=== PATIENT | male | born 1960 | race African-American/Black ===

== ENCOUNTER 2017-06-24 10:01 | Emergency (ER) | payer MEDICARE, OTHER ==
[~2017-06-24] VITALS: Ht 172.7 cm; Wt 75.0 kg
[2017-06-24 10:04] VITALS: BP 163/107; PULSE 76; RESP 15; TEMP 98.2; O2SAT 98
--- NOTE | 2017-06-24 11:07 | PD ---
HPI . nifidipine refill Chief Complaint: Medication Refill Request Time Seen by Provider: 11:06 Travel History International Travel<30 days: No Contact w/Intl Traveler<30days: No Traveled to known affect area: No History of Present Illness HPI 56-year-old male here with request for nifedipine refill. He has no specific complaints today. He just needs a refill. PFSH Past Medical History Medical History: Denies Significant Hx Hypertension: Yes Social History Tobacco Use: No Review of Systems General / Constitutional: No: Fever Eyes: No: Visual changes HENT: No: Headaches Cardiovascular: No: Chest Pain or Discomfort Respiratory: No: Shortness of Breath Gastrointestinal: No: Abdominal Pain Genitourinary: No: Dysuria Musculoskeletal: No: Pain Skin: No Rash Neurologic: No: Weakness Psychiatric: No: Depression Endocrine: No: Polydipsia Hematologic/Lymphatic: No: Easy Bruising Physical Exam Narrative GENERAL: AAO x 3, no acute distress, Well-nourished, well-developed patient. SKIN: Warm and dry. No visible rashes or bruising. HEAD: Normocephalic and atraumatic. EYES: No scleral icterus. No injection or drainage. ENT: No nasal drainage noted. Mucous membranes pink. Airway patent. NECK: Supple, trachea midline. No JVD. CARDIOVASCULAR: Regular rate and rhythm without murmurs, gallops, or rubs. RESPIRATORY: Breath sounds equal bilaterally. No accessory muscle use. No rhonchi or rales. GASTROINTESTINAL: Visual inspection normal EXTREMITIES: No cyanosis or edema. BACK: No obvious deformity. NEURO: CN II-12 intact, PSYCH: AAO x 3, normal affect. Data Data Last Documented VS Vital Signs Date Time Temp Pulse Resp B/P (MAP) Pulse Ox O2 Delivery O2 Flow Rate FiO2 06/24/17 10:04 98.2 76 15 163/107 (125) 98 MDM Medical Decision Making Medical Screen Exam Complete: Yes Emergency Medical Condition: Yes Medical Record Reviewed: Yes Differential Diagnosis Medication refill, hypertension Narrative Course 56-year-old male here for medication refill. I provided him with one month supply and told him that he needs to follow-up with his primary care provider. Patient verbalized understanding of instructions, questions were answered, and thanked me for their care. I advised them if their condition worsens, please return to the nearest emergency room for further care. Diagnosis Primary Impression: Medication refill Patient Instructions: General Instructions Additional Instructions: Follow-up with your primary care provider for further refills. Med/Other Pt SpecificInfo: Prescription(s) given Scripts Nifedipine ER 24 HR (Nifedipine ER 24 HR) 60 Mg Tab 60 MG PO DAILY, #30 TAB 0 Refills Prov: Rosalina Marques MD 06/24/17 Disposition: 01 DISCHARGE HOME Condition: Stable Mikki Jackson Jun 24, 2017 11:07
[2017-06-24] MEDS ORDERED: NIFE60TA58 PO (11:09)
== END 2017-06-24 11:44 | disposition home or self-care (01) ==
LOC: NEPK 10:01
DX: Z76.0 Encounter for issue of repeat prescription (principal); I10 Essential (primary) hypertension
CPT/HCPCS: 99281

== ENCOUNTER 2017-09-22 11:30 | Emergency (ER) | payer MEDICARE ==
[~2017-09-22] VITALS: Ht 172.7 cm; Wt 72.7 kg
[~2017-09-22 11:30] MED LIST: NIFE60TA58 PO
[2017-09-22 11:31] VITALS: BP 234/145; PULSE 99; RESP 20; TEMP 98.4; O2SAT 98
[2017-09-22] MEDS ORDERED: SODIUM CHLOR 0.9% 1000 ML INJ 1,000 ML IV SCH (11:46)
--- NOTE | 2017-09-22 11:47 | PD ---
HPI Chief Complaint: Complaint Time Seen by Provider: 11:38 Travel History International Travel<30 days: No Contact w/Intl Traveler<30days: No Traveled to known affect area: No History of Present Illness HPI 57-year-old male presents to emergency department complaining of right-sided back pain and dysuria 2 days. History of kidney stones. Denies hematuria. Denies fevers, abdominal pain. Reports vomiting one time yesterday. Denies penile discharge, pain. Denies testicular pain or swelling. Denies chest pain , shortness of breath, headache. Rates pain 8/10 and describes a stabbing. Worse with movement. No known relieving factors. Has tried taking Tylenol. History of hypertension and HIV. Has not taken his blood pressure medications this morning. No known allergies. HIV specialist and primary care provider are in [place]. Has no other medical complaints. No modifying factors or associated signs and symptoms. PFSH Past Medical History Hypertension: Yes Immune Disorder: Yes (HIV) Social History Alcohol Use: No Tobacco Use: Yes Substance Use: No Allergies-Medications (Allergen,Severity, Reaction): Coded Allergies: No Known Allergies (Unverified Adverse Reaction, Unknown, 09/22/17) Reported Meds & Prescriptions Reported Meds & Active Scripts Active Keflex (Cephalexin) 500 Mg Cap 500 Mg PO Q12H 7 Days Nifedipine ER 24 HR (Nifedipine) 60 Mg Tab 60 Mg PO DAILY Review of Systems Except as stated in HPI: all other systems reviewed are Neg Physical Exam Narrative GENERAL: Well-nourished, well-developed black male patient, in no acute distress SKIN: Warm and dry. No rash. HEAD: Atraumatic. Normocephalic. EYES: Pupils equal and round. No scleral icterus. No injection or drainage. ENT: Mucosa pink and moist. NECK: Trachea midline. CARDIOVASCULAR: Regular rate and rhythm. No murmur appreciated. RESPIRATORY: No accessory muscle use. Clear to auscultation. Breath sounds equal bilaterally. GASTROINTESTINAL: Abdomen soft, non-tender, nondistended. Hepatic and splenic margins not palpable. Bowel sounds are active 4 quadrants. Bladder nontender and nondistended. MUSCULOSKELETAL: No obvious deformities. No clubbing. No cyanosis. No edema. BACK: Right CVA tenderness NEUROLOGICAL: Awake and alert. Oriented 3. No obvious cranial nerve deficits. Motor grossly within normal limits. Normal speech. Moves all extremities. 5/5 strength to all extremities. PSYCHIATRIC: Appropriate mood and affect; insight and judgment normal. Data Data Last Documented VS Vital Signs Date Time Temp Pulse Resp B/P (MAP) Pulse Ox O2 Delivery O2 Flow Rate FiO2 09/22/17 14:07 81 19 160/113 (129) 99 09/22/17 12:00 Room Air 09/22/17 11:31 98.4 Orders Orders Complete Blood Count With Diff (09/22/17 11:46) Comprehensive Metabolic Panel (09/22/17 11:46) Lipase (09/22/17 11:46) Prothrombin Time / Inr (Pt) (09/22/17 11:46) Act Partial Throm Time (Ptt) (09/22/17 11:46) Urinalysis - C+S If Indicated (09/22/17 11:46) Iv Access Insert/Monitor (09/22/17 11:46) Ecg Monitoring (09/22/17 11:46) Oximetry (09/22/17 11:46) Sodium Chlor 0.9% 1000 Ml Inj (Ns 1000 M (09/22/17 11:46) Sodium Chloride 0.9% Flush (Ns Flush) (09/22/17 12:00) Ketorolac Inj (Toradol Inj) (09/22/17 12:00) Ct Abd/Pel W/O Iv Contrast (09/22/17 11:47) Nifedipine Sr (Procardia Xl) (09/22/17 12:45) Morphine Inj (Morphine Inj) (09/22/17 12:45) Potassium Chloride (Kcl) (09/22/17 13:15) Potassium Chlor 20 Meq Premix (Kcl 20 Me (09/22/17 13:15) Urine Culture (09/22/17 14:20) Cephalexin (Keflex) (09/22/17 15:15) Potassium Chloride (Kcl) (09/22/17 15:15) Labs Laboratory Tests Test 09/22/17 12:05 09/22/17 14:20 White Blood Count 12.1 TH/MM3 Red Blood Count 5.26 MIL/MM3 Hemoglobin 14.4 GM/DL Hematocrit 43.1 % Mean Corpuscular Volume 82.0 FL Mean Corpuscular Hemoglobin 27.4 PG Mean Corpuscular Hemoglobin Concent 33.4 % Red Cell Distribution Width 16.6 % Platelet Count 127 TH/MM3 Mean Platelet Volume 8.8 FL Neutrophils (%) (Auto) 70.5 % Lymphocytes (%) (Auto) 14.9 % Monocytes (%) (Auto) 13.8 % Eosinophils (%) (Auto) 0.3 % Basophils (%) (Auto) 0.5 % Neutrophils # (Auto) 8.5 TH/MM3 Lymphocytes # (Auto) 1.8 TH/MM3 Monocytes # (Auto) 1.7 TH/MM3 Eosinophils # (Auto) 0.0 TH/MM3 Basophils # (Auto) 0.1 TH/MM3 CBC Comment DIFF FINAL Differential Comment Prothrombin Time 12.1 SEC Prothromb Time International Ratio 1.1 RATIO Activated Partial Thromboplast Time 26.4 SEC Blood Urea Nitrogen 17 MG/DL Creatinine 2.08 MG/DL Random Glucose 105 MG/DL Total Protein 8.2 GM/DL Albumin 3.0 GM/DL Calcium Level 8.5 MG/DL Alkaline Phosphatase 93 U/L Aspartate Amino Transf (AST/SGOT) 42 U/L Alanine Aminotransferase (ALT/SGPT) 39 U/L Total Bilirubin 1.3 MG/DL Sodium Level 132 MEQ/L Potassium Level 2.6 MEQ/L Chloride Level 98 MEQ/L Carbon Dioxide Level 27.3 MEQ/L Anion Gap 7 MEQ/L Estimat Glomerular Filtration Rate 40 ML/MIN Lipase 335 U/L Urine Color YELLOW Urine Turbidity HAZY Urine pH 6.0 Urine Specific [place] 1.009 Urine Protein 100 mg/dL Urine Glucose (UA) NEG mg/dL Urine Ketones NEG mg/dL Urine Occult Blood LARGE Urine Nitrite NEG Urine Bilirubin NEG Urine Urobilinogen LESS THAN 2.0 MG/DL Urine Leukocyte Esterase LARGE Urine RBC 158 /hpf Urine WBC /hpf Urine Squamous Epithelial Cells <1 /hpf Urine Transitional Epithelial Cells 1 /hpf Urine Amorphous Sediment RARE Urine Bacteria RARE /hpf Urine Mucus FEW /lpf Microscopic Urinalysis Comment CULTURE INDICATED MDM Medical Decision Making Medical Screen Exam Complete: Yes Emergency Medical Condition: Yes Medical Record Reviewed: Yes Differential Diagnosis Cholelithiasis, pyelonephritis, UTI Narrative Course 57-year-old male with history of kidney stones with right-sided CVA tenderness on exam. Patient's blood pressure is elevated to 234/145 in the ER. He has not taken his blood pressure medications this morning. Will monitor blood pressure. IV site established. CBC, CMP, lipase, urinalysis, normal saline bolus, Toradol, CT abdomen/pelvis ordered. 1301: Potassium 2.6. KCL 30meq PO and 20meq ordered. 1354: CT abdomen/pelvis concludes: CT findings discussed with the patient. Abdomen/Pelvis CT 09/22/17 1147 Signed Impressions: Service Date/Time: Friday, September 22, 2017 13:00 - CONCLUSION: Question wall thickening in the left wall and anterior aspect of the bladder. No evidence of renal stone or obstruction. Calcified gallstones Alonzo Cabral MD 1511: Urinalysis with signs of infections. Reflexed to urine culture. First dose of Keflex administered in the ER. 1515: Patient refusing continued IV KCl secondary to burning. Dr. Lopez recommended another 30meq of oral potassium. Keflex prescribed for home. Instructed patient to follow up with primary care provider. Instructed patient to follow up with primary care provider. Patient verbalizes understanding and agreement with treatment plan. Patient is medically cleared and stable for discharge. Discussed reasons to return to the emergency department. Patient agrees with treatment plan. The patients vital signs are stable and the patient is stable for outpatient follow-up and treatment. Patient discharged home, stable and in no acute distress. Diagnosis Primary Impression: UTI (urinary tract infection) Qualified Codes: N39.0 - Urinary tract infection, site not specified; R31.9 - Hematuria, unspecified Additional Impression: Hypokalemia Referrals: Primary Care Physician Patient Instructions: General Instructions, Hypokalemia (ED), Urinary Tract Infection in Men (ED) Additional Instructions: Take antibiotics as prescribed and complete full course Ibuprofen or Tylenol as directed and as needed for pain Drink plenty of fluids Maintain good personal hygiene Follow-up with primary care provider in regards to low potassium level and potassium recheck Return to the emergency department immediately with worsening of symptoms Med/Other Pt SpecificInfo: Prescription(s) given Scripts Cephalexin (Keflex) 500 Mg Cap 500 MG PO Q12H for Infection for 7 Days, #14 CAP 0 Refills Prov: Stacie Keyes 09/22/17 Disposition: DISCHARGE HOME Condition: Stable Stacie Keyes Sep 22, 2017 11:47
[2017-09-22 12:00] VITALS: BP 200/138; PULSE 93; RESP 18; O2SAT 97
[2017-09-22] MEDS ORDERED: SODIUM CHLORIDE 0.9% FLUSH 10 ML FLUSH IV FLUSH PRN (12:00)
[2017-09-22] MEDS ORDERED: KETOROLAC TROMETHAMINE 30 MG/ML (IVP) VIAL IVP ONE (12:00)
[2017-09-22 12:23] LABS: AUTOMATED NEUTROPHIL # 8.5 TH/MM3 (1.8-7.7); BASOPHIL # 0.1 TH/MM3 (0-0.2); BASOPHIL % 0.5 % (0.0-2.0); EOSINOPHIL % 0.3 % (0.0-4.0); HEMATOCRIT 43.1 % (39.0-51.0); HEMO FLAGS DIFF FINAL; LYMPH % 14.9 % (9.0-44.0); LYMPHOCYTE # 1.8 TH/MM3 (1.0-4.8); MEAN CORPUSCULAR HEMOGLOBIN 27.4 PG (27.0-34.0); MEAN CORPUSCULAR HGB CONC 33.4 % (32.0-36.0); MONO % 13.8 % (0.0-8.0); NEUT % 70.5 % (16.0-70.0); PLATELET COUNT 127 TH/MM3 (150-450); RED BLOOD COUNT 5.26 MIL/MM3 (4.50-5.90); RED CELL DISTRIBUTION WIDTH 16.6 % (11.6-17.2); WHITE BLOOD COUNT 12.1 TH/MM3 (4.0-11.0)
[2017-09-22 12:31] LABS: APTT (PATIENT) 26.4 SEC (24.3-30.1); INTERNATIONAL NORMALIZED RATIO 1.1 RATIO; PROTHROMBIN TIME - PATIENT 12.1 SEC (9.8-11.6)
[2017-09-22] MEDS ORDERED: NIFEdipine 60 MG SUSTAINED RELEASE TAB PO ONE (12:45)
[2017-09-22] MEDS ORDERED: MORPHINE SULFATE 2 MG/ML INJ IV PUSH ONE (12:45)
[2017-09-22 12:53] LABS: ALKALINE PHOSPHATASE 93 U/L (45-117); ALT (GPT) 39 U/L (12-78); ANION GAP 7 MEQ/L (5-15); AST (GOT) 42 U/L (15-37); BICARBONATE 27.3 MEQ/L (21.0-32.0); BLOOD UREA NITROGEN 17 MG/DL (7-18); CHLORIDE 98 MEQ/L (98-107); GLOMERULAR FILTRATION RATE 40 ML/MIN (>89); SODIUM (NA) 132 MEQ/L (136-145); TOTAL BILIRUBIN ADULT 1.3 MG/DL (0.2-1.0)
[2017-09-22 12:56] LABS: POTASSIUM 2.6 MEQ/L (3.5-5.1)
[2017-09-22] MEDS ORDERED: POTASSIUM CHLOR 20 MEQ PREMIX 100 ML IV ONE (13:15)
[2017-09-22] MEDS ORDERED: POTASSIUM CHLORIDE 10 MEQ CONTROLLED RELEASE TAB PO ONE ×2 (13:15→15:15)
--- NOTE | 2017-09-22 13:43 | RADRPT ---
EXAM DATE/TIME: 09/22/2017 13:00 [facility] COMPARISON: No previous studies available for comparison. INDICATIONS : Right flank pain. ORAL CONTRAST: No oral contrast ingested. RADIATION DOSE: 13.42 CTDIvol (mGy) MEDICAL HISTORY : Renal calculi. HIV. Hypertension. SURGICAL HISTORY : None. ENCOUNTER: Initial ACUITY: 1 day PAIN SCALE: 7/10 LOCATION: Right flank TECHNIQUE: Volumetric scanning of the abdomen and pelvis was performed. Using automated exposure control and ad justment of the mA and/or kV according to patient size, radiation dose was kept as low as reasonably achievable to obtain optimal diagnostic quality images. DICOM format image data is available electro nically for review and comparison. FINDINGS: LOWER LUNGS: The visualized lower lungs are clear. LIVER: Homogeneous density without lesion. There is no dilation of the biliary tree. Numerous calcified ga llstones. SPLEEN: Normal size without lesion. PANCREAS: Within normal limits. KIDNEYS: Normal in size and shape. There is no mass, stone, or hydronephrosis. ADRENAL GLANDS: Within normal limits. VASCULAR: There is no aortic aneurysm. BOWEL/MESENTERY: The stomach, small bowel, and colon demonstrate no acute abnormality. There is no free intraperitone al air or fluid. ABDOMINAL WALL: Within normal limits. RETROPERITONEUM: There is no lymphadenopathy. BLADDER: Question wall thickening left side of the bladder. REPRODUCTIVE: Within normal limits. INGUINAL: There is no lymphadenopathy or hernia. MUSCULOSKELETAL: Within normal limits for patient age. CONCLUSION: Question wall thickening in the left wall and anterior aspect of the bladder. No evidence of renal st one or obstruction. Calcified gallstones Alonzo Cabral MD on September 22, 2017 at 13:39 Board Certified Radiologist. This report was verified electronically.
[2017-09-22 14:07] VITALS: BP 160/113; PULSE 81; RESP 19; O2SAT 99
[2017-09-22 14:44] LABS: BACTERIA, URINE RARE /hpf; BLOOD, URINE LARGE (NEG); COMMENT (UR) CULTURE INDICATED; CULTURE IF INDICATED CULTURE INDICATED; GLUCOSE,URINE NEG (NEG); KETONE, URINE NEG (NEG); MUCUS URINE FEW /lpf (OCC); NITRITE,URINE NEG (NEG); SQUAMOUS EPITHELIAL CELL URINE <1 /hpf (0-5); TRANSITIONAL EPI CELLS, URINE 1 /hpf; URINE COLOR YELLOW (YELLW/STRAW)
[2017-09-22] MEDS ORDERED: CEPH-460 PO (15:12)
[2017-09-22] MEDS ORDERED: CEPHALEXIN MONOHYDRATE 500 MG CAP PO ONE (15:15)
== END 2017-09-22 16:00 | disposition home or self-care (01) ==
LOC: NEPD 11:30
DX: N39.0 Urinary tract infection, site not specified (principal); B96.89 Other specified bacterial agents as the cause of diseases classified elsewhere; R31.9 Hematuria, unspecified; E87.6 Hypokalemia; I10 Essential (primary) hypertension; B20 Human immunodeficiency virus [HIV] disease; Z72.0 Tobacco use; Z87.442 Personal history of urinary calculi
CPT/HCPCS: 74176; 80053; 81001; 83690; 85025; 85610; 85730; 87086; 96361; 96374; 96375; 99285; J1885; J2270; J3480; J7030

== ENCOUNTER 2017-10-03 20:35 | Emergency (ER) | payer MEDICARE, OTHER ==
[~2017-10-03] VITALS: Ht 172.7 cm; Wt 75.0 kg
[~2017-10-03 20:35] MED LIST changes: +CEPH-460 PO
[2017-10-03 21:03] VITALS: BP 165/71; PULSE 86; RESP 14; TEMP 98.2; O2SAT 99
[2017-10-03] MEDS ORDERED: ORPHENADRINE INJ 60 MG/2 ML AMP IM ONE (21:15)
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
[2017-10-03 22:04] LABS: AUTOMATED NEUTROPHIL # 6.1 TH/MM3 (1.8-7.7); BASOPHIL # 0.1 TH/MM3 (0-0.2); BASOPHIL % 0.7 % (0.0-2.0); EOSINOPHIL # 0.2 TH/MM3 (0-0.4); EOSINOPHIL % 1.7 % (0.0-4.0); HEMATOCRIT 35.9 % (39.0-51.0); HEMO FLAGS DIFF FINAL; LYMPH % 21.1 % (9.0-44.0); MEAN CELL VOLUME 80.9 FL (80.0-100.0); MEAN CORPUSCULAR HEMOGLOBIN 27.6 PG (27.0-34.0); MEAN CORPUSCULAR HGB CONC 34.1 % (32.0-36.0); MONO % 11.7 % (0.0-8.0); NEUT % 64.8 % (16.0-70.0); PLATELET COUNT 245 TH/MM3 (150-450); RED BLOOD COUNT 4.44 MIL/MM3 (4.50-5.90); RED CELL DISTRIBUTION WIDTH 16.6 % (11.6-17.2); WHITE BLOOD COUNT 9.4 TH/MM3 (4.0-11.0)
[2017-10-03] MEDS ORDERED: ACETAMINOPHEN 1000 MG/100 ML 100 ML IV ONE (22:15)
[2017-10-03 22:26] LABS: POTASSIUM 2.6 MEQ/L (3.5-5.1)
[2017-10-03] MEDS ORDERED: POTASSIUM CHLOR 20 MEQ PREMIX 100 ML IV ONE (22:30)
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
[2017-10-03] MEDS ORDERED: POTA1TAB4 PO (22:58)
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
[2017-10-04] MEDS ORDERED: POTASSIUM CHLORIDE 25 MEQ EFFERVESCENT TAB PO ONE (00:45)
[2017-10-04 03:25] VITALS: BP 180/91
== END 2017-10-04 03:40 | disposition home or self-care (01) ==
LOC: NEPE 20:35
DX: S62.112A Displaced fracture of triquetrum [cuneiform] bone, left wrist, initial encounter for closed fracture (principal); M19.072 Primary osteoarthritis, left ankle and foot; K80.20 Calculus of gallbladder without cholecystitis without obstruction; K40.90 Unilateral inguinal hernia, without obstruction or gangrene, not specified as recurrent; M54.5 Low back pain; I10 Essential (primary) hypertension; V13.4XXA Pedal cycle driver injured in collision with car, pick-up truck or van in traffic accident, initial encounter; Z21 Asymptomatic human immunodeficiency virus [HIV] infection status; Z72.0 Tobacco use
CPT/HCPCS: 29125; 72100; 73100; 73610; 74176; 80048; 85025; 96365; 96366; 96375; 99285; J0131; J2360; J3480

== ENCOUNTER 2017-10-28 02:53 | Inpatient (IN) | payer MEDICARE, MEDICAID ==
[~2017-10-28] VITALS: Ht 175.3 cm; Wt 76.0 kg
[2017-10-28] VITALS (25 sets, daily range): BP systolic 145–203; BP diastolic 96–137; PULSE 83–101; RESP 18–30; TEMP 97.8–98.3; O2SAT 96–100
[~2017-10-28 02:53] MED LIST changes: -CEPH-460 PO; +POTA1TAB4 PO
[2017-10-28] MEDS ORDERED: AMLO5 PO (02:58)
[2017-10-28] MEDS ORDERED: SODIUM CHLORIDE 0.9% FLUSH 10 ML FLUSH IVF PRN (03:00)
[2017-10-28] MEDS ORDERED: NITROGLYCERIN 2% OINT 1 GM PACKET TOPICAL ONE (03:00)
[2017-10-28] MEDS ORDERED: NITROGLYCERIN 0.4 MG SL 25 TABS/BTL SL ONE (03:00)
[2017-10-28] MEDS ORDERED: FUROSEMIDE 40 MG/4 ML VIAL IVP ONE (03:00)
[2017-10-28 03:27] LABS: AUTOMATED NEUTROPHIL # 4.5 TH/MM3 (1.8-7.7); BASOPHIL # 0.1 TH/MM3 (0-0.2); EOSINOPHIL # 0.2 TH/MM3 (0-0.4); EOSINOPHIL % 2.4 % (0.0-4.0); HEMATOCRIT 37.7 % (39.0-51.0); HEMOGLOBIN 12.5 GM/DL (13.0-17.0); LYMPH % 35.4 % (9.0-44.0); LYMPHOCYTE # 3.1 TH/MM3 (1.0-4.8); MEAN CELL VOLUME 81.1 FL (80.0-100.0); MEAN CORPUSCULAR HEMOGLOBIN 26.9 PG (27.0-34.0); MEAN CORPUSCULAR HGB CONC 33.2 % (32.0-36.0); MEAN PLATELET VOLUME 8.8 FL (7.0-11.0); MONO % 9.7 % (0.0-8.0); MONOCYTE # 0.9 TH/MM3 (0-0.9); NEUT % 51.5 % (16.0-70.0); PLATELET COUNT 204 TH/MM3 (150-450); RED BLOOD COUNT 4.65 MIL/MM3 (4.50-5.90); RED CELL DISTRIBUTION WIDTH 17.5 % (11.6-17.2); WHITE BLOOD COUNT 8.7 TH/MM3 (4.0-11.0)
--- NOTE | 2017-10-28 03:29 | PD ---
HPI Chief Complaint: Respiratory Symptoms Time Seen by Provider: 02:57 Travel History International Travel<30 days: No Contact w/Intl Traveler<30days: No Traveled to known affect area: No History of Present Illness HPI 57-year-old man, only medical history is hypertension, presents with shortness of breath. States she's felt completely fine until this evening went to bed. He woke up in the middle the night with severe shortness of breath. He's not had similar symptoms in the past. He describes a little bit worsening exercise tolerance and slight dyspnea on exertion over the past week or 2, but no significant shortness of breath. No chest pain. No headaches. He otherwise had been feeling generally well and healthy. He has not been sick recently. Patient was brought in by EMS. He is given breathing treatments and steroids in route. History Past Medical History Narrative Medical Hypertension Tetanus Vaccination: Never Vaccinated Influenza Vaccination: No Social History Alcohol Use: No Tobacco Use: Yes Allergies-Medications (Allergen,Severity, Reaction): Coded Allergies: No Known Allergies (Verified Adverse Reaction, Unknown, 10/28/17) Reported Meds & Prescriptions Reported Meds & Active Scripts Active Reported Norvasc (Amlodipine Besylate) 5 Mg Tab 5 Mg PO DAILY Review of Systems Except as stated in HPI: all other systems reviewed are Neg Physical Exam Narrative GENERAL: 57 year-old man, moderate respiratory distress. SKIN: Focused skin assessment warm/dry. HEAD: Atraumatic. Normocephalic. EYES: Pupils equal and round. No scleral icterus. No injection or drainage. ENT: No nasal bleeding or discharge. Mucous membranes pink and moist. NECK: Trachea midline. No JVD. CARDIOVASCULAR: Regular rate and rhythm. No murmur appreciated. RESPIRATORY: Moderate respiratory distress. Speaking in short sentences. Coarse breath sounds, diminished on the right, Rales throughout the posterior lung lema. GASTROINTESTINAL: Abdomen soft, non-tender, nondistended. Hepatic and splenic margins not palpable. MUSCULOSKELETAL: No obvious deformities. No significant edema. NEUROLOGICAL: Awake and alert. No obvious cranial nerve deficits. Motor grossly within normal limits. Normal speech. PSYCHIATRIC: Appropriate mood and affect; insight and judgment normal. Data Data Last Documented VS Vital Signs Date Time Temp Pulse Resp B/P (MAP) Pulse Ox O2 Delivery O2 Flow Rate FiO2 10/28/17 03:57 87 185/122 10/28/17 03:18 24 98 Nasal Cannula 2.00 Orders Orders Complete Blood Count With Diff (10/28/17 02:57) Comprehensive Metabolic Panel (10/28/17 02:57) B-Type Natriuretic Peptide (10/28/17 02:57) Act Partial Throm Time (Ptt) (10/28/17 02:57) Prothrombin Time / Inr (Pt) (10/28/17 02:57) Magnesium (Mg) (10/28/17 02:57) Troponin I (10/28/17 02:57) Urinalysis - C+S If Indicated (10/28/17 02:57) Influenzae A/B Antigen (10/28/17 02:57) Iv Access Insert/Monitor (10/28/17 02:57) Electrocardiogram (10/28/17 02:57) Ecg Monitoring (10/28/17 02:57) Oximetry (10/28/17 02:57) Oxygen Administration (10/28/17 02:57) Chest, Single Ap (10/28/17 02:57) Sodium Chloride 0.9% Flush (Ns Flush) (10/28/17 03:00) Furosemide Inj (Lasix Inj) (10/28/17 03:00) Nitroglycerin 2% Oint (Nitroglycerin 2% (10/28/17 03:00) Nitroglycerin Sl (Nitrostat Sl) (10/28/17 03:00) Drug Screen, Random Urine (10/28/17 02:57) Nitroglycerin-D5w 50 Mg/250 Ml (Nitrogly (10/28/17 03:30) Potassium Chlor 20 Meq Premix (Kcl 20 Me (10/28/17 04:00) Labs Laboratory Tests Test 10/28/17 03:00 10/28/17 03:30 White Blood Count 8.7 TH/MM3 Red Blood Count 4.65 MIL/MM3 Hemoglobin 12.5 GM/DL Hematocrit 37.7 % Mean Corpuscular Volume 81.1 FL Mean Corpuscular Hemoglobin 26.9 PG Mean Corpuscular Hemoglobin Concent 33.2 % Red Cell Distribution Width 17.5 % Platelet Count 204 TH/MM3 Mean Platelet Volume 8.8 FL Neutrophils (%) (Auto) 51.5 % Lymphocytes (%) (Auto) 35.4 % Monocytes (%) (Auto) 9.7 % Eosinophils (%) (Auto) 2.4 % Basophils (%) (Auto) 1.0 % Neutrophils # (Auto) 4.5 TH/MM3 Lymphocytes # (Auto) 3.1 TH/MM3 Monocytes # (Auto) 0.9 TH/MM3 Eosinophils # (Auto) 0.2 TH/MM3 Basophils # (Auto) 0.1 TH/MM3 CBC Comment DIFF FINAL Differential Comment Prothrombin Time 11.4 SEC Prothromb Time International Ratio 1.1 RATIO Activated Partial Thromboplast Time 25.2 SEC Blood Urea Nitrogen 20 MG/DL Creatinine 1.95 MG/DL Random Glucose 116 MG/DL Total Protein 8.1 GM/DL Albumin 2.9 GM/DL Calcium Level 8.3 MG/DL Magnesium Level 2.3 MG/DL Alkaline Phosphatase 97 U/L Aspartate Amino Transf (AST/SGOT) 35 U/L Alanine Aminotransferase (ALT/SGPT) 29 U/L Total Bilirubin 0.5 MG/DL Sodium Level 141 MEQ/L Potassium Level 2.8 MEQ/L Chloride Level 104 MEQ/L Carbon Dioxide Level 31.0 MEQ/L Anion Gap 6 MEQ/L Estimat Glomerular Filtration Rate 43 ML/MIN Troponin I 0.11 NG/ML B-Type Natriuretic Peptide 267 PG/ML Urine Color LIGHT-YELLOW Urine Turbidity CLEAR Urine pH 7.0 Urine Specific Butner 1.006 Urine Protein 100 mg/dL Urine Glucose (UA) NEG mg/dL Urine Ketones NEG mg/dL Urine Occult Blood TRACE Urine Nitrite NEG Urine Bilirubin NEG Urine Urobilinogen LESS THAN 2.0 MG/DL Urine Leukocyte Esterase NEG Urine RBC 1 /hpf Urine WBC 5 /hpf Urine Mucus FEW /lpf Microscopic Urinalysis Comment CULT NOT INDICATED Urine Opiates Screen NEG Urine Barbiturates Screen NEG Urine Amphetamines Screen NEG Urine Benzodiazepines Screen NEG Urine Cocaine Screen NEG Urine Cannabinoids Screen NEG MDM Medical Decision Making Medical Screen Exam Complete: Yes Emergency Medical Condition: Yes Interpretation(s) My review of EKG: Sinus rhythm at a rate of 92, occasional PVCs, normal axis, borderline short PA interval probable LVH by voltage criteria. No definite evidence of acute ischemia. UA is remarkable for mild anemia. CMP remarkable for low potassium, mildly elevated BUN/creatinine Troponin 0.11 BNP 267 Coags unremarkable. UA is unremarkable My review of chest x-ray: Probable pulmonary edema. Differential Diagnosis Flash pulmonary edema, heart failure, pneumonia, pneumothorax, viral syndrome, adverse effect of illicit drugs, other Narrative Course Medical decision making INITIAL: 57-year-old man presents emergency department complaining of abrupt onset severe shortness of breath. All medical history is hypertension. No history of lung disease. Blood pressure is markedly elevated he has evidence of pulmonary edema on exam. Suspect diastolic heart failure/pulmonary edema, or possibly illicit drug use. Patient denies any illicit drug use. We'll check labs, x-ray, treated with nitrates, Lasix, reassess. Physician Communication Physician Communication Spoke with Dr. Mercado, will admit patient. Diagnosis Primary Impression: Acute pulmonary edema Admitting Information Admitting Physician Requests: Admit Alonzo Ha MD Oct 28, 2017 03:29
[2017-10-28 03:34] LABS: INTERNATIONAL NORMALIZED RATIO 1.1 RATIO; PROTHROMBIN TIME - PATIENT 11.4 SEC (9.8-11.6)
--- NOTE | 2017-10-28 03:38 | RADRPT ---
EXAM DATE/TIME: 10/28/2017 03:06 [facility] COMPARISON: No previous studies available for comparison. INDICATIONS : Short of breath. MEDICAL HISTORY : Hypertension. HIV. SURGICAL HISTORY : None. ENCOUNTER: Initial ACUITY: 2 days PAIN SCORE: 0/10 LOCATION: Bilateral chest FINDINGS: There is mild haziness to the vascular structures with focal parenchymal infiltrate right lung base m ay represent pulmonary edema versus pneumonia. Heart and mediastinum are unremarkable for technique. CONCLUSION: Parenchymal changes possibly edema versus pneumonia. Alexandria Colmenares MD on October 28, 2017 at 3:36 Board Certified Radiologist. This report was verified electronically.
[2017-10-28] MEDS: NITROGLYCERIN-D5W 50 MG/250 ML 250 ML IV PRN ×5 (03:39→20:19)
[2017-10-28 03:43] LABS: ALBUMIN 2.9 GM/DL (3.4-5.0); ALKALINE PHOSPHATASE 97 U/L (45-117); ALT (GPT) 29 U/L (12-78); AST (GOT) 35 U/L (15-37); BLOOD UREA NITROGEN 20 MG/DL (7-18); CALCIUM 8.3 MG/DL (8.5-10.1); CHLORIDE 104 MEQ/L (98-107); CREATININE 1.95 MG/DL (0.60-1.30); GLOMERULAR FILTRATION RATE 43 ML/MIN (>89); GLUCOSE,RANDOM 116 MG/DL (74-106); MAGNESIUM 2.3 MG/DL (1.5-2.5); SODIUM (NA) 141 MEQ/L (136-145); TOTAL BILIRUBIN ADULT 0.5 MG/DL (0.2-1.0); TOTAL PROTEIN 8.1 GM/DL (6.4-8.2); TROPONIN I 0.11 NG/ML (0.02-0.05)
[2017-10-28 03:48] LABS: BILIRUBIN, URINE NEG (NEG); BLOOD, URINE TRACE (NEG); GLUCOSE,URINE NEG (NEG); KETONE, URINE NEG (NEG); MUCUS URINE FEW /lpf (OCC); NITRITE,URINE NEG (NEG); URINE COLOR LIGHT-YELLOW (YELLW/STRAW); URINE LEUKOCYTE ESTERASE NEG (NEG)
[2017-10-28] MEDS ORDERED: POTASSIUM CHLORIDE 25 MEQ EFFERVESCENT TAB PO ONE (04:15)
[2017-10-28] MEDS ORDERED: SODIUM CHLORIDE 0.9% FLUSH 10 ML FLUSH IV FLUSH PRN (04:15)
[2017-10-28] MEDS ORDERED: POTASSIUM CHLOR 10 MEQ PREMIX 100 ML IV SCH (04:30)
[2017-10-28] MEDS: POTASSIUM CHLOR 20 MEQ PREMIX 100 ML IV SCH ×2 (04:32→06:00)
--- NOTE | 2017-10-28 04:50 | HHI.HP ---
[facility] Primary [facility] Physician No Primary Care Physician Admission Diagnosis acute pulmonary edema Diagnoses: Travel History International Travel<30 Days: No Contact w/Intl Traveler <30 Da: No Traveled to Known Affected Are: No History of Present Illness 57-year-old male with past medical history significant for hypertension since to the emergency department with a 2 day history of increasing shortness of breath. He states he woke up in the middle the night this evening with severe shortness of breath. He was tachycardic and tachypneic on arrival to the ED with a pulse of 101 and a respiratory rate of 30. Blood pressure 203/137. Satting 96% on 2 L nasal cannula. Chest x-ray significant for interstitial edema. Patient has no known history of COPD although he is a daily smoker. He denies any diagnosis of congestive heart failure however does not see a doctor. He obtains his antihypertensive medication from the emergency department although he cannot remember what it is. He denies fever/chills. Endorses a dry cough. Denies lower extremity edema. Laboratory values significant for hypokalemia, elevated troponin to 0.11, BNP of 267 and a creatinine of 1.95 which is baseline. Review of Systems Denies fever or chills Denies blurry vision, otorrhea, rhinorrhea Denies sore throat, positive dry cough No chest pain, palpitations, positive shortness of breath No abdominal pain Denies constipation/diarrhea/nausea/vomiting Denies muscle pain/weakness No rashes Past Family Social History Past Medical History Hypertension Past Surgical History Right arm surgery status post trauma Reported Medications Reported Meds & Active Scripts Active Reported Norvasc (Amlodipine Besylate) 5 Mg Tab 5 Mg PO DAILY Allergies: Coded Allergies: No Known Allergies (Verified Adverse Reaction, Unknown, 10/28/17) Family History Denies family history of CAD/DM Social History Smokes approximately one third pack of cigarettes daily. Denies alcohol, illicit drugs. Physical Exam Vital Signs Vital Signs Date Time Temp Pulse Resp B/P (MAP) Pulse Ox O2 Delivery O2 Flow Rate FiO2 10/28/17 04:35 88 18 163/114 (130) 96 Nasal Cannula 2.00 10/28/17 04:26 96 20 175/119 (137) 98 Nasal Cannula 2.00 10/28/17 03:57 87 185/122 10/28/17 03:49 86 178/113 10/28/17 03:39 89 189/118 10/28/17 03:18 90 24 189/121 (143) 98 Nasal Cannula 2.00 10/28/17 03:16 98 Nasal Cannula 2.00 10/28/17 03:16 98 Nasal Cannula 2.00 10/28/17 02:56 101 30 203/137 (159) 96 Nasal Cannula 2.00 Physical Exam GENERAL: Saniya male lying in bed SKIN: No rashes, ecchymoses or lesions. Cool and dry. HEAD: Atraumatic. Normocephalic. No temporal or scalp tenderness. EYES: Pupils equal round and reactive. Extraocular motions intact. No scleral icterus. No injection or drainage. ENT: Nose without bleeding, purulent drainage or septal hematoma. Throat without erythema, tonsillar hypertrophy or exudate. Uvula midline. Airway patent. NECK: Trachea midline. No JVD or lymphadenopathy. Supple, nontender, no meningeal signs. CARDIOVASCULAR: Regular rate and rhythm without murmurs, gallops, or rubs. RESPIRATORY: Bilateral crackles at the bases. No wheezes, rales, or rhonchi. GASTROINTESTINAL: Abdomen soft, non-tender, nondistended. No hepato-splenomegaly , or palpable masses. No guarding. MUSCULOSKELETAL: Extremities without clubbing, cyanosis, or edema. No joint tenderness, effusion, or edema noted. No calf tenderness. NEUROLOGICAL: Awake and alert. Cranial nerves II through XII intact. Motor and sensory grossly within normal limits. Normal speech. Laboratory Laboratory Tests Test 10/28/17 03:00 10/28/17 03:30 White Blood Count 8.7 Red Blood Count 4.65 Hemoglobin 12.5 Hematocrit 37.7 Mean Corpuscular Volume 81.1 Mean Corpuscular Hemoglobin 26.9 Mean Corpuscular Hemoglobin Concent 33.2 Red Cell Distribution Width 17.5 Platelet Count 204 Mean Platelet Volume 8.8 Neutrophils (%) (Auto) 51.5 Lymphocytes (%) (Auto) 35.4 Monocytes (%) (Auto) 9.7 Eosinophils (%) (Auto) 2.4 Basophils (%) (Auto) 1.0 Neutrophils # (Auto) 4.5 Lymphocytes # (Auto) 3.1 Monocytes # (Auto) 0.9 Eosinophils # (Auto) 0.2 Basophils # (Auto) 0.1 CBC Comment DIFF FINAL Differential Comment Prothrombin Time 11.4 Prothromb Time International Ratio 1.1 Activated Partial Thromboplast Time 25.2 Blood Urea Nitrogen 20 Creatinine 1.95 Random Glucose 116 Total Protein 8.1 Albumin 2.9 Calcium Level 8.3 Magnesium Level 2.3 Alkaline Phosphatase 97 Aspartate Amino Transf (AST/SGOT) 35 Alanine Aminotransferase (ALT/SGPT) 29 Total Bilirubin 0.5 Sodium Level 141 Potassium Level 2.8 Chloride Level 104 Carbon Dioxide Level 31.0 Anion Gap 6 Estimat Glomerular Filtration Rate 43 Troponin I 0.11 B-Type Natriuretic Peptide 267 Urine Color LIGHT-YELLOW Urine Turbidity CLEAR Urine pH 7.0 Urine Specific [place] 1.006 Urine Protein 100 Urine Glucose (UA) NEG Urine Ketones NEG Urine Occult Blood TRACE Urine Nitrite NEG Urine Bilirubin NEG Urine Urobilinogen LESS THAN 2.0 Urine Leukocyte Esterase NEG Urine RBC 1 Urine WBC 5 Urine Mucus FEW Microscopic Urinalysis Comment CULT NOT INDICATED Urine Opiates Screen NEG Urine Barbiturates Screen NEG Urine Amphetamines Screen NEG Urine Benzodiazepines Screen NEG Urine Cocaine Screen NEG Urine Cannabinoids Screen NEG Date/Time Source Procedure Growth Status 10/28/17 03:00 Nasal Washing Influenza Types A,B Antigen (DAISY) - Final NEGATIVE FOR FLU A AND B ANTIGEN.... Complete Result Diagram: 10/28/17 0300 10/28/17 0300 Caprini VTE Risk Assessment Caprini VTE Risk Assessment: No/Low Risk (score <= 1) Caprini Risk Assessment Model Point Value = 1 Point Value = 2 Point Value = 3 Point Value = 5 Age 41-60 Minor surgery BMI > 25 kg/m2 Swollen legs Varicose veins or History of unexplained or recurrent spontaneous Oral contraceptives or hormone replacement Sepsis (< 1 month) Serious lung disease, including pneumonia (< 1 month) Abnormal pulmonary function Acute myocardial infarction Congestive heart failure (< 1 month) History of inflammatory bowel disease Medical patient at bed rest Age 61-74 Arthroscopic surgery Major open surgery (> 45 min) Laparoscopic surgery (> 45 min) Malignancy Confined to bed (> 72 hours) Immobilizing plaster cast Central venous access Age >= 75 History of VTE Family history of VTE Factor V Leiden Prothrombin [id number] Lupus anticoagulant Anticardiolipin antibodies Elevated serum homocysteine Heparin-induced thrombocytopenia Other congenital or acquired thrombophilia Stroke (< 1 month) Elective arthroplasty Hip, pelvis, or leg fracture Acute spinal cord injury (< 1 month) Prophylaxis Regimen Total Risk Factor Score Risk Level Prophylaxis Regimen 0-1 Low Early ambulation 2 Moderate Order ONE of the following: *Sequential Compression Device (SCD) *Heparin 5000 units SQ BID 3-4 Higher Order ONE of the following medications: *Heparin 5000 units SQ TID *Enoxaparin/Lovenox 40 mg SQ daily (WT < 150 kg, CrCl > 30 mL/min) *Enoxaparin/Lovenox 30 mg SQ daily (WT < 150 kg, CrCl > 10-29 mL/min) *Enoxaparin/Lovenox 30 mg SQ BID (WT < 150 kg, CrCl > 30 mL/min) AND/OR *Sequential Compression Device (SCD) 5 or more Highest Order ONE of the following medications: *Heparin 5000 units SQ TID (Preferred with Epidurals) *Enoxaparin/Lovenox 40 mg SQ daily (WT < 150 kg, CrCl > 30 mL/min) *Enoxaparin/Lovenox 30 mg SQ daily (WT < 150 kg, CrCl > 10-29 mL/min) *Enoxaparin/Lovenox 30 mg SQ BID (WT < 150 kg, CrCl > 30 mL/min) AND *Sequential Compression Device (SCD) Assessment and Plan Assessment and Plan Assessment/plan: 1. Pulmonary edema Concern for CHF Echo pending BNP mildly elevated at 267 Chest x-ray with interstitial edema, images reviewed by me SUNDEEP Cornejo 2. Elevated troponin Likely secondary to renal insufficiency Denies chest pain ACS rule out pending; serial troponins/EKGs Aspirin EKG showed NSR without ST segment elevations or depressions, reviewed by me 3. CKD Creatinine 1.95, baseline Avoid nephrotoxic agents Monitor renal function 4. Hypertension Continue home amlodipine Clonidine when necessary 5. Hypokalemia IV and by mouth replacement pending Monitor BMP FEN Heart healthy diet Electrolytes: as above SCDs Case management consulted to assist in patient establishing primary care physician as he will need outpatient follow-up and currently only obtains his blood pressure medication from the ED Rand Mercado MD Oct 28, 2017 04:50
[2017-10-28] MEDS: cloNIDine HCL 0.1 MG TAB PO PRN ×3 (06:39→22:16)
[2017-10-28] MEDS: SODIUM CHLOR 0.9% 1000 ML INJ 1,000 ML IV SCH ×2 (06:45→21:36)
[2017-10-28] MEDS ORDERED: ACETAMINOPHEN 325 MG TAB PO ONE (06:45)
[2017-10-28] MEDS: POTASSIUM CHLORIDE 20 MEQ CONTROLLED RELEASE TAB PO SCH ×2 (09:06→20:18)
[2017-10-28] MEDS: ASPIRIN 81 MG CHEW TAB CHEW SCH (09:06)
[2017-10-28] MEDS: SODIUM CHLORIDE 0.9% FLUSH 10 ML FLUSH IV FLUSH SCH ×2 (09:06→20:18)
[2017-10-28] MEDS: FUROSEMIDE 40 MG/4 ML VIAL IVP SCH ×2 (09:06→19:04)
[2017-10-28] MEDS: ENOXAPARIN SODIUM 40 MG/0.4 ML SYRINGE SQ SCH (09:07)
[2017-10-28] MEDS: amLODIPine BESYLATE 5 MG TAB PO SCH (09:07)
[2017-10-28] MEDS ORDERED: ONDANSETRON HCL 4 MG/2 ML VIAL IV PUSH PRN (09:45)
[2017-10-28 10:16] LABS: TROPONIN I 0.07 NG/ML (0.02-0.05)
--- NOTE | 2017-10-28 10:50 | HHI.PR ---
Addendum to Inpatient Note Addendum Reason: Additional Documentation Additional Information Patient seen and examined Consult cardiology Caleb Frederick MD Oct 28, 2017 10:50
[2017-10-28] MEDS ORDERED: POTASSIUM CHLORIDE 10 MEQ CONTROLLED RELEASE TAB PO ONE ×2 (11:00→17:30)
--- NOTE | 2017-10-28 13:21 | MB ---
cc: SAÚL RUIZ DO DATE OF CONSULTATION October 28, 2017 REASON FOR CONSULTATION Acute decompensated heart failure. HISTORY OF PRESENT ILLNESS Mikel Cunningham is a pleasant 57-year-old male who presented to [facility] Emergency Room on October 28, 2017, due to shortness of breath. He states that over the past few days he has been waking up in the middle of the night with severe shortness of breath. He woke up last night severely short of breath and tachycardiac and so he decided he should come into the emergency room. On arrival he was found to have a heart rate of 100 and a respiratory rate of 30. At that time the blood pressure was 203/137. He states that he previously was told around five years ago that his heart was enlarged. Besides the echocardiogram, he said no other testing was done as far as he knew. He denies chest pain, lower extremity edema or palpitations. In seeing him he is currently without chest pain and mildly short of breath. PAST MEDICAL HISTORY 1. Hypertension. 2. Possible cardiomyopathy as the patient was told that he had an enlarged heart. PAST SURGICAL HISTORY Right arm surgery status post trauma. ALLERGIES No known drug allergies. MEDICATIONS Norvasc 5 mg daily. FAMILY HISTORY Denies premature coronary artery disease or sudden cardiac within the family. SOCIAL HISTORY The patient smokes 5-10 cigarettes a day. He denies alcohol or drug abuse. REVIEW OF SYSTEMS 14-systems were reviewed including osteopathic pertinent positives and negatives above, otherwise negative. PHYSICAL EXAMINATION VITAL SIGNS: Temperature 97.8, heart rate 94, blood pressure 158/96, respirations 18, pulse ox 98% on room air. GENERAL: The patient appears in no acute distress, alert, awake and oriented x3. HEENT: Extraocular muscles intact. Mucous membranes moist. NECK: Supple. Minimal JVD noted. Carotid upstroke is brisk in nature. HEART: Regular rate and rhythm. Positive first and second heart sounds with a 1/6 holosystolic murmur noted at the apex. LUNGS: Decreased breath sounds bilateral with minimal rales noted at the bases. ABDOMEN: Soft, nontender, nondistended. No organomegaly noted. EXTREMITIES: Show no clubbing, cyanosis or edema. Femoral and distal pulses intact bilaterally. NEUROLOGICALLY: No focal deficits. SKIN: Warm, dry and intact. OSTEOPATHICALLY: No kyphoscoliosis, lordosis or paraspinal tender points. LABORATORY WORK Hemoglobin 12.5, hematocrit 37.7, platelets 204. Potassium 2.8, BUN 20, creatinine 1.95. Troponin 0.11 decreasing to 0.07. BMP 267. ELECTROCARDIOGRAM (October 28, 2017, at 03:02) Sinus rhythm, rare PAC, left atrial enlargement, LVH with secondary ST-T wave changes. IMPRESSIONS 1. Acute decompensated congestive heart failure. 2. Pulmonary edema. 3. Mildly elevated troponin most likely type 2 in nature. 4. Chronic kidney disease Stage III verses acute kidney injury. 5. Hypertension 6. Questionable history of cardiomyopathy. 7. Tobacco abuse. RECOMMENDATIONS 1. Mr. Cunningham presented with was with what sounds like an decompensated heart failure. At this time we are unsure if this is diastolic in nature as he does have significant LVH on EKG or systolic in nature. 2. If systolic in nature, most likely due to prolonged hypertension or dilated cardiomyopathy. Once further stabilized and able to lay flat, consideration will be made for an ischemic workup, most likely with stress testing. 3. We will wait for his 2-D echo. 4. He has been given potassium. We will recheck later today. Most likely we will need to start him on a diuretic but would prefer to make sure that his potassium is more towards a normal range before starting. 5. If ejection fraction is low, most likely will need to stop his Norvasc and start him on further heart failure medications including LUI inhibitors, beta-blockers and possible potassium sparing diuretics. 6. Further recommendations based on the hospital course. 7. I spoke to him for greater than 3 minutes about tobacco cessation. Thank you for allowing me to see Mikel Cunningham. If there are any questions, please do not hesitate to call. Saúl Ruiz DO VGP/SSB /12:42 PM /12:54 PM
[2017-10-28 14:35] LABS: BICARBONATE 27.2 MEQ/L (21.0-32.0); CALCIUM 8.6 MG/DL (8.5-10.1); CREATININE 2.2 MG/DL (0.60-1.30)
[2017-10-28 14:39] LABS: TROPONIN I 0.06 NG/ML (0.02-0.05)
[2017-10-28] MEDS: ACETAMINOPHEN 325 MG TAB PO PRN ×2 (15:24→22:19)
[2017-10-28] MEDS ORDERED: FUROSEMIDE 40 MG/4 ML VIAL IV PUSH ONE (17:30)
[2017-10-28] MEDS: MAGNESIUM SULFATE 1 GM PREMIX 100 ML IV SCH ×2 (17:50→19:04)
--- NOTE | 2017-10-28 21:45 | EKG ---
Date Performed: 10/28/2017 Time Performed: 10:59:52 PTAGE: 57 years EKG: Sinus rhythm with PAC(s). Possible left atrial abnormality Extensive ST-T changes may be due to myocardial ischem ia Abnormal ECG PREVIOUS TRACING : 10/28/2017 03.02 Compared to prior tracing no significant change DOCTOR: Reynaldo Hernandez Interpretating Date/Time 10/28/2017 21:44:07
[2017-10-28] MEDS ORDERED: ZOLPIDEM TARTRATE 5 MG TAB PO ONE (22:00)
--- NOTE | 2017-10-28 22:32 | EKG ---
Date Performed: 10/28/2017 Time Performed: 03:02:33 PTAGE: 57 years EKG: Sinus rhythm WITH OCCASIONAL SUPRAVENTRICULAR PREMATURE COMPLEXES LEFT ATRIAL ENLARGEMENT LEFT VENTRICULAR HYPERT ROPHY AND ST-T CHANGE ABNORMAL ECG NO PREVIOUS TRACING DOCTOR: Reynaldo Hernandez Interpretating Date/Time 10/28/2017 22:31:35
[2017-10-29] VITALS (28 sets, daily range): BP systolic 124–153; BP diastolic 93–107; PULSE 75–89; RESP 16–20; TEMP 97.9–98.4; O2SAT 95–100
[2017-10-29] MEDS: NITROGLYCERIN-D5W 50 MG/250 ML 250 ML IV PRN (04:43)
[2017-10-29] MEDS: cloNIDine HCL 0.1 MG TAB PO PRN (05:28)
[2017-10-29] MEDS: ACETAMINOPHEN 325 MG TAB PO PRN ×4 (05:28→18:33)
[2017-10-29 06:37] LABS: AUTOMATED NEUTROPHIL # 8.1 TH/MM3 (1.8-7.7); BASOPHIL # 0.1 TH/MM3 (0-0.2); BASOPHIL % 0.6 % (0.0-2.0); EOSINOPHIL # 0.1 TH/MM3 (0-0.4); EOSINOPHIL % 0.5 % (0.0-4.0); HEMATOCRIT 33.6 % (39.0-51.0); HEMOGLOBIN 10.9 GM/DL (13.0-17.0); LYMPH % 14.1 % (9.0-44.0); LYMPHOCYTE # 1.6 TH/MM3 (1.0-4.8); MEAN CELL VOLUME 81.1 FL (80.0-100.0); MEAN CORPUSCULAR HEMOGLOBIN 26.3 PG (27.0-34.0); MEAN CORPUSCULAR HGB CONC 32.4 % (32.0-36.0); MEAN PLATELET VOLUME 9.6 FL (7.0-11.0); MONO % 14.1 % (0.0-8.0); MONOCYTE # 1.6 TH/MM3 (0-0.9); NEUT % 70.7 % (16.0-70.0); PLATELET COUNT 206 TH/MM3 (150-450); RED BLOOD COUNT 4.14 MIL/MM3 (4.50-5.90); RED CELL DISTRIBUTION WIDTH 17.9 % (11.6-17.2); WHITE BLOOD COUNT 11.4 TH/MM3 (4.0-11.0)
[2017-10-29 07:05] LABS: BICARBONATE 27.1 MEQ/L (21.0-32.0); CALCIUM 8.1 MG/DL (8.5-10.1)
[2017-10-29] MEDS ORDERED: POTASSIUM CHLORIDE 10 MEQ CONTROLLED RELEASE TAB PO ONE (08:00)
[2017-10-29] MEDS: amLODIPine BESYLATE 5 MG TAB PO SCH (08:16)
[2017-10-29] MEDS: POTASSIUM CHLORIDE 20 MEQ CONTROLLED RELEASE TAB PO SCH ×2 (08:16→22:10)
[2017-10-29] MEDS: ASPIRIN 81 MG CHEW TAB CHEW SCH (08:18)
[2017-10-29] MEDS: SODIUM CHLORIDE 0.9% FLUSH 10 ML FLUSH IV FLUSH SCH ×2 (08:19→22:10)
[2017-10-29] MEDS: ENOXAPARIN SODIUM 40 MG/0.4 ML SYRINGE SQ SCH (08:23)
[2017-10-29] MEDS: FUROSEMIDE 40 MG/4 ML VIAL IVP SCH ×2 (08:24→18:00)
[2017-10-29] MEDS ORDERED: FUROSEMIDE 40 MG/4 ML VIAL IV PUSH SCH (09:00)
[2017-10-29] MEDS ORDERED: INFLUENZA VIRUS VACCINE (QUADRIVALENT) 0.5 ML SYR IM ONE (09:00)
[2017-10-29] MEDS ORDERED: PNEUMOCOCCAL POLYVALENT INJ 25 MCG/0.5 ML SYR IM ONE (10:00)
--- NOTE | 2017-10-29 11:00 | HHI.PR ---
Subjective Remarks Follow-up acute decompensated heart failure of unknown type 10/29/17-patient seen and examined, complains of headaches. Although patient denies any chest pain during my exam, however reported chest pain to nurse Objective Vitals Vital Signs Date Time Temp Pulse Resp B/P (MAP) Pulse Ox O2 Delivery O2 Flow Rate FiO2 10/29/17 10:01 80 10/29/17 09:00 78 10/29/17 08:01 97.9 82 18 143/96 (112) 97 10/29/17 08:00 80 10/29/17 07:01 79 10/29/17 06:00 76 10/29/17 05:20 18 10/29/17 05:00 82 10/29/17 04:43 82 156/103 10/29/17 04:00 82 10/29/17 04:00 98.2 82 16 141/99 (113) 96 10/29/17 03:00 81 10/29/17 02:00 80 10/29/17 01:00 87 10/29/17 00:00 98.2 83 20 153/107 (122) 95 10/29/17 00:00 83 10/28/17 23:00 83 10/28/17 20:19 84 147/105 10/28/17 20:00 87 10/28/17 19:00 87 10/28/17 19:00 98.2 97 20 147/105 (119) 97 10/28/17 18:01 90 10/28/17 17:30 99 21 10/28/17 17:00 88 10/28/17 16:00 94 10/28/17 15:30 98.3 94 20 160/109 (126) 99 10/28/17 15:00 94 10/28/17 14:00 94 158/96 10/28/17 14:00 90 10/28/17 13:01 92 10/28/17 12:00 92 10/28/17 11:00 88 I/O 10/28/17 10/28/17 10/28/17 10/29/17 10/29/17 10/29/17 07:00 15:00 23:00 07:00 15:00 23:00 Intake Total 240 ml 250 ml 1062 ml 720 ml Output Total 750 ml 450 ml 1800 ml Balance -510 ml 250 ml 612 ml -1080 ml Intake Oral 240 ml 942 ml 720 ml IV Total 250 ml 120 ml Output Urine Total 750 ml 450 ml 1800 ml # Voids 2 # Bowel Movements 0 0 0 Result Diagram: 10/29/1725110/29/17 0524 Imaging Last Impressions Chest X-Ray 10/28/17256 Signed Impressions: Service Date/Time: October 03:06 - CONCLUSION: Parenchymal changes possibly edema versus pneumonia. Alexandria Colmenares MD Objective Remarks GENERAL: NAD SKIN: Warm and dry. HEAD: Normocephalic. EYES: No scleral icterus. No injection or drainage. NECK: Supple, trachea midline. No JVD or lymphadenopathy. CARDIOVASCULAR: Regular rate and rhythm without murmurs, gallops, or rubs. RESPIRATORY: Breath sounds equal bilaterally. No accessory muscle use. GASTROINTESTINAL: Abdomen soft, non-tender, nondistended. MUSCULOSKELETAL: No cyanosis, or edema. BACK: Nontender without obvious deformity. No CVA tenderness. A/P Problem List: (1) Elevated troponin I level ICD Code: R74.8 - Abnormal levels of other serum enzymes (2) Tobacco abuse ICD Code: Z72.0 - Tobacco use (3) Benign hypertension ICD Code: I10 - Essential (primary) hypertension (4) Acute kidney injury superimposed on chronic kidney disease ICD Code: N17.9 - Acute kidney failure, unspecified; N18.9 - Chronic kidney disease, unspecified (5) Acute exacerbation of CHF (congestive heart failure) ICD Code: I50.9 - Heart failure, unspecified (6) Acute pulmonary edema ICD Code: J81.0 - Acute pulmonary edema Status: Acute Assessment and Plan 57-year-old man with Acute decompensated CHF of unknown type Pulmonary edema Currently on IV Lasix pending 2-D echo Appreciate input from cardiology NSTEM? Currently on nitro drip pending 2-D echo Management per cardiology Benign labile hypertension Norvasc Hypokalemia Replace electrolyte and monitor Tobacco abuse Tobacco counseling cessation provided Acute on chronic kidney disease III Monitor BUN and creatinine Cautious with Lasix Caleb Frederick MD Oct 29, 2017 11:00
[2017-10-29] MEDS ORDERED: oxyCODONE/ACETAMINOPHEN 5 MG/325 MG TAB PO ONE (12:00)
--- NOTE | 2017-10-29 12:18 | PD.CARD.PN ---
Subjective Subjective Remarks Still does not feel well Headache secondary to nitro drip Has chest tightness with breathing Objective Medications Current Medications Medications (Trade) Dose Ordered Sig/Clif Route Start Time Stop Time Status Last Admin Nitroglycerin/ Dextrose 250 ml @ 1.5 mls/hr TITRATE PRN IV 10/28/17 03:30 10/29/17 04:43 (NS Flush) 2 ml BID IV FLUSH 10/28/17 09:00 10/29/17 08:19 (NS Flush) 2 ml UNSCH PRN IV FLUSH 10/28/17 04:15 (Lasix Inj) 40 mg BID@09,18 IVP 10/28/17 09:00 10/28/17 19:04 (KCl) 20 meq BID PO 10/28/17 09:00 10/29/17 08:16 (Norvasc) 5 mg DAILY PO 10/28/17 09:00 10/29/17 08:16 (Catapres) 0.1 mg Q6H PRN PO 10/28/17 04:30 10/29/17 05:28 (Aspirin Chew) 162 mg DAILY CHEW 10/28/17 09:00 10/29/17 08:18 Sodium Chloride 1,000 ml @ 30 mls/hr Q24H IV 10/28/17 06:45 10/28/17 06:45 (Tylenol) 650 mg Q4H PRN PO 10/28/17 09:45 10/29/17 10:34 (Zofran Inj) 4 mg Q6H PRN IV PUSH 10/28/17 09:45 (Lasix Inj) 40 mg DAILY IV PUSH 10/29/17 09:00 10/29/17 08:19 (Lovenox Inj) 30 mg Q24H SQ 10/30/17 09:00 UNV Vital Signs / I&O Vital Signs Date Time Temp Pulse Resp B/P (MAP) Pulse Ox O2 Delivery O2 Flow Rate FiO2 10/29/17 11:15 98.3 89 18 151/105 (120) 97 10/29/17 10:01 80 10/29/17 09:00 78 10/29/17 08:01 97.9 82 18 143/96 (112) 97 10/29/17 08:00 80 10/29/17 07:01 79 10/29/17 06:00 76 10/29/17 05:20 18 10/29/17 05:00 82 10/29/17 04:43 82 156/103 10/29/17 04:00 82 10/29/17 04:00 98.2 82 16 141/99 (113) 96 10/29/17 03:00 81 10/29/17 02:00 80 10/29/17 01:00 87 10/29/17 00:00 98.2 83 20 153/107 (122) 95 10/29/17 00:00 83 10/28/17 23:00 83 10/28/17 20:19 84 147/105 10/28/17 20:00 87 10/28/17 19:00 87 10/28/17 19:00 98.2 97 20 147/105 (119) 97 10/28/17 18:01 90 10/28/17 17:30 99 21 10/28/17 17:00 88 10/28/17 16:00 94 10/28/17 15:30 98.3 94 20 160/109 (126) 99 10/28/17 15:00 94 10/28/17 14:00 94 158/96 10/28/17 14:00 90 10/28/17 13:01 92 I/O 10/28/17 10/28/17 10/28/17 10/29/17 10/29/17 10/29/17 07:00 15:00 23:00 07:00 15:00 23:00 Intake Total 240 ml 250 ml 1062 ml 720 ml Output Total 750 ml 450 ml 1800 ml Balance -510 ml 250 ml 612 ml -1080 ml Intake Oral 240 ml 942 ml 720 ml IV Total 250 ml 120 ml Output Urine Total 750 ml 450 ml 1800 ml # Voids 2 # Bowel Movements 0 0 0 Physical Exam GENERAL: NAD, AAOx3 SKIN: Warm and dry. HEAD: Atraumatic. Normocephalic. EYES: Pupils equal and round. No scleral icterus. No injection or drainage. ENT: No nasal bleeding or discharge. Mucous membranes pink and moist. NECK: Trachea midline. No JVD. CARDIOVASCULAR: Regular rate and rhythm. RESPIRATORY: No accessory muscle use. Decreased breath sounds bilaterally GASTROINTESTINAL: Abdomen soft, non-tender, nondistended. Hepatic and splenic margins not palpable. MUSCULOSKELETAL: Extremities without clubbing, cyanosis, or edema. No obvious deformities. NEUROLOGICAL: Awake and alert. No obvious cranial nerve deficits. Motor grossly within normal limits. Five out of 5 muscle strength in the arms and legs. Normal speech. PSYCHIATRIC: Appropriate mood and affect; insight and judgment normal. Laboratory Laboratory Tests Test 10/28/17 13:58 10/29/17 02:52 10/29/17 05:24 Blood Urea Nitrogen 25 MG/DL 24 MG/DL Creatinine 2.20 MG/DL 2.00 MG/DL Random Glucose 139 MG/DL 105 MG/DL Calcium Level 8.6 MG/DL 8.1 MG/DL Sodium Level 139 MEQ/L 137 MEQ/L Potassium Level 3.3 MEQ/L 3.3 MEQ/L Chloride Level 102 MEQ/L 102 MEQ/L Carbon Dioxide Level 27.2 MEQ/L 27.1 MEQ/L Anion Gap 10 MEQ/L 8 MEQ/L Estimat Glomerular Filtration Rate 38 ML/MIN 42 ML/MIN Total Creatine Kinase 139 U/L Troponin I 0.06 NG/ML White Blood Count 11.4 TH/MM3 Red Blood Count 4.14 MIL/MM3 Hemoglobin 10.9 GM/DL Hematocrit 33.6 % Mean Corpuscular Volume 81.1 FL Mean Corpuscular Hemoglobin 26.3 PG Mean Corpuscular Hemoglobin Concent 32.4 % Red Cell Distribution Width 17.9 % Platelet Count 206 TH/MM3 Mean Platelet Volume 9.6 FL Neutrophils (%) (Auto) 70.7 % Lymphocytes (%) (Auto) 14.1 % Monocytes (%) (Auto) 14.1 % Eosinophils (%) (Auto) 0.5 % Basophils (%) (Auto) 0.6 % Neutrophils # (Auto) 8.1 TH/MM3 Lymphocytes # (Auto) 1.6 TH/MM3 Monocytes # (Auto) 1.6 TH/MM3 Eosinophils # (Auto) 0.1 TH/MM3 Basophils # (Auto) 0.1 TH/MM3 CBC Comment DIFF FINAL Differential Comment Assessment and Plan Problem List: (1) Acute exacerbation of CHF (congestive heart failure) ICD Codes: I50.9 - Heart failure, unspecified (2) Elevated troponin I level ICD Codes: R74.8 - Abnormal levels of other serum enzymes (3) Acute kidney injury superimposed on chronic kidney disease ICD Codes: N17.9 - Acute kidney failure, unspecified; N18.9 - Chronic kidney disease, unspecified (4) Tobacco abuse ICD Codes: Z72.0 - Tobacco use (5) Benign hypertension ICD Codes: I10 - Essential (primary) hypertension (6) Acute pulmonary edema ICD Codes: J81.0 - Acute pulmonary edema Status: Acute Assessment and Plan 1) Acute decompensated heart failure Preliminary echo showing LVH with decreased ejection fraction Most likely cardiomyopathy due to long standing hypertension Con't diuresis Chest pain appears to be due to HTN/fluid overload state, does not appear to be acute coronary syndrome 2) Accelerated hypertension Attempt to wean off nitro gtt (placed for HTN) Will had meds beneficial for heart failure 3) Eventual ischemic evaluation once better compensated Most likely stress testing 4) Will plan to see him on Wednesday, if concerns tomorrow please call covering physician Saúl Dawkins DO Oct 29, 2017 12:18
--- NOTE | 2017-10-29 12:19 | ECHRPT ---
Indication: heart failure CONCLUSIONS Normal left ventricular size. The left ventricular systolic function is mildly reduced with an estimated ejection fraction of 45%. The left atrial size is mildly enlarged. [id number] mitral valve regurgitation. Mild aortic valve regurgitation. There is mild tricuspid valve regurgitation. The estimated pulmonary arterial pressure is 58.2 mmHg. BP: / HR: Rhythm: MEASUREMENTS (Male / Female) Normal Values Technical Quality:Good 2D ECHO LV Diastolic Diameter PLAX 4.7 cm 4.2 - 5.9 / 3.9 - 5.3 cm LV Systolic Diameter PLAX 4.0 cm IVS Diastolic Thickness 1.5 cm 0.6 - 1.0 / 0.6 - 0.9 cm LVPW Diastolic Thickness 1.4 cm 0.6 - 1.0 / 0.6 - 0.9 cm LV Relative Wall Thickness 0.6 RV Internal Dim ED PLAX 2.3 cm M-MODE Aortic Root Diameter MM 3.0 cm LA Systolic Diameter MM 4.2 cm LA Ao Ratio MM 1.4 AV Cusp Separation MM 1.9 cm DOPPLER Mitral E Point Velocity 93.8 cm/s Mitral A Point Velocity 54.3 cm/s Mitral E to A Ratio 1.7 LV E' Lateral Velocity 10.9 cm/s Mitral E to LV E' Lateral Ratio 8.6 LV E' Septal Velocity 7.1 cm/s Mitral E to LV E' Septal Ratio 13.2 TR Peak Velocity 347.0 cm/s TR Peak Gradient 48.2 mmHg Right Atrial Pressure 10.0 mmHg Pulmonary Artery Systolic Pressu 58.2 mmHg Right Ventricular Systolic Press 58.2 mmHg FINDINGS LEFT VENTRICLE Normal left ventricular size. The left ventricular systolic function is mildly reduced with an estimated ejection fraction of 45%. RIGHT VENTRICLE Normal right ventricular size and systolic function. LEFT ATRIUM The left atrial size is mildly enlarged. RIGHT ATRIUM The right atrial size is normal. ATRIAL SEPTUM Normal atrial septal thickness without atrial level shunting by limited color doppler interrogation. AORTA The aortic root and proximal ascending aorta are normal in size on limited imaging. MITRAL VALVE Structurally normal mitral valve. [id number]-[id number] mitral valve regurgitation. AORTIC VALVE Trileaflet aortic valve. Mild aortic valve regurgitation. TRICUSPID VALVE Structurally normal tricuspid valve. There is mild tricuspid valve regurgitation. The estimated pulmonary arterial pressure is 58.2 mmHg. PULMONARY VALVE No pulmonary valve regurgitation or stenosis. VESSELS The inferior vena cava is normal in size. PERICARDIUM No pericardial effusion. Arnel Olson MD (Electronically Signed) Final Date:29 October 2017 12:19
[2017-10-29] MEDS: CARVEDILOL 6.25 MG TAB PO SCH ×2 (14:19→22:10)
[2017-10-29] MEDS: LISINOPRIL 5 MG TAB PO SCH (14:19)
[2017-10-29] MEDS: ENOXAPARIN SODIUM 30 MG/0.3 ML SYRINGE SQ SCH (14:20)
--- NOTE | 2017-10-29 14:57 | EKG ---
Date Performed: 10/28/2017 Time Performed: 15:43:24 PTAGE: 57 years EKG: Sinus rhythm Prolonged QT interval Possible left atrial abnormality Inferior/lateral ST-T changes may be due to m yocardial ischemia Since previous tracing, no significant change noted Abnormal ECG PREVIOUS TRACING : 10/28/2017 10.59 DOCTOR: Stevan Yancey Interpretating Date/Time 10/29/2017 14:56:19
[2017-10-29] MEDS: SODIUM CHLOR 0.9% 1000 ML INJ 1,000 ML IV SCH (22:32)
[2017-10-30] VITALS (27 sets, daily range): BP systolic 111–139; BP diastolic 74–101; PULSE 59–85; RESP 16–18; TEMP 98.1–99; O2SAT 97–98
[2017-10-30] MEDS: ACETAMINOPHEN 325 MG TAB PO PRN ×2 (03:50→21:05)
[2017-10-30 04:53] LABS: AUTOMATED NEUTROPHIL # 5.9 TH/MM3 (1.8-7.7); BASOPHIL # 0.1 TH/MM3 (0-0.2); BASOPHIL % 0.8 % (0.0-2.0); EOSINOPHIL # 0.1 TH/MM3 (0-0.4); EOSINOPHIL % 1.2 % (0.0-4.0); HEMATOCRIT 36.7 % (39.0-51.0); HEMOGLOBIN 12.4 GM/DL (13.0-17.0); LYMPH % 16.7 % (9.0-44.0); LYMPHOCYTE # 1.5 TH/MM3 (1.0-4.8); MEAN CELL VOLUME 81.2 FL (80.0-100.0); MEAN CORPUSCULAR HEMOGLOBIN 27.4 PG (27.0-34.0); MEAN CORPUSCULAR HGB CONC 33.7 % (32.0-36.0); MEAN PLATELET VOLUME 9.3 FL (7.0-11.0); MONO % 13.7 % (0.0-8.0); MONOCYTE # 1.2 TH/MM3 (0-0.9); NEUT % 67.6 % (16.0-70.0); PLATELET COUNT 216 TH/MM3 (150-450); RED BLOOD COUNT 4.52 MIL/MM3 (4.50-5.90); WHITE BLOOD COUNT 8.7 TH/MM3 (4.0-11.0)
[2017-10-30 05:16] LABS: BICARBONATE 29.8 MEQ/L (21.0-32.0); CALCIUM 8.3 MG/DL (8.5-10.1); CREATININE 1.97 MG/DL (0.60-1.30)
[2017-10-30] MEDS: ASPIRIN 81 MG CHEW TAB CHEW SCH (09:24)
[2017-10-30] MEDS: LISINOPRIL 5 MG TAB PO SCH (09:25)
[2017-10-30] MEDS: CARVEDILOL 6.25 MG TAB PO SCH ×2 (09:25→21:03)
[2017-10-30] MEDS: SODIUM CHLORIDE 0.9% FLUSH 10 ML FLUSH IV FLUSH SCH ×2 (09:25→21:03)
[2017-10-30] MEDS: amLODIPine BESYLATE 5 MG TAB PO SCH (09:25)
[2017-10-30] MEDS: FUROSEMIDE 40 MG/4 ML VIAL IVP SCH ×2 (09:25→17:57)
[2017-10-30] MEDS: POTASSIUM CHLORIDE 20 MEQ CONTROLLED RELEASE TAB PO SCH ×2 (09:26→21:03)
[2017-10-30] MEDS: ENOXAPARIN SODIUM 30 MG/0.3 ML SYRINGE SQ SCH (14:38)
[2017-10-30] MEDS: CEPHALEXIN MONOHYDRATE 500 MG CAP PO SCH ×2 (15:01→21:03)
--- NOTE | 2017-10-30 15:30 | PD.CARD.PN ---
Subjective Subjective Remarks c/o cough with difficulty bringing anything up. SOB better. No chest pain Objective Medications Current Medications Medications (Trade) Dose Ordered Sig/Clif Route Start Time Stop Time Status Last Admin (NS Flush) 2 ml BID IV FLUSH 10/28/17 09:00 10/30/17 09:25 (NS Flush) 2 ml UNSCH PRN IV FLUSH 10/28/17 04:15 (Lasix Inj) 40 mg BID@09,18 IVP 10/28/17 09:00 10/30/17 09:25 (KCl) 20 meq BID PO 10/28/17 09:00 10/30/17 09:26 (Norvasc) 5 mg DAILY PO 10/28/17 09:00 10/30/17 09:25 (Catapres) 0.1 mg Q6H PRN PO 10/28/17 04:30 10/29/17 05:28 (Aspirin Chew) 162 mg DAILY CHEW 10/28/17 09:00 10/30/17 09:24 Sodium Chloride 1,000 ml @ 30 mls/hr Q24H IV 10/28/17 06:45 10/28/17 06:45 (Tylenol) 650 mg Q4H PRN PO 10/28/17 09:45 10/30/17 03:50 (Zofran Inj) 4 mg Q6H PRN IV PUSH 10/28/17 09:45 (Lovenox Inj) 30 mg Q24H SQ 10/29/17 14:00 10/30/17 14:38 (Coreg) 6.25 mg Q12HR PO 10/29/17 13:15 10/30/17 09:25 (Prinivil) 5 mg DAILY PO 10/29/17 13:15 10/30/17 09:25 (Keflex) 500 mg BID PO 10/30/17 14:45 10/30/17 15:01 Vital Signs / I&O Vital Signs Date Time Temp Pulse Resp B/P (MAP) Pulse Ox O2 Delivery O2 Flow Rate FiO2 10/30/17 15:00 98.1 73 16 122/85 (97) 98 10/30/17 15:00 73 10/30/17 14:00 74 10/30/17 13:00 75 10/30/17 12:00 74 10/30/17 11:00 73 10/30/17 11:00 99.0 74 18 132/93 (106) 97 10/30/17 10:00 73 10/30/17 09:00 77 10/30/17 08:00 98.6 78 18 138/99 (112) 97 10/30/17 08:00 78 10/30/17 07:00 70 10/30/17 06:00 76 10/30/17 05:00 74 10/30/17 04:00 76 10/30/17 03:54 78 18 136/101 (113) 98 10/30/17 03:00 75 10/30/17 02:00 78 10/30/17 01:00 78 10/30/17 00:01 80 18 139/92 (108) 98 10/30/17 00:00 80 10/29/17 23:00 75 10/29/17 22:00 78 10/29/17 21:00 80 10/29/17 20:00 86 10/29/17 19:50 98.4 79 18 124/93 (103) 98 10/29/17 19:00 80 10/29/17 18:01 86 10/29/17 17:00 88 10/29/17 16:00 88 I/O 10/29/17 10/29/17 10/29/17 10/30/17 10/30/17 10/30/17 07:00 15:00 23:00 07:00 15:00 23:00 Intake Total 720 ml 960 ml 400 ml Output Total 1800 ml 1000 ml 1500 ml Balance -1080 ml -40 ml -1100 ml Intake Oral 720 ml 960 ml 400 ml Output Urine Total 1800 ml 1000 ml 1500 ml # Voids 4 # Bowel Movements 0 1 0 Physical Exam Alert Chest diminished at bases. CXR ordered for AM CV S1S2 RRR no edema Laboratory Laboratory Tests Test 10/30/17 04:25 White Blood Count 8.7 TH/MM3 Red Blood Count 4.52 MIL/MM3 Hemoglobin 12.4 GM/DL Hematocrit 36.7 % Mean Corpuscular Volume 81.2 FL Mean Corpuscular Hemoglobin 27.4 PG Mean Corpuscular Hemoglobin Concent 33.7 % Red Cell Distribution Width 18.0 % Platelet Count 216 TH/MM3 Mean Platelet Volume 9.3 FL Neutrophils (%) (Auto) 67.6 % Lymphocytes (%) (Auto) 16.7 % Monocytes (%) (Auto) 13.7 % Eosinophils (%) (Auto) 1.2 % Basophils (%) (Auto) 0.8 % Neutrophils # (Auto) 5.9 TH/MM3 Lymphocytes # (Auto) 1.5 TH/MM3 Monocytes # (Auto) 1.2 TH/MM3 Eosinophils # (Auto) 0.1 TH/MM3 Basophils # (Auto) 0.1 TH/MM3 CBC Comment DIFF FINAL Differential Comment Blood Urea Nitrogen 22 MG/DL Creatinine 1.97 MG/DL Random Glucose 94 MG/DL Calcium Level 8.3 MG/DL Sodium Level 137 MEQ/L Potassium Level 3.9 MEQ/L Chloride Level 101 MEQ/L Carbon Dioxide Level 29.8 MEQ/L Anion Gap 6 MEQ/L Estimat Glomerular Filtration Rate 43 ML/MIN Assessment and Plan Problem List: (1) Acute exacerbation of CHF (congestive heart failure) ICD Codes: I50.9 - Heart failure, unspecified (2) Elevated troponin I level ICD Codes: R74.8 - Abnormal levels of other serum enzymes (3) Acute kidney injury superimposed on chronic kidney disease ICD Codes: N17.9 - Acute kidney failure, unspecified; N18.9 - Chronic kidney disease, unspecified (4) Tobacco abuse ICD Codes: Z72.0 - Tobacco use (5) Benign hypertension ICD Codes: I10 - Essential (primary) hypertension (6) Acute pulmonary edema ICD Codes: J81.0 - Acute pulmonary edema Status: Acute Assessment and Plan Condition improving. Repeat CXR in AM. Might be able to go home tomorrow. Dr. Dawkins to F/U tomorrow. Arnel Olson MD Oct 30, 2017 15:30
--- NOTE | 2017-10-30 18:51 | HHI.PR ---
Subjective Remarks 57M admitted for pulmonary edema, CHF exacerbation possibly related to URI vs. PNA. Nurse spoke with his daughter today who revealed to us that he has a history of depression and schizophrenia but has not been on medications for 4 months. Daughter is concerned that his psychatric state could become an issue for her at home. Objective Vitals Vital Signs Date Time Temp Pulse Resp B/P (MAP) Pulse Ox O2 Delivery O2 Flow Rate FiO2 10/30/17 18:00 79 10/30/17 17:00 77 10/30/17 16:00 79 10/30/17 15:00 98.1 73 16 122/85 (97) 98 10/30/17 15:00 73 10/30/17 14:00 74 10/30/17 13:00 75 10/30/17 12:00 74 10/30/17 11:00 73 10/30/17 11:00 99.0 74 18 132/93 (106) 97 10/30/17 10:00 73 10/30/17 09:00 77 10/30/17 08:00 98.6 78 18 138/99 (112) 97 10/30/17 08:00 78 10/30/17 07:00 70 10/30/17 06:00 76 10/30/17 05:00 74 10/30/17 04:00 76 10/30/17 03:54 78 18 136/101 (113) 98 10/30/17 03:00 75 10/30/17 02:00 78 10/30/17 01:00 78 10/30/17 00:01 80 18 139/92 (108) 98 10/30/17 00:00 80 10/29/17 23:00 75 10/29/17 22:00 78 10/29/17 21:00 80 10/29/17 20:00 86 10/29/17 19:50 98.4 79 18 124/93 (103) 98 10/29/17 19:00 80 I/O 10/29/17 10/29/17 10/29/17 10/30/17 10/30/17 10/30/17 07:00 15:00 23:00 07:00 15:00 23:00 Intake Total 720 ml 960 ml 400 ml 720 ml Output Total 1800 ml 1000 ml 1500 ml 1050 ml Balance -1080 ml -40 ml -1100 ml -330 ml Intake Oral 720 ml 960 ml 400 ml 720 ml Output Urine Total 1800 ml 1000 ml 1500 ml 1050 ml # Voids 4 # Bowel Movements 0 1 0 Result Diagram: 10/30/1742410/30/17424 Imaging Last Impressions Chest X-Ray 10/28/17256 Signed Impressions: Service Date/Time: October 03:06 - CONCLUSION: Parenchymal changes possibly edema versus pneumonia. Alexandria Colmenares MD Objective Remarks GENERAL: Well-nourished, well-developed patient. SKIN: Warm and dry. HEAD: Normocephalic. EYES: No scleral icterus. No injection or drainage. NECK: Supple, trachea midline. No JVD or lymphadenopathy. CARDIOVASCULAR: Regular rate and rhythm without murmurs, gallops, or rubs. RESPIRATORY: Breath sounds equal bilaterally. Mild wheezing, no crackles in bases. No accessory muscle use. GASTROINTESTINAL: Abdomen soft, non-tender, nondistended. MUSCULOSKELETAL: No cyanosis, or edema. BACK: Nontender without obvious deformity. No CVA tenderness. EXTREMITIES: no edema A/P Problem List: (1) Elevated troponin I level ICD Code: R74.8 - Abnormal levels of other serum enzymes (2) Tobacco abuse ICD Code: Z72.0 - Tobacco use (3) Benign hypertension ICD Code: I10 - Essential (primary) hypertension (4) Acute kidney injury superimposed on chronic kidney disease ICD Code: N17.9 - Acute kidney failure, unspecified; N18.9 - Chronic kidney disease, unspecified (5) Acute exacerbation of CHF (congestive heart failure) ICD Code: I50.9 - Heart failure, unspecified (6) Acute pulmonary edema ICD Code: J81.0 - Acute pulmonary edema Status: Acute Assessment and Plan CHF Exacerbation with Pulmonary Edema Responded well to IV lasix Elevation of Troponins Stress test pending Dr. Dawkins requested revisit tomorrow h/o Schizophrenia and Depression Psychiatry consulted for medication recommendations and possible follow up outpatient Hypertension Norvas h/o Chronic Renal Insufficiency Cautious use of Lasix and follow Cr level DVT Prophylaxis Jimmy Maher MD Oct 30, 2017 18:51
[2017-10-30] MEDS: SODIUM CHLOR 0.9% 1000 ML INJ 1,000 ML IV SCH (21:08)
[2017-10-31] VITALS (26 sets, daily range): BP systolic 111–145; BP diastolic 78–104; PULSE 71–85; RESP 14–18; TEMP 97.6–98.7; O2SAT 93–100
--- NOTE | 2017-10-31 04:08 | RADRPT ---
EXAM DATE/TIME: 10/31/2017 03:33 [facility] COMPARISON: CHEST SINGLE AP, October 28, 2017, 3:06. INDICATIONS : Shortness of breath, possible pulmonary disease. MEDICAL HISTORY : Hypertension. HIV. SURGICAL HISTORY : None. ENCOUNTER: Subsequent ACUITY: 4 - 6 days PAIN SCORE: 0/10 LOCATION: Bilateral chest FINDINGS: Previously seen bibasilar consolidation has almost completely resolved. There is some patchy heteroge neous attenuation laterally in the right mid lung which could be some cavitary change of the lung oswaldo rios hypertrophic changes and partial fusion between multiple ribs. I don't have any more remote prior s. Heart size within normal limits. CONCLUSION: 1. Bibasilar infiltrates have essentially completely resolved in the interim. 2. Cavitary lung changes versus partial fusion of multiple ribs seen laterally of the right mid thora x and a noncontrast chest CT is suggested. Shahram Victoria MD on October 31, 2017 at 4:02 Board Certified Radiologist. This report was verified electronically.
[2017-10-31 07:05] LABS: BICARBONATE 30.2 MEQ/L (21.0-32.0); CALCIUM 8.2 MG/DL (8.5-10.1); CREATININE 2.07 MG/DL (0.60-1.30)
--- NOTE | 2017-10-31 09:51 | PD.CARD.PN ---
Subjective Subjective Remarks Feeling better Breathing better No chest pain Objective Medications Current Medications Medications (Trade) Dose Ordered Sig/Clif Route Start Time Stop Time Status Last Admin (NS Flush) 2 ml BID IV FLUSH 10/28/17 09:00 10/30/17 21:03 (NS Flush) 2 ml UNSCH PRN IV FLUSH 10/28/17 04:15 (Lasix Inj) 40 mg BID@09,18 IVP 10/28/17 09:00 10/30/17 17:57 (KCl) 20 meq BID PO 10/28/17 09:00 10/30/17 21:03 (Norvasc) 5 mg DAILY PO 10/28/17 09:00 10/30/17 09:25 (Catapres) 0.1 mg Q6H PRN PO 10/28/17 04:30 10/29/17 05:28 (Aspirin Chew) 162 mg DAILY CHEW 10/28/17 09:00 10/30/17 09:24 Sodium Chloride 1,000 ml @ 30 mls/hr Q24H IV 10/28/17 06:45 10/28/17 06:45 (Tylenol) 650 mg Q4H PRN PO 10/28/17 09:45 10/30/17 21:05 (Zofran Inj) 4 mg Q6H PRN IV PUSH 10/28/17 09:45 (Lovenox Inj) 30 mg Q24H SQ 10/29/17 14:00 10/30/17 14:38 (Coreg) 6.25 mg Q12HR PO 10/29/17 13:15 10/30/17 21:03 (Prinivil) 5 mg DAILY PO 10/29/17 13:15 10/30/17 09:25 (Keflex) 500 mg BID PO 10/30/17 14:45 10/30/17 21:03 Vital Signs / I&O Vital Signs Date Time Temp Pulse Resp B/P (MAP) Pulse Ox O2 Delivery O2 Flow Rate FiO2 10/31/17 09:05 93 21 10/31/17 06:00 72 10/31/17 05:00 72 10/31/17 04:00 74 10/31/17 03:45 72 18 133/96 (108) 98 10/31/17 03:00 71 10/31/17 02:00 78 10/31/17 01:00 72 10/31/17 00:00 72 10/30/17 23:50 70 16 125/97 (106) 97 10/30/17 23:00 59 10/30/17 22:00 74 10/30/17 21:00 99.0 68 16 111/74 (86) 98 10/30/17 21:00 68 10/30/17 20:30 21 10/30/17 20:00 82 10/30/17 19:00 85 10/30/17 18:00 79 10/30/17 17:00 77 10/30/17 16:00 79 10/30/17 15:00 98.1 73 16 122/85 (97) 98 10/30/17 15:00 73 10/30/17 14:00 74 10/30/17 13:00 75 10/30/17 12:00 74 10/30/17 11:00 73 10/30/17 11:00 99.0 74 18 132/93 (106) 97 10/30/17 10:00 73 I/O 10/30/17 10/30/17 10/30/17 10/31/17 10/31/17 10/31/17 07:00 15:00 23:00 07:00 15:00 23:00 Intake Total 400 ml 720 ml 400 ml Output Total 1500 ml 1050 ml 925 ml Balance -1100 ml -330 ml -525 ml Intake Oral 400 ml 720 ml 400 ml Output Urine Total 1500 ml 1050 ml 925 ml # Bowel Movements 0 0 Physical Exam GENERAL: NAD, AAOx3 SKIN: Warm and dry. HEAD: Atraumatic. Normocephalic. EYES: Pupils equal and round. No scleral icterus. No injection or drainage. ENT: No nasal bleeding or discharge. Mucous membranes pink and moist. NECK: Trachea midline. No JVD. CARDIOVASCULAR: Regular rate and rhythm. RESPIRATORY: No accessory muscle use. Clear to auscultation bilaterally GASTROINTESTINAL: Abdomen soft, non-tender, nondistended. Hepatic and splenic margins not palpable. MUSCULOSKELETAL: Extremities without clubbing, cyanosis, or edema. No obvious deformities. NEUROLOGICAL: Awake and alert. No obvious cranial nerve deficits. Motor grossly within normal limits. Five out of 5 muscle strength in the arms and legs. Normal speech. PSYCHIATRIC: Appropriate mood and affect; insight and judgment normal. Laboratory Laboratory Tests Test 10/31/17 05:45 Blood Urea Nitrogen 27 MG/DL Creatinine 2.07 MG/DL Random Glucose 88 MG/DL Calcium Level 8.2 MG/DL Sodium Level 136 MEQ/L Potassium Level 3.4 MEQ/L Chloride Level 100 MEQ/L Carbon Dioxide Level 30.2 MEQ/L Anion Gap 6 MEQ/L Estimat Glomerular Filtration Rate 40 ML/MIN Imaging Last 24 hours Impressions Chest X-Ray 10/31/17 0600 Signed Impressions: Service Date/Time: Tuesday, October 31, 2017 03:33 - CONCLUSION: 1. Bibasilar infiltrates have essentially completely resolved in the interim. 2. Cavitary lung changes versus partial fusion of multiple ribs seen laterally of the right mid thorax and a noncontrast chest CT is suggested. Shahram Victoria MD Assessment and Plan Problem List: (1) Acute exacerbation of CHF (congestive heart failure) ICD Codes: I50.9 - Heart failure, unspecified (2) Elevated troponin I level ICD Codes: R74.8 - Abnormal levels of other serum enzymes (3) Acute kidney injury superimposed on chronic kidney disease ICD Codes: N17.9 - Acute kidney failure, unspecified; N18.9 - Chronic kidney disease, unspecified (4) Tobacco abuse ICD Codes: Z72.0 - Tobacco use (5) Benign hypertension ICD Codes: I10 - Essential (primary) hypertension (6) Acute pulmonary edema ICD Codes: J81.0 - Acute pulmonary edema Status: Acute Assessment and Plan 1) Acute decompensated heart failure Preliminary echo showing LVH with decreased ejection fraction Most likely cardiomyopathy due to long standing hypertension Con't diuresis Plan for Lexiscan stress test today due to cardiomyopathy with no ischemic work up before 2) Accelerated hypertension Meds beneficial for heart failure added 3) Lexiscan stress test today Saúl Dawkins DO Oct 31, 2017 09:51
[2017-10-31] MEDS: FUROSEMIDE 40 MG/4 ML VIAL IVP SCH ×2 (10:38→18:00)
[2017-10-31] MEDS: POTASSIUM CHLORIDE 20 MEQ CONTROLLED RELEASE TAB PO SCH ×2 (10:38→22:03)
[2017-10-31] MEDS: ASPIRIN 81 MG CHEW TAB CHEW SCH (10:39)
[2017-10-31] MEDS: CEPHALEXIN MONOHYDRATE 500 MG CAP PO SCH ×2 (10:39→22:02)
[2017-10-31] MEDS: SODIUM CHLORIDE 0.9% FLUSH 10 ML FLUSH IV FLUSH SCH ×2 (10:39→22:03)
[2017-10-31] MEDS: LISINOPRIL 5 MG TAB PO SCH (10:39)
[2017-10-31] MEDS: CARVEDILOL 6.25 MG TAB PO SCH ×2 (10:39→22:02)
[2017-10-31] MEDS: amLODIPine BESYLATE 5 MG TAB PO SCH (10:39)
[2017-10-31] MEDS ORDERED: REGADENOSON INJ 0.4 MG/5 ML SYR ONE (12:41)
[2017-10-31] MEDS: ENOXAPARIN SODIUM 30 MG/0.3 ML SYRINGE SQ SCH (13:43)
--- NOTE | 2017-10-31 13:55 | RADRPT ---
EXAM DATE/TIME: 10/31/2017 12:21 [facility] COMPARISON: No previous studies available for comparison. INDICATIONS : Cardiomyopthay. DOSE: 25.9 mCi Tc99m Myoview at stress. 8.2 mCi Tc99m Myoview at rest. 0.4 mg Lexiscan STRESS SYMPTOMS: Short of breath. EJECTION FRACTION: 36% MEDICAL HISTORY : Hypertension. SURGICAL HISTORY : Left arm surgery. ENCOUNTER: Initial ACUITY: 1 day PAIN SCALE: 4/10 LOCATION: Bilateral chest TECHNIQUE: The patient underwent pharmacologic stress with infusion of prescribed dose. Continuous ECG tracing was monitored during stress. Gated SPECT imaging was performed after stress and conventional SPECT i maging was performed at rest. The examination was performed on a SPECT/CT scanner, both attenuation and non-corrected datasets were reviewed. FINDINGS: DISTRIBUTION: The maximum perfused segment at stress is in the septal wall. PERFUSION STUDY: There is decreased activity on the stress images at the apical inferior wall in the order of 10-20%. GATED STUDY: There is global hypokinesis with a reduced ejection fraction at 36%. CONCLUSION: Borderline mild ischemia at the apical portion of the inferior wall. There is global hypokinesis with a reduced ejection fraction of 36%. RISK CATEGORY: Low (<1% Annual Mortality Rate) Shahram Parker MD on October 31, 2017 at 13:46 Board Certified Radiologist. This report was verified electronically.
--- NOTE | 2017-10-31 14:26 | PD.PSY.CON ---
Provisional Diagnosis Admission Date Oct 28, 2017 at 04:05 [place] I. 1. Schizophrenia, paranoid type, in acute exacerbation [place] II. 1. Antisocial personality traits History of Present Illness Service Psychiatry Consult Requested By Dr. Soriano Reason for Consult History of depression and schizophrenia off medication since July Primary Care Physician No Primary Care Physician HPI Mr. Cunningham is a 57-year-old male with a history of schizophrenia who presented initially on 10/28 with shortness of breath, found to have pulmonary edema and CHF in exacerbation. He has been admitted to the medical floor for further management. Patient's daughter has apparently alerted the primary team that the patient has a significant psychiatric history and expressed concerns for patient's current mental state. Reviewing the electronic medical record, I see no previous psychiatric contact within our system. Patient seen and examined. Chart reviewed. Case discussed with nurse who has spoken with the patient's daughter. Nurse relates that the patient has a history of schizophrenia, depression and "multiple personalities" and [facility] June of this year with a two-week supply of medications but has since been nonadherent with medications. Nurse notes that the patient has been no behavioral problem on the floor although he has been making odd comments at times. On my examination today, the patient has a friend , Handy, visiting with him, and the patient is agreeable to having him remain for the interview. Patient presents as extremely paranoid and admits to subjective paranoia. He feels like the medical team and nursing staff are manipulating him, and he issues threats against one physician who visited with him yesterday evening. He likewise expresses marked displeasure for a physician who saw him earlier this morning. Finally, he issues threats against this physician if I were to retain him inpatient (i.e. by Rodriguez Acting him). The patient admits to violent thoughts more generally. I suspect that some of this may have to do with an underlying antisocial personality style as he has some antisocial personality traits, and I have asked him to consider his statements in light of the fact that he is speaking with a psychiatrist, but he does not then modulate or alter his report of symptoms in any way. Affect is dysphoric, irritable and anxious. He denies SI. Denies ideas of reference or thought insertion/withdrawal. He denies audiovisual hallucinations but appears internally preoccupied. The remainder of psychiatric ROS is negative. The patient verbalizes no physical complaints at this time. Past psychiatric history: The patient reports a history of schizophrenia. He is not currently under the care of a psychiatrist. He reports that he has been off of psychotropic medications for 2 years. He says that he has done the best in the past with Risperdal 4 mg at bedtime and Cogentin 2 mg at bedtime. He says his most recent psychiatric admission was over 10 years ago. He denies a history of suicide attempts. When I ask about a history of violence, the patient says ominously "I don't remember." Family history: The patient denies any family history of serious mental illness or suicide. Chemical dependency history: The patient denies any abuse of drugs or alcohol. Social history: The patient reports that he lives with friend Handy. He is . He has a daughter. He has other children but has limited contact with them. He did not graduate high school. He collects SSI. He denies any history. He denies any legal history and in particular denies spending any time in [facility] but see above. He denies any access to guns or firearms. He is a [employer]. Review of Systems ROS Limitations: Psychotic Except as stated in HPI: all other systems reviewed are Neg Past Family Social History Coded Allergies: No Known Allergies (Verified Adverse Reaction, Unknown, 10/28/17) Past Medical History See EMR Reported Medications Amlodipine (Norvasc) 5 Mg Tab, 5 MG PO DAILY for Blood Pressure Management, #30 TAB 0 Refills 10/28/17 Discontinued Scripts Potassium Chloride ER (K-Tab) 20 Meq Tab, 20 MEQ PO BID for Electrolyte Replacement, #14 TAB 0 Refills Prov:Radha Olson MD 10/03/17 Nifedipine ER 24 HR (Nifedipine ER 24 HR) 60 Mg Tab, 60 MG PO DAILY, #30 TAB 0 Refills Prov:Rosalina Marques MD 06/24/17 Current Medications Medications (Trade) Dose Ordered Sig/Clif Route Start Time Stop Time Status Last Admin (NS Flush) 2 ml BID IV FLUSH 10/28/17 09:00 10/31/17 10:39 (NS Flush) 2 ml UNSCH PRN IV FLUSH 10/28/17 04:15 (Lasix Inj) 40 mg BID@,18 IVP 10/28/17 09:00 10/31/17 10:38 (KCl) 20 meq BID PO 10/28/17 09:00 10/31/17 10:38 (Norvasc) 5 mg DAILY PO 10/28/17 09:00 10/31/17 10:39 (Catapres) 0.1 mg Q6H PRN PO 10/28/17 04:30 10/29/17 05:28 (Aspirin Chew) 162 mg DAILY CHEW 10/28/17 09:00 10/31/17 10:39 Sodium Chloride 1,000 ml @ 30 mls/hr Q24H IV 10/28/17 06:45 10/28/17 06:45 (Tylenol) 650 mg Q4H PRN PO 10/28/17 09:45 10/30/17 21:05 (Zofran Inj) 4 mg Q6H PRN IV PUSH 10/28/17 09:45 (Lovenox Inj) 30 mg Q24H SQ 10/29/17 14:00 10/31/17 13:43 (Coreg) 6.25 mg Q12HR PO 10/29/17 13:15 10/31/17 10:39 (Prinivil) 5 mg DAILY PO 10/29/17 13:15 10/31/17 10:39 (Keflex) 500 mg BID PO 10/30/17 14:45 10/31/17 10:39 Family Psych History See above Social History See above Patient's Strengths (min. 2) In a monitored setting. Verbally fluent. Physical Exam Physical exam completed by primary team. On my examination today, the patient appears to be in no acute physical distress. No motor abnormalities noted, although the patient is somewhat psychomotor agitated, fidgeting with his cell phone and becoming quite tremulous I suspect with anxiety when he contemplates remaining in the hospital. Labs and vitals reviewed: Vital Signs Vital Signs Date Time Temp Pulse Resp B/P (MAP) Pulse Ox O2 Delivery O2 Flow Rate FiO2 10/31/17 11:00 76 10/31/17 11:00 14 128/95 (106) 96 10/31/17 09:05 21 10/31/17 08:00 98.7 10/28/17 04:42 Nasal Cannula 2.00 I/O 10/31/17 10/31/17 11/01/17 08:00 16:00 00:00 Intake Total 400 ml Output Total 925 ml Balance -525 ml Lab Results Item Value Date Time White Blood Count 8.7 TH/MM3 10/30/17424 Hemoglobin 12.4 GM/DL L 10/30/17424 Platelet Count 216 TH/MM3 10/30/17 042 Sodium Level 136 MEQ/L 10/31/17 0545 Potassium Level 3.4 MEQ/L L 10/31/17 0545 Chloride Level 100 MEQ/L 10/31/17 0545 Carbon Dioxide Level 30.2 MEQ/L 10/31/17 0545 Blood Urea Nitrogen 27 MG/DL H 10/31/17 0545 Creatinine 2.07 MG/DL H 10/31/17 0545 Estimat Glomerular Filtration Rate 40 ML/MIN L 10/31/17 0545 Total Creatine Kinase 139 U/L 10/28/17 1358 Aspartate Amino Transf (AST/SGOT) 35 U/L 10/28/17 0300 Alanine Aminotransferase (ALT/SGPT) 29 U/L 10/28/17 0300 Alkaline Phosphatase 97 U/L 10/28/17 0300 Urine Opiates Screen NEG 10/28/17 0330 Urine Barbiturates Screen NEG 10/28/17 0330 Urine Amphetamines Screen NEG 10/28/17 0330 Urine Benzodiazepines Screen NEG 10/28/17 0330 Urine Cocaine Screen NEG 10/28/17 0330 Urine Cannabinoids Screen NEG 10/28/17 0330 EKG from 10/28 read as sinus rhythm with prolonged QTcH at 460 ms. Mental Status Examination Appearance: Other (in hospital attire. Fair grooming.) Consciousness: Alert, Vigilant Orientation: x4 Motor Activity: Other (somewhat psychomotor agitated) Speech: Unremarkable Language: Adequate Fund of Knowledge: Adequate Attention and Concentration: Adequate Memory: Unremarkable Mood: Other (dysphoric) Affect: Irritable, Anxious, Other (dysphoric) Thought Process & Associations: Linear Thought Content: Delusional Hallucination Type: None (denies AVH but appears somewhat internally preoccupied) Delusion Type: Paranoid Suicidal Ideation: No Suicidal Plan: No Suicidal Intention: No Homicidal Ideation: Yes (issues threats against staff) Homicidal Plan: No Homicidal Intention: No Insight: Poor Judgment: Poor Assessment & Plan Problem List: (1) Schizophrenia, paranoid, chronic with acute exacerbation ICD Codes: F20.0 - Paranoid schizophrenia Assessment & Plan 57-year-old male with psychiatric history as detailed above who is presently voluntarily admitted to the medical floor for management of CHF exacerbation. Psychiatry is consulted out of concern for history of schizophrenia off of medications. On my examination today, the patient is extremely paranoid and believes that the staff of the hospital and in particular the doctors are manipulating him. He issues threats against physicians, including this physician should I try to retain him under a psychiatric hold. I have offered him medication management of his psychosis in the hospital, but he has refused this. I am gravely concerned that he is at elevated risk of harm to others in his psychotic state, and he requires inpatient psychiatric hospitalization for safety, observation and stabilization. --I have initiated a Rodriguez Act and placed this on the paper chart. --Discussed need for transfer to inpatient psychiatric unit with primary team and case preparer and liner. Our high acuity inpatient unit is presently full, and so I recommend referring him for inpatient psychiatric services elsewhere in [place] until a bed becomes available on our inpatient psychiatric unit. --Apprised RN and Dr. Soriano of patient's threats to staff. --Ordered Ativan 2mg PO/IM/IV q6h Anxiety. Patient would also may require an antipsychotic p.r.n. severe agitation. However, his prolonged QTc makes utilization of antipsychotic medication difficult. Abilify has minimal association with torsade de pointes but is not presently available in parenteral formulation as would be needed in this circumstance. In extremis, could consider using Zyprexa 10mg IM, up to 3 doses in 24 hours, but it is critical to avoid coadministration with benzodiazepines like Ativan as there is risk of excessive sedation and cardiorespiratory depression. --I will apprise Dr. Wilburn of the case when he returns to see consults tomorrow. Case d/w Dr. Soriano, RN, CM. Thank you very much for this consultation. Discharge Planning BA initiated. To inpatient psych. Jack Norris MD Oct 31, 2017 14:26
[2017-10-31] MEDS ORDERED: LORazepam 2 MG TAB PO PRN (14:30)
[2017-10-31] MEDS ORDERED: LORazepam 2 MG/ML VIAL OTHER PRN (14:30)
[2017-10-31] MEDS ORDERED: AMLO5 PO (16:29)
[2017-10-31] MEDS ORDERED: LORA-475 PO (16:29)
[2017-10-31] MEDS ORDERED: CEPH500C PO (16:29)
--- NOTE | 2017-10-31 16:36 | HHI.DS ---
Discharge Summary Admission Date Oct 28, 2017 at 04:05 Discharge Date: Oct 31, 2017 Admitting Diagnosis acute pulmonary edema (1) Elevated troponin I level ICD Code: R74.8 - Abnormal levels of other serum enzymes (2) Tobacco abuse ICD Code: Z72.0 - Tobacco use (3) Benign hypertension ICD Code: I10 - Essential (primary) hypertension (4) Acute kidney injury superimposed on chronic kidney disease ICD Code: N17.9 - Acute kidney failure, unspecified; N18.9 - Chronic kidney disease, unspecified (5) Acute exacerbation of CHF (congestive heart failure) ICD Code: I50.9 - Heart failure, unspecified (6) Acute pulmonary edema ICD Code: J81.0 - Acute pulmonary edema Status: Acute Procedures stress test (negative) Brief History - From Admission 57-year-old male with past medical history significant for hypertension since to the emergency department with a 2 day history of increasing shortness of breath. He states he woke up in the middle the night this evening with severe shortness of breath. He was tachycardic and tachypneic on arrival to the ED with a pulse of 101 and a respiratory rate of 30. Blood pressure 203/137. Satting 96% on 2 L nasal cannula. Chest x-ray significant for interstitial edema. Patient has no known history of COPD although he is a daily smoker. He denies any diagnosis of congestive heart failure however does not see a doctor. He obtains his antihypertensive medication from the emergency department although he cannot remember what it is. He denies fever/chills. Endorses a dry cough. Denies lower extremity edema. Laboratory values significant for hypokalemia, elevated troponin to 0.11, BNP of 267 and a creatinine of 1.95 which is baseline. CBC/BMP: 10/30/17 0425 10/31/17 0545 Significant Findings Laboratory Tests Test 10/29/17 02:52 10/29/17 05:24 10/30/17 04:25 10/31/17 05:45 White Blood Count 11.4 TH/MM3 (4.0-11.0) Red Blood Count 4.14 MIL/MM3 (4.50-5.90) Hemoglobin 10.9 GM/DL (13.0-17.0) 12.4 GM/DL (13.0-17.0) Hematocrit 33.6 % (39.0-51.0) 36.7 % (39.0-51.0) Mean Corpuscular Hemoglobin 26.3 PG (27.0-34.0) Red Cell Distribution Width 17.9 % (11.6-17.2) 18.0 % (11.6-17.2) Neutrophils (%) (Auto) 70.7 % (16.0-70.0) Monocytes (%) (Auto) 14.1 % (0.0-8.0) 13.7 % (0.0-8.0) Neutrophils # (Auto) 8.1 TH/MM3 (1.8-7.7) Monocytes # (Auto) 1.6 TH/MM3 (0-0.9) 1.2 TH/MM3 (0-0.9) Blood Urea Nitrogen 24 MG/DL (7-18) 22 MG/DL (7-18) 27 MG/DL (7-18) Creatinine 2.00 MG/DL (0.60-1.30) 1.97 MG/DL (0.60-1.30) 2.07 MG/DL (0.60-1.30) Calcium Level 8.1 MG/DL (8.5-10.1) 8.3 MG/DL (8.5-10.1) 8.2 MG/DL (8.5-10.1) Potassium Level 3.3 MEQ/L (3.5-5.1) 3.4 MEQ/L (3.5-5.1) Estimat Glomerular Filtration Rate 42 ML/MIN (>89) 43 ML/MIN (>89) 40 ML/MIN (>89) PE at Discharge GENERAL: Well-nourished, well-developed patient. SKIN: Warm and dry. HEAD: Normocephalic. EYES: No scleral icterus. No injection or drainage. NECK: Supple, trachea midline. No JVD or lymphadenopathy. CARDIOVASCULAR: Regular rate and rhythm without murmurs, gallops, or rubs. RESPIRATORY: Breath sounds equal bilaterally. Mild wheezing, no crackles in bases. No accessory muscle use. GASTROINTESTINAL: Abdomen soft, non-tender, nondistended. MUSCULOSKELETAL: No cyanosis, or edema. BACK: Nontender without obvious deformity. No CVA tenderness. EXTREMITIES: no edema Hospital Course 57M who presented with pulmonary edema (CHF) that resolved quickly with diuretics. He has a cough but evidence for PNA is questionable, since he is afebrile, not coughing, no longer SOB and normal WBC count. His daughter revealed to us yesterday that she was concerned about his well being (and hers) because he has been off of his medications for schizophrenia and depression for 4 months and has been acting in an unstable manner at home. Earlier today he made physical threats about a physician who saw him this morning, though he did not say a name. He was evaluated by psychiatry who deemed him psychotic, paranoid and unstable. They Rodriguez Acted him and recommend transfer to psychiatric facility when medically cleared. He is medically cleared by cardiology, breathing well on room air and appropriate for a discharge to a psychiatric facility. Pt Condition on Discharge: Fair Discharge Disposition: Disc to Psych Care Fac Discharge Time: <= 30 minutes Discharge Instructions DIET: Follow Instructions for: As Tolerated, No Restrictions, Heart Healthy Diet Activities you can perform: Regular-No Restrictions Jimmy Soriano MD Oct 31, 2017 16:36
[2017-10-31] MEDS: SODIUM CHLOR 0.9% 1000 ML INJ 1,000 ML IV SCH (21:59)
[2017-11-01] VITALS (13 sets, daily range): BP systolic 118–125; BP diastolic 86–87; PULSE 62–80; RESP 16; O2SAT 97–98
[2017-11-01] MEDS: CARVEDILOL 6.25 MG TAB PO SCH (09:00)
[2017-11-01] MEDS: SODIUM CHLORIDE 0.9% FLUSH 10 ML FLUSH IV FLUSH SCH (09:00)
[2017-11-01] MEDS: FUROSEMIDE 40 MG/4 ML VIAL IVP SCH (09:00)
[2017-11-01] MEDS: LISINOPRIL 5 MG TAB PO SCH (09:00)
[2017-11-01] MEDS: CEPHALEXIN MONOHYDRATE 500 MG CAP PO SCH (09:00)
[2017-11-01] MEDS: amLODIPine BESYLATE 5 MG TAB PO SCH (09:00)
[2017-11-01] MEDS: POTASSIUM CHLORIDE 20 MEQ CONTROLLED RELEASE TAB PO SCH (09:00)
[2017-11-01] MEDS: ASPIRIN 81 MG CHEW TAB CHEW SCH (09:00)
--- NOTE | 2017-11-01 15:13 | HHI.PR ---
Subjective Remarks Pt is upset this morning, stating that I lied to him about going home yesterday. As it turns out, he was appropriate for discharge and was medically discharged yesterday after clearance from cardiology, but during psych evaluation that afternoon, he mentioned phrases that caused him to be diagnosed with psychosis, which resulted in a Rodriguez Act. He was restrained for part of the night, then agreed to cooperate and was unrestrained. This morning he was demanding to leave the floor, security did not want to become involved again, and during my discussion with staff I advised them to not confront him if he chooses to leave. A couple hours later he was unable to be found on the floor. Objective Vitals Vital Signs Date Time Temp Pulse Resp B/P (MAP) Pulse Ox O2 Delivery O2 Flow Rate FiO2 11/01/17 10:00 67 11/01/17 09:00 80 11/01/17 08:00 76 11/01/17 07:00 76 11/01/17 06:00 76 11/01/17 05:00 72 11/01/17 04:28 64 16 118/86 (97) 97 11/01/17 04:00 66 11/01/17 03:00 68 11/01/17 02:00 64 11/01/17 01:00 62 11/01/17 00:40 63 16 125/87 (100) 98 11/01/17 00:00 64 10/31/17 23:00 71 10/31/17 22:00 84 10/31/17 21:00 78 10/31/17 20:10 97.6 79 18 111/78 (89) 100 10/31/17 20:00 78 10/31/17 19:00 78 10/31/17 18:00 84 10/31/17 17:00 75 10/31/17 16:00 74 10/31/17 15:00 78 10/31/17 15:00 81 16 145/104 (118) 98 I/O 10/31/17 10/31/17 10/31/17 11/01/17 11/01/17 11/01/17 07:00 15:00 23:00 07:00 15:00 23:00 Intake Total 400 ml 600 ml 350 ml Output Total 925 ml 1400 ml 800 ml Balance -525 ml -800 ml -450 ml Intake Oral 400 ml 600 ml 350 ml Output Urine Total 925 ml 1400 ml 800 ml # Bowel Movements 0 0 Result Diagram: 10/30/17 0425 10/31/17 0545 Objective Remarks GENERAL: Well-nourished, well-developed patient. SKIN: Warm and dry. HEAD: Normocephalic. EYES: No scleral icterus. No injection or drainage. NECK: Supple, trachea midline. No JVD or lymphadenopathy. CARDIOVASCULAR: Regular rate and rhythm without murmurs, gallops, or rubs. RESPIRATORY: Breath sounds equal bilaterally. Mild wheezing, no crackles in bases. No accessory muscle use. GASTROINTESTINAL: Abdomen soft, non-tender, nondistended. MUSCULOSKELETAL: No cyanosis, or edema. BACK: Nontender without obvious deformity. No CVA tenderness. EXTREMITIES: no edema Procedures stress test (negative) A/P Problem List: (1) Elevated troponin I level ICD Code: R74.8 - Abnormal levels of other serum enzymes (2) Tobacco abuse ICD Code: Z72.0 - Tobacco use (3) Benign hypertension ICD Code: I10 - Essential (primary) hypertension (4) Acute kidney injury superimposed on chronic kidney disease ICD Code: N17.9 - Acute kidney failure, unspecified; N18.9 - Chronic kidney disease, unspecified (5) Acute exacerbation of CHF (congestive heart failure) ICD Code: I50.9 - Heart failure, unspecified (6) Acute pulmonary edema ICD Code: J81.0 - Acute pulmonary edema Status: Acute Assessment and Plan 57M who was cleared by cardiology following negative stress test yesterday and medically discharged from my standpoint yesterday. He remained on the floor overnight due to a Rodriguez Act placed during a psychiatric evaluation. I spoke with his (living in [place]) this morning who explained to me that he has had a history of drug abuse in the past, and is living at a longterm house for rehab and periodic drug testing. She denies that he has ever had any episodes of violence, though she does admit that he has a way of over stating his thoughts in words which can come across as threatening to some people. He has had episodes of disorganized thinking over the years, but that mostly has to do with his history of drug abuse. 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 His [facility] terms have all been for drug related charges (using and selling) according to his . It is unclear whether or not he was diagnosed with schizophrenia while he was under the influence of drugs or withdrawing from them. In the past he has improved, according to her, when placed on Risperidal and Cogentin, but after being discharged from the facilities he has a pattern of stopping the medication. CHF Exacerbation with Pulmonary Edema Responded well to IV lasix, passed his stress test yesterday Elevation of Troponins Cleared for discharge by cardiology Medically discharged yesterday. h/o Schizophrenia and Depression Rodriguez Acted by psych yesterday, but no facility was available to receive him He left the hospital AMA this morning. It seems he deserves a clean slate psychiatric evaluation given his schizophrenia label may have been placed during times of drug abuse. Cough Upper respiratory infection Keflex Hypertension Norvasc h/o Chronic Renal Insufficiency Cautious use of Lasix and follow Cr level DVT Prophylaxis Jimmy Maher MD Nov 01, 2017 3:13 pm
[2017-11-01] MEDS ORDERED: RISP4TAB41 PO (17:57)
[2017-11-01] MEDS ORDERED: BENZ0.5T PO (17:57)
[2017-11-01] MEDS ORDERED: AMLO5 PO (17:59)
[2017-11-01] MEDS ORDERED: CEPH500C PO (17:59)
[2017-11-01] MEDS ORDERED: LORA-475 PO (17:59)
== END 2017-11-01 11:00 | disposition left against medical advice (07) | DRG 292 ==
LOC: NEPC 02:53 → NEDA 04:05 → HCIS 05:04
PROVIDERS: ADMIT Family Medicine; ATTEND Family Medicine
DX: I13.0 Hypertensive heart and chronic kidney disease with heart failure and stage 1 through stage 4 chronic kidney disease, or unspecified chronic kidney disease (principal); N17.9 Acute kidney failure, unspecified; N18.3 Chronic kidney disease, stage 3 (moderate); I42.9 Cardiomyopathy, unspecified; I50.9 Heart failure, unspecified; F17.210 Nicotine dependence, cigarettes, uncomplicated; F32.9 Major depressive disorder, single episode, unspecified; F20.9 Schizophrenia, unspecified; Z91.14 Patient's other noncompliance with medication regimen; E87.6 Hypokalemia; J06.9 Acute upper respiratory infection, unspecified; Z23 Encounter for immunization
CPT/HCPCS: 71010; 78452; 80048; 80053; 80307; 81001; 82550; 83735; 83880; 84484; 85025; 85610; 85730; 87804; 90686; 90732; 93005; 93017; 93306; 96365; 96375; A9502; J1650; J1940; J2060; J2785; J3475; J3480; J7030; Q2038

== ENCOUNTER 2017-11-01 14:51 | Inpatient (IN) | payer MEDICARE, MEDICAID, OTHER ==
[~2017-11-01] VITALS: Ht 172.7 cm; Wt 77.9 kg
[~2017-11-01 14:51] MED LIST changes: +AMLO5 PO; +CEPH500C PO; +LORA-475 PO; -NIFE60TA58 PO; -POTA1TAB4 PO
[2017-11-01 16:06] VITALS: BP 144/90; PULSE 81; RESP 18; TEMP 98.6; O2SAT 100
[2017-11-01] MEDS ORDERED: ACETAMINOPHEN 325 MG TAB PO PRN (16:45)
[2017-11-01] MEDS ORDERED: LORazepam 2 MG/ML VIAL IM PRN ×2 (16:45)
[2017-11-01] MEDS ORDERED: LORazepam 0.5 MG TAB PO PRN (16:45)
[2017-11-01] MEDS ORDERED: LORazepam 1 MG TAB PO PRN (16:45)
[2017-11-01] MEDS ORDERED: ALUMINUM/MAGNESIUM/SIMETH 30 ML CUP PO PRN (16:45)
[2017-11-01] MEDS ORDERED: MAGNESIUM HYDROXIDE SUSP 30 ML CUP PO PRN (16:45)
[2017-11-01] MEDS: NICOTINE 21 MG/24 HR PATCH T-DERMAL SCH (17:00)
--- NOTE | 2017-11-01 17:09 | PD ---
HPI Chief Complaint: Psychiatric Symptoms Time Seen by Provider: 16:09 Travel History International Travel<30 days: No Contact w/Intl Traveler<30days: No Traveled to known affect area: No History of Present Illness HPI 57 yo M arrives after he was discharged prior to release of Rodriguez Act. Pt denies HI/SI at the bedside. He has no medical complaint at the bedside. He had been admitted for elevated troponin and renal failure. I was called to medically clear the patient for readmission. PFSH Past Medical History Cardiovascular Problems: Yes (HTN) Hypertension: Yes Immune Disorder: Yes (HIV) Musculoskeletal: No Neurologic: No Psychiatric: Yes (schizophrenia) Respiratory: Yes ?: Not Past Surgical History Eye Surgery: Yes (trauma surgery R eye) Social History Alcohol Use: No Tobacco Use: Yes Substance Use: No Allergies-Medications (Allergen,Severity, Reaction): Coded Allergies: No Known Allergies (Verified Adverse Reaction, Unknown, 10/28/17) Reported Meds & Prescriptions Reported Meds & Active Scripts Active Ativan (Lorazepam) 2 Mg Tab 2 Mg PO Q6H PRN 7 Days Cephalexin 500 Mg Cap 500 Mg PO BID 5 Days Norvasc (Amlodipine Besylate) 5 Mg Tab 5 Mg PO DAILY 30 Days Review of Systems General / Constitutional: No: Fever Cardiovascular: No: Chest Pain or Discomfort, Palpitations Physical Exam Narrative GENERAL: 57 yo M, WNWD, NAD SKIN: Warm and dry. HEAD: Normocephalic. EYES: No scleral icterus. No injection or drainage. NECK: Supple, trachea midline. No JVD or lymphadenopathy. CARDIOVASCULAR: Regular rate and rhythm without murmurs, gallops, or rubs. RESPIRATORY: Breath sounds equal bilaterally. No accessory muscle use. GASTROINTESTINAL: Abdomen soft, non-tender, nondistended. MUSCULOSKELETAL: No cyanosis, or edema. Splint LUE. BACK: Nontender without obvious deformity. No CVA tenderness. Data Data Last Documented VS Vital Signs Date Time Temp Pulse Resp B/P (MAP) Pulse Ox O2 Delivery O2 Flow Rate FiO2 11/01/17 16:06 98.6 81 18 144/90 (108) 100 VS reviewed Orders Orders Amlodipine (Norvasc) (11/01/17 16:45) Admit To Inpatient Psych (11/01/17 ) Vital Signs (Adult) CHAVO.Q12H.E (11/01/17 16:39) Activity Oob Ad Whitney (11/01/17 16:39) Lorazepam (Ativan) (11/01/17 16:45) Lorazepam Inj (Ativan Inj) (11/01/17 16:45) Acetaminophen (Tylenol) (11/01/17 16:45) Magnesium Hydroxide Liq (Milk Of Magnesi (11/01/17 16:45) Al-Mag Hy-Si 40-40-4 Mg/Ml Liq (Mag-Al P (11/01/17 16:45) Nicotine 21 Mg Patch.24 Hr (Habitrol 21 (11/01/17 17:00) Basic Metabolic Panel (Bmp) (11/02/17 06:00) Lipid Profile (11/02/17 06:00) Hemoglobin (Hgb) A1c (11/02/17 06:00) MDM Medical Decision Making Medical Screen Exam Complete: Yes Emergency Medical Condition: Yes Medical Record Reviewed: Yes Differential Diagnosis SI, HI, schizophrenia Narrative Course Pt medically stable for psych admission to [address] [place] [address] Diagnosis Primary Impression: Psychiatric diagnosis Admitting Information Admitting Physician Requests: Observation Vincent Dawkins MD Nov 01, 2017 17:09
[2017-11-01 17:30] VITALS: BP 178/102; PULSE 98; RESP 18; TEMP 97.9; O2SAT 98
[2017-11-01] MEDS ORDERED: BENZ0.5T PO (17:57)
[2017-11-01] MEDS ORDERED: RISP4TAB41 PO (17:57)
[2017-11-01] MEDS ORDERED: CEPH500C PO (17:59)
[2017-11-01] MEDS ORDERED: LORA-475 PO (17:59)
[2017-11-01] MEDS ORDERED: AMLO5 PO (17:59)
[2017-11-01] MEDS: REMOVE OLD NICODERM (NICOTINE) PATCH T-DERMAL SCH (18:12)
[2017-11-01] MEDS: amLODIPine BESYLATE 5 MG TAB PO SCH (18:13)
[2017-11-02 05:52] VITALS: BP 156/107; PULSE 75; RESP 18; TEMP 97.5; O2SAT 98
[2017-11-02] MEDS: NICOTINE 21 MG/24 HR PATCH T-DERMAL SCH (09:00)
[2017-11-02] MEDS: amLODIPine BESYLATE 5 MG TAB PO SCH (09:11)
[2017-11-02] MEDS ORDERED: amLODIPine BESYLATE 5 MG TAB PO SCH (11:30)
[2017-11-02] MEDS ORDERED: hydrOXYzine HCL 50 MG TAB PO PRN (11:30)
--- NOTE | 2017-11-02 11:48 | HHI.HP ---
Provisional Diagnosis Admission Date Nov 01, 2017 at 16:43 [place]. Schizophrenia chronic paranoid type f 20.0 Certification of Person's Competence To Provide Express and Informed Consent I have personally examined Mikel Cunningham , a person being served at [facility] on, Nov 02, 2017 11:29. Express and informed consent means consent voluntarily given in writing, by a competent person, after sufficient explanation and disclosure of the subject matter involved to enable the person to make a knowing and willful decision without any element of force, fraud, deceit, duress, or other form of constraint or coercion. This person is 18 years of age or older, is not now known to be incompetent to consent to treatment with a guardian advocate, and does not have a health care surrogate or proxy currently making medical treatment decisions. I have found this person to be one of the following: [] Competent to provide express and informed consent, as defined above, for voluntary admission to this facility and is competent to provide express and informed consent for treatment. He/she has the consistent capacity to make well reasoned, willful, and knowing decisions concerning his or her medical or mental health treatment. The person fully and consistently understands the purpose of the admission for examination/placement and is fully capable of personally exercising all rights assured [place] [] Incompetent to provide express and informed consent to voluntary admission, and this is incompetent to provide express and informed consent to treatment. The person must be transferred to involuntary status and a petition for a guardian advocate filed with the Circuit Court. []xxx Refusing to provide express and informed consent to voluntary admission but is competent to provide express and informed consent for treatment. The person must be discharged or transferred to involuntary status. Form shall be completed within 24 hours of a person's arrival at the receiving facility and filed in the clinical record of each person: 1. Admitted on a voluntary basis 2. Permitted to provide express and informed consent to his/her own treatment 3. Allowed to transfer from involuntary to voluntary status 4. Prior to permitting a person to consent to his or her own treatment after having been previously found incompetent to consent to treatment. History of Present Illness Capacity: Lacks Capacity (patient less capacity sign for her hospitalization, patient has capacity to sign for medication) Psych Chief Complaint: patient paranoid making threats towards affairs medical staff HPI Patient is a 57-year-old Afro[place]Citizen [place] male initially hospitalized [facility] on 10/28/17 under visit [id number] with congestive heart failure versus cardiac issues. During that stay patient's family members shared with the staff that the patient has a history of schizophrenia noncompliance medication adverse legal issues that he was somewhat recently just released from nursing home. He should seen in consultation by Dr. Jack Norris on 10/31/17. At that time patient made threats to harm various physicians staff members including Dr. Norris. He showed marked paranoia irritability at that time along with refusing to take medication. He reluctantly acknowledged patient schizophrenia that he has done well in the past on Respinol 4 mg at bedtime and Cogentin 2 mg at bedtime though he refused to take it when suggested by Dr. Norris. Jasvir Norris initiated a Rodriguez act. It appears patient was later medically cleared in the evening of the the next morning he walked out of the hospital. It appears authorities may have been notified the found the patient in the community and return here under the Rodriguez act. Dr. Norris psychiatric consultation reviewed and agreed with. Patient seen by me on unit 2700 with nurse Yumi present throughout session. He is alert oriented calm but vigilant mildly irritable. He did state that some of the staff irritated him on the medical service. When this was addressed by Dr. Norris patient made statements that would imply if he wanted to he could harm these people. He also made threats to harm by the medical staff and also harm Dr. Norris. This led Dr. Norris to initiating the Rodriguez act. Today patient denies any homicidal thoughts or assaultive thoughts. He also denies suicidality. He also denies voices or visions. He does readily acknowledge being diagnosed schizophrenic but states his only hospitalization was in 1994 when he was diagnosed. He has been seeing a psychiatrist in the [place] area restates his present and daughter live. He states his been compliant with his medications though he has been living up here for 4 months. He states he travels to [place] for his appointments. He states his less incarceration is a number of years ago but his for drug-related charges and he has had multiple incarcerations. Though he denies alcohol or drug use. He states he is living with friends locally and lives in stable location. Patient denies any physical or sexual abuse as a child. We did discuss medications patient appears willing to take his medications though he does state he has been compliant throughout we will start him on Respinol 4 mg at bedtime along with Cogentin 2 mg at bedtime. Tolerates them well overnight and is been no behavior problem consider discharge tomorrow. Review of Systems Constitutional: DENIES: Diaphoretic episodes, Fatigue, Fever, Weight gain, Weight loss, Chills, Dizziness, Change in appetite, Night Sweats Endocrine: DENIES: Heat/cold intolerance, Polydipsia, Polyuria, Polyphagia Eyes: DENIES: Blurred vision, Diplopia, Eye inflammation, Eye pain, Vision loss , Photosensitivity, Double Vision Ears, nose, mouth, throat: DENIES: Tinnitus, Hearing loss, Vertigo, Nasal discharge, Oral lesions, Throat pain, Hoarseness, Ear Pain, Running Nose, Epistaxis, Sinus Pain, Toothache, Odynophagia Respiratory: DENIES: Apneas, Cough, Snoring, Wheezing, Hemoptysis, Sputum production, Shortness of breath Cardiovascular: DENIES: Chest pain, Palpitations, Syncope, Dyspnea on Exertion , PND, Lower Extremity Edema, Orthopnea, Claudication Gastrointestinal: DENIES: Abdominal pain, Black stools, Bloody stools, Constipation, Diarrhea, Nausea, Vomiting, Difficulty Swallowing, Anorexia Genitourinary: DENIES: Sexual dysfunction, Urinary frequency, Urinary incontinence, Urgency, Hematuria, Dysuria, Nocturia, Penile Discharge, Testicular Pain, Testicular Swelling Musculoskeletal: DENIES: Joint pain, Muscle aches, Stiffness, Joint Swelling, Back pain, Neck pain Integumentary: DENIES: Abnormal pigmentation, Nail changes, Pruritus, Rash Hematologic/lymphatic: DENIES: Bruising, Lymphadenopathy Immunologic/allergic: DENIES: Eczema, Urticaria Neurologic: DENIES: Abnormal gait, Headache, Localized weakness, Paresthesias, Seizures, Speech Problems, Tremor, Poor Balance Psychiatric: COMPLAINS OF: Agitation, Homicidal Ideation (a vague statements during prior hospitalization visit [id number]) Past Psych History Psychological trauma history Denies Violence risk - others (6 mos) Patient making homicidal threats to's staff and physicians with prior hospitalization Violence risk - self (6 mos) Denies Substance Abuse History Drugs/Alcohol past 12 months Denies Past Family Social History Coded Allergies: No Known Allergies (Verified Adverse Reaction, Unknown, 11/01/17) Reported Medications Lorazepam (Ativan) 2 Mg Tab, 2 MG PO Q6H, TAB 0 Refills 11/01/17 Cephalexin (Cephalexin) 500 Mg Cap, 500 MG PO Q12H for Infection, CAP 0 Refills 11/01/17 Amlodipine (Norvasc) 5 Mg Tab, 5 MG PO DAILY for Blood Pressure Management, #30 TAB 0 Refills 11/01/17 Benztropine (Benztropine) 0.5 Mg Tab, 2 MG PO DAILY, #60 TAB 0 Refills 11/01/17 Risperidone (Risperdal) 4 Mg Tab, 4 MG PO DAILY, #30 TAB 0 Refills 11/01/17 Discontinued Scripts Lorazepam (Ativan) 2 Mg Tab, 2 MG PO Q6H Y for ANXIETY for 7 Days, #28 TAB Prov:Jimmy Soriano MD 10/31/17 Cephalexin (Cephalexin) 500 Mg Cap, 500 MG PO BID for Cough for 5 Days, #10 CAP Prov:Jimmy Soriano MD 10/31/17 Amlodipine (Norvasc) 5 Mg Tab, 5 MG PO DAILY for Blood Pressure Management for 30 Days, #30 TAB 0 Refills Prov:Jimmy Soriano MD 10/31/17 Potassium Chloride ER (K-Tab) 20 Meq Tab, 20 MEQ PO BID for Electrolyte Replacement, #14 TAB 0 Refills Prov:Radha Olson MD 10/03/17 Nifedipine ER 24 HR (Nifedipine ER 24 HR) 60 Mg Tab, 60 MG PO DAILY, #30 TAB 0 Refills Prov:Rosalina Marques MD 06/24/17 Current Medications Medications (Trade) Dose Ordered Sig/Clif Route Start Time Stop Time Status Last Admin (Norvasc) 5 mg DAILY PO 11/01/17 16:45 11/02/17 09:11 (Tylenol) 650 mg Q4H PRN PO 11/01/17 16:45 11/01/17 20:21 (Milk Of Magnesia Liq) 30 ml DAILY PRN PO 11/01/17 16:45 (Mag-Al Plus Susp Liq) 30 ml Q6H PRN PO 11/01/17 16:45 (Habitrol 21 Mg Patch.24 Hr) 1 patch DAILY T-DERMAL 11/01/17 17:00 Miscellaneous Information 1 HS T-DERMAL 11/01/17 21:00 (risperDAL) 4 mg HS PO 11/02/17 21:00 UNV (Cogentin) 2 mg HS PO 11/02/17 21:00 UNV (Norvasc) 5 mg DAILY PO 11/02/17 11:30 UNV (Keflex) 500 mg Q12H PO 11/02/17 11:30 UNV Family Psych History Denies Social History Patient states is and has a and adult daughter living in [place] however he has lived up here for the past 4 months "taking care of things Patient's Strengths (min. 2) Patient verbal label access healthcare Physical Exam Patient medically cleared visit [id number], patient sitting quietly in his room is in no acute distress, no respiratory distress, no complaints abdominal pain. Patient with low 4 extremities without difficulty no abnormal motor movements noted Vital Signs Vital Signs Date Time Temp Pulse Resp B/P (MAP) Pulse Ox O2 Delivery O2 Flow Rate FiO2 11/02/17 05:52 97.5 75 18 156/107 (123) 98 Mental Status Examination Appearance: Appropriate, Disheveled (mildly) Consciousness: Alert Orientation: Person, Place, Date/Time, Situation Motor Activity: Normal gait Speech: Unremarkable Language: Adequate Fund of Knowledge: Adequate Attention and Concentration: Adequate Memory: Unremarkable Mood: Angry, Irritable Affect: Other (slight increase range and intensity) Thought Process & Associations: Intact Thought Content: Bizarre thinking Hallucination Type: None (at times appears to be responding to internal stimuli ) Suicidal Ideation: No (denies) Suicidal Plan: No Suicidal Intention: No Homicidal Ideation: No (now denies violent thoughts toward staff or physicians) Homicidal Plan: No Homicidal Intention: No Insight: Poor Judgment: Poor Assessment & Plan Problem List: (1) Schizophrenia, paranoid, chronic with acute exacerbation ICD Codes: F20.0 - Paranoid schizophrenia Assessment & Plan Estimated LOS: 1-2 days at this time patient meets criteria for further psychiatric hospitalization observation and medication treatment. The patient' s compliant medication does well overnight consider discharge tomorrow the states she has a psychiatrist in the [place] area that he follows up with. Discharge Planning Return to community who is living with roommates, mental health follow-up in [place] Request HC Surrog/Guard Advoc?: No Shahram Rivera MD Nov 02, 2017 11:48
[2017-11-02] MEDS: CEPHALEXIN MONOHYDRATE 500 MG CAP PO SCH ×2 (12:00→21:42)
[2017-11-02] MEDS ORDERED: cloNIDine HCL 0.1 MG TAB PO PRN (12:45)
[2017-11-02] MEDS ORDERED: ALBUTEROL SULFATE 90 MCG/ACT HFA 8 GM INHALER INH PRN (13:30)
--- NOTE | 2017-11-02 13:34 | PD.CONS ---
[facility] Consult Requested By Primary Care Physician No Primary Care Physician Diagnoses: History of Present Illness Mr. Cunningham is a 57 -year-old male. He was admitted recently to a medical facility secondary to pulmonary edema. He had been treated there. His schizophrenia baseline and this was exacerbated. Patient has been medically discharge but a [place] act was placed shortly after medical discharge was placed. He was recommended to stay but he left AMA. Please saucers picked him up at his home and brought him into the psychiatric facility here. Consult has been placed for medical management. At discharge she was prescribed Keflex as an antibiotic for questionable pneumonia. He is continuing on this. He has hypertension and HIV at baseline. He also has a left arm that he broke approximately 1 month ago and this is presently in a splint. No other complaints. Review of Systems Constitutional: DENIES: Fever, Change in appetite, Night Sweats Endocrine: DENIES: Heat/cold intolerance, Polydipsia, Polyuria Eyes: DENIES: Blurred vision, Diplopia, Eye inflammation Respiratory: COMPLAINS OF: Cough, Shortness of breath, DENIES: Apneas, Wheezing Cardiovascular: DENIES: Chest pain, Palpitations, Syncope Gastrointestinal: DENIES: Abdominal pain, Black stools, Bloody stools, Constipation, Diarrhea, Nausea Musculoskeletal: COMPLAINS OF: Joint pain, DENIES: Muscle aches, Stiffness, Joint Swelling Integumentary: DENIES: Abnormal pigmentation, Nail changes, Pruritus, Rash Immunologic/allergic: DENIES: Eczema, Urticaria Neurologic: DENIES: Abnormal gait, Headache, Paresthesias Psychiatric: DENIES: Anxiety, Confusion, Hallucinations Past Family Social History Allergies: Coded Allergies: No Known Allergies (Verified Adverse Reaction, Unknown, 11/01/17) Past Medical History Hypertension HIV (by history) Past Surgical History Right arm surgery status post trauma/fracture Reported Medications Reported Meds & Active Scripts Active Reported Ativan (Lorazepam) 2 Mg Tab 2 Mg PO Q6H Cephalexin 500 Mg Cap 500 Mg PO Q12H Norvasc (Amlodipine Besylate) 5 Mg Tab 5 Mg PO DAILY Benztropine (Benztropine Mesylate) 0.5 Mg Tab 2 Mg PO DAILY Risperdal (Risperidone) 4 Mg Tab 4 Mg PO DAILY Active Ordered Medications Administered Medications Medications (Trade) Dose Ordered Sig/Clif Route PRN Reason Start Time Stop Time Status Last Admin Dose Admin Acetaminophen (Tylenol) 650 mg Q4H PRN PO Pain 1-5 or Temp >101F 11/01/17 16:45 11/01/17 20:21 Family History Coronary artery disease and diabetes mellitus runs in his family Social History Smokes approximately one third pack of cigarettes daily. Denies alcohol, illicit drugs. Physical Exam Vital Signs Vital Signs Date Time Temp Pulse Resp B/P (MAP) Pulse Ox O2 Delivery O2 Flow Rate FiO2 11/02/17 05:52 97.5 75 18 156/107 (123) 98 11/01/17 17:32 11/01/17 17:30 97.9 98 18 178/102 (127) 98 11/01/17 16:06 98.6 81 18 144/90 (108) 100 Physical Exam GENERAL: NAD, A&Ox2 HEAD: Normocephalic. NECK: Supple, trachea midline. No lymphadenopathy. EYES: No scleral icterus. No injection or drainage. CARDIOVASCULAR: Regular rate and rhythm without murmurs, gallops, or rubs. RESPIRATORY: Breath sounds equal bilaterally. No accessory muscle use. GASTROINTESTINAL: Abdomen soft, non-tender, nondistended. MUSCULOSKELETAL: No cyanosis, or edema. Left arm is bandaged and splinted SKIN: Warm and dry. NEURO: No focal neurological deficitis. Assessment and Plan Problem List: (1) Schizophrenia, paranoid, chronic with acute exacerbation ICD Code: F20.0 - Paranoid schizophrenia (2) Psychiatric diagnosis ICD Code: F99 - Mental disorder, not otherwise specified Status: Acute Assessment and Plan 67-year-old male admitted secondary to schizophrenia exacerbation Schizophrenia Management per psychiatry Hypertension Uncontrolled Increase amlodipine Begin an as needed clonidine Possible HIV HIV screen Leukocyte profile including CD4 evaluation Outpatient ID will be recommended if patient is positive Subacute left arm fracture Continue splint for 8 more weeks DVT prophylaxis Patient is ambulatory Vincent Soriano MD Nov 02, 2017 13:34
[2017-11-02 15:31] LABS: BICARBONATE 26.2 MEQ/L (21.0-32.0); BLOOD UREA NITROGEN 32 MG/DL (7-18); CALCIUM 8.3 MG/DL (8.5-10.1); CHLORIDE 102 MEQ/L (98-107); CHOLESTEROL 182 MG/DL (120-200); CREATININE 1.87 MG/DL (0.60-1.30); GLOMERULAR FILTRATION RATE 45 ML/MIN (>89); GLUCOSE,RANDOM 98 MG/DL (74-106); SODIUM (NA) 136 MEQ/L (136-145)
[2017-11-02 15:36] LABS: CHOLESTEROL/ HDL RATIO 5.26 RATIO; HDL CHOLESTEROL 34.6 MG/DL (40.0-60.0); LDL CHOLESTEROL 128 MG/DL (0-99); TRIGLYCERIDES 97 MG/DL (42-150)
[2017-11-02] MEDS ORDERED: BENZTROPINE MESYLATE 2 MG TAB PO SCH (21:00)
[2017-11-02] MEDS: REMOVE OLD NICODERM (NICOTINE) PATCH T-DERMAL SCH (21:00)
[2017-11-02] MEDS ORDERED: risperiDONE 1 MG TAB PO SCH (21:00)
[2017-11-03 05:48] VITALS: BP 156/90; PULSE 77; RESP 20; TEMP 98.6; O2SAT 96
[2017-11-03] MEDS: NICOTINE 21 MG/24 HR PATCH T-DERMAL SCH (09:00)
[2017-11-03] MEDS ORDERED: ASPIRIN 81 MG CHEW TAB PO SCH (09:00)
--- NOTE | 2017-11-03 12:05 | PD.PSY.CON ---
Provisional Diagnosis Admission Date Nov 01, 2017 at 16:43 [place] I. Schizophrenia chronic paranoid type f 20.0 History of Present Illness Service Psychiatry Consult Requested By Dr. Rivera Reason for Consult Second opinion Primary Care Physician No Primary Care Physician HPI Patient is a 57-year-old Afro-[place] male initially hospitalized [facility] on 10/28/17 under visit [id number] with congestive heart failure versus cardiac issues. During that stay patient's family members shared with the staff that the patient has a history of schizophrenia noncompliance medication adverse legal issues that he was somewhat [facility] He should seen in consultation by Dr. Jack Norris on 10/31/17. At that time patient made threats to harm various physicians staff members including Dr. Norris. He showed marked paranoia irritability at that time along with refusing to take medication. He reluctantly acknowledged patient schizophrenia that he has done well in the past on Respinol 4 mg at bedtime and Cogentin 2 mg at bedtime though he refused to take it when suggested by Dr. Norris. Jasvir Norris initiated a Rodriguez act. It appears patient was later medically cleared in the evening of the the next morning he walked out of the hospital. It appears authorities may have been notified the found the patient in the community and return here under the Rodriguez act. Dr. Norris psychiatric consultation reviewed and agreed with. Patient seen by me on unit 2700 with nurse Yumi present throughout session. He is alert oriented calm but vigilant mildly irritable. He did state that some of the staff irritated him on the medical service. When this was addressed by Dr. Norris patient made statements that would imply if he wanted to he could harm these people. He also made threats to harm by the medical staff and also harm Dr. Norris. This led Dr. Norris to initiating the Rodriguez act. Today patient denies any homicidal thoughts or assaultive thoughts. He also denies suicidality. He also denies voices or visions. He does readily acknowledge being diagnosed schizophrenic but states his only hospitalization was in 1994 when he was diagnosed. He has been seeing a psychiatrist in the [place] area restates his present and daughter live. He states his been compliant with his medications though he has been living up here for 4 months. He states he travels to [place] for his appointments. He states his less incarceration is a number of years ago but his for drug-related charges and he has had multiple incarcerations. Though he denies alcohol or drug use. He states he is living with friends locally and lives in stable location. Patient denies any physical or sexual abuse as a child. We did discuss medications patient appears willing to take his medications though he does state he has been compliant throughout we will start him on Respinol 4 mg at bedtime along with Cogentin 2 mg at bedtime. Tolerates them well overnight and is been no behavior problem consider discharge tomorrow. The patient is a 57 year old man, domicile in a half house, but , supported by [facility], with psychiatric history of paranoid schizophrenia, 1 previous psychiatric hospitalizations, no previous suicidal attempts, medical history of COPD, CHF, HTN, who was hospitalized due to paranoia and irritability and noncompliance with psychotropics. On psychiatric evaluation today for a second opinion, the patient is calm, cooperative, he reports that he feels much better today. He is willing to take medications, and get better and participate in the discharge plan. He reports that at times he feels paranoid about people around him, but at this moment he feels controlled. He denies suicidal and homicidal ideation, he denies visual and auditory hallucinations. Review of Systems Except as stated in HPI: all other systems reviewed are Neg Past Family Social History Coded Allergies: No Known Allergies (Verified Adverse Reaction, Unknown, 11/01/17) Reported Medications Lorazepam (Ativan) 2 Mg Tab, 2 MG PO Q6H, TAB 0 Refills 11/01/17 Cephalexin (Cephalexin) 500 Mg Cap, 500 MG PO Q12H for Infection, CAP 0 Refills 11/01/17 Amlodipine (Norvasc) 5 Mg Tab, 5 MG PO DAILY for Blood Pressure Management, #30 TAB 0 Refills 11/01/17 Benztropine (Benztropine) 0.5 Mg Tab, 2 MG PO DAILY, #60 TAB 0 Refills 11/01/17 Risperidone (Risperdal) 4 Mg Tab, 4 MG PO DAILY, #30 TAB 0 Refills 11/01/17 Discontinued Scripts Lorazepam (Ativan) 2 Mg Tab, 2 MG PO Q6H Y for ANXIETY for 7 Days, #28 TAB Prov:Jimmy Soriano MD 10/31/17 Cephalexin (Cephalexin) 500 Mg Cap, 500 MG PO BID for Cough for 5 Days, #10 CAP Prov:Jimmy Soriano MD 10/31/17 Amlodipine (Norvasc) 5 Mg Tab, 5 MG PO DAILY for Blood Pressure Management for 30 Days, #30 TAB 0 Refills Prov:Jimmy Soriano MD 10/31/17 Potassium Chloride ER (K-Tab) 20 Meq Tab, 20 MEQ PO BID for Electrolyte Replacement, #14 TAB 0 Refills Prov:Radha Olson MD 10/03/17 Nifedipine ER 24 HR (Nifedipine ER 24 HR) 60 Mg Tab, 60 MG PO DAILY, #30 TAB 0 Refills Prov:Rosalina Marques MD 06/24/17 Current Medications Medications (Trade) Dose Ordered Sig/Clif Route Start Time Stop Time Status Last Admin (Tylenol) 650 mg Q4H PRN PO 11/01/17 16:45 11/01/17 20:21 (Milk Of Magnesia Liq) 30 ml DAILY PRN PO 11/01/17 16:45 (Mag-Al Plus Susp Liq) 30 ml Q6H PRN PO 11/01/17 16:45 (Habitrol 21 Mg Patch.24 Hr) 1 patch DAILY T-DERMAL 11/01/17 17:00 Miscellaneous Information 1 HS T-DERMAL 11/01/17 21:00 (risperDAL) 4 mg HS PO 11/02/17 21:00 11/02/17 21:41 (Cogentin) 2 mg HS PO 11/02/17 21:00 11/02/17 21:41 (Keflex) 500 mg Q12H PO 11/02/17 12:00 11/07/17 23:00 11/02/17 21:42 (Atarax) 50 mg Q6H PRN PO 11/02/17 11:30 (Aspirin Chew) 81 mg DAILY PO 11/03/17 09:00 11/03/17 09:04 (Norvasc) 10 mg DAILY PO 11/03/17 09:00 11/03/17 09:04 (Catapres) 0.1 mg Q6H PRN PO 11/02/17 12:45 (Proair Hfa Inh) 2 puff Q6H PRN INH 11/02/17 13:30 Family Psych History No family psychiatric history Social History Patient was born and raised in [place], he lives in [facility], he is but , his highest level of education is eighth grade, supported by [facility] Patient's Strengths (min. 2) Patient verbal label access healthcare Physical Exam Vital Signs Vital Signs Date Time Temp Pulse Resp B/P (MAP) Pulse Ox O2 Delivery O2 Flow Rate FiO2 11/03/17 05:48 98.6 77 20 156/90 (112) 96 Lab Results Test 11/02/17 14:50 Blood Urea Nitrogen 32 MG/DL Creatinine 1.87 MG/DL Random Glucose 98 MG/DL Calcium Level 8.3 MG/DL Sodium Level 136 MEQ/L Potassium Level 4.0 MEQ/L Chloride Level 102 MEQ/L Carbon Dioxide Level 26.2 MEQ/L Anion Gap 8 MEQ/L Estimat Glomerular Filtration Rate 45 ML/MIN Triglycerides Level 97 MG/DL Cholesterol Level 182 MG/DL LDL Cholesterol 128 MG/DL HDL Cholesterol 34.6 MG/DL Cholesterol/HDL Ratio 5.26 RATIO Mental Status Examination Appearance: Appropriate, Disheveled (mildly) Consciousness: Alert Orientation: Person, Place, Date/Time, Situation Motor Activity: Normal gait Speech: Unremarkable Language: Adequate Fund of Knowledge: Adequate Attention and Concentration: Adequate Memory: Unremarkable Mood: Appropriate, Irritable Affect: Irritable, Other (slight increase range and intensity) Thought Process & Associations: Intact Thought Content: Bizarre thinking Hallucination Type: None (at times appears to be responding to internal stimuli ) Suicidal Ideation: No (denies) Suicidal Plan: No Suicidal Intention: No Homicidal Ideation: No (now denies violent thoughts toward staff or physicians) Homicidal Plan: No Homicidal Intention: No Insight: Poor Judgment: Poor Assessment & Plan Problem List: (1) Schizophrenia, paranoid, chronic with acute exacerbation ICD Codes: F20.0 - Paranoid schizophrenia Assessment & Plan: I have seen and examined this patient, reviewed the documentation, I completely agree and concur with Dr. Rivera's assessment and plan. Assessment & Plan Estimated LOS: days Request HC Surrog/Guard Advoc?: No Tom Wilburn MD Nov 03, 2017 12:05
[2017-11-03] MEDS: CEPHALEXIN MONOHYDRATE 500 MG CAP PO SCH (12:33)
--- NOTE | 2017-11-03 14:21 | HHI.PR ---
Subjective Remarks in no acute distress. has mild pain to the left arm. otherwise wants to go home today. Objective Vitals Vital Signs Date Time Temp Pulse Resp B/P (MAP) Pulse Ox O2 Delivery O2 Flow Rate FiO2 11/03/17 05:48 98.6 77 20 156/90 (112) 96 Result Diagram: 11/02/17 9550 Objective Remarks GENERAL: This is a well-nourished, well-developed patient, in no apparent distress. CARDIOVASCULAR: Regular rate and regular rhythm without murmurs, gallops, or rubs. RESPIRATORY: Clear to auscultation. Breath sounds equal bilaterally. No wheezes , rales, or rhonchi. GASTROINTESTINAL: Abdomen soft, non-tender, nondistended. Normal, active bowel sounds MUSCULOSKELETAL: Extremities without clubbing, cyanosis, or edema. NEURO: Alert & Oriented x4 to person, place, time, situation. Moves all ext x4 Medications and IVs Inpatient Medications Acetaminophen (Tylenol) 650 mg Q4H PRN PO Pain 1-5 or Temp >101F Last administered on 11/01/17at 20:21; Start 11/01/17 at 16:45 Al Hydrox/Mg Hydrox/Simethicone (Mag-Al Plus Susp Liq) 30 ml Q6H PRN PO DYSPEPSIA; Start 11/01/17 at 16:45 Albuterol Sulfate (Proair Hfa Inh) 2 puff Q6H PRN INH Shortness of Breath; Start 11/02/17 at 13:30 Amlodipine Besylate (Norvasc) 10 mg DAILY PO Last administered on 11/03/17at 09: 04; Start 11/03/17 at 09:00 Aspirin (Aspirin Chew) 81 mg DAILY PO Last administered on 11/03/17at 09:04; Start 11/03/17 at 09:00 Benztropine Mesylate (Cogentin) 2 mg HS PO Last administered on 11/02/17at 21:41 ; Start 11/02/17 at 21:00 Cephalexin Monohydrate (Keflex) 500 mg Q12H PO Last administered on 11/03/17at 12 :33; Start 11/02/17 at 12:00; Stop 11/07/17 at 23:00 Clonidine (Catapres) 0.1 mg Q6H PRN PO SBP>160, DBP>90; Start 11/02/17 at 12:45 Hydroxyzine HCl (Atarax) 50 mg Q6H PRN PO ANXIETY; Start 11/02/17 at 11:30 Lorazepam (Ativan Inj) 1 mg Q6H PRN IM MODERATE TO SEVERE ANXIETY; Start at 16:45; Stop 11/02/17 at 11:24; Status DC Lorazepam (Ativan) 1 mg Q6H PRN PO MODERATE TO SEVERE ANXIETY Last administered on 11/02/17at 03:04; Start 11/01/17 at 16:45; Stop 11/02/17 at 11:24; Status DC Magnesium Hydroxide (Milk Of Magnesia Liq) 30 ml DAILY PRN PO CONSTIPATION; Start 11/01/17 at 16:45 Miscellaneous Information 1 HS T-DERMAL ; Start 11/01/17 at 21:00 Nicotine (Habitrol 21 Mg Patch.24 Hr) 1 patch DAILY T-DERMAL ; Start 11/01/17 at 17:00 Risperidone (risperDAL) 4 mg HS PO Last administered on 11/02/17at 21:41; Start 11/02/17 at 21:00 A/P Problem List: (1) Schizophrenia, paranoid, chronic with acute exacerbation ICD Code: F20.0 - Paranoid schizophrenia (2) Psychiatric diagnosis ICD Code: F99 - Mental disorder, not otherwise specified Status: Acute Assessment and Plan Schizophrenia Management per psychiatry Hypertension continue amlodipine follow-up as outpatient. Possible HIV HIV screen Leukocyte profile including CD4 evaluation Outpatient ID will be recommended if patient is positive Subacute left arm fracture Continue splint for 8 more weeks CKD- stable DVT prophylaxis Patient is ambulatory [facility] will sign off and see him as needed. Shamika Valladares MD Nov 03, 2017 14:21
[2017-11-03] MEDS ORDERED: CEPH500C PO (14:34)
[2017-11-03] MEDS ORDERED: AMLO10 PO (14:34)
[2017-11-03] MEDS ORDERED: RISP4TAB41 PO (14:34)
[2017-11-03] MEDS ORDERED: ASPI81 PO (14:34)
[2017-11-03] MEDS ORDERED: Benztropine PO (14:34)
--- NOTE | 2017-11-03 14:40 | HHI.DS ---
Psychiatry Discharge Summary Inpatient Psychiatric care?: Yes Advance Directive: No Reason Not Provided: PT NOT INTERESTED AT THIS TIME Mental Health AdvanceDirective: No Health Care Proxy: No Admission Admission Date Nov 01, 2017 at 16:43 Admission Diagnosis: (1) Schizophrenia, paranoid, chronic with acute exacerbation ICD Code: F20.0 - Paranoid schizophrenia Brief History Patient is a 57-year-old Afro-Polish male initially hospitalized [facility] on 10/28/17 under visit [phone] with congestive heart failure versus cardiac issues. During that stay patient's family members shared with the staff that the patient has a history of schizophrenia noncompliance medication adverse legal issues that he was somewhat recently just released from skilled nursing. He should seen in consultation by Dr. Jack Norris on 10/31/17. At that time patient made threats to harm various physicians staff members including Dr. Norris. He showed marked paranoia irritability at that time along with refusing to take medication. He reluctantly acknowledged patient schizophrenia that he has done well in the past on Respinol 4 mg at bedtime and Cogentin 2 mg at bedtime though he refused to take it when suggested by Dr. Norris. Jasvir Norris initiated a Rodriguez act. It appears patient was later medically cleared in the evening of the the next morning he walked out of the hospital. It appears authorities may have been notified the found the patient in the community and return here under the Rodriguez act. Dr. Norris psychiatric consultation reviewed and agreed with. Patient seen by me on unit 2700 with nurse Yumi present throughout session. He is alert oriented calm but vigilant mildly irritable. He did state that some of the staff irritated him on the medical service. When this was addressed by Dr. Norris patient made statements that would imply if he wanted to he could harm these people. He also made threats to harm by the medical staff and also harm Dr. Norris. This led Dr. Norris to initiating the Rodriguez act. Today patient denies any homicidal thoughts or assaultive thoughts. He also denies suicidality. He also denies voices or visions. He does readily acknowledge being diagnosed schizophrenic but states his only hospitalization was in 1994 when he was diagnosed. He has been seeing a psychiatrist in the [place] area restates his present and daughter live. He states his been compliant with his medications though he has been living up here for 4 months. He states he travels to [place] for his appointments. He states his less incarceration is a number of years ago but his for drug-related charges and he has had multiple incarcerations. Though he denies alcohol or drug use. He states he is living with friends locally and lives in stable location. Patient denies any physical or sexual abuse as a child. We did discuss medications patient appears willing to take his medications though he does state he has been compliant throughout we will start him on Respinol 4 mg at bedtime along with Cogentin 2 mg at bedtime. Tolerates them well overnight and is been no behavior problem consider discharge tomorrow. The patient is a 57 year old man, domicile in a half house, but , supported by [facility], with psychiatric history of paranoid schizophrenia, 1 previous psychiatric hospitalizations, no previous suicidal attempts, medical history of COPD, CHF, HTN, who was hospitalized due to paranoia and irritability and noncompliance with psychotropics. On psychiatric evaluation today for a second opinion, the patient is calm, cooperative, he reports that he feels much better today. He is willing to take medications, and get better and participate in the discharge plan. He reports that at times he feels paranoid about people around him, but at this moment he feels controlled. He denies suicidal and homicidal ideation, he denies visual and auditory hallucinations. Tobacco Use In Past 30 Days: No Tobacco Past 30 Days Alcohol Use: Never Hospital Course Patient seen today with nurse Radha, patient compliant medications. He continues to denies suicidality homicidality voices or visions. We did discuss discharge plans. Patient states he does have a residents to go to. He does wish discharge today. I made him aware of the fact that there is still some medication management going on with the hospitalist related to hypertension. No other medical issues. Patient states he has medication at home, he does have a doctor that he does see for this and he still wishes to be discharged. I informed him of the risk involved with this. He still wishes to be discharged. At this time patient a longer meets criteria under the Rodriguez act for involuntary psychiatric hospitalization. He'll be allowed to be discharged today to himself with Rx 1 month. Patient wishes follow-up locally with his mental health issues really firm through Endy [facility] act. And follow-up primary care physician locally for his significant medical problems Results Blood Pressure 156 / 90 Vital Signs Date Time Temp Pulse Resp B/P (MAP) Pulse Ox O2 Delivery O2 Flow Rate FiO2 11/03/17 05:48 98.6 77 20 156/90 (112) 96 Laboratory Tests Test 11/02/17 14:50 Blood Urea Nitrogen 32 MG/DL (7-18) Creatinine 1.87 MG/DL (0.60-1.30) Calcium Level 8.3 MG/DL (8.5-10.1) Estimat Glomerular Filtration Rate 45 ML/MIN (>89) LDL Cholesterol 128 MG/DL (0-99) HDL Cholesterol 34.6 MG/DL (40.0-60.0) HIV (1&2) Antibody REFLEX (NEGATIVE) Laboratory Results Test 11/02/17 14:50 Cholesterol Level 182 MG/DL (120-200) HDL Cholesterol 34.6 MG/DL (40.0-60.0) LDL Cholesterol 128 MG/DL (0-99) Triglycerides Level 97 MG/DL (42-150) Summary of Procedures None done Pending results at discharge: No Medications # of Antipsychotic meds at D/C: 1 Approp Antipsych med options 1 - Minimum of three failed multiple trials of monotherapy. 2 - Documented plan to taper to monotherapy due to previous use of multiple meds OR cross-taper in progress at D/C. 3 - Documentation of augmentation of Clozapine. 4 - Justification other than those listed in allowable values 1-3, document here : Discharge Discharge Date: Nov 03, 2017 Discharge Diagnosis: (1) Schizophrenia, paranoid, chronic with acute exacerbation Diagnosis: Principal ICD Code: F20.0 - Paranoid schizophrenia Pt Condition on Discharge: Stable Discharge Disposition: Discharge Home Discharge Instructions Diet Instructions: As Tolerated, No Restrictions Activities you can perform: Regular-No Restrictions Scheduled Appointment: Endy K[facility] Act Discharge Time > 30 minutes Mental Status Examination Appearance: Appropriate, Disheveled (mildly) Consciousness: Alert Orientation: Person, Place, Date/Time, Situation Motor Activity: Normal gait Speech: Unremarkable Language: Adequate Fund of Knowledge: Adequate Attention and Concentration: Adequate Memory: Unremarkable Mood: Appropriate, Irritable Affect: Irritable, Other (slight increase range and intensity) Thought Process & Associations: Intact Thought Content: Bizarre thinking Hallucination Type: None (at times appears to be responding to internal stimuli ) Suicidal Ideation: No (denies) Suicidal Plan: No Suicidal Intention: No Homicidal Ideation: No (now denies violent thoughts toward staff or physicians) Homicidal Plan: No Homicidal Intention: No Insight: Poor Judgment: Poor Discharge/Advance Care Plan Health Problems: (1) Schizophrenia, paranoid, chronic with acute exacerbation Goals to promote your health * To prevent worsening of your condition and complications * To maintain your health at the optimal level Directions to meet your goals Take your medications as prescribed Follow your dietary instruction Follow activity as directed Keep your appointments as scheduled Take your immunizations and boosters as scheduled If your symptoms worsen call your PCP, if no PCP go to Urgent Care Center or Emergency Room For 24/05 questions related to your inpatient stay or results of tests pending at discharge, please contact Dr. Shahram Rivera at Smoking is Dangerous to Your Health. Avoid second hand smoking Shahram Rivera MD Nov 03, 2017 14:40
--- NOTE | 2017-11-03 15:11 | PD.TTN ---
Patient Problems 1. Discharge planning 2. Medication compliance 3. Knowledge deficit 4. Lack of coping skills Progress Toward Goals Provider Present: Dr. Joann Rivera Provider Input: Pt will potentially be discharged today. Medication regiment has been adjusted to include Risperdal and Cogentin. Psychiatric Counselors Present: DANILO John Psych Therapist Input: Pt appears calm, cooperative, appropriate, organized and oriented. It is likely that he is minimizing some symptoms but does not present with any overt issues at this time. He is compliant with medication regiment. He appears to be utilizing some level of coping and emotional regulation skills. Group Spec/RT/OT/MEDINA Present: ADAM Chin Group Spec/RT/OT/MEDINA Input: Pt did not attend groups yesterday. Pt is withdrawn and guarded. Discharge Plan SMA Pt will return home after discharge and is going to be set up with outpatient follow up services after discharge. Documentation Scribe: DANILO John Jonathan LMHC Nov 03, 2017 15:11
[2017-11-03 15:39] LABS: HEMOGLOBIN A1C 5.8 % (4.3-6.0)
== END 2017-11-03 15:00 | disposition home or self-care (01) | DRG 885 ==
LOC: NEPJ 14:51 → NEDA 16:43 → H270 17:23
PROVIDERS: ADMIT Psychiatry & Neurology Psychiatry; ATTEND Psychiatry & Neurology Psychiatry
DX: F20.0 Paranoid schizophrenia (principal); J18.9 Pneumonia, unspecified organism; Z21 Asymptomatic human immunodeficiency virus [HIV] infection status; I12.9 Hypertensive chronic kidney disease with stage 1 through stage 4 chronic kidney disease, or unspecified chronic kidney disease; N18.9 Chronic kidney disease, unspecified; F17.210 Nicotine dependence, cigarettes, uncomplicated; S42.302D Unspecified fracture of shaft of humerus, left arm, subsequent encounter for fracture with routine healing; Z91.14 Patient's other noncompliance with medication regimen
CPT/HCPCS: 80048; 80061; 83036; 86355; 86357; 86359; 86360; 86701; 86702; 86703; 99285

== ENCOUNTER 2018-02-13 16:30 | Observation (INO) | payer MEDICAID, MEDICARE, OTHER ==
[~2018-02-13] VITALS: Ht 175.3 cm; Wt 72.0 kg
[2018-02-13] VITALS (9 sets, daily range): BP systolic 141–203; BP diastolic 98–143; PULSE 71–98; RESP 17–24; TEMP 97.6; O2SAT 89–98
[~2018-02-13 16:30] MED LIST changes: +AMLO10 PO; -AMLO5 PO; +ASPI81 PO; +Benztropine PO; -LORA-475 PO; +RISP4TAB41 PO
--- NOTE | 2018-02-13 16:59 | PD ---
HPI Chief Complaint: Respiratory Symptoms Time Seen by Provider: 16:44 Travel History International Travel<30 days: No Contact w/Intl Traveler<30days: No Traveled to known affect area: No History of Present Illness HPI The patient is a 57-year-old -Swazi male who presents to the emergency department for shortness of breath. The patient states he was awakened at 6 AM for shortness of breath. The shortness of breath is worse with lying supine as well as exertional activity. He does have minimal relief at rest. He also complains of anterior chest tightness associated with the shortness of breath. The patient states he has a history of shortness of breath , but is unsure if he has any history of COPD or CHF. He denies any previous coronary artery disease or previous [place]. The patient states he is from [place], [place], and only in the local area until his car can get fixed. He has been living in [place], [place], for the past 6 months. He does note a history of hypertension, but is currently not compliant with his medications. He denies any illicit drug use or alcohol use. The chest pain is moderate, pressure related, nonradiating, associated with shortness of breath. He denies any nausea, vomiting, diaphoresis, or lower extremity edema. He denies any history of pulmonary embolism or DVT. PFSH Past Medical History Arthritis: No Asthma: No Anxiety: Yes Depression: Yes Heart Rhythm Problems: No Cancer: No Cardiovascular Problems: Yes (Reports High Blood pressure and heart issues prior to this admission) High Cholesterol: No Chemotherapy: No Chest Pain: No Congestive Heart Failure: No COPD: No Cerebrovascular Accident: No Diabetes: No Endocrine: No GERD: No Genitourinary: No Headaches: No Hiatal Hernia: No Hypertension: Yes Kidney Stones: No Musculoskeletal: No Neurologic: No Psychiatric: Yes (Hx of treatment for Schizophrenia, depression) Reproductive: No Respiratory: No Migraines: No Radiation Therapy: No Renal Failure: No Seizures: No Sickle Cell Disease: No Sleep Apnea: No Thyroid Disease: No Ulcer: No ?: Not Past Surgical History Narrative Surgical Eye surgery Abdominal Surgery: No AICD: No Arteriovenous Shunt: No Cardiac Surgery: No Ear Surgery: No Endocrine Surgery: No Eye Surgery: No Genitourinary Surgery: No Gynecologic Surgery: No Insulin Pump: No Joint Replacement: No Oral Surgery: No Pacemaker: No Thoracic Surgery: No Social History Alcohol Use: No Tobacco Use: Yes Substance Use: No Allergies-Medications (Allergen,Severity, Reaction): Coded Allergies: No Known Allergies (Verified Adverse Reaction, Unknown, 11/01/17) Reported Meds & Prescriptions Reported Meds & Active Scripts Active Tgt Aspirin (Aspirin) 81 Mg Chw 81 Mg PO DAILY [Benztropine] 2 MG Tab 2 Mg PO HS Norvasc (Amlodipine Besylate) 10 Mg Tab 10 Mg PO DAILY Cephalexin 500 Mg Cap 500 Mg PO Q12H Risperdal (Risperidone) 4 Mg Tab 4 Mg PO HS Review of Systems Except as stated in HPI: all other systems reviewed are Neg General / Constitutional: No: Fever HENT: No: Lightheadedness Cardiovascular: Positive: Chest Pain or Discomfort, Dyspnea on exertion, No: Tachycardia, Diaphoresis Respiratory: Positive: Shortness of Breath, No: Cough, Wheezing Gastrointestinal: No: Nausea, Vomiting, Abdominal Pain Musculoskeletal: No: Weakness Neurologic: No: Dizziness Physical Exam Narrative GENERAL: Awake, alert, nontoxic-appearing 57-year-old male who appears his stated age and is in no acute respiratory distress. SKIN: Focused skin assessment warm/dry. HEAD: Atraumatic. Normocephalic. EYES: No injection or drainage. ENT: No nasal bleeding or discharge. Mucous membranes pink and moist. NECK: Trachea midline. No JVD. CARDIOVASCULAR: Regular, tachycardic with a heart rate of 100. RESPIRATORY: Mild tachypnea with a respiratory rate of 24. Few scattered rhonchi in the bases bilaterally. GASTROINTESTINAL: Abdomen soft, non-tender, nondistended. No rebound tenderness. MUSCULOSKELETAL: No obvious deformities. No clubbing. No cyanosis. No edema. NEUROLOGICAL: Awake and alert. No obvious cranial nerve deficits. Motor grossly within normal limits. Normal speech. PSYCHIATRIC: Appropriate mood and affect; insight and judgment normal. Data Data Last Documented VS Vital Signs Date Time Temp Pulse Resp B/P (MAP) Pulse Ox O2 Delivery O2 Flow Rate FiO2 02/13/18 20:43 168/118 (135) Nasal Cannula 02/13/18 19:46 71 17 96 2.00 02/13/18 16:44 97.6 Orders Orders Complete Blood Count With Diff (02/13/18 16:52) Comprehensive Metabolic Panel (02/13/18 16:52) B-Type Natriuretic Peptide (02/13/18 16:52) Act Partial Throm Time (Ptt) (02/13/18 16:52) Prothrombin Time / Inr (Pt) (02/13/18 16:52) Magnesium (Mg) (02/13/18 16:52) Ckmb (Isoenzyme) Profile (02/13/18 16:52) Troponin I (02/13/18 16:52) Iv Access Insert/Monitor (02/13/18 16:52) Electrocardiogram (02/13/18 16:52) Ecg Monitoring (02/13/18 16:52) Oximetry (02/13/18 16:52) Oxygen Administration (02/13/18 16:52) Chest, Single Ap (02/13/18 16:52) Sodium Chloride 0.9% Flush (Ns Flush) (02/13/18 17:00) Methylprednisolone So Succ Inj (Solumedr (02/13/18 17:00) Albuterol-Ipratropium Neb (Duoneb Neb) (02/13/18 17:00) CKMB (02/13/18 16:45) CKMB% (02/13/18 16:45) Labetalol Inj (Trandate Inj) (02/13/18 17:45) Ventilation & Perfusion Scan (02/13/18 ) Labetalol Inj (Trandate Inj) (02/13/18 18:15) Blood Culture (02/13/18 19:14) Ceftriaxone Inj (Rocephin Inj) (02/13/18 19:15) Azithromycin Inj (Zithromax Inj) (02/13/18 19:15) Aspirin Chew (Aspirin Chew) (02/13/18 19:15) Nitroglycerin 2% Oint (Nitroglycerin 2% (02/13/18 19:15) Metoprolol Tartrate (Lopressor) (02/14/18 09:00) Dext 5%-Nacl 0.9% 500 Ml Inj (D5w-Ns 500 (02/13/18 22:15) Albuterol-Ipratropium Neb (Duoneb Neb) (02/13/18 22:15) Budeson-Formot 160-4.5 Mcg Inh (Symbicor (02/14/18 09:00) Methylprednisolone So Succ Inj (Solumedr (02/14/18 00:00) Place In Observation (02/13/18 ) Vital Signs (Adult) Q4H (02/13/18 22:13) Activity Oob Ad Whitney (02/13/18 22:13) Backup Sawyer / Telemetry .CONTINUOUS (02/13/18 22:13) Intake + Output CHAVO.QSHIFT (02/13/18 22:13) Diet Heart Healthy (02/14/18 Breakfast) Sodium Chloride 0.9% Flush (Ns Flush) (02/13/18 22:15) Sodium Chloride 0.9% Flush (Ns Flush) (02/14/18 09:00) Ondansetron Inj (Zofran Inj) (02/13/18 22:15) Comprehensive Metabolic Panel (02/14/18 06:00) Complete Blood Count With Diff (02/14/18 06:00) Troponin I (02/14/18 00:00) Troponin I (02/14/18 06:00) Case Management Consult (02/13/18 22:13) Scd Bilateral/Knee High CHAVO.BID (02/13/18 22:13) Tristian Bilateral/Knee High CHAVO.QSHIFT (02/13/18 22:16) Acetaminophen (Tylenol) (02/13/18 22:15) Acetamin-Hydrocod 325-5 Mg (Cotton 5-325 (02/13/18 22:15) Morphine Inj (Morphine Inj) (02/13/18 22:15) Docusate Sodium-Senna (Mouna-Colace) (02/14/18 09:00) Magnesium Hydroxide Liq (Milk Of Magnesi (02/13/18 22:15) Sennosides (Senokot) (02/13/18 22:15) Bisacodyl Supp (Dulcolax Supp) (02/13/18 22:15) Lactulose Liq (Lactulose Liq) (02/13/18 22:15) Aspirin Chew (Aspirin Chew) (02/14/18 09:00) Risperidone (Risperdal) (02/14/18 21:00) Benztropine (Cogentin) (02/14/18 21:00) Levofloxacin 750 Mg Premix Inj (Levaquin (02/15/18 21:00) Admit Order (Ed Use Only) (02/13/18 22:22) Labs Laboratory Tests Test 02/13/18 16:45 White Blood Count 7.8 TH/MM3 Red Blood Count 4.79 MIL/MM3 Hemoglobin 14.0 GM/DL Hematocrit 40.6 % Mean Corpuscular Volume 84.9 FL Mean Corpuscular Hemoglobin 29.3 PG Mean Corpuscular Hemoglobin Concent 34.5 % Red Cell Distribution Width 15.8 % Platelet Count 158 TH/MM3 Mean Platelet Volume 9.4 FL Neutrophils (%) (Auto) 70.3 % Lymphocytes (%) (Auto) 16.1 % Monocytes (%) (Auto) 11.0 % Eosinophils (%) (Auto) 1.6 % Basophils (%) (Auto) 1.0 % Neutrophils # (Auto) 5.5 TH/MM3 Lymphocytes # (Auto) 1.2 TH/MM3 Monocytes # (Auto) 0.8 TH/MM3 Eosinophils # (Auto) 0.1 TH/MM3 Basophils # (Auto) 0.1 TH/MM3 CBC Comment DIFF FINAL Differential Comment Prothrombin Time 11.4 SEC Prothromb Time International Ratio 1.1 RATIO Activated Partial Thromboplast Time 25.0 SEC Blood Urea Nitrogen 25 MG/DL Creatinine 3.29 MG/DL Random Glucose 120 MG/DL Total Protein 8.7 GM/DL Albumin 2.9 GM/DL Calcium Level 8.4 MG/DL Magnesium Level 2.4 MG/DL Alkaline Phosphatase 90 U/L Aspartate Amino Transf (AST/SGOT) 41 U/L Alanine Aminotransferase (ALT/SGPT) 36 U/L Total Bilirubin 0.8 MG/DL Sodium Level 136 MEQ/L Potassium Level 3.0 MEQ/L Chloride Level 99 MEQ/L Carbon Dioxide Level 29.9 MEQ/L Anion Gap 7 MEQ/L Estimat Glomerular Filtration Rate 24 ML/MIN Total Creatine Kinase 413 U/L Creatine Kinase MB 2.1 NG/ML Creatine Kinase MB % 0.5 % Troponin I 0.09 NG/ML B-Type Natriuretic Peptide 667 PG/ML [facility] Medical Decision Making Medical Screen Exam Complete: Yes Emergency Medical Condition: Yes Medical Record Reviewed: Yes Interpretation(s) EKG reveals normal sinus rhythm with a rate of 99. Occasional v premature supraventricular complex. Nonspecific T-wave changes. Left ventricular hypertrophy. Differential Diagnosis Differential diagnosis includes acute coronary syndrome, pulmonary embolism, congestive heart failure, pulmonary edema, pleural effusion, hypertensive urgency, hypertensive emergency, COPD. Narrative Course IV was established, labs are drawn and sent, and the patient was placed on cardiac telemetry monitoring and continuous pulse oximetry monitoring. The patient was administered Solu-Medrol and 1 DuoNeb. Chest x-ray was obtained. BNP, troponin, CPK were sent to lab. CT pulmonary angiogram was ordered to rule out pulmonary embolism. However, the patient's creatinine level was elevated, therefore, CT was canceled and VQ scan was ordered. Patient's troponin was elevated, however, this may be secondary to hypertensive urgency/ emergency versus elevated creatinine level. The patient was signed out to the oncoming physician VQ scan and subsequent admission pending. Diagnosis Primary Impression: HTN (hypertension) Qualified Codes: I10 - Essential (primary) hypertension Additional Impression: Elevated troponin Condition: Stable Rasta Olivia MD Feb 13, 2018 16:59
[2018-02-13] MEDS ORDERED: methylPREDNISolone SOD SUCC 125 MG/2 ML VIAL IV PUSH ONE (17:00)
[2018-02-13] MEDS ORDERED: SODIUM CHLORIDE 0.9% FLUSH 10 ML FLUSH IVF PRN (17:00)
[2018-02-13] MEDS ORDERED: RESP: ALBUTEROL 2.5 MG/IPRATROPIUM 0.5 MG NEB (SCH) INH ONE (17:00)
[2018-02-13 17:12] LABS: AUTOMATED NEUTROPHIL # 5.5 TH/MM3 (1.8-7.7); BASOPHIL # 0.1 TH/MM3 (0-0.2); EOSINOPHIL # 0.1 TH/MM3 (0-0.4); EOSINOPHIL % 1.6 % (0.0-4.0); HEMATOCRIT 40.6 % (39.0-51.0); LYMPH % 16.1 % (9.0-44.0); LYMPHOCYTE # 1.2 TH/MM3 (1.0-4.8); MEAN CELL VOLUME 84.9 FL (80.0-100.0); MEAN CORPUSCULAR HEMOGLOBIN 29.3 PG (27.0-34.0); MEAN CORPUSCULAR HGB CONC 34.5 % (32.0-36.0); MEAN PLATELET VOLUME 9.4 FL (7.0-11.0); MONOCYTE # 0.8 TH/MM3 (0-0.9); NEUT % 70.3 % (16.0-70.0); PLATELET COUNT 158 TH/MM3 (150-450); RED BLOOD COUNT 4.79 MIL/MM3 (4.50-5.90); RED CELL DISTRIBUTION WIDTH 15.8 % (11.6-17.2); WHITE BLOOD COUNT 7.8 TH/MM3 (4.0-11.0)
--- NOTE | 2018-02-13 17:15 | RADRPT ---
EXAM DATE/TIME: 02/13/2018 17:03 [place] COMPARISON: CHEST SINGLE AP, October 31, 2017, 3:33. INDICATIONS : Shortness of breath. MEDICAL HISTORY : Hypertension. HIV. SURGICAL HISTORY : None. ENCOUNTER: Initial ACUITY: 1 day PAIN SCORE: 0/10 LOCATION: Bilateral chest FINDINGS: There is hazy bilateral perihilar and basilar parenchymal opacity which may be developing edema. Card iac contours are grossly stable. No significant effusion. CONCLUSION: Developing central and basilar parenchymal opacities Shahram Burgos MD on February 13, 2018 at 17:13 Board Certified Radiologist. This report was verified electronically.
[2018-02-13 17:20] LABS: INTERNATIONAL NORMALIZED RATIO 1.1 RATIO; PROTHROMBIN TIME - PATIENT 11.4 SEC (9.8-11.6)
[2018-02-13 17:27] LABS: ALBUMIN 2.9 GM/DL (3.4-5.0); ALT (GPT) 36 U/L (12-78); AST (GOT) 41 U/L (15-37); BICARBONATE 29.9 MEQ/L (21.0-32.0); BLOOD UREA NITROGEN 25 MG/DL (7-18); CALCIUM 8.4 MG/DL (8.5-10.1); CHLORIDE 99 MEQ/L (98-107); CREATININE 3.29 MG/DL (0.60-1.30); GLOMERULAR FILTRATION RATE 24 ML/MIN (>89); GLUCOSE,RANDOM 120 MG/DL (74-106); MAGNESIUM 2.4 MG/DL (1.5-2.5); SODIUM (NA) 136 MEQ/L (136-145)
[2018-02-13 17:31] LABS: ALKALINE PHOSPHATASE 90 U/L (45-117); TOTAL BILIRUBIN ADULT 0.8 MG/DL (0.2-1.0); TOTAL PROTEIN 8.7 GM/DL (6.4-8.2); TROPONIN I 0.09 NG/ML (0.02-0.05)
[2018-02-13] MEDS ORDERED: LABETALOL HCL 100 MG/20 ML VIAL IV PUSH ONE ×2 (17:45→18:15)
--- NOTE | 2018-02-13 19:07 | PD ---
Data Data Last Documented VS Vital Signs Date Time Temp Pulse Resp B/P (MAP) Pulse Ox O2 Delivery O2 Flow Rate FiO2 02/13/18 20:43 168/118 (135) Nasal Cannula 02/13/18 19:46 71 17 96 2.00 02/13/18 16:44 97.6 Orders Orders Complete Blood Count With Diff (02/13/18 16:52) Comprehensive Metabolic Panel (02/13/18 16:52) B-Type Natriuretic Peptide (02/13/18 16:52) Act Partial Throm Time (Ptt) (02/13/18 16:52) Prothrombin Time / Inr (Pt) (02/13/18 16:52) Magnesium (Mg) (02/13/18 16:52) Ckmb (Isoenzyme) Profile (02/13/18 16:52) Troponin I (02/13/18 16:52) Iv Access Insert/Monitor (02/13/18 16:52) Electrocardiogram (02/13/18 16:52) Ecg Monitoring (02/13/18 16:52) Oximetry (02/13/18 16:52) Oxygen Administration (02/13/18 16:52) Chest, Single Ap (02/13/18 16:52) Sodium Chloride 0.9% Flush (Ns Flush) (02/13/18 17:00) Methylprednisolone So Succ Inj (Solumedr (02/13/18 17:00) Albuterol-Ipratropium Neb (Duoneb Neb) (02/13/18 17:00) CKMB (02/13/18 16:45) CKMB% (02/13/18 16:45) Labetalol Inj (Trandate Inj) (02/13/18 17:45) Ventilation & Perfusion Scan (02/13/18 ) Labetalol Inj (Trandate Inj) (02/13/18 18:15) Blood Culture (02/13/18 19:14) Ceftriaxone Inj (Rocephin Inj) (02/13/18 19:15) Azithromycin Inj (Zithromax Inj) (02/13/18 19:15) Aspirin Chew (Aspirin Chew) (02/13/18 19:15) Nitroglycerin 2% Oint (Nitroglycerin 2% (02/13/18 19:15) Metoprolol Tartrate (Lopressor) (02/14/18 09:00) Dext 5%-Nacl 0.9% 500 Ml Inj (D5w-Ns 500 (02/13/18 22:15) Albuterol-Ipratropium Neb (Duoneb Neb) (02/13/18 22:15) Budeson-Formot 160-4.5 Mcg Inh (Symbicor (02/14/18 09:00) Methylprednisolone So Succ Inj (Solumedr (02/14/18 00:00) Place In Observation (02/13/18 ) Vital Signs (Adult) Q4H (02/13/18 22:13) Activity Oob Ad Whitney (02/13/18 22:13) Sports Medicine Specialist / Telemetry .CONTINUOUS (02/13/18:13) Intake + Output CHAVO.QSHIFT (02/13/18 22:13) Diet Heart Healthy (02/14/18 Breakfast) Sodium Chloride 0.9% Flush (Ns Flush) (02/13/18 22:15) Sodium Chloride 0.9% Flush (Ns Flush) (02/14/18 09:00) Ondansetron Inj (Zofran Inj) (02/13/18 22:15) Comprehensive Metabolic Panel (02/14/18 06:00) Complete Blood Count With Diff (02/14/18 06:00) Troponin I (02/14/18 00:00) Troponin I (02/14/18 06:00) Case Management Consult (02/13/18 22:13) Scd Bilateral/Knee High CHAVO.BID (02/13/18 22:13) Tristian Bilateral/Knee High CHAVO.QSHIFT (02/13/18 22:16) Acetaminophen (Tylenol) (02/13/18 22:15) Acetamin-Hydrocod 325-5 Mg ([place] 5-325 (02/13/18 22:15) Morphine Inj (Morphine Inj) (02/13/18 22:15) Docusate Sodium-Senna (Mouna-Colace) (02/14/18 09:00) Magnesium Hydroxide Liq (Milk Of Magnesi (02/13/18 22:15) Sennosides (Senokot) (02/13/18 22:15) Bisacodyl Supp (Dulcolax Supp) (02/13/18 22:15) Lactulose Liq (Lactulose Liq) (02/13/18 22:15) Aspirin Chew (Aspirin Chew) (02/14/18 09:00) Risperidone (Risperdal) (02/14/18 21:00) Benztropine (Cogentin) (02/14/18 21:00) Levofloxacin 750 Mg Premix Inj (Levaquin (02/15/18 21:00) Admit Order (Ed Use Only) (02/13/18 22:22) Labs Laboratory Tests Test 02/13/18 16:45 White Blood Count 7.8 TH/MM3 Red Blood Count 4.79 MIL/MM3 Hemoglobin 14.0 GM/DL Hematocrit 40.6 % Mean Corpuscular Volume 84.9 FL Mean Corpuscular Hemoglobin 29.3 PG Mean Corpuscular Hemoglobin Concent 34.5 % Red Cell Distribution Width 15.8 % Platelet Count 158 TH/MM3 Mean Platelet Volume 9.4 FL Neutrophils (%) (Auto) 70.3 % Lymphocytes (%) (Auto) 16.1 % Monocytes (%) (Auto) 11.0 % Eosinophils (%) (Auto) 1.6 % Basophils (%) (Auto) 1.0 % Neutrophils # (Auto) 5.5 TH/MM3 Lymphocytes # (Auto) 1.2 TH/MM3 Monocytes # (Auto) 0.8 TH/MM3 Eosinophils # (Auto) 0.1 TH/MM3 Basophils # (Auto) 0.1 TH/MM3 CBC Comment DIFF FINAL Differential Comment Prothrombin Time 11.4 SEC Prothromb Time International Ratio 1.1 RATIO Activated Partial Thromboplast Time 25.0 SEC Blood Urea Nitrogen 25 MG/DL Creatinine 3.29 MG/DL Random Glucose 120 MG/DL Total Protein 8.7 GM/DL Albumin 2.9 GM/DL Calcium Level 8.4 MG/DL Magnesium Level 2.4 MG/DL Alkaline Phosphatase 90 U/L Aspartate Amino Transf (AST/SGOT) 41 U/L Alanine Aminotransferase (ALT/SGPT) 36 U/L Total Bilirubin 0.8 MG/DL Sodium Level 136 MEQ/L Potassium Level 3.0 MEQ/L Chloride Level 99 MEQ/L Carbon Dioxide Level 29.9 MEQ/L Anion Gap 7 MEQ/L Estimat Glomerular Filtration Rate 24 ML/MIN Total Creatine Kinase 413 U/L Creatine Kinase MB 2.1 NG/ML Creatine Kinase MB % 0.5 % Troponin I 0.09 NG/ML B-Type Natriuretic Peptide 667 PG/ML [facility] Medical Record Reviewed: Yes Supervised Visit with BENY: No Interpretation(s) Last Impressions Chest X-Ray 02/13/18 1652 Signed Impressions: Service Date/Time: Tuesday, February 13, 2018 17:03 - CONCLUSION: Developing central and basilar parenchymal opacities Shahram Burgos MD Lung Scan-VQ Nuclear Medicine 02/13/18 0000 Signed Impressions: Service Date/Time: Tuesday, February 13, 2018 20:26 - CONCLUSION: 1. Low probability for pulmonary embolus. 2. Inhomogeneity to the uptake in the ventilation portion of study are typically seen with parenchymal disease. Shahram Parker MD Narrative Course During the course of the patient's emergency department visit, the patient's history, examination, and differential diagnosis were reviewed with the patient. The patient was placed on a millroom supervisor with oximetry and frequent blood pressure monitoring. The patient had IV access obtained and blood work sent for analysis. The patient's case was checked out to me by Dr. Olivia. Please see his initial history and physical, laboratory studies, and initial examination. The patient's case was checked out to me at the conclusion of his shift. The patient presented with tachycardia, shortness of breath, elevated troponin and creatinine increased from 2-3.4. The patient is pending VQ scan. The patient will be admitted to the hospital for continued evaluation and treatment. The patient was initially provided a DuoNeb 1, Solu-Medrol 125 mg IV, labetalol for hypertension. The patient's laboratory studies were reviewed and remarkable for a white count of 7.8, hemoglobin 14, platelets 158 with 70.3 neutrophils, monocytes 11, CMP is remarkable for potassium 3.0 which will be supplemented orally, glucose 120, BUN 25, creatinine 3.29, AST 41, CPK 413 with an MB percent of 0.5, troponin I is 0.09, albumin 2.9. PT PTT of murmur Radiology studies were reviewed and remarkable for a chest x-ray that shows developing central and basilar parenchymal opacities. Given the patient's elevated troponin, the patient was given aspirin 324 mg p.o. 1, nitroglycerin 1 inch the chest wall. Given the patient's parenchymal opacities and history of HIV, pneumonia would also be in the differential, therefore blood cultures 2 were added to the patient's workup and Rocephin 1 g IV, Zithromax 500 IV was administered. The patient's results were discussed with the patient, including the plan of care. I explained that further testing and/ or monitoring is indicated based on the patient's history, examination, and/ or laboratory findings. Therefore, I recommended admission for additional evaluation. The patient expressed understanding and was agreeable with this plan. The patient was admitted to the hospital in stable condition and sent to a bed under the care of the [facility]. Physician Communication Physician Communication The patient's case including history, pertinent physical examination findings, and laboratory studies were discussed with Dr. Healy. It was [facility] Diagnosis Primary Impression: Pneumonia Qualified Codes: J18.9 - Pneumonia, unspecified organism Additional Impression: Shortness of breath Admitting Information Admitting Physician Requests: Admit Condition: Stable Radha Olson MD Feb 13, 2018 19:07
[2018-02-13] MEDS ORDERED: AZITHROMYCIN INJ 500 MG in SODIUM CHLOR 0.9% 250 ML INJ 250 ML IV ONE (19:15)
[2018-02-13] MEDS ORDERED: NITROGLYCERIN 2% OINT 1 GM PACKET TOPICAL ONE (19:15)
[2018-02-13] MEDS ORDERED: ASPIRIN 81 MG CHEW TAB CHEW ONE (19:15)
[2018-02-13] MEDS ORDERED: cefTRIAXone INJ 1,000 MG in SODIUM CHLORIDE 0.9% INJ 100 ML IV ONE (19:15)
--- NOTE | 2018-02-13 21:40 | RADRPT ---
EXAM DATE/TIME: 02/13/2018 20:26 [place] COMPARISON: CHEST SINGLE AP, February 13, 2018, 17:03. INDICATIONS : Dyspnea. DOSE: 8.5 mCi Tc99m MAA IV 0.61 mCi Tc99m DTPA aerosol MEDICAL HISTORY : Hypertension. Schizophrenia. SURGICAL HISTORY : Eye surgery. ENCOUNTER: Initial ACUITY: 1 day PAIN SCALE: 0/10 LOCATION: chest TECHNIQUE: Following five minutes of tidal breathing of DTPA aerosol, planar images of the lungs were performed in eight projections. The patient was then injected with MAA, and eight-view perfusion scan was perf ormed. FINDINGS: There is a matched defect seen at the anterior inferior left lung. No other perfusion defects are see n. There appears to be more inhomogeneous activity seen on the ventilation portion of study compared to the perfusion portion typically seen with parenchymal disease. CONCLUSION: 1. Low probability for pulmonary embolus. 2. Inhomogeneity to the uptake in the ventilation portion of study are typically seen with parenchyma l disease. Shahram Parker MD on February 13, 2018 at 21:36 Board Certified Radiologist. This report was verified electronically.
[2018-02-13] MEDS ORDERED: ACETAMINOPHEN 325 MG TAB PO PRN (22:15)
[2018-02-13] MEDS ORDERED: DEXT 5%-NACL 0.9% 500 ML INJ 500 ML IV ONE (22:15)
[2018-02-13] MEDS ORDERED: SODIUM CHLORIDE 0.9% FLUSH 10 ML FLUSH IV FLUSH PRN (22:15)
[2018-02-13] MEDS ORDERED: MAGNESIUM HYDROXIDE SUSP 30 ML CUP PO PRN (22:15)
[2018-02-13] MEDS ORDERED: LACTULOSE SYRUP 20 GM/30 ML CUP PO PRN (22:15)
[2018-02-13] MEDS ORDERED: BISACODYL 10 MG SUPP RECTAL PRN (22:15)
[2018-02-13] MEDS ORDERED: SENNOSIDES 8.6 MG TAB PO PRN (22:15)
[2018-02-13] MEDS ORDERED: ONDANSETRON HCL 4 MG/2 ML VIAL IVP PRN (22:15)
[2018-02-13] MEDS ORDERED: ACETAMINOPHEN/HYDROcodone 325 MG/5 MG TAB PO PRN (22:15)
--- NOTE | 2018-02-13 22:17 | HHI.HP ---
[facility] No Primary Care Physician Admission Diagnosis Diagnoses: (1) COPD (chronic obstructive pulmonary disease) Diagnosis: Principal (2) HTN (hypertension) Diagnosis: Principal (3) CHF (congestive heart failure) Diagnosis: Principal (4) Elevated troponin Diagnosis: Principal (5) HIV (human immunodeficiency virus infection) Diagnosis: Principal (6) ELIJAH (acute kidney injury) Diagnosis: Principal (7) Tobacco abuse Diagnosis: Principal Travel History International Travel<30 Days: No Contact w/Intl Traveler <30 Da: No Traveled to Known Affected Are: No History of Present Illness This is a 57-year-old male with a PMH of Anxiety, Depression, Schizophrenia, HTN , COPD, CHF (Echo 10/29/2017 w/ EF 45%) and HIV (CD4 305 on 11/02/17) who presented to the ER w/ complaints of chest pain and SOB starting this morning. States pain is intermittent, severe, 9/10, associated w/ cough/SOB. Denies fever or chills. On arrival, BP 203/143, HR 90, O2 sat 96% on 2L NC, Afebrile. On Norvasc at home, reports intermittent compliance w/ medications. CBC unremarkable. Creatinine 3.29, previously 1.87 on 11/02/17. Troponin 0.09. BNP 667. K+ 3.0. INR 1.1. CXR with developing central and basilar parenchymal opacities. V/Q Scan with low probability for PE. S/p ASA, DuoNeb, Labetalol and Solu-Medrol in ER w/ improvement. Review of Systems Except as stated in HPI: all other systems reviewed are Neg ROS: 14 point review of systems otherwise negative. Past Family Social History Past Medical History PMH: Anxiety, Depression, Schizophrenia, HTN, COPD, CHF (Echo 10/29/2017 w/ EF 45%) and HIV (CD4 305 on 11/02/17) Past Surgical History PAST SURGICAL HISTORY: Eye Surgery Allergies: Coded Allergies: No Known Allergies (Verified Adverse Reaction, Unknown, 11/01/17) Family History PAST FAMILY HISTORY: Reviewed. No h/o DM or CAD Social History PAST SOCIAL HISTORY: Negative for alcohol or drugs. Positive for tobacco. Physical Exam Vital Signs Vital Signs Date Time Temp Pulse Resp B/P (MAP) Pulse Ox O2 Delivery O2 Flow Rate FiO2 02/13/18 20:43 168/118 (135) Nasal Cannula 02/13/18 19:46 71 17 174/125 (141) 96 Nasal Cannula 2.00 02/13/18 19:22 79 17 193/138 (156) 98 Nasal Cannula 2.00 02/13/18 18:23 78 20 178/128 (145) 98 Nasal Cannula 2.00 02/13/18 17:30 90 20 203/143 (163) 96 Nasal Cannula 02/13/18 16:56 97 Nasal Cannula 2.00 02/13/18 16:56 89 Room Air 02/13/18 16:51 96 18 97 Nasal Cannula 02/13/18 16:51 96 22 97 Nasal Cannula 2.00 02/13/18 16:44 97.6 98 24 141/104 (116) 94 Physical Exam PE: GENERAL: Middle-aged black male in no acute distress, appears older than stated age. HEENT: PERRLA, EOMI. No scleral icterus or conjunctival pallor. No lid lag or facial droop. CARDIOVASCULAR: Regular rate and rhythm. No obvious murmurs to auscultation. No chest tenderness to palpation. RESPIRATORY: No obvious rhonchi or wheezing. Clear to auscultation. Breath sounds equal bilaterally. GASTROINTESTINAL: Abdomen soft, non-tender, nondistended. BS normal. MUSCULOSKELETAL: Extremities without clubbing, cyanosis, or edema. No obvious deformities. NEUROLOGICAL: Awake, alert and oriented x4. No focal neurologic deficits. Moving both upper and lower extremities spontaneously. Laboratory Laboratory Tests Test 02/13/18 16:45 White Blood Count 7.8 Red Blood Count 4.79 Hemoglobin 14.0 Hematocrit 40.6 Mean Corpuscular Volume 84.9 Mean Corpuscular Hemoglobin 29.3 Mean Corpuscular Hemoglobin Concent 34.5 Red Cell Distribution Width 15.8 Platelet Count 158 Mean Platelet Volume 9.4 Neutrophils (%) (Auto) 70.3 Lymphocytes (%) (Auto) 16.1 Monocytes (%) (Auto) 11.0 Eosinophils (%) (Auto) 1.6 Basophils (%) (Auto) 1.0 Neutrophils # (Auto) 5.5 Lymphocytes # (Auto) 1.2 Monocytes # (Auto) 0.8 Eosinophils # (Auto) 0.1 Basophils # (Auto) 0.1 CBC Comment DIFF FINAL Differential Comment Prothrombin Time 11.4 Prothromb Time International Ratio 1.1 Activated Partial Thromboplast Time 25.0 Blood Urea Nitrogen 25 Creatinine 3.29 Random Glucose 120 Total Protein 8.7 Albumin 2.9 Calcium Level 8.4 Magnesium Level 2.4 Alkaline Phosphatase 90 Aspartate Amino Transf (AST/SGOT) 41 Alanine Aminotransferase (ALT/SGPT) 36 Total Bilirubin 0.8 Sodium Level 136 Potassium Level 3.0 Chloride Level 99 Carbon Dioxide Level 29.9 Anion Gap 7 Estimat Glomerular Filtration Rate 24 Total Creatine Kinase 413 Creatine Kinase MB 2.1 Creatine Kinase MB % 0.5 Troponin I 0.09 B-Type Natriuretic Peptide 667 Date/Time Source Procedure Growth Status 02/13/18 19:44 Blood Peripheral Aerobic Blood Culture Pending Received 02/13/18 19:44 Blood Peripheral Anaerobic Blood Culture Pending Received Result Diagram: 02/13/18 1645 02/13/18 1645 Caprini VTE Risk Assessment Caprini VTE Risk Assessment: No/Low Risk (score <= 1) Caprini Risk Assessment Model Point Value = 1 Point Value = 2 Point Value = 3 Point Value = 5 Age 41-60 Minor surgery BMI > 25 kg/m2 Swollen legs Varicose veins or History of unexplained or recurrent spontaneous Oral contraceptives or hormone replacement Sepsis (< 1 month) Serious lung disease, including pneumonia (< 1 month) Abnormal pulmonary function Acute myocardial infarction Congestive heart failure (< 1 month) History of inflammatory bowel disease Medical patient at bed rest Age 61-74 Arthroscopic surgery Major open surgery (> 45 min) Laparoscopic surgery (> 45 min) Malignancy Confined to bed (> 72 hours) Immobilizing plaster cast Central venous access Age >= 75 History of VTE Family history of VTE Factor V Leiden Prothrombin [id number] Lupus anticoagulant Anticardiolipin antibodies Elevated serum homocysteine Heparin-induced thrombocytopenia Other congenital or acquired thrombophilia Stroke (< 1 month) Elective arthroplasty Hip, pelvis, or leg fracture Acute spinal cord injury (< 1 month) Prophylaxis Regimen Total Risk Factor Score Risk Level Prophylaxis Regimen 0-1 Low Early ambulation 2 Moderate Order ONE of the following: *Sequential Compression Device (SCD) *Heparin 5000 units SQ BID 3-4 Higher Order ONE of the following medications: *Heparin 5000 units SQ TID *Enoxaparin/Lovenox 40 mg SQ daily (WT < 150 kg, CrCl > 30 mL/min) *Enoxaparin/Lovenox 30 mg SQ daily (WT < 150 kg, CrCl > 10-29 mL/min) *Enoxaparin/Lovenox 30 mg SQ BID (WT < 150 kg, CrCl > 30 mL/min) AND/OR *Sequential Compression Device (SCD) 5 or more Highest Order ONE of the following medications: *Heparin 5000 units SQ TID (Preferred with Epidurals) *Enoxaparin/Lovenox 40 mg SQ daily (WT < 150 kg, CrCl > 30 mL/min) *Enoxaparin/Lovenox 30 mg SQ daily (WT < 150 kg, CrCl > 10-29 mL/min) *Enoxaparin/Lovenox 30 mg SQ BID (WT < 150 kg, CrCl > 30 mL/min) AND *Sequential Compression Device (SCD) Assessment and Plan Problem List: (1) CHF (congestive heart failure) ICD Code: I50.9 - Heart failure, unspecified (2) COPD (chronic obstructive pulmonary disease) ICD Code: J44.9 - Chronic obstructive pulmonary disease, unspecified (3) Elevated troponin ICD Code: R74.8 - Abnormal levels of other serum enzymes (4) HTN (hypertension) ICD Code: I10 - Essential (primary) hypertension (5) HIV (human immunodeficiency virus infection) ICD Code: B20 - Human immunodeficiency virus [HIV] disease (6) Tobacco abuse ICD Code: Z72.0 - Tobacco use (7) ELIJAH (acute kidney injury) ICD Code: N17.9 - Acute kidney failure, unspecified Assessment and Plan A/P: 1. COPD: Chronic Respiratory Failure w/ Acute Exacerbation, Moderate. S/p Solu-Medrol/DuoNeb w/ improvement. Continue Solu-Medrol, DuoNeb, Symbicort. Monitor O2. 2. CHF: Acute on Chronic. Systolic. Echo 10/29/17 w/ EF 45%, BNP 667, CXR w / no significant effusion, images reviewed by me. Monitor I/O, caution w/ diuresis in light of renal insufficiency. 3. HTN: Uncontrolled, non-compliant w/ medications. S/p Labetalol in ER, will monitor BP, resume home medications, antihypertensives as needed. 4. Elevated Trop: Trop 0.09, chronically elevated in comparison to previous labs, likely due to renal disease, chest pain free at this time, check serial enzymes, ASA, Statin, Metoprolol. Consult Cardiology for further evaluation. 5. HIV: CD4 305 on 11/02/17, not on treatment. CXR w/ parenchymal opacities, will continue w/ empiric tx for PNA in light of immunocompromised state. 6. Tobacco Abuse: Pt counselled. Ativan prn. No NicoDerm to avoid vasoconstriction. 7. ELIJAH: Acute on Chronic. Creatinine 3.29, previously 1.87 on 11/02/17, U/a negative, check UDS, caution w/ diuresis, repeat labs in am. 8. DVT Prophylaxis: SCDs/teds. 9. Social work for DC planning as needed. 10. Case discussed at length with the ER physician, lab/record/imaging reviewed by me. Barb Healy MD Feb 13, 2018 22:17
[2018-02-14] MEDS: methylPREDNISolone SOD SUCC 40 MG/1 ML VIAL IV PUSH SCH ×5 (00:20→22:48)
[2018-02-14] MEDS ORDERED: DEXT 5%-NACL 0.9% 1000 ML INJ 500 ML IV ONE (00:30)
[2018-02-14] MEDS ORDERED: DEXT 5%-NACL 0.9% 500 ML INJ 500 ML IV ONE (00:30)
[2018-02-14 02:24] LABS: AUTOMATED NEUTROPHIL # 3.6 TH/MM3 (1.8-7.7); BASOPHIL % 0.3 % (0.0-2.0); HEMATOCRIT 34.4 % (39.0-51.0); HEMOGLOBIN 11.6 GM/DL (13.0-17.0); LYMPH % 12.3 % (9.0-44.0); LYMPHOCYTE # 0.5 TH/MM3 (1.0-4.8); MEAN CELL VOLUME 85.5 FL (80.0-100.0); MEAN CORPUSCULAR HGB CONC 33.9 % (32.0-36.0); MEAN PLATELET VOLUME 9.4 FL (7.0-11.0); MONO % 2.4 % (0.0-8.0); MONOCYTE # 0.1 TH/MM3 (0-0.9); PLATELET COUNT 141 TH/MM3 (150-450); RED BLOOD COUNT 4.02 MIL/MM3 (4.50-5.90); RED CELL DISTRIBUTION WIDTH 15.9 % (11.6-17.2); WHITE BLOOD COUNT 4.2 TH/MM3 (4.0-11.0)
[2018-02-14 02:36] LABS: ALBUMIN 2.4 GM/DL (3.4-5.0); ALT (GPT) 29 U/L (12-78); AST (GOT) 30 U/L (15-37); BICARBONATE 27.7 MEQ/L (21.0-32.0); BLOOD UREA NITROGEN 34 MG/DL (7-18); CALCIUM 7.7 MG/DL (8.5-10.1); CHLORIDE 101 MEQ/L (98-107); GLOMERULAR FILTRATION RATE 25 ML/MIN (>89); GLUCOSE,RANDOM 202 MG/DL (74-106); SODIUM (NA) 137 MEQ/L (136-145)
[2018-02-14 02:40] LABS: ALKALINE PHOSPHATASE 69 U/L (45-117); TOTAL BILIRUBIN ADULT 0.4 MG/DL (0.2-1.0); TOTAL PROTEIN 7.1 GM/DL (6.4-8.2); TROPONIN I 0.05 NG/ML (0.02-0.05)
[2018-02-14 04:01] VITALS: BP 163/114; PULSE 74; RESP 18; TEMP 98.5; O2SAT 98
[2018-02-14] MEDS: RESP: ALBUTEROL 2.5 MG/IPRATROPIUM 0.5 MG NEB (PRN) NEB (04:02)
[2018-02-14] MEDS: MORPHINE SULFATE 2 MG/ML SYRINGE IV PUSH PRN ×3 (04:35→22:49)
[2018-02-14 07:15] VITALS: PULSE 67
[2018-02-14 07:38] VITALS: BP 164/107; PULSE 68; RESP 20; TEMP 97.4; O2SAT 99
[2018-02-14] MEDS: DOCUSATE SODIUM 50 MG/SENNA 8.6 MG TAB PO SCH ×2 (08:22→20:43)
[2018-02-14] MEDS: ASPIRIN 81 MG CHEW TAB PO SCH (08:22)
[2018-02-14] MEDS: METOPROLOL TARTRATE 25 MG TAB PO SCH ×2 (08:22→20:43)
[2018-02-14] MEDS: SODIUM CHLORIDE 0.9% FLUSH 10 ML FLUSH IV FLUSH SCH ×2 (08:25→20:43)
[2018-02-14] MEDS ORDERED: PNEUMOCOCCAL POLYVALENT INJ 25 MCG/0.5 ML SYR IM ONE (09:00)
[2018-02-14] MEDS ORDERED: INFLUENZA VIRUS VACCINE (QUADRIVALENT) 0.5 ML SYR IM ONE (09:00)
--- NOTE | 2018-02-14 09:47 | EKG ---
Date Performed: 02/13/2018 Time Performed: 16:44:32 PTAGE: 57 years EKG: Sinus rhythm WITH OCCASIONAL VENTRICULAR PREMATURE COMPLEXES WITH OCCASIONAL SUPRAVENTRICULAR PREMATURE COMPLEXES LEFT ATRIAL ENLARGEMENT POSSIBLE LEFT VENTRICULAR HYPERTROPHY NONSPECIFIC T-WAVE ABNORMALITY ABNORMA L ECG PREVIOUS TRACING : 10/28/2017 15.43 Comapred to prior tracing, T-wave inversions in the anterol ateral leads have resolved. DOCTOR: Jack Quijano Interpretating Date/Time 02/14/2018 09:46:56
[2018-02-14] MEDS: BUDESONIDE-FORMOTEROL 160/4.5 MCG INHALER INH SCH ×2 (09:58→20:42)
--- NOTE | 2018-02-14 10:14 | HHI.PR ---
Subjective Remarks in no acute distress. sob has improved. no fever. Objective Vitals Vital Signs Date Time Temp Pulse Resp B/P (MAP) Pulse Ox O2 Delivery O2 Flow Rate FiO2 02/14/18 07:38 97.4 68 20 164/107 (126) 99 02/14/18 07:15 67 02/14/18 04:01 98.5 74 18 163/114 (130) 98 02/14/18 01:20 02/13/18 23:59 72 19 159/98 (118) 97 Nasal Cannula 2.00 02/13/18 20:43 168/118 (135) Nasal Cannula 02/13/18 19:46 71 17 174/125 (141) 96 Nasal Cannula 2.00 02/13/18 19:22 79 17 193/138 (156) 98 Nasal Cannula 2.00 02/13/18 18:23 78 20 178/128 (145) 98 Nasal Cannula 2.00 02/13/18 17:30 90 20 203/143 (163) 96 Nasal Cannula 02/13/18 16:56 97 Nasal Cannula 2.00 02/13/18 16:56 89 Room Air 02/13/18 16:51 96 18 97 Nasal Cannula 02/13/18 16:51 96 22 97 Nasal Cannula 2.00 02/13/18 16:44 97.6 98 24 141/104 (116) 94 I/O 02/13/18 02/13/18 02/13/18 02/14/18 02/14/18 02/14/18 07:00 15:00 23:00 07:00 15:00 23:00 Output Total 300 ml Balance -300 ml Output Urine Total 300 ml Result Diagram: 02/14/18 0211 02/14/18 0211 Imaging Last Impressions Chest X-Ray 02/13/18 1652 Signed Impressions: Service Date/Time: Tuesday, February 13, 2018 17:03 - CONCLUSION: Developing central and basilar parenchymal opacities Shahram Burgos MD Lung Scan-V Nuclear Medicine 02/13/18 0000 Signed Impressions: Service Date/Time: Tuesday, February 13, 2018 20:26 - CONCLUSION: 1. Low probability for pulmonary embolus. 2. Inhomogeneity to the uptake in the ventilation portion of study are typically seen with parenchymal disease. Shahram Parker MD Objective Remarks GENERAL: This is a well-nourished, well-developed patient, in no apparent distress. CARDIOVASCULAR: Regular rate and regular rhythm without murmurs, gallops, or rubs. RESPIRATORY: Clear to auscultation. Breath sounds equal bilaterally. No wheezes , rales, or rhonchi. GASTROINTESTINAL: Abdomen soft, non-tender, nondistended. Normal, active bowel sounds MUSCULOSKELETAL: Extremities without clubbing, cyanosis, or edema. NEURO: Alert & Oriented x4 to person, place, time, situation. Moves all ext x4 Medications and IVs Inpatient Medications Acetaminophen (Tylenol) 650 mg Q6H PRN PO FEVER/PAIN SCALE 1 TO 2; Start at 22:15 Acetaminophen/ Hydrocodone Bitart ([place] 5-325 Mg) 1 tab Q4H PRN PO PAIN SCALE 3 TO 5; Start 02/13/18 at 22:15 Albuterol/ Ipratropium (Duoneb Neb) 1 ampule Q4HR NEB PRN NEB SOB/WHEEZING Last administered on 02/14/18at 04:02; Start 02/13/18 at 22:15 Aspirin (Aspirin Chew) 81 mg DAILY PO Last administered on 02/14/18at 08:22; Start 02/14/18 at 09:00 Azithromycin 500 mg/Sodium Chloride 250 ml @ 250 mls/hr ONCE ONCE IV Last administered on 02/13/18at 20:00; Start 02/13/18 at 19:15; Stop 02/13/18 at 20:14 ; Status DC Benztropine Mesylate (Cogentin) 2 mg HS PO ; Start 02/14/18 at 21:00 Bisacodyl (Dulcolax Supp) 10 mg DAILY PRN RECTAL SEVERE CONSITIPATION; Start at 22:15 Budesonide/ Formoterol Fumarate (Symbicort 160-4.5 Mcg Inh) 2 puff Q12HR INH Last administered on 02/14/18at 09:58; Start 02/14/18 at 09:00 Ceftriaxone Sodium 1000 mg/ Sodium Chloride 100 ml @ 200 mls/hr ONCE ONCE IV Last administered on 02/13/18at 19:32; Start 02/13/18 at 19:15; Stop 02/13/18 at 19:44; Status DC Dextrose/Sodium Chloride 500 ml @ 500 mls/hr BOLUS ONCE IV Last administered on 02/14/18at 00:30; Start 02/14/18 at 00:30; Stop 02/14/18 at 01:29; Status DC Influenza Virus Vaccine (Flu (Quadrivalent) Vaccine Inj) 0.5 ml ONCE ONCE IM ; Start 02/14/18 at 09:00; Stop 02/14/18 at 09:01; Status DC Labetalol HCl (Trandate Inj) 20 mg ONCE ONCE IV PUSH Last administered on 02/13at 19:28; Start 02/13/18 at 18:15; Stop 02/13/18 at 18:16; Status DC Lactulose (Lactulose Liq) 30 ml DAILY PRN PO SEVERE CONSITIPATION; Start at 22:15 Levofloxacin/ Dextrose 150 ml @ 100 mls/hr Q48H IV ; Start 02/15/18 at 21:00 Magnesium Hydroxide (Milk Of Magnesia Liq) 30 ml Q12H PRN PO Mild constipation ; Start 02/13/18 at 22:15 Methylprednisolone Sodium Succinate (SoluMEDROL INJ) 40 mg Q6HR IV PUSH Last administered on 02/14/18at 06:17; Start 02/14/18 at 00:00 Metoprolol Tartrate (Lopressor) 25 mg Q12HR PO Last administered on 02/14/18at 08:22; Start 02/14/18 at 09:00 Morphine Sulfate (Morphine Inj) 2 mg Q3H PRN IV PUSH Pain 6-10 Last administered on 02/14/18at 08:25; Start 02/13/18 at 22:15 Nitroglycerin (Nitroglycerin 2% Oint) 1 inch ONCE ONCE TOPICAL Last administered on 02/13/18at 19:30; Start 02/13/18 at 19:15; Stop 02/13/18 at 19:16 ; Status DC Ondansetron HCl (Zofran Inj) 4 mg Q6H PRN IVP NAUSEA OR VOMITING; Start at 22:15 Pneumococcal Polyvalent Vaccine (Pneumovax-23 Inj) 25 mcg ONCE ONCE IM ; Start 02/14/18 at 09:00; Stop 02/14/18 at 09:01; Status DC Risperidone (risperDAL) 4 mg HS PO ; Start 02/14/18 at 21:00 Senna/Docusate Sodium (Mouna-Colace) 1 tab BID PO Last administered on at 08:22; Start 02/14/18 at 09:00 Sennosides (Senokot) 17.2 mg Q12H PRN PO Moderate constipation; Start 02/13/18 at 22:15 Sodium Chloride (NS Flush) 2 ml BID IV FLUSH Last administered on 02/14/18at 08: 25; Start 02/14/18 at 09:00 A/P Problem List: (1) CHF (congestive heart failure) ICD Code: I50.9 - Heart failure, unspecified (2) COPD (chronic obstructive pulmonary disease) ICD Code: J44.9 - Chronic obstructive pulmonary disease, unspecified (3) Elevated troponin ICD Code: R74.8 - Abnormal levels of other serum enzymes (4) HTN (hypertension) ICD Code: I10 - Essential (primary) hypertension (5) HIV (human immunodeficiency virus infection) ICD Code: B20 - Human immunodeficiency virus [HIV] disease (6) Tobacco abuse ICD Code: Z72.0 - Tobacco use (7) ELIJAH (acute kidney injury) ICD Code: N17.9 - Acute kidney failure, unspecified Assessment and Plan A/P 1. COPD: Chronic Respiratory Failure w/ Acute Exacerbation, Moderate. S/p Solu-Medrol/DuoNeb w/ improvement. Continue Solu-Medrol, DuoNeb, Symbicort. Monitor O2. 2. CHF: Acute on Chronic. Systolic. Echo 10/29/17 w/ EF 45%, BNP 667, CXR w / no significant effusion. Monitor I/O, caution w/ diuresis in light of renal insufficiency. 3. HTN: Uncontrolled, non-compliant w/ medications. resumed home medications , antihypertensives as needed. 4. Elevated Trop: Trop 0.09, chronically elevated in comparison to previous labs, likely due to renal disease. 5. HIV: CD4 305 on 11/02/17, not on treatment. CXR w/ parenchymal opacities, will continue w/ empiric tx for PNA in light of immunocompromised state. 6. Tobacco Abuse: Pt counselled. Ativan prn. No NicoDerm to avoid vasoconstriction. 7. ELIJAH: Acute on Chronic. Creatinine 3.29, previously 1.87 on 11/02/17, U/a negative, check renal US and consult nephrology. 8. DVT Prophylaxis: SCDs/teds. Shamika Valladares MD Feb 14, 2018 10:14
[2018-02-14 11:15] VITALS: BP 132/87; PULSE 69; RESP 16; TEMP 97.6; O2SAT 96
--- NOTE | 2018-02-14 11:21 | RADRPT ---
EXAM DATE/TIME: 02/14/2018 10:36 [facility] COMPARISON: No previous studies available for comparison. INDICATIONS : Increased BUN/Creatinine. MEDICAL HISTORY : Hypertension. Chronic obstructive pulmonary disease. Renal insufficiency, chronic. Congestive heart f ailure. Schizophrenia. Depression. Anxiety. HIV. SURGICAL HISTORY : Left forearm surgery. ENCOUNTER: Initial ACUITY: 1 day PAIN SCORE: 0/10 LOCATION: Bilateral flank MEASUREMENTS: RIGHT KIDNEY: 9.1 x 7.1 x 4.2 cm LEFT KIDNEY: 9.2 x 6.6 x 4.6 cm FINDINGS: RIGHT KIDNEY: Kidney is small without hydronephrosis. Mild cortical echogenicity. LEFT KIDNEY: Small kidney without hydronephrosis mild echogenicity. BLADDER: Within normal limits given the degree of distension. CONCLUSION: Small some echogenic kidneys without hydronephrosis suggesting chronic renal disease. Samm Matamoros MD FACR on February 14, 2018 at 11:17 Board Certified Radiologist. This report was verified electronically.
[2018-02-14] MEDS ORDERED: POTASSIUM CHLORIDE 20 MEQ CONTROLLED RELEASE TAB PO ONE (12:00)
--- NOTE | 2018-02-14 12:24 | PD.CONS ---
HPI Consult Requested By Reason for Consult Acute on chronic renal insufficiency. Primary Care Physician No Primary Care Physician History of Present Illness This patient is a 57-year-old male with a history of hypertension, HIV infection , COPD, CHF with ejection fraction said to be 36% by myocardial Nuclear scan October 31, 2017.Patient also has a history of schizophrenia and noncompliance with medical care. Also evidence of chronic kidney disease with a creatinine level of 1.87 November 02, 2017. Patient presented on this occasion with complaints of shortness . Uncertain as to what medications the patient may have been taking as an outpatient as he is a very poor historian.. Review of Systems ROS Limitations: Clinical Condition, Uncooperative Past Family Social History Allergies: Coded Allergies: No Known Allergies (Verified Adverse Reaction, Unknown, 11/01/17) Past Medical History Chronic kidney disease stage III HIV infection Congestive heart failure with ejection fraction said to be 36% by nuclear study October 31, 2017. Hypertension. Noncompliance with medical care. Schizophrenia. Past Surgical History Uncertain. Reported Medications Reported Meds & Active Scripts Active Tgt Aspirin (Aspirin) 81 Mg Chw 81 Mg PO DAILY [Benztropine] 2 MG Tab 2 Mg PO HS Norvasc (Amlodipine Besylate) 10 Mg Tab 10 Mg PO DAILY Cephalexin 500 Mg Cap 500 Mg PO Q12H Risperdal (Risperidone) 4 Mg Tab 4 Mg PO HS Active Ordered Medications Current Medications Sodium Chloride (NS Flush) 2 ml UNSCH PRN IVF FLUSH AFTER USING IV ACCESS; Start 02/13/18 at 17:00; Stop 02/14/18 at 11:00; Status DC Methylprednisolone Sodium Succinate (SoluMEDROL INJ) 125 mg ONCE ONCE IV PUSH Last administered on 02/13/18at 17:23; Start 02/13/18 at 17:00; Stop 02/13/18 at 17:01; Status DC Albuterol/ Ipratropium (Duoneb Neb) 1 ampule ONCE ONCE INH Last administered on 02/13/18at 17:08; Start 02/13/18 at 17:00; Stop 02/13/18 at 17:01; Status DC Labetalol HCl (Trandate Inj) 20 mg ONCE ONCE IV PUSH Last administered on 02/13at 17:46; Start 02/13/18 at 17:45; Stop 02/13/18 at 17:46; Status DC Labetalol HCl (Trandate Inj) 20 mg ONCE ONCE IV PUSH Last administered on 02/13at 19:28; Start 02/13/18 at 18:15; Stop 02/13/18 at 18:16; Status DC Ceftriaxone Sodium 1000 mg/ Sodium Chloride 100 ml @ 200 mls/hr ONCE ONCE IV Last administered on 02/13/18at 19:32; Start 02/13/18 at 19:15; Stop 02/13/18 at 19:44; Status DC Azithromycin 500 mg/Sodium Chloride 250 ml @ 250 mls/hr ONCE ONCE IV Last administered on 02/13/18at 20:00; Start 02/13/18 at 19:15; Stop 02/13/18 at 20:14 ; Status DC Aspirin (Aspirin Chew) 324 mg ONCE ONCE CHEW Last administered on 02/13/18at 19 :35; Start 02/13/18 at 19:15; Stop 02/13/18 at 19:16; Status DC Nitroglycerin (Nitroglycerin 2% Oint) 1 inch ONCE ONCE TOPICAL Last administered on 02/13/18at 19:30; Start 02/13/18 at 19:15; Stop 02/13/18 at 19:16 ; Status DC Metoprolol Tartrate (Lopressor) 25 mg Q12HR PO Last administered on 02/14/18at 08:22; Start 02/14/18 at 09:00 Dextrose/Sodium Chloride 500 ml @ 500 mls/hr BOLUS ONCE IV ; Start 02/13/18 at 22:15; Stop 02/13/18 at 23:14; Status DC Albuterol/ Ipratropium (Duoneb Neb) 1 ampule Q4HR NEB PRN NEB SOB/WHEEZING Last administered on 02/14/18at 04:02; Start 02/13/18 at 22:15 Budesonide/ Formoterol Fumarate (Symbicort 160-4.5 Mcg Inh) 2 puff Q12HR INH Last administered on 02/14/18at 09:58; Start 02/14/18 at 09:00 Methylprednisolone Sodium Succinate (SoluMEDROL INJ) 40 mg Q6HR IV PUSH Last administered on 02/14/18at 18:40; Start 02/14/18 at 00:00 Sodium Chloride (NS Flush) 2 ml UNSCH PRN IV FLUSH FLUSH AFTER USING IV ACCESS ; Start 02/13/18 at 22:15 Sodium Chloride (NS Flush) 2 ml BID IV FLUSH Last administered on 02/14/18at 08: 25; Start 02/14/18 at 09:00 Ondansetron HCl (Zofran Inj) 4 mg Q6H PRN IVP NAUSEA OR VOMITING; Start at 22:15 Acetaminophen (Tylenol) 650 mg Q6H PRN PO FEVER/PAIN SCALE 1 TO 2; Start at 22:15 Acetaminophen/ Hydrocodone Bitart ([place] 5-325 Mg) 1 tab Q4H PRN PO PAIN SCALE 3 TO 5; Start 02/13/18 at 22:15 Morphine Sulfate (Morphine Inj) 2 mg Q3H PRN IV PUSH Pain 6-10 Last administered on 02/14/18at 08:25; Start 02/13/18 at 22:15 Senna/Docusate Sodium (Mouna-Colace) 1 tab BID PO Last administered on at 08:22; Start 02/14/18 at 09:00 Magnesium Hydroxide (Milk Of Magnesia Liq) 30 ml Q12H PRN PO Mild constipation ; Start 02/13/18 at 22:15 Sennosides (Senokot) 17.2 mg Q12H PRN PO Moderate constipation; Start 02/13/18 at 22:15 Bisacodyl (Dulcolax Supp) 10 mg DAILY PRN RECTAL SEVERE CONSITIPATION; Start at 22:15 Lactulose (Lactulose Liq) 30 ml DAILY PRN PO SEVERE CONSITIPATION; Start at 22:15 Aspirin (Aspirin Chew) 81 mg DAILY PO Last administered on 02/14/18at 08:22; Start 02/14/18 at 09:00 Risperidone (risperDAL) 4 mg HS PO ; Start 02/14/18 at 21:00 Benztropine Mesylate (Cogentin) 2 mg HS PO ; Start 02/14/18 at 21:00 Levofloxacin/ Dextrose 150 ml @ 100 mls/hr Q48H IV ; Start 02/15/18 at 21:00 Dextrose/Sodium Chloride 500 ml @ 500 mls/hr BOLUS ONCE IV ; Start 02/14/18 at 00:30; Stop 4/16/18 at 01:29; Status Cancel Dextrose/Sodium Chloride 500 ml @ 500 mls/hr BOLUS ONCE IV Last administered on 02/14/18at 00:30; Start 02/14/18 at 00:30; Stop 02/14/18 at 01:29; Status DC Pneumococcal Polyvalent Vaccine (Pneumovax-23 Inj) 25 mcg ONCE ONCE IM ; Start 02/14/18 at 09:00; Stop 02/14/18 at 09:01; Status DC Influenza Virus Vaccine (Flu (Quadrivalent) Vaccine Inj) 0.5 ml ONCE ONCE IM ; Start 02/14/18 at 09:00; Stop 02/14/18 at 09:01; Status DC Potassium Chloride (KCl) 20 meq ONCE ONCE PO Last administered on 02/14/18at 11 :12; Start 02/14/18 at 12:00; Stop 02/14/18 at 12:01; Status DC Heparin Sodium (Porcine) (Heparin Inj) 5,000 units Q12HR SQ ; Start 02/14/18 at 21:00 Family History Unobtainable. Social History Not reliably obtainable. Physical Exam Vital Signs Vital Signs Date Time Temp Pulse Resp B/P (MAP) Pulse Ox O2 Delivery O2 Flow Rate FiO2 02/14/18 11:15 97.6 69 16 132/87 (102) 96 02/14/18 07:38 97.4 68 20 164/107 (126) 99 02/14/18 07:15 67 02/14/18 04:01 98.5 74 18 163/114 (130) 98 02/14/18 01:20 02/13/18 23:59 72 19 159/98 (118) 97 Nasal Cannula 2.00 02/13/18 20:43 168/118 (135) Nasal Cannula 02/13/18 19:46 71 17 174/125 (141) 96 Nasal Cannula 2.00 02/13/18 19:22 79 17 193/138 (156) 98 Nasal Cannula 2.00 02/13/18 18:23 78 20 178/128 (145) 98 Nasal Cannula 2.00 02/13/18 17:30 90 20 203/143 (163) 96 Nasal Cannula 02/13/18 16:56 97 Nasal Cannula 2.00 02/13/18 16:56 89 Room Air 02/13/18 16:51 96 18 97 Nasal Cannula 02/13/18 16:51 96 22 97 Nasal Cannula 2.00 02/13/18 16:44 97.6 98 24 141/104 (116) 94 Physical Exam GENERAL: Patient appears somewhat malnourished and older than stated age. SKIN: Warm and dry. HEAD: Normocephalic. EYES: No scleral icterus. No injection or drainage. NECK: Supple, trachea midline. No JVD CARDIOVASCULAR: Regular rate and rhythm without murmurs, gallops, or rubs. RESPIRATORY: Breath sounds equal bilaterally. No accessory muscle use. GASTROINTESTINAL: Abdomen soft, non-tender, nondistended. MUSCULOSKELETAL: No cyanosis, or edema. Laboratory Laboratory Tests Test 02/13/18 16:45 02/14/18 02:11 02/14/18 09:45 White Blood Count 7.8 4.2 Red Blood Count 4.79 4.02 Hemoglobin 14.0 11.6 Hematocrit 40.6 34.4 Mean Corpuscular Volume 84.9 85.5 Mean Corpuscular Hemoglobin 29.3 29.0 Mean Corpuscular Hemoglobin Concent 34.5 33.9 Red Cell Distribution Width 15.8 15.9 Platelet Count 158 141 Mean Platelet Volume 9.4 9.4 Neutrophils (%) (Auto) 70.3 85.0 Lymphocytes (%) (Auto) 16.1 12.3 Monocytes (%) (Auto) 11.0 2.4 Eosinophils (%) (Auto) 1.6 0.0 Basophils (%) (Auto) 1.0 0.3 Neutrophils # (Auto) 5.5 3.6 Lymphocytes # (Auto) 1.2 0.5 Monocytes # (Auto) 0.8 0.1 Eosinophils # (Auto) 0.1 0.0 Basophils # (Auto) 0.1 0.0 CBC Comment DIFF FINAL DIFF FINAL Differential Comment Prothrombin Time 11.4 Prothromb Time International Ratio 1.1 Activated Partial Thromboplast Time 25.0 Blood Urea Nitrogen 25 34 Creatinine 3.29 3.10 Random Glucose 120 202 Total Protein 8.7 7.1 Albumin 2.9 2.4 Calcium Level 8.4 7.7 Magnesium Level 2.4 Alkaline Phosphatase 90 69 Aspartate Amino Transf (AST/SGOT) 41 30 Alanine Aminotransferase (ALT/SGPT) 36 29 Total Bilirubin 0.8 0.4 Sodium Level 136 137 Potassium Level 3.0 3.0 Chloride Level 99 101 Carbon Dioxide Level 29.9 27.7 Anion Gap 7 8 Estimat Glomerular Filtration Rate 24 25 Total Creatine Kinase 413 Creatine Kinase MB 2.1 Creatine Kinase MB % 0.5 Troponin I 0.09 0.05 0.04 B-Type Natriuretic Peptide 667 Date/Time Source Procedure Growth Status 02/13/18 19:44 Blood Peripheral Aerobic Blood Culture - Preliminary NO GROWTH IN 1 DAY Resulted 02/13/18 19:44 Blood Peripheral Anaerobic Blood Culture - Preliminary NO GROWTH IN 1 DAY Resulted Result Diagram: 02/14/18 0211 02/14/18 0211 Imaging Last 48 hours Impressions Renal Ultrasound 02/14/18 0000 Signed Impressions: Service Date/Time: Wednesday, February 14, 2018 10:36 - CONCLUSION: Small some echogenic kidneys without hydronephrosis suggesting chronic renal disease. Samm Matamoros MD FACR Chest X-Ray 02/13/18 1652 Signed Impressions: Service Date/Time: Tuesday, February 13, 2018 17:03 - CONCLUSION: Developing central and basilar parenchymal opacities Shahram Burgos MD Lung Scan-V Nuclear Medicine 02/13/18 0000 Signed Impressions: Service Date/Time: Tuesday, February 13, 2018 20:26 - CONCLUSION: 1. Low probability for pulmonary embolus. 2. Inhomogeneity to the uptake in the ventilation portion of study are typically seen with parenchymal disease. Shahram Parker MD Assessment and Plan Problem List: (1) Acute kidney injury superimposed on chronic kidney disease ICD Codes: N17.9 - Acute kidney failure, unspecified; N18.9 - Chronic kidney disease, unspecified Plan: Uncertain as to the etiology of the acute component. Clinically the patient does not appear to be frankly fluid overloaded. Deterioration in renal indices may be related to hemodynamic factors or possibly progression of intrinsic renal disease also. 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 Laboratory studies as ordered. Medication should be adjusted for the patient's estimated GFR when indicated. Avoid agents with significant potential for nephrotoxicity if possible including iodine contrast agents and NSAIDs for analgesia. Gadolinium contraindicated if estimated GFR falls below 30. (2) CHF (congestive heart failure) ICD Codes: I50.9 - Heart failure, unspecified Plan: Presently patient does not appear to be frankly fluid overloaded. Will defer additional diuresis at this time but followup of volume status and renal indices tomorrow. (3) COPD (chronic obstructive pulmonary disease) ICD Codes: J44.9 - Chronic obstructive pulmonary disease, unspecified (4) HTN (hypertension) ICD Codes: I10 - Essential (primary) hypertension (5) HIV (human immunodeficiency virus infection) ICD Codes: B20 - Human immunodeficiency virus [HIV] disease Plan: Management per primary care physician. (6) Schizophrenia ICD Codes: F20.9 - Schizophrenia, unspecified Plan: Defer management to primary care physician. Joann Pearson MD Feb 14, 2018 12:24
[2018-02-14 14:27] LABS: CREATININE, RANDOM URINE 199.7 MG/DL
[2018-02-14 15:26] VITALS: BP 120/86; PULSE 73; RESP 16; TEMP 98.5; O2SAT 96
[2018-02-14] MEDS: BENZTROPINE MESYLATE 2 MG TAB PO SCH (20:43)
[2018-02-14] MEDS: HEPARIN SODIUM - SQ 10,000 UNITS/ML VIAL SQ SCH (20:43)
[2018-02-14] MEDS: risperiDONE 1 MG TAB PO SCH (20:43)
[2018-02-14 23:49] VITALS: BP 150/99; PULSE 71; RESP 16; TEMP 98.5; O2SAT 97
[2018-02-15] VITALS (7 sets, daily range): BP systolic 139–169; BP diastolic 97–101; PULSE 63–79; RESP 16–18; TEMP 97.3–98.6; O2SAT 95–100
[2018-02-15] MEDS: methylPREDNISolone SOD SUCC 40 MG/1 ML VIAL IV PUSH SCH ×3 (04:47→20:04)
[2018-02-15] MEDS: MORPHINE SULFATE 2 MG/ML SYRINGE IV PUSH PRN (04:49)
[2018-02-15 07:26] LABS: ALBUMIN 2.6 GM/DL (3.4-5.0); BICARBONATE 24.9 MEQ/L (21.0-32.0); CALCIUM 8.5 MG/DL (8.5-10.1); CREATININE 3.13 MG/DL (0.60-1.30)
[2018-02-15 07:27] LABS: BICARBONATE 24.5 MEQ/L (21.0-32.0); CALCIUM 8.6 MG/DL (8.5-10.1); COMPLEMENT C4 21 MG/DL (10-40); CREATININE 3.15 MG/DL (0.60-1.30)
[2018-02-15 07:28] LABS: PHOSPHORUS 4.8 MG/DL (2.5-4.9)
[2018-02-15] MEDS: SODIUM CHLORIDE 0.9% FLUSH 10 ML FLUSH IV FLUSH SCH ×2 (09:31→20:02)
[2018-02-15] MEDS: BUDESONIDE-FORMOTEROL 160/4.5 MCG INHALER INH SCH ×2 (09:31→20:19)
[2018-02-15] MEDS: METOPROLOL TARTRATE 25 MG TAB PO SCH ×2 (09:31→20:02)
[2018-02-15] MEDS: ASPIRIN 81 MG CHEW TAB PO SCH (09:31)
[2018-02-15] MEDS: HEPARIN SODIUM - SQ 10,000 UNITS/ML VIAL SQ SCH ×2 (09:33→20:02)
[2018-02-15] MEDS: DOCUSATE SODIUM 50 MG/SENNA 8.6 MG TAB PO SCH ×2 (09:36→20:19)
--- NOTE | 2018-02-15 10:22 | HHI.PR ---
Subjective Remarks in no acute distress. resting comfortably. no fever. Objective Vitals Vital Signs Date Time Temp Pulse Resp B/P (MAP) Pulse Ox O2 Delivery O2 Flow Rate FiO2 02/15/18 07:55 98.0 64 18 155/99 (117) 100 02/15/18 07:24 68 02/15/18 04:54 20 02/15/18 04:22 98.6 73 16 139/98 (112) 100 02/14/18 23:49 98.5 71 16 150/99 (116) 97 02/14/18 15:26 98.5 73 16 120/86 (97) 96 02/14/18 11:15 97.6 69 16 132/87 (102) 96 I/O 02/14/18 02/14/18 02/14/18 02/15/18 02/15/18 02/15/18 07:00 15:00 23:00 07:00 15:00 23:00 Intake Total 240 ml 330 ml Output Total 300 ml Balance -300 ml 240 ml 330 ml Intake Oral 240 ml 330 ml Output Urine Total 300 ml Result Diagram: 02/14/18 0211 02/15/18 0550 Imaging Last Impressions Renal Ultrasound 02/14/18 0000 Signed Impressions: Service Date/Time: Wednesday, February 14, 2018 10:36 - CONCLUSION: Small some echogenic kidneys without hydronephrosis suggesting chronic renal disease. Samm Matamoros MD FACR Chest X-Ray 02/13/18 1652 Signed Impressions: Service Date/Time: Tuesday, February 13, 2018 17:03 - CONCLUSION: Developing central and basilar parenchymal opacities Shahram Burgos MD Lung Scan- Nuclear Medicine 02/13/18 0000 Signed Impressions: Service Date/Time: Tuesday, February 13, 2018 20:26 - CONCLUSION: 1. Low probability for pulmonary embolus. 2. Inhomogeneity to the uptake in the ventilation portion of study are typically seen with parenchymal disease. Shahram Parker MD Objective Remarks GENERAL: This is a well-nourished, well-developed patient, in no apparent distress. CARDIOVASCULAR: Regular rate and regular rhythm without murmurs, gallops, or rubs. RESPIRATORY: Clear to auscultation. Breath sounds equal bilaterally. No wheezes , rales, or rhonchi. GASTROINTESTINAL: Abdomen soft, non-tender, nondistended. Normal, active bowel sounds MUSCULOSKELETAL: Extremities without clubbing, cyanosis, or edema. NEURO: Alert & Oriented x4 to person, place, time, situation. Moves all ext x4 Procedures none Medications and IVs Inpatient Medications Acetaminophen (Tylenol) 650 mg Q6H PRN PO FEVER/PAIN SCALE 1 TO 2; Start at 22:15 Acetaminophen/ Hydrocodone Bitart ([place] 5-325 Mg) 1 tab Q4H PRN PO PAIN SCALE 3 TO 5; Start 02/13/18 at 22:15 Albuterol/ Ipratropium (Duoneb Neb) 1 ampule Q4HR NEB PRN NEB SOB/WHEEZING Last administered on 02/14/18at 04:02; Start 02/13/18 at 22:15 Aspirin (Aspirin Chew) 81 mg DAILY PO Last administered on 02/15/18at 09:31; Start 02/14/18 at 09:00 Azithromycin 500 mg/Sodium Chloride 250 ml @ 250 mls/hr ONCE ONCE IV Last administered on 02/13/18at 20:00; Start 02/13/18 at 19:15; Stop 02/13/18 at 20:14 ; Status DC Benztropine Mesylate (Cogentin) 2 mg HS PO Last administered on 02/14/18at 20:43 ; Start 02/14/18 at 21:00 Bisacodyl (Dulcolax Supp) 10 mg DAILY PRN RECTAL SEVERE CONSITIPATION; Start at 22:15 Budesonide/ Formoterol Fumarate (Symbicort 160-4.5 Mcg Inh) 2 puff Q12HR INH Last administered on 02/15/18at 09:31; Start 02/14/18 at 09:00 Ceftriaxone Sodium 1000 mg/ Sodium Chloride 100 ml @ 200 mls/hr ONCE ONCE IV Last administered on 02/13/18at 19:32; Start 02/13/18 at 19:15; Stop 02/13/18 at 19:44; Status DC Dextrose/Sodium Chloride 500 ml @ 500 mls/hr BOLUS ONCE IV Last administered on 02/14/18at 00:30; Start 02/14/18 at 00:30; Stop 02/14/18 at 01:29; Status DC Heparin Sodium (Porcine) (Heparin Inj) 5,000 units Q12HR SQ Last administered on 02/15/18at 09:33; Start 02/14/18 at 21:00 Influenza Virus Vaccine (Flu (Quadrivalent) Vaccine Inj) 0.5 ml ONCE ONCE IM ; Start 02/14/18 at 09:00; Stop 02/14/18 at 09:01; Status DC Labetalol HCl (Trandate Inj) 20 mg ONCE ONCE IV PUSH Last administered on 02/13at 19:28; Start 02/13/18 at 18:15; Stop 02/13/18 at 18:16; Status DC Lactulose (Lactulose Liq) 30 ml DAILY PRN PO SEVERE CONSITIPATION; Start at 22:15 Levofloxacin/ Dextrose 150 ml @ 100 mls/hr Q48H IV ; Start 02/15/18 at 21:00 Magnesium Hydroxide (Milk Of Magnesia Liq) 30 ml Q12H PRN PO Mild constipation ; Start 02/13/18 at 22:15 Methylprednisolone Sodium Succinate (SoluMEDROL INJ) 40 mg Q6HR IV PUSH Last administered on 02/15/18at 04:47; Start 02/14/18 at 00:00 Metoprolol Tartrate (Lopressor) 25 mg Q12HR PO Last administered on 02/15/18at 09:31; Start 02/14/18 at 09:00 Morphine Sulfate (Morphine Inj) 2 mg Q3H PRN IV PUSH Pain 6-10 Last administered on 02/15/18at 04:49; Start 02/13/18 at 22:15 Nitroglycerin (Nitroglycerin 2% Oint) 1 inch ONCE ONCE TOPICAL Last administered on 02/13/18at 19:30; Start 02/13/18 at 19:15; Stop 02/13/18 at 19:16 ; Status DC Ondansetron HCl (Zofran Inj) 4 mg Q6H PRN IVP NAUSEA OR VOMITING; Start at 22:15 Pneumococcal Polyvalent Vaccine (Pneumovax-23 Inj) 25 mcg ONCE ONCE IM ; Start 02/14/18 at 09:00; Stop 02/14/18 at 09:01; Status DC Potassium Chloride (KCl) 20 meq ONCE ONCE PO Last administered on 02/14/18at 11 :12; Start 02/14/18 at 12:00; Stop 02/14/18 at 12:01; Status DC Risperidone (risperDAL) 4 mg HS PO Last administered on 02/14/18at 20:43; Start 02/14/18 at 21:00 Senna/Docusate Sodium (Mouna-Colace) 1 tab BID PO Last administered on at 09:36; Start 02/14/18 at 09:00 Sennosides (Senokot) 17.2 mg Q12H PRN PO Moderate constipation; Start 02/13/18 at 22:15 Sodium Chloride (NS Flush) 2 ml BID IV FLUSH Last administered on 02/15/18at 09: 31; Start 02/14/18 at 09:00 A/P Problem List: (1) CHF (congestive heart failure) ICD Code: I50.9 - Heart failure, unspecified (2) COPD (chronic obstructive pulmonary disease) ICD Code: J44.9 - Chronic obstructive pulmonary disease, unspecified (3) Elevated troponin ICD Code: R74.8 - Abnormal levels of other serum enzymes (4) HTN (hypertension) ICD Code: I10 - Essential (primary) hypertension (5) HIV (human immunodeficiency virus infection) ICD Code: B20 - Human immunodeficiency virus [HIV] disease (6) Tobacco abuse ICD Code: Z72.0 - Tobacco use (7) ELIJAH (acute kidney injury) ICD Code: N17.9 - Acute kidney failure, unspecified Assessment and Plan A/P 1. COPD: Chronic Respiratory Failure w/ Acute Exacerbation, Moderate. S/p Solu-Medrol/DuoNeb w/ improvement. Continue Solu-Medrol, DuoNeb, Symbicort. Monitor O2. will switch to prednisone upon discharge. 2. CHF: Acute on Chronic. Systolic. Echo 10/29/17 w/ EF 45%, BNP 667, CXR w / no significant effusion. Monitor I/O, caution w/ diuresis in light of renal insufficiency. 3. HTN: Uncontrolled, non-compliant w/ medications. resumed home medications , antihypertensives as needed. 4. Elevated Trop: Trop 0.09, chronically elevated in comparison to previous labs, likely due to renal disease. 5. HIV: CD4 305 on 11/02/17, not on treatment. CXR w/ parenchymal opacities, will continue w/ empiric tx for PNA in light of immunocompromised state; this will be switched to po upon discharge. 6. Tobacco Abuse: Pt counselled. Ativan prn. No NicoDerm to avoid vasoconstriction. 7. ELIJAH: Acute on Chronic. renal US with no hydronephrosis- nephrology consult appreciated. 8. DVT Prophylaxis: SCDs/teds. Discharge Planning dc home when cleared by nephrology- pending walk test. see med list. f/u; pcp and nephrology. d/w the patient. Shamika Valladares MD Feb 15, 2018 10:22
[2018-02-15] MEDS ORDERED: PRED20 PO (10:25)
[2018-02-15] MEDS ORDERED: Budeson-Formot 160-4.5 Mcg Inh INH (10:25)
[2018-02-15] MEDS ORDERED: VENTAER INH (10:25)
[2018-02-15] MEDS ORDERED: LEVA250T14 PO (10:25)
--- NOTE | 2018-02-15 12:49 | HHI.NPPN ---
Subjective History of Present Illness This patient is a 57-year-old male with a history of hypertension, HIV infection , COPD, CHF with ejection fraction said to be 36% by myocardial Nuclear scan October 31, 2017.Patient also has a history of schizophrenia and noncompliance with medical care. Also evidence of chronic kidney disease with a creatinine level of 1.87 November 02, 2017. Patient presented on this occasion with complaints of shortness of breath Uncertain as to what medications the patient may have been taking as an outpatient as he is a very poor historian.. Interval History Overall says he is feeling OK today Breathing improved (Kassidy Clemons) Review of Systems General Constitutional: Fatigue (Kassidy Clemons) Objective Data Data Vital Signs Date Time Temp Pulse Resp B/P (MAP) Pulse Ox O2 Delivery O2 Flow Rate FiO2 02/15/18 12:08 97.6 63 18 152/97 (115) 98 02/15/18 07:55 98.0 64 18 155/99 (117) 100 02/15/18 07:24 68 02/15/18 04:54 20 02/15/18 04:22 98.6 73 16 139/98 (112) 100 02/14/18 23:49 98.5 71 16 150/99 (116) 97 02/14/18 15:26 98.5 73 16 120/86 (97) 96 (Kassidy Clemons) -: 02/14/18 0211 02/15/18 0550 Imaging Last Impressions Renal Ultrasound 02/14/18 0000 Signed Impressions: Service Date/Time: Wednesday, February 14, 2018 10:36 - CONCLUSION: Small some echogenic kidneys without hydronephrosis suggesting chronic renal disease. Samm Matamoros MD FACR Chest X-Ray 02/13/18 1652 Signed Impressions: Service Date/Time: Tuesday, February 13, 2018 17:03 - CONCLUSION: Developing central and basilar parenchymal opacities Shahram Burgos MD Lung Scan-V Nuclear Medicine 02/13/18 0000 Signed Impressions: Service Date/Time: Tuesday, February 13, 2018 20:26 - CONCLUSION: 1. Low probability for pulmonary embolus. 2. Inhomogeneity to the uptake in the ventilation portion of study are typically seen with parenchymal disease. Shahram Parker MD Medication Review Current Medications Medications (Trade) Dose Ordered Sig/Clif Route Start Time Stop Time Status Last Admin (Lopressor) 25 mg Q12HR PO 02/14/18 09:00 02/15/18 09:31 (Duoneb Neb) 1 ampule Q4HR NEB PRN NEB 02/13/18 22:15 02/14/18 04:02 (Symbicort 160-4.5 Mcg Inh) 2 puff Q12HR INH 02/14/18 09:00 02/15/18 09:31 (NS Flush) 2 ml UNSCH PRN IV FLUSH 02/13/18 22:15 (NS Flush) 2 ml BID IV FLUSH 02/14/18 09:00 02/15/18 09:31 (Zofran Inj) 4 mg Q6H PRN IVP 02/13/18 22:15 (Tylenol) 650 mg Q6H PRN PO 02/13/18 22:15 ([place] 5-325 Mg) 1 tab Q4H PRN PO 02/13/18 22:15 (Morphine Inj) 2 mg Q3H PRN IV PUSH 02/13/18 22:15 02/15/18 04:49 (Mouna-Colace) 1 tab BID PO 02/14/18 09:00 02/15/18 09:36 (Milk Of Magnesia Liq) 30 ml Q12H PRN PO 02/13/18 22:15 (Senokot) 17.2 mg Q12H PRN PO 02/13/18 22:15 (Dulcolax Supp) 10 mg DAILY PRN RECTAL 02/13/18 22:15 (Lactulose Liq) 30 ml DAILY PRN PO 02/13/18 22:15 (Aspirin Chew) 81 mg DAILY PO 02/14/18 09:00 02/15/18 09:31 (risperDAL) 4 mg HS PO 02/14/18 21:00 02/14/18 20:43 (Cogentin) 2 mg HS PO 02/14/18 21:00 02/14/18 20:43 Levofloxacin/ Dextrose 150 ml @ 100 mls/hr Q48H IV 02/15/18 21:00 (Heparin Inj) 5,000 units Q12HR SQ 02/14/18 21:00 02/15/18 09:33 (SoluMEDROL INJ) 40 mg Q8HR IV PUSH 02/15/18 14:00 (Kassidy Clemons) Physical Exam General Appearance: No Acute Distress, Comfortable (Kassidy Clemons) Neck Neck Exam: Neck Supple, Trachea Midline (Kassidy Clemons) Pulmonary Resp Exam: Clear Bilaterally, Breath Sounds Equal (Kassidy Clemons) Cardiology CV Exam: Regular, Normal Sinus Rhythm (Kassidy Clemons) Gastrointestinal/Abdomen GI Exam: Soft, Non-Tender (Kassidy Clemons) Integumentary Skin Exam: Clear, Warm (Kassidy Clemons) Extremeties Extremities Exam: No Edema (Kassidy Clemons) Neurologic Neuro Exam: Alert, Awake (Kassidy Clemons) Psychiatric Psych Exam: Appropriate Responses (Kassidy Clemons) Assessment/Plan Problem List: (1) Acute kidney injury superimposed on chronic kidney disease ICD Codes: N17.9 - Acute kidney failure, unspecified; N18.9 - Chronic kidney disease, unspecified Plan: Renal deterioration in renal indices may be related to hemodynamic factors or possibly progression of intrinsic renal disease, Stable at the present possibly representing his new baseline. 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 Laboratory studies as ordered and pending. Medication should be adjusted for the patient's estimated GFR when indicated. Avoid agents with significant potential for nephrotoxicity if possible including iodine contrast agents and NSAIDs for analgesia. Gadolinium contraindicated if estimated GFR falls below 30. (2) CHF (congestive heart failure) ICD Codes: I50.9 - Heart failure, unspecified Plan: Volume status acceptable. (3) COPD (chronic obstructive pulmonary disease) ICD Codes: J44.9 - Chronic obstructive pulmonary disease, unspecified (4) HTN (hypertension) ICD Codes: I10 - Essential (primary) hypertension (5) HIV (human immunodeficiency virus infection) ICD Codes: B20 - Human immunodeficiency virus [HIV] disease Plan: Management per primary care physician. (6) Schizophrenia ICD Codes: F20.9 - Schizophrenia, unspecified Plan: Defer management to primary care physician. (7) Secondary hyperparathyroidism ICD Codes: N25.81 - Secondary hyperparathyroidism of renal origin Plan: Likely related to both renal disease as well as Vitamin D deficiency. Start Cholecalciferol U daily (Kassidy Clemons) Plan The exam, history, and the medical decision-making described in the above note were completed with the assistance of the PA-C. I reviewed and agree with the findings presented. (Joann Pearson MD) Kassidy Clemons Feb 15, 2018 12:49 Joann Pearson MD Feb 15, 2018 15:25
[2018-02-15] MEDS: CHOLECALCIFEROL (VIT D3) 1000 UNIT TAB PO SCH (15:09)
[2018-02-15] MEDS: RESP: ALBUTEROL 2.5 MG/IPRATROPIUM 0.5 MG NEB (PRN) NEB (18:15)
[2018-02-15] MEDS: BENZTROPINE MESYLATE 2 MG TAB PO SCH (20:02)
[2018-02-15] MEDS: risperiDONE 1 MG TAB PO SCH (20:15)
[2018-02-15] MEDS ORDERED: LEVOFLOXACIN 750 MG PREMIX INJ 150 ML IV SCH (21:00)
[2018-02-16] VITALS (8 sets, daily range): BP systolic 141–152; BP diastolic 91–110; PULSE 66–83; RESP 16–20; TEMP 97.1–98.7; O2SAT 96–99
[2018-02-16] MEDS: methylPREDNISolone SOD SUCC 40 MG/1 ML VIAL IV PUSH SCH (05:29)
[2018-02-16 07:31] LABS: HEMATOCRIT 33.1 % (39.0-51.0); HEMOGLOBIN 11.2 GM/DL (13.0-17.0); MEAN CELL VOLUME 85.3 FL (80.0-100.0); MEAN CORPUSCULAR HEMOGLOBIN 28.7 PG (27.0-34.0); MEAN CORPUSCULAR HGB CONC 33.7 % (32.0-36.0); MEAN PLATELET VOLUME 10.2 FL (7.0-11.0); PLATELET COUNT 212 TH/MM3 (150-450); RED BLOOD COUNT 3.88 MIL/MM3 (4.50-5.90); RED CELL DISTRIBUTION WIDTH 16.3 % (11.6-17.2); WHITE BLOOD COUNT 7.1 TH/MM3 (4.0-11.0)
[2018-02-16 07:54] LABS: ALBUMIN 2.5 GM/DL (3.4-5.0); BICARBONATE 27.1 MEQ/L (21.0-32.0); CALCIUM 8.4 MG/DL (8.5-10.1); CREATININE 2.9 MG/DL (0.60-1.30)
[2018-02-16] MEDS: BUDESONIDE-FORMOTEROL 160/4.5 MCG INHALER INH SCH (09:13)
[2018-02-16] MEDS: CHOLECALCIFEROL (VIT D3) 1000 UNIT TAB PO SCH (09:13)
[2018-02-16] MEDS: DOCUSATE SODIUM 50 MG/SENNA 8.6 MG TAB PO SCH (09:13)
[2018-02-16] MEDS: ASPIRIN 81 MG CHEW TAB PO SCH (09:14)
[2018-02-16] MEDS: METOPROLOL TARTRATE 25 MG TAB PO SCH (09:14)
[2018-02-16] MEDS: HEPARIN SODIUM - SQ 10,000 UNITS/ML VIAL SQ SCH (09:15)
[2018-02-16] MEDS: SODIUM CHLORIDE 0.9% FLUSH 10 ML FLUSH IV FLUSH SCH (09:15)
--- NOTE | 2018-02-16 12:16 | HHI.DCPOC ---
Discharge Care Plan Diagnosis: (1) Acute kidney injury superimposed on chronic kidney disease (2) COPD (chronic obstructive pulmonary disease) (3) CHF (congestive heart failure) (4) HTN (hypertension) Goals to Promote Your Health * To prevent worsening of your condition and complications * To maintain your health at the optimal level Directions to Meet Your Goals Take your medications as prescribed Follow your dietary instruction Follow activity as directed Keep your appointments as scheduled Take your immunizations and boosters as scheduled If your symptoms worsen call your PCP, if no PCP go to Urgent Care Center or Emergency Room Smoking is Dangerous to Your Health. Avoid second hand smoke Call the 24-hour hour crisis hotline for domestic abuse at Ximena Calhoun PA-C Feb 16, 2018 12:16
--- NOTE | 2018-02-16 12:18 | HHI.PR ---
Subjective Remarks in no acute distress. resting comfortably. no sob or pain. no fever. no new complaints. Objective Vitals Vital Signs Date Time Temp Pulse Resp B/P (MAP) Pulse Ox O2 Delivery O2 Flow Rate FiO2 02/16/18 11:34 98.7 74 16 148/91 (110) 98 02/16/18 09:20 2.00 02/16/18 07:57 97.9 70 20 145/100 (115) 96 02/16/18 07:16 70 02/16/18 07:01 66 02/16/18 04:06 72 02/16/18 03:47 98.3 71 16 152/110 (124) 97 02/16/18 00:05 97.1 73 18 141/97 (112) 99 02/16/18 00:00 83 02/15/18 20:00 75 02/15/18 19:54 97.3 79 16 169/100 (123) 02/15/18 15:37 98.2 78 18 149/101 (117) 95 I/O 02/15/18 02/15/18 02/15/18 02/16/18 02/16/18 02/16/18 07:00 15:00 23:00 07:00 15:00 23:00 # Voids 4 Result Diagram: 02/16/18 0635 02/16/18 0635 Imaging Last Impressions Renal Ultrasound 02/14/18 0000 Signed Impressions: Service Date/Time: Wednesday, February 14, 2018 10:36 - CONCLUSION: Small some echogenic kidneys without hydronephrosis suggesting chronic renal disease. Samm Matamoros MD FACR Chest X-Ray 02/13/18 1652 Signed Impressions: Service Date/Time: Tuesday, February 13, 2018 17:03 - CONCLUSION: Developing central and basilar parenchymal opacities Shahram Burgos MD Lung Scan-VQ Nuclear Medicine 02/13/18 0000 Signed Impressions: Service Date/Time: Tuesday, February 13, 2018 20:26 - CONCLUSION: 1. Low probability for pulmonary embolus. 2. Inhomogeneity to the uptake in the ventilation portion of study are typically seen with parenchymal disease. Shahram Parker MD Objective Remarks GENERAL: This is a well-nourished, well-developed patient, in no apparent distress. CARDIOVASCULAR: Regular rate and regular rhythm without murmurs, gallops, or rubs. RESPIRATORY: Clear to auscultation. Breath sounds equal bilaterally. No wheezes , rales, or rhonchi. GASTROINTESTINAL: Abdomen soft, non-tender, nondistended. Normal, active bowel sounds MUSCULOSKELETAL: Extremities without clubbing, cyanosis, or edema. NEURO: Alert & Oriented x4 to person, place, time, situation. Moves all ext x4 Procedures none Medications and IVs Inpatient Medications Acetaminophen (Tylenol) 650 mg Q6H PRN PO FEVER/PAIN SCALE 1 TO 2; Start at 22:15 Acetaminophen/ Hydrocodone Bitart ([place] 5-325 Mg) 1 tab Q4H PRN PO PAIN SCALE 3 TO 5; Start 02/13/18 at 22:15 Albuterol/ Ipratropium (Duoneb Neb) 1 ampule Q4HR NEB PRN NEB SOB/WHEEZING Last administered on 02/15/18at 18:15; Start 02/13/18 at 22:15 Aspirin (Aspirin Chew) 81 mg DAILY PO Last administered on 02/16/18at 09:14; Start 02/14/18 at 09:00 Azithromycin 500 mg/Sodium Chloride 250 ml @ 250 mls/hr ONCE ONCE IV Last administered on 02/13/18at 20:00; Start 02/13/18 at 19:15; Stop 02/13/18 at 20:14 ; Status DC Benztropine Mesylate (Cogentin) 2 mg HS PO Last administered on 02/15/18at 20:02 ; Start 02/14/18 at 21:00 Bisacodyl (Dulcolax Supp) 10 mg DAILY PRN RECTAL SEVERE CONSITIPATION; Start at 22:15 Budesonide/ Formoterol Fumarate (Symbicort 160-4.5 Mcg Inh) 2 puff Q12HR INH Last administered on 02/16/18 09:13; Start 02/14/18 at 09:00 Ceftriaxone Sodium 1000 mg/ Sodium Chloride 100 ml @ 200 mls/hr ONCE ONCE IV Last administered on 02/13/18at 19:32; Start 02/13/18 at 19:15; Stop 02/13/18 at 19:44; Status DC Cholecalciferol (Vitamin D3) 2,000 units DAILY PO Last administered on at 09:13; Start 02/15/18 at 14:00 Dextrose/Sodium Chloride 500 ml @ 500 mls/hr BOLUS ONCE IV Last administered on 02/14/18at 00:30; Start 02/14/18 at 00:30; Stop 02/14/18 at 01:29; Status DC Heparin Sodium (Porcine) (Heparin Inj) 5,000 units Q12HR SQ Last administered on 02/16/18 09:15; Start 02/14/18 at 21:00 Influenza Virus Vaccine (Flu (Quadrivalent) Vaccine Inj) 0.5 ml ONCE ONCE IM ; Start 02/14/18 at 09:00; Stop 02/14/18 at 09:01; Status DC Labetalol HCl (Trandate Inj) 20 mg ONCE ONCE IV PUSH Last administered on 02/13 19:28; Start 02/13/18 at 18:15; Stop 02/13/18 at 18:16; Status DC Lactulose (Lactulose Liq) 30 ml DAILY PRN PO SEVERE CONSITIPATION; Start at 22:15 Levofloxacin/ Dextrose 150 ml @ 100 mls/hr Q48H IV Last administered on at 21:41; Start 02/15/18 at 21:00 Magnesium Hydroxide (Milk Of Magnesia Liq) 30 ml Q12H PRN PO Mild constipation ; Start 02/13/18 at 22:15 Methylprednisolone Sodium Succinate (SoluMEDROL INJ) 40 mg Q8HR IV PUSH Last administered on 02/16/18at 05:29; Start 02/15/18 at 14:00 Metoprolol Tartrate (Lopressor) 25 mg Q12HR PO Last administered on 02/16/18at 09:14; Start 02/14/18 at 09:00 Morphine Sulfate (Morphine Inj) 2 mg Q3H PRN IV PUSH Pain 6-10 Last administered on 02/15/18at 04:49; Start 02/13/18 at 22:15 Nitroglycerin (Nitroglycerin 2% Oint) 1 inch ONCE ONCE TOPICAL Last administered on 02/13/18 19:30; Start 02/13/18 at 19:15; Stop 02/13/18 at 19:16 ; Status DC Ondansetron HCl (Zofran Inj) 4 mg Q6H PRN IVP NAUSEA OR VOMITING; Start at 22:15 Pneumococcal Polyvalent Vaccine (Pneumovax-23 Inj) 25 mcg ONCE ONCE IM ; Start 02/14/18 at 09:00; Stop 02/14/18 at 09:01; Status DC Potassium Chloride (KCl) 20 meq ONCE ONCE PO Last administered on 02/14/18at 11 :12; Start 02/14/18 at 12:00; Stop 02/14/18 at 12:01; Status DC Risperidone (risperDAL) 4 mg HS PO Last administered on 02/15/18at 20:15; Start 02/14/18 at 21:00 Senna/Docusate Sodium (Mouna-Colace) 1 tab BID PO Last administered on at 09:13; Start 02/14/18 at 09:00 Sennosides (Senokot) 17.2 mg Q12H PRN PO Moderate constipation; Start 02/13/18 at 22:15 Sodium Chloride (NS Flush) 2 ml BID IV FLUSH Last administered on 02/16/18at 09: 15; Start 02/14/18 at 09:00 A/P Problem List: (1) CHF (congestive heart failure) ICD Code: I50.9 - Heart failure, unspecified (2) COPD (chronic obstructive pulmonary disease) ICD Code: J44.9 - Chronic obstructive pulmonary disease, unspecified (3) Elevated troponin ICD Code: R74.8 - Abnormal levels of other serum enzymes (4) HTN (hypertension) ICD Code: I10 - Essential (primary) hypertension (5) HIV (human immunodeficiency virus infection) ICD Code: B20 - Human immunodeficiency virus [HIV] disease (6) Tobacco abuse ICD Code: Z72.0 - Tobacco use (7) ELIJAH (acute kidney injury) ICD Code: N17.9 - Acute kidney failure, unspecified Assessment and Plan A/P 1. COPD: Chronic Respiratory Failure w/ Acute Exacerbation, Moderate. S/p Solu-Medrol/DuoNeb w/ improvement. Continue Solu-Medrol, DuoNeb, Symbicort. Monitor O2. will switch to prednisone upon discharge. 2. CHF: Acute on Chronic. Systolic. Echo 10/29/17 w/ EF 45%, BNP 667, CXR w / no significant effusion. Monitor I/O, caution w/ diuresis in light of renal insufficiency. 3. HTN: Uncontrolled, non-compliant w/ medications. resumed home medications , antihypertensives as needed. 4. Elevated Trop: Trop 0.09, chronically elevated in comparison to previous labs, likely due to renal disease. 5. HIV: CD4 305 on 11/02/17, not on treatment. CXR w/ parenchymal opacities, will continue w/ empiric tx for PNA in light of immunocompromised state; this will be switched to po upon discharge. 6. Tobacco Abuse: Pt counselled. Ativan prn. No NicoDerm to avoid vasoconstriction. 7. ELIJAH: Acute on Chronic. renal US with no hydronephrosis- renal function stable- nephrology consult appreciated. f/u as outpatient. 8. DVT Prophylaxis: SCDs/teds. Discharge Planning dc home today. passed walk test. see med list. f/u; pcp and nephrology. d/w the patient. Shamika Valladares MD Feb 16, 2018 12:18
--- NOTE | 2018-02-16 12:19 | HHI.DS ---
Discharge Summary Admission Date Feb 13, 2018 at 22:25 Discharge Date: Feb 16, 2018 Admitting Diagnosis (1) CHF (congestive heart failure) ICD Code: I50.9 - Heart failure, unspecified Diagnosis: Principal (2) COPD (chronic obstructive pulmonary disease) ICD Code: J44.9 - Chronic obstructive pulmonary disease, unspecified Diagnosis: Principal (3) Elevated troponin ICD Code: R74.8 - Abnormal levels of other serum enzymes Diagnosis: Secondary (4) HTN (hypertension) ICD Code: I10 - Essential (primary) hypertension Diagnosis: Secondary (5) HIV (human immunodeficiency virus infection) ICD Code: B20 - Human immunodeficiency virus [HIV] disease Diagnosis: Secondary (6) Tobacco abuse ICD Code: Z72.0 - Tobacco use Diagnosis: Secondary (7) ELIJAH (acute kidney injury) ICD Code: N17.9 - Acute kidney failure, unspecified Diagnosis: Secondary Procedures none Brief History - From Admission This is a 57-year-old male with a PMH of Anxiety, Depression, Schizophrenia, HTN , COPD, CHF (Echo 10/29/2017 w/ EF 45%) and HIV (CD4 305 on 11/02/17) who presented to the ER w/ complaints of chest pain and SOB starting this morning. States pain is intermittent, severe, 9/10, associated w/ cough/SOB. Denies fever or chills. On arrival, BP 203/143, HR 90, O2 sat 96% on 2L NC, Afebrile. On Norvasc at home, reports intermittent compliance w/ medications. CBC unremarkable. Creatinine 3.29, previously 1.87 on 11/02/17. Troponin 0.09. BNP 667. K+ 3.0. INR 1.1. CXR with developing central and basilar parenchymal opacities. V/Q Scan with low probability for PE. S/p ASA, DuoNeb, Labetalol and Solu-Medrol in ER w/ improvement. CBC/BMP: 02/16/18 0635 02/16/18 0635 Significant Findings Laboratory Tests Test 02/13/18 16:45 02/14/18 02:11 02/14/18 09:45 02/14/18 14:02 Neutrophils (%) (Auto) 70.3 % (16.0-70.0) 85.0 % (16.0-70.0) Monocytes (%) (Auto) 11.0 % (0.0-8.0) Blood Urea Nitrogen 25 MG/DL (7-18) 34 MG/DL (7-18) Creatinine 3.29 MG/DL (0.60-1.30) 3.10 MG/DL (0.60-1.30) Random Glucose 120 MG/DL (74-106) 202 MG/DL (74-106) Total Protein 8.7 GM/DL (6.4-8.2) Albumin 2.9 GM/DL (3.4-5.0) 2.4 GM/DL (3.4-5.0) Calcium Level 8.4 MG/DL (8.5-10.1) 7.7 MG/DL (8.5-10.1) Aspartate Amino Transf (AST/SGOT) 41 U/L (15-37) Potassium Level 3.0 MEQ/L (3.5-5.1) 3.0 MEQ/L (3.5-5.1) Estimat Glomerular Filtration Rate 24 ML/MIN (>89) 25 ML/MIN (>89) Total Creatine Kinase 413 U/L (39-308) Troponin I 0.09 NG/ML (0.02-0.05) B-Type Natriuretic Peptide 667 PG/ML (0-100) Red Blood Count 4.02 MIL/MM3 (4.50-5.90) Hemoglobin 11.6 GM/DL (13.0-17.0) Hematocrit 34.4 % (39.0-51.0) Platelet Count 141 TH/MM3 (150-450) Lymphocytes # (Auto) 0.5 TH/MM3 (1.0-4.8) Urine Random Total Protein 145 MG/DL (0-11.8) Urine Protein/Creatinine Ratio 0.73 (0.00-0.14) Test 02/14/18 14:15 02/15/18 05:50 02/16/18 06:35 Blood Urea Nitrogen 41 MG/DL (7-18) 46 MG/DL (7-18) Creatinine 3.13 MG/DL (0.60-1.30) 2.90 MG/DL (0.60-1.30) Random Glucose 135 MG/DL (74-106) Albumin 2.6 GM/DL (3.4-5.0) 2.5 GM/DL (3.4-5.0) Sodium Level 135 MEQ/L (136-145) Estimat Glomerular Filtration Rate 25 ML/MIN (>89) 27 ML/MIN (>89) 25-Hydroxy Vitamin D Total 10.2 ng/ML (30-100) Parathyroid Hormone (Intact) 215.8 PG/ML (12.4-76.8) Red Blood Count 3.88 MIL/MM3 (4.50-5.90) Hemoglobin 11.2 GM/DL (13.0-17.0) Hematocrit 33.1 % (39.0-51.0) Calcium Level 8.4 MG/DL (8.5-10.1) Potassium Level 3.4 MEQ/L (3.5-5.1) Imaging Last Impressions Renal Ultrasound 02/14/18 0000 Signed Impressions: Service Date/Time: Wednesday, February 14, 2018 10:36 - CONCLUSION: Small some echogenic kidneys without hydronephrosis suggesting chronic renal disease. Samm Matamoros MD FACR Chest X-Ray 02/13/18 1652 Signed Impressions: Service Date/Time: Tuesday, February 13, 2018 17:03 - CONCLUSION: Developing central and basilar parenchymal opacities Shahram Burgos MD Lung Scan-V Nuclear Medicine 02/13/18 0000 Signed Impressions: Service Date/Time: Tuesday, February 13, 2018 20:26 - CONCLUSION: 1. Low probability for pulmonary embolus. 2. Inhomogeneity to the uptake in the ventilation portion of study are typically seen with parenchymal disease. Shahram Parker MD PE at Discharge GENERAL: This is a well-nourished, well-developed patient, in no apparent distress. CARDIOVASCULAR: Regular rate and regular rhythm without murmurs, gallops, or rubs. RESPIRATORY: Clear to auscultation. Breath sounds equal bilaterally. No wheezes , rales, or rhonchi. GASTROINTESTINAL: Abdomen soft, non-tender, nondistended. Normal, active bowel sounds MUSCULOSKELETAL: Extremities without clubbing, cyanosis, or edema. NEURO: Alert & Oriented x4 to person, place, time, situation. Moves all ext x4 Hospital Course 1. COPD: Chronic Respiratory Failure w/ Acute Exacerbation, Moderate. S/p Solu-Medrol/DuoNeb w/ improvement. Continue Solu-Medrol, DuoNeb, Symbicort. Monitor O2. will switch to prednisone upon discharge. 2. CHF: Acute on Chronic. Systolic. Echo 10/29/17 w/ EF 45%, BNP 667, CXR w / no significant effusion. Monitor I/O, caution w/ diuresis in light of renal insufficiency. 3. HTN: Uncontrolled, non-compliant w/ medications. resumed home medications , antihypertensives as needed. 4. Elevated Trop: Trop 0.09, chronically elevated in comparison to previous labs, likely due to renal disease. 5. HIV: CD4 305 on 11/02/17, not on treatment. CXR w/ parenchymal opacities, will continue w/ empiric tx for PNA in light of immunocompromised state; this will be switched to po upon discharge. 6. Tobacco Abuse: Pt counselled. Ativan prn. No NicoDerm to avoid vasoconstriction. 7. ELIJAH: Acute on Chronic. renal US with no hydronephrosis- renal function stable- nephrology consult appreciated. f/u as outpatient. 8. DVT Prophylaxis: SCDs/teds Pt Condition on Discharge: Stable Discharge Disposition: Discharge Home Discharge Time: <= 30 minutes Discharge Instructions DIET: Follow Instructions for: Heart Healthy Diet Activities you can perform: Regular-No Restrictions Shamika Valladares MD Feb 16, 2018 12:19
[2018-02-16] MEDS ORDERED: CHOL1000 PO (12:21)
[2018-02-17 19:52] LABS: KAPPA/LAMBDA FREE 3.01 (0.26-1.65)
[2018-02-17 22:24] LABS: ALB/GLOB RATIO (SPE) 0.82 (1.39-2.23)
== END 2018-02-16 15:12 | disposition home or self-care (01) ==
LOC: NEPC 16:30 → NEDA 22:25 → NEPHCDU 02-14 00:48
PROVIDERS: ADMIT Internal Medicine; ATTEND Internal Medicine
DX: I13.0 Hypertensive heart and chronic kidney disease with heart failure and stage 1 through stage 4 chronic kidney disease, or unspecified chronic kidney disease (principal); I50.9 Heart failure, unspecified; N18.3 Chronic kidney disease, stage 3 (moderate); N17.9 Acute kidney failure, unspecified; J44.0 Chronic obstructive pulmonary disease with (acute) lower respiratory infection; J96.20 Acute and chronic respiratory failure, unspecified whether with hypoxia or hypercapnia; R74.8 Abnormal levels of other serum enzymes; B20 Human immunodeficiency virus [HIV] disease; F41.9 Anxiety disorder, unspecified; F32.9 Major depressive disorder, single episode, unspecified; F20.9 Schizophrenia, unspecified; R00.0 Tachycardia, unspecified; I49.3 Ventricular premature depolarization; R94.31 Abnormal electrocardiogram [ECG] [EKG]; N25.81 Secondary hyperparathyroidism of renal origin; F17.200 Nicotine dependence, unspecified, uncomplicated; Z91.14 Patient's other noncompliance with medication regimen; Z79.899 Other long term (current) drug therapy; Z79.82 Long term (current) use of aspirin
CPT/HCPCS: 71045; 76775; 78582; 80053; 80069; 82306; 82550; 82552; 82570; 83735; 83880; 83883; 83970; 84156; 84165; 84300; 84484; 85025; 85027; 85610; 85730; 86038; 86160; 86803; 87040; 87340; 93005; 94618; 94640; 94664; 96361; 96365; 96366; 96368; 96372; 96375; 96376; 99285; A9540; A9567; G0378; J0456; J0696; J1644; J1956; J2270; J2920; J2930; J7042; J7050; 80048

== ENCOUNTER 2018-03-21 10:20 | Emergency (ER) | payer MEDICAID ==
[~2018-03-21 10:20] MED LIST changes: +Budeson-Formot 160-4.5 Mcg Inh INH; -CEPH500C PO; +CHOL1000 PO; +LEVA250T14 PO; +PRED20 PO; +VENTAER INH
[2018-03-21 10:32] VITALS: BP 213/139; PULSE 101; RESP 20; TEMP 97.6; O2SAT 98
[2018-03-21 10:46] VITALS: BP 140/102; PULSE 90; RESP 18; O2SAT 100
--- NOTE | 2018-03-21 10:59 | PD ---
HPI Chief Complaint: Respiratory Distress Time Seen by Provider: 10:41 Travel History International Travel<30 days: No Contact w/Intl Traveler<30days: No Traveled to known affect area: No History of Present Illness HPI This patient complains of shortness of breath. Duration 2 days. Severity is moderate. He has hacking cough. He denies fever or chest pain. History of COPD and CHF and HIV untreated. He continues to smoke. No alleviating factors. Symptoms exacerbated by continued smoking PFSH Past Medical History Arthritis: No Asthma: No Anxiety: Yes Depression: Yes Heart Rhythm Problems: No Cancer: No Cardiovascular Problems: Yes (Reports High Blood pressure and heart issues prior to this admission) High Cholesterol: No Chemotherapy: No Chest Pain: No Congestive Heart Failure: Yes COPD: Yes Cerebrovascular Accident: No Diabetes: No Endocrine: No Gastrointestinal Disorders: No GERD: No Genitourinary: No Headaches: No Hiatal Hernia: No Heparin Induced Thrombocytopen: No Hypertension: Yes Immune Disorder: Yes (PATIENT IS HIV POSITIVE) Implanted Vascular Access Dvce: No Kidney Stones: No Musculoskeletal: No Neurologic: No Psychiatric: Yes (Hx of treatment for Schizophrenia, depression) Reproductive: No Respiratory: No Migraines: No Radiation Therapy: No Renal Failure: Yes Seizures: No Sickle Cell Disease: No Sleep Apnea: No Thyroid Disease: No Ulcer: No Past Surgical History Abdominal Surgery: No AICD: No Arteriovenous Shunt: No Cardiac Surgery: No Ear Surgery: No Endocrine Surgery: No Eye Surgery: No Genitourinary Surgery: No Gynecologic Surgery: No Insulin Pump: No Joint Replacement: No Neurologic Surgery: No Oral Surgery: No Pacemaker: No Thoracic Surgery: No Other Surgery: Yes (LEFT FOREARM) Social History Alcohol Use: No Tobacco Use: Yes Substance Use: No Allergies-Medications (Allergen,Severity, Reaction): Coded Allergies: No Known Allergies (Verified Adverse Reaction, Unknown, 11/01/17) Reported Meds & Prescriptions Reported Meds & Active Scripts Active Ventolin Hfa 18 GM Inh (Albuterol Sulfate) 90 Mcg/Act Aer 2 Puff INH Q4H PRN Zithromax Z-Pedrito (Azithromycin) 250 Mg Dspk 250 Mg PO DIRECTED 500 MG (2 tabs) day 1, then 1 tab days 2-5. Norvasc (Amlodipine Besylate) 10 Mg Tab 10 Mg PO DAILY Review of Systems General / Constitutional: No: Fever Eyes: No: Visual changes HENT: No: Headaches Cardiovascular: No: Chest Pain or Discomfort Respiratory: Positive: Cough, Shortness of Breath Gastrointestinal: No: Abdominal Pain Genitourinary: No: Dysuria Musculoskeletal: No: Pain Skin: No Rash Neurologic: No: Weakness Psychiatric: No: Depression Endocrine: No: Polydipsia Hematologic/Lymphatic: No: Easy Bruising Physical Exam Narrative GENERAL: Thin well-developed patient in no apparent distress with prominent cough. SKIN: Focused skin assessment reveals no rash and nodules. Skin is Warm and dry. HEAD: Atraumatic. Normocephalic. EYES: Pupils equal and round. No scleral icterus. No injection or drainage. ENT: No nasal bleeding or discharge. Mucous membranes pink and moist. NECK: Trachea midline. No JVD. CARDIOVASCULAR: Regular rate and rhythm. No murmur appreciated. RESPIRATORY: No accessory muscle use. Clear to auscultation. Breath sounds equal bilaterally. GASTROINTESTINAL: Abdomen soft, non-tender, nondistended. Hepatic and splenic margins not palpable. MUSCULOSKELETAL: No obvious deformities. No clubbing. No cyanosis. No edema. NEUROLOGICAL: Awake and alert. No obvious cranial nerve deficits. Motor grossly within normal limits. Normal speech. PSYCHIATRIC: Appropriate mood and affect; insight and judgment seems weak . Data Data Last Documented VS Vital Signs Date Time Temp Pulse Resp B/P (MAP) Pulse Ox O2 Delivery O2 Flow Rate FiO2 03/21/18 10:47 90 18 99 Room Air 03/21/18 10:46 140/102 (115) 1.00 03/21/18 10:32 97.6 Orders Orders Complete Blood Count With Diff (03/21/18 10:55) Basic Metabolic Panel (Bmp) (03/21/18 10:55) Chest, Single Ap (03/21/18 ) Albuterol-Ipratropium Neb (Duoneb Neb) (03/21/18 11:00) Electrocardiogram (03/21/18 10:41) Potassium Bicarb Eff (Effer-K Eff) (03/21/18 11:45) Labs Laboratory Tests Test 03/21/18 10:59 White Blood Count 8.2 TH/MM3 Red Blood Count 4.24 MIL/MM3 Hemoglobin 12.1 GM/DL Hematocrit 36.2 % Mean Corpuscular Volume 85.4 FL Mean Corpuscular Hemoglobin 28.5 PG Mean Corpuscular Hemoglobin Concent 33.4 % Red Cell Distribution Width 16.1 % Platelet Count 165 TH/MM3 Mean Platelet Volume 9.6 FL Neutrophils (%) (Auto) 69.9 % Lymphocytes (%) (Auto) 16.0 % Monocytes (%) (Auto) 12.3 % Eosinophils (%) (Auto) 0.5 % Basophils (%) (Auto) 1.3 % Neutrophils # (Auto) 5.7 TH/MM3 Lymphocytes # (Auto) 1.3 TH/MM3 Monocytes # (Auto) 1.0 TH/MM3 Eosinophils # (Auto) 0.0 TH/MM3 Basophils # (Auto) 0.1 TH/MM3 CBC Comment DIFF FINAL Differential Comment Blood Urea Nitrogen 37 MG/DL Creatinine 3.30 MG/DL Random Glucose 105 MG/DL Calcium Level 8.5 MG/DL Sodium Level 139 MEQ/L Potassium Level 2.9 MEQ/L Chloride Level 102 MEQ/L Carbon Dioxide Level 25.7 MEQ/L Anion Gap 11 MEQ/L Estimat Glomerular Filtration Rate 24 ML/MIN MDM Medical Decision Making Medical Screen Exam Complete: Yes Emergency Medical Condition: Yes Medical Record Reviewed: Yes Differential Diagnosis COPD exacerbation, bronchitis, pneumonia Narrative Course I have reviewed the patient's electronic medical record. Patient was hospitalized here last month and I reviewed that information IV placed and labs sent I reviewed his portable chest x-ray which looks improved from prior but still has residual right base infiltrate I reviewed his EKG which shows sinus rhythm with occasional PVC, no ST elevation Extended cardiac monitoring reveals sinus rhythm without ectopy I gave him a nebulizer treatment Saturations on room air are 100 Metabolic profile reveals potassium is 2.9 and his creatinine is elevated but that is not new CBC is normal I have given him 50 mEq of one-time replacement Given the elevated creatinine will not continue replacement beyond that Treating him cautiously with Z-Pedrito given his HIV status although he does not look septic nor toxic He needs to quit smoking but he says he will not do that I prescribed him an albuterol inhaler as well Diagnosis Primary Impression: Shortness of breath Additional Impressions: Acute bronchitis Qualified Codes: J20.9 - Acute bronchitis, unspecified HIV (human immunodeficiency virus infection) Hypokalemia Additional Instructions: The patient was advised to follow up with their physician and return if they worsen. Med/Other Pt SpecificInfo: Prescription(s) given Scripts Albuterol 18 GM Inh (Ventolin Hfa 18 GM Inh) 90 Mcg/Act Aer 2 PUFF INH Q4H Y for SHORTNESS OF BREATH, #1 INHALER 0 Refills Prov: Rolly Pathak MD 03/21/18 Azithromycin (Zithromax Z-Pedrito) 250 Mg Dspk 250 MG PO DIRECTED for Infection, #1 DSPK 0 Refills 500 MG (2 tabs) day 1, then 1 tab days 2-5. Prov: Rolly Pathak MD 03/21/18 Disposition: 01 DISCHARGE HOME Condition: Stable Rolly Pathak MD March 21, 2018 10:59
[2018-03-21] MEDS ORDERED: RESP: ALBUTEROL 2.5 MG/IPRATROPIUM 0.5 MG NEB (SCH) NEB ONE (11:00)
[2018-03-21 11:13] LABS: AUTOMATED NEUTROPHIL # 5.7 TH/MM3 (1.8-7.7); BASOPHIL # 0.1 TH/MM3 (0-0.2); BASOPHIL % 1.3 % (0.0-2.0); EOSINOPHIL % 0.5 % (0.0-4.0); HEMATOCRIT 36.2 % (39.0-51.0); HEMOGLOBIN 12.1 GM/DL (13.0-17.0); LYMPHOCYTE # 1.3 TH/MM3 (1.0-4.8); MEAN CELL VOLUME 85.4 FL (80.0-100.0); MEAN CORPUSCULAR HEMOGLOBIN 28.5 PG (27.0-34.0); MEAN CORPUSCULAR HGB CONC 33.4 % (32.0-36.0); MEAN PLATELET VOLUME 9.6 FL (7.0-11.0); MONO % 12.3 % (0.0-8.0); NEUT % 69.9 % (16.0-70.0); PLATELET COUNT 165 TH/MM3 (150-450); RED BLOOD COUNT 4.24 MIL/MM3 (4.50-5.90); RED CELL DISTRIBUTION WIDTH 16.1 % (11.6-17.2); WHITE BLOOD COUNT 8.2 TH/MM3 (4.0-11.0)
--- NOTE | 2018-03-21 11:13 | RADRPT ---
EXAM DATE/TIME: 03/21/2018 10:56 [facility] COMPARISON: CHEST SINGLE AP, February 13, 2018, 17:03. INDICATIONS : Shortness of breath. MEDICAL HISTORY : Hypertension. HIV. SURGICAL HISTORY : None. ENCOUNTER: Initial ACUITY: 2 days PAIN SCORE: 0/10 LOCATION: Bilateral chest FINDINGS: Persistent infiltrate is identified in the right lung base. Left lung remains clear. Heart is moderat pankaj enlarged. Osseous structures are intact. CONCLUSION: 1. Improved but persistent right basilar infiltrate 2. Cardiomegaly 3. Otherwise stable chest Danial Mack MD on March 21, 2018 at 11:10 Board Certified Radiologist. This report was verified electronically.
[2018-03-21 11:30] LABS: BICARBONATE 25.7 MEQ/L (21.0-32.0); CALCIUM 8.5 MG/DL (8.5-10.1); CREATININE 3.3 MG/DL (0.60-1.30)
[2018-03-21] MEDS ORDERED: ZITHTAB PO (11:37)
[2018-03-21] MEDS ORDERED: VENTAER INH (11:37)
[2018-03-21] MEDS ORDERED: POTASSIUM BICARBONATE 25 MEQ EFFERVESCENT TAB PO ONE (11:45)
--- NOTE | 2018-03-21 11:51 | EKG ---
Date Performed: 03/21/2018 Time Performed: 10:41:18 PTAGE: 57 years EKG: Sinus rhythm WITH OCCASIONAL VENTRICULAR PREMATURE COMPLEXES LEFT ATRIAL ENLARGEMENT POSSIBLE LEFT VENTRICULAR HY PERTROPHY PROLONGED QT INTERVAL ABNORMAL ECG PREVIOUS TRACING : 02/13/2018 16.44 No significant change from previous tracing noted. DOCTOR: Alvin Jauregui Interpretating Date/Time 03/21/2018 11:50:27
== END 2018-03-21 13:06 | disposition home or self-care (01) ==
LOC: NEPC 10:20
DX: B20 Human immunodeficiency virus [HIV] disease (principal); J20.9 Acute bronchitis, unspecified; E87.6 Hypokalemia; I11.0 Hypertensive heart disease with heart failure; I50.9 Heart failure, unspecified; Z72.0 Tobacco use
CPT/HCPCS: 71045; 80048; 85025; 93005; 94664; 99285

== ENCOUNTER 2018-03-25 18:47 | Observation (INO) | payer MEDICARE, OTHER ==
[~2018-03-25 18:47] MED LIST changes: -ASPI81 PO; -Benztropine PO; -Budeson-Formot 160-4.5 Mcg Inh INH; -CHOL1000 PO; -LEVA250T14 PO; -PRED20 PO; -RISP4TAB41 PO; +ZITHTAB PO
[2018-03-25 20:00] VITALS: BP 149/90; PULSE 84; RESP 18; TEMP 98.2; O2SAT 98
[2018-03-25] MEDS ORDERED: ASPI81CH6 CHEW (20:11)
--- NOTE | 2018-03-25 20:36 | PD ---
HPI Chief Complaint: Respiratory Symptoms Time Seen by Provider: 20:10 Travel History International Travel<30 days: No Contact w/Intl Traveler<30days: No Traveled to known affect area: No History of Present Illness HPI Patient is a 57-year-old male he is an electric wheelchair dependent with leg wasting , he comes to [facility] and said he was recently here with a PNA , Now he is having difficulty breathing coughing and SOB his blood pressure medications also has run out and he has taken BP meds todayy, his HTN is very elevated ....he is coming to get refills but says we do not have listed the meds that he normally takes.. His blood pressure is 196/130 at this time . He has shortness of breath cough and feels he may have a recuurence of is recent PNA , He is unclear and doesn't remembrer which side PNA was on. He has increase RR and wheeze in LEft lung lema and decreased BS in right lung lema . He has not seen another MD for this repeat occurrence of SOB PFSH Past Medical History Arthritis: No Asthma: No Anxiety: Yes Depression: Yes Heart Rhythm Problems: No Cancer: No Cardiovascular Problems: Yes (Reports High Blood pressure and heart issues prior to this admission) High Cholesterol: No Chemotherapy: No Chest Pain: No Congestive Heart Failure: Yes COPD: Yes Cerebrovascular Accident: No Diabetes: No Endocrine: No Gastrointestinal Disorders: No GERD: No Genitourinary: No Headaches: No Hiatal Hernia: No Heparin Induced Thrombocytopen: No Hypertension: Yes Immune Disorder: Yes (PATIENT IS HIV POSITIVE) Implanted Vascular Access Dvce: No Kidney Stones: No Musculoskeletal: No Neurologic: No Psychiatric: Yes (Hx of treatment for Schizophrenia, depression) Reproductive: No Respiratory: No Migraines: No Radiation Therapy: No Renal Failure: Yes Seizures: No Sickle Cell Disease: No Sleep Apnea: No Thyroid Disease: No Ulcer: No Tetanus Vaccination: Unknown Influenza Vaccination: No Past Surgical History Abdominal Surgery: No AICD: No Arteriovenous Shunt: No Cardiac Surgery: No Ear Surgery: No Endocrine Surgery: No Eye Surgery: No Genitourinary Surgery: No Gynecologic Surgery: No Insulin Pump: No Joint Replacement: No Neurologic Surgery: No Oral Surgery: No Pacemaker: No Thoracic Surgery: No Other Surgery: Yes (LEFT FOREARM) Social History Alcohol Use: No Tobacco Use: Yes Substance Use: No Allergies-Medications (Allergen,Severity, Reaction): Coded Allergies: No Known Allergies (Verified Adverse Reaction, Unknown, 03/25/18) Reported Meds & Prescriptions Reported Meds & Active Scripts Active Review of Systems Except as stated in HPI: all other systems reviewed are Neg Physical Exam Narrative GENERAL: sitting in his electric wheel chair , smal body habitus SKIN: Warm and dry. HEAD: Atraumatic. Normocephalic. EYES: Pupils equal and round. No scleral icterus. No injection or drainage. ENT: No nasal bleeding or discharge. Mucous membranes pink and moist. NECK: Trachea midline. No JVD. CARDIOVASCULAR: Regular rate and rhythm. RESPIRATORY: LEFT lung has diffuse wheeze Right lung decreased Breath sounds to auscultation. GASTROINTESTINAL: Abdomen soft, non-tender, nondistended. Hepatic and splenic margins not palpable. MUSCULOSKELETAL: Extremities without clubbing, cyanosis, or edema. No obvious deformities. NEUROLOGICAL: Awake and alert. No obvious cranial nerve deficits. Motor grossly within normal limits. Five out of 5 muscle strength in the arms and legs. Normal speech. PSYCHIATRIC: Appropriate mood and affect; insight and judgment normal. Data Data Last Documented VS Orders Orders Complete Blood Count With Diff (03/25/18 20:42) Comprehensive Metabolic Panel (03/25/18 20:42) Ckmb (Isoenzyme) Profile (03/25/18 20:42) Troponin I (03/25/18 20:42) Lipase (03/25/18 20:42) Chest, Single Ap (03/25/18 ) Clonidine (Catapres) (03/25/18 21:15) Amlodipine (Norvasc) (03/25/18 21:30) Albuterol-Ipratropium Neb (Duoneb Neb) (03/25/18 21:30) CKMB (03/25/18 20:55) CKMB% (03/25/18 20:55) Levofloxacin 750 Mg Premix Inj (Levaquin (03/25/18 22:45) Aspirin Chew (Aspirin Chew) (03/25/18 23:00) Labetalol Inj (Trandate Inj) (03/25/18 23:00) Albuterol-Ipratropium Neb (Duoneb Neb) (03/25/18 23:30) Labetalol (Trandate) (03/26/18 01:00) Diazepam (Valium) (03/26/18 01:00) Place In Observation (03/26/18 ) Vital Signs (Adult) Q4H (03/26/18 01:03) Activity Oob With Assistance (03/26/18 01:03) Heavy Equipment Technician / Telemetry .CONTINUOUS (03/26/18 01:03) Sodium Chloride 0.9% Flush (Ns Flush) (03/26/18 01:15) Sodium Chloride 0.9% Flush (Ns Flush) (03/26/18 09:00) Metoclopramide Inj (Reglan Inj) (03/26/18 01:15) Comprehensive Metabolic Panel (03/27/18 06:00) Complete Blood Count With Diff (03/27/18 06:00) Troponin I (03/26/18 06:00) Troponin I (03/26/18 12:00) Case Management Consult (03/26/18 01:03) Heparin Inj (Heparin Inj) (03/26/18 09:00) Acetaminophen (Tylenol) (03/26/18 01:15) Acetamin-Hydrocod 325-5 Mg ([place] 5-325 (03/26/18 01:15) Docusate Sodium-Senna (Mouna-Colace) (03/26/18 09:00) Magnesium Hydroxide Liq (Milk Of Magnesi (03/26/18 01:15) Sennosides (Senokot) (03/26/18 01:15) Bisacodyl Supp (Dulcolax Supp) (03/26/18 01:15) Lactulose Liq (Lactulose Liq) (03/26/18 01:15) Aspirin Chew (Aspirin Chew) (03/26/18 09:00) Morphine Inj (Morphine Inj) (03/26/18 01:15) Admit Order (Ed Use Only) (03/26/18 01:51) Labs Laboratory Tests Test 03/25/18 20:55 White Blood Count 10.9 TH/MM3 Red Blood Count 4.19 MIL/MM3 Hemoglobin 12.2 GM/DL Hematocrit 35.5 % Mean Corpuscular Volume 84.7 FL Mean Corpuscular Hemoglobin 29.0 PG Mean Corpuscular Hemoglobin Concent 34.3 % Red Cell Distribution Width 16.4 % Platelet Count 214 TH/MM3 Mean Platelet Volume 9.3 FL Neutrophils (%) (Auto) 74.0 % Lymphocytes (%) (Auto) 13.0 % Monocytes (%) (Auto) 12.7 % Eosinophils (%) (Auto) 0.0 % Basophils (%) (Auto) 0.3 % Neutrophils # (Auto) 8.0 TH/MM3 Lymphocytes # (Auto) 1.4 TH/MM3 Monocytes # (Auto) 1.4 TH/MM3 Eosinophils # (Auto) 0.0 TH/MM3 Basophils # (Auto) 0.0 TH/MM3 CBC Comment DIFF FINAL Differential Comment Blood Urea Nitrogen 58 MG/DL Creatinine 3.93 MG/DL Random Glucose 106 MG/DL Total Protein 7.9 GM/DL Albumin 2.9 GM/DL Calcium Level 8.5 MG/DL Alkaline Phosphatase 79 U/L Aspartate Amino Transf (AST/SGOT) 89 U/L Alanine Aminotransferase (ALT/SGPT) 164 U/L Total Bilirubin 0.7 MG/DL Sodium Level 139 MEQ/L Potassium Level 3.4 MEQ/L Chloride Level 104 MEQ/L Carbon Dioxide Level 22.2 MEQ/L Anion Gap 13 MEQ/L Estimat Glomerular Filtration Rate 19 ML/MIN Total Creatine Kinase 283 U/L Creatine Kinase MB 3.0 NG/ML Troponin I 0.07 NG/ML Lipase 334 U/L MDM Medical Decision Making Medical Screen Exam Complete: Yes Emergency Medical Condition: Yes Medical Record Reviewed: Yes Differential Diagnosis pt has recent PNA and pt is potentially immune compromised HIV + . Pt has Hx of COPD CHF and HTN , tonight possible PNA re- occurrence vs PCP PNA vs strep pharyngitis other Narrative Course Pt has reccurence of PNA failing out pt therapy pt needs admissin and IV Antibiotics Scripts Hydralazine HCl (Hydralazine HCl) 50 Mg Tablet 25 MG PO Q8HR for Blood Pressure Management, #90 TAB Prov: Liseth Ramos 03/27/18 Carvedilol (Coreg) 6.25 Mg Tab 6.25 MG PO Q12HR for Blood Pressure Management, #60 TAB 0 Refills Prov: Liseth Ramos 03/27/18 [guaiFENesin ER] 600 MG TABCR No Conflict Check 600 MG PO BID for CONGESTION, #14 TAB Prov: Liseth Ramos 03/27/18 [Budeson-Formot 160-4.5 Mcg Inh] 60 PUFF AERO No Conflict Check 2 PUFF INH Q12HR for COPD, #1 INH 1 Refill Prov: Liseth Ramos 03/27/18 Nifedipine ER 24 HR (Nifedipine ER 24 HR) 30 Mg Tab 60 MG PO DAILY for Blood Pressure Management, #30 TAB Prov: Liseth Ramos 03/27/18 Levofloxacin (Levaquin) 750 Mg Tablet 750 MG PO Q48H for Infection, #3 TAB Prov: Liseth Ramos 03/27/18 Aspirin (Aspirin Low Dose) 81 Mg Chew 81 MG CHEW DAILY for Blood Clot Prevention, #30 TAB 0 Refills Prov: Liseth Ramos 03/27/18 Albuterol 18 GM Inh (Ventolin Hfa 18 GM Inh) 90 Mcg/Act Aer 2 PUFF INH Q4H Y for SHORTNESS OF BREATH, #1 INHALER 1 Refill Prov: Liseth Ramos 03/27/18 Barak Avalos MD March 25, 2018 20:36
[2018-03-25] MEDS ORDERED: cloNIDine HCL 0.2 MG TAB PO ONE (21:15)
[2018-03-25 21:16] LABS: BASOPHIL % 0.3 % (0.0-2.0); HEMATOCRIT 35.5 % (39.0-51.0); HEMOGLOBIN 12.2 GM/DL (13.0-17.0); LYMPHOCYTE # 1.4 TH/MM3 (1.0-4.8); MEAN CELL VOLUME 84.7 FL (80.0-100.0); MEAN CORPUSCULAR HGB CONC 34.3 % (32.0-36.0); MEAN PLATELET VOLUME 9.3 FL (7.0-11.0); MONO % 12.7 % (0.0-8.0); MONOCYTE # 1.4 TH/MM3 (0-0.9); PLATELET COUNT 214 TH/MM3 (150-450); RED BLOOD COUNT 4.19 MIL/MM3 (4.50-5.90); RED CELL DISTRIBUTION WIDTH 16.4 % (11.6-17.2); WHITE BLOOD COUNT 10.9 TH/MM3 (4.0-11.0)
[2018-03-25] MEDS ORDERED: RESP: ALBUTEROL 2.5 MG/IPRATROPIUM 0.5 MG NEB (SCH) NEB ONE ×2 (21:30→23:30)
[2018-03-25 21:38] LABS: ALBUMIN 2.9 GM/DL (3.4-5.0); AST (GOT) 89 U/L (15-37); BICARBONATE 22.2 MEQ/L (21.0-32.0); BLOOD UREA NITROGEN 58 MG/DL (7-18); CALCIUM 8.5 MG/DL (8.5-10.1); CHLORIDE 104 MEQ/L (98-107); CREATININE 3.93 MG/DL (0.60-1.30); GLOMERULAR FILTRATION RATE 19 ML/MIN (>89); GLUCOSE,RANDOM 106 MG/DL (74-106); SODIUM (NA) 139 MEQ/L (136-145)
[2018-03-25 21:39] LABS: ALT (GPT) 164 U/L (12-78)
[2018-03-25 21:43] LABS: ALKALINE PHOSPHATASE 79 U/L (45-117); TOTAL BILIRUBIN ADULT 0.7 MG/DL (0.2-1.0); TOTAL PROTEIN 7.9 GM/DL (6.4-8.2); TROPONIN I 0.07 NG/ML (0.02-0.05)
--- NOTE | 2018-03-25 22:38 | RADRPT ---
EXAM DATE: 03/25/2018 10:26 PM EDT AGE/SEX: 57 years / Male INDICATIONS: SOB CLINICAL DATA: This is the patient's initial encounter. Patient reports that signs and symptoms have been present for 1 day and indicates a pain score of 0/10. MEDICAL/SURGICAL HISTORY: HIV. Hypertension. None. COMPARISON: [facility] [place], CHEST SINGLE AP, 03/21/2018. . FINDINGS: Cardiomegaly is present. Mild pulmonary edema pattern. Focal right basilar consolidation. Trace pleur al effusions. No pneumothorax. CONCLUSION: Mild congestive heart failure. Focal consolidation right lung base could represent a superimposed pne umonia. Electronically signed by: Emil Kumar MD 03/25/2018 10:37 PM EDT
[2018-03-25 22:43] VITALS: BP 189/128; PULSE 79; RESP 16; O2SAT 98
[2018-03-25] MEDS ORDERED: LEVOFLOXACIN 750 MG PREMIX INJ 150 ML IV ONE (22:45)
[2018-03-25] MEDS ORDERED: ASPIRIN 81 MG CHEW TAB CHEW ONE (23:00)
[2018-03-25] MEDS ORDERED: LABETALOL HCL 100 MG/20 ML VIAL IV PUSH ONE (23:00)
[2018-03-25 23:54] VITALS: BP 176/126; PULSE 69; RESP 18; O2SAT 98
[2018-03-26] VITALS (7 sets, daily range): BP systolic 129–166; BP diastolic 93–116; PULSE 64–80; RESP 16–18; TEMP 97.8–98.3; O2SAT 97–100
[2018-03-26] MEDS ORDERED: DIAZEPAM 5 MG TAB PO ONE (01:00)
[2018-03-26] MEDS ORDERED: LABETALOL HCL 100 MG TAB PO ONE (01:00)
[2018-03-26] MEDS ORDERED: BISACODYL 10 MG SUPP RECTAL PRN (01:15)
[2018-03-26] MEDS ORDERED: MORPHINE SULFATE 4 MG/ML INJ IV PUSH PRN (01:15)
[2018-03-26] MEDS ORDERED: METOCLOPRAMIDE HCL 10 MG/2 ML VIAL IV PUSH PRN (01:15)
[2018-03-26] MEDS ORDERED: LACTULOSE SYRUP 20 GM/30 ML CUP PO PRN (01:15)
[2018-03-26] MEDS ORDERED: SODIUM CHLORIDE 0.9% FLUSH 10 ML FLUSH IV FLUSH PRN (01:15)
[2018-03-26] MEDS ORDERED: ACETAMINOPHEN 325 MG TAB PO PRN (01:15)
[2018-03-26] MEDS ORDERED: ACETAMINOPHEN/HYDROcodone 325 MG/5 MG TAB PO PRN (01:15)
[2018-03-26] MEDS ORDERED: SENNOSIDES 8.6 MG TAB PO PRN (01:15)
[2018-03-26] MEDS ORDERED: MAGNESIUM HYDROXIDE SUSP 30 ML CUP PO PRN (01:15)
--- NOTE | 2018-03-26 03:22 | HHI.HP ---
HPI Service [facility] Primary Care Physician No Primary Care Physician Admission Diagnosis PNA and COPD Diagnoses: (1) PNA (pneumonia) Diagnosis: Principal (2) CHF (congestive heart failure) Diagnosis: Principal (3) Elevated troponin Diagnosis: Principal (4) COPD (chronic obstructive pulmonary disease) Diagnosis: Principal (5) HTN (hypertension) Diagnosis: Principal (6) HIV (human immunodeficiency virus infection) Diagnosis: Principal Travel History International Travel<30 Days: No Contact w/Intl Traveler <30 Da: No Traveled to Known Affected Are: No History of Present Illness This is a 57-year-old male with a PMH of Anxiety, Depression, HTN, COPD, CHF ( Echo 10/29/2017 w/ EF 45%), HIV (CD4 305 on 11/02/2017), Non-Compliance and Schizophrenia who presented to ER with complaints of SOB and elevated BP after running out of his medications, and came to ER to get refills. Also notes chest pain w/ episodes of SOB, substernal, non-radiating, moderate, 6/10. Denies fever or chills. On arrival, BP 189/128, HR 79, O2 sat 98% on RA, Afebrile. CBC unremarkable except for mildly elevated neutrophil count. Creatinine 3.93, previously 3.30 on 03/21/2018. Troponin 0.07. CXR with mild congestive heart failure, focal consolidation right lung base likely pneumonia. S/p Levaquin, Labetalol and DuoNeb in ER w/ some improvement. Review of Systems Except as stated in HPI: all other systems reviewed are Neg ROS: 14 point review of systems otherwise negative. Past Family Social History Past Medical History PMH: Anxiety, Depression, HTN, COPD, CHF (Echo 10/29/2017 w/ EF 45%), HIV (CD4 305 on 11/02/2017), Non-Compliance and Schizophrenia Past Surgical History PAST SURGICAL HISTORY: Left Arm Surgery Allergies: Coded Allergies: No Known Allergies (Verified Adverse Reaction, Unknown, 03/25/18) Family History PAST FAMILY HISTORY: Reviewed. No h/o DM or CAD Social History PAST SOCIAL HISTORY: Negative for alcohol or drugs. Positive for tobacco. Physical Exam Vital Signs Vital Signs Date Time Temp Pulse Resp B/P (MAP) Pulse Ox O2 Delivery O2 Flow Rate FiO2 03/26/18 03:03 64 16 141/103 (116) 98 Room Air 03/26/18 00:53 68 16 163/101 (121) 97 Room Air 03/25/18 23:54 69 18 176/126 (143) 98 Room Air 03/25/18 22:43 79 16 189/128 (148) 98 Room Air 03/25/18 20:00 98.2 84 18 149/90 (109) 98 Physical Exam PE: GENERAL: Middle-aged black male in no acute distress, sitting in his motorized wheelchair. HEENT: PERRLA, EOMI. No scleral icterus or conjunctival pallor. No lid lag or facial droop. CARDIOVASCULAR: Regular rate and rhythm. No obvious murmurs to auscultation. No chest tenderness to palpation. RESPIRATORY: No obvious rhonchi or wheezing. Clear to auscultation. Breath sounds equal bilaterally. GASTROINTESTINAL: Abdomen soft, non-tender, nondistended. BS normal. MUSCULOSKELETAL: Extremities without clubbing, cyanosis, or edema. No obvious deformities. NEUROLOGICAL: Awake, alert and oriented x4. No focal neurologic deficits. Moving both upper and lower extremities spontaneously. Laboratory Laboratory Tests Test 03/25/18 20:55 White Blood Count 10.9 Red Blood Count 4.19 Hemoglobin 12.2 Hematocrit 35.5 Mean Corpuscular Volume 84.7 Mean Corpuscular Hemoglobin 29.0 Mean Corpuscular Hemoglobin Concent 34.3 Red Cell Distribution Width 16.4 Platelet Count 214 Mean Platelet Volume 9.3 Neutrophils (%) (Auto) 74.0 Lymphocytes (%) (Auto) 13.0 Monocytes (%) (Auto) 12.7 Eosinophils (%) (Auto) 0.0 Basophils (%) (Auto) 0.3 Neutrophils # (Auto) 8.0 Lymphocytes # (Auto) 1.4 Monocytes # (Auto) 1.4 Eosinophils # (Auto) 0.0 Basophils # (Auto) 0.0 CBC Comment DIFF FINAL Differential Comment Blood Urea Nitrogen 58 Creatinine 3.93 Random Glucose 106 Total Protein 7.9 Albumin 2.9 Calcium Level 8.5 Alkaline Phosphatase 79 Aspartate Amino Transf (AST/SGOT) 89 Alanine Aminotransferase (ALT/SGPT) 164 Total Bilirubin 0.7 Sodium Level 139 Potassium Level 3.4 Chloride Level 104 Carbon Dioxide Level 22.2 Anion Gap 13 Estimat Glomerular Filtration Rate 19 Total Creatine Kinase 283 Creatine Kinase MB 3.0 Troponin I 0.07 Lipase 334 Result Diagram: 03/25/18205403/25/182054 Caprin VTE Risk Assessment Caprin VTE Risk Assessment: No/Low Risk (score <= 1) Caprini Risk Assessment Model Point Value = 1 Point Value = 2 Point Value = 3 Point Value = 5 Age 41-60 Minor surgery BMI > 25 kg/m2 Swollen legs Varicose veins or History of unexplained or recurrent spontaneous Oral contraceptives or hormone replacement Sepsis (< 1 month) Serious lung disease, including pneumonia (< 1 month) Abnormal pulmonary function Acute myocardial infarction Congestive heart failure (< 1 month) History of inflammatory bowel disease Medical patient at bed rest Age 61-74 Arthroscopic surgery Major open surgery (> 45 min) Laparoscopic surgery (> 45 min) Malignancy Confined to bed (> 72 hours) Immobilizing plaster cast Central venous access Age >= 75 History of VTE Family history of VTE Factor V Leiden Prothrombin [id number] Lupus anticoagulant Anticardiolipin antibodies Elevated serum homocysteine Heparin-induced thrombocytopenia Other congenital or acquired thrombophilia Stroke (< 1 month) Elective arthroplasty Hip, pelvis, or leg fracture Acute spinal cord injury (< 1 month) Prophylaxis Regimen Total Risk Factor Score Risk Level Prophylaxis Regimen 0-1 Low Early ambulation 2 Moderate Order ONE of the following: *Sequential Compression Device (SCD) *Heparin 5000 units SQ BID 3-4 Higher Order ONE of the following medications: *Heparin 5000 units SQ TID *Enoxaparin/Lovenox 40 mg SQ daily (WT < 150 kg, CrCl > 30 mL/min) *Enoxaparin/Lovenox 30 mg SQ daily (WT < 150 kg, CrCl > 10-29 mL/min) *Enoxaparin/Lovenox 30 mg SQ BID (WT < 150 kg, CrCl > 30 mL/min) AND/OR *Sequential Compression Device (SCD) 5 or more Highest Order ONE of the following medications: *Heparin 5000 units SQ TID (Preferred with Epidurals) *Enoxaparin/Lovenox 40 mg SQ daily (WT < 150 kg, CrCl > 30 mL/min) *Enoxaparin/Lovenox 30 mg SQ daily (WT < 150 kg, CrCl > 10-29 mL/min) *Enoxaparin/Lovenox 30 mg SQ BID (WT < 150 kg, CrCl > 30 mL/min) AND *Sequential Compression Device (SCD) Assessment and Plan Problem List: (1) PNA (pneumonia) ICD Code: J18.9 - Pneumonia, unspecified organism (2) CHF (congestive heart failure) ICD Code: I50.9 - Heart failure, unspecified (3) HTN (hypertension) ICD Code: I10 - Essential (primary) hypertension (4) Elevated troponin ICD Code: R74.8 - Abnormal levels of other serum enzymes (5) COPD (chronic obstructive pulmonary disease) ICD Code: J44.9 - Chronic obstructive pulmonary disease, unspecified (6) HIV (human immunodeficiency virus infection) ICD Code: B20 - Human immunodeficiency virus [HIV] disease Assessment and Plan A/P: 1. PNA: CXR w/ RLL infiltrate, images reviewed by me, afebrile, no leukocytosis, in light of immunocompromised state will continue w/ IV Abx. Sputum Cultures. 2. COPD: Chronic Respiratory Failure, DuoNeb, Mucinex, Symbicort, monitor O2 sat. 3. CHF: Acute on Chronic. Systolic. Echo 10/29/17 w/ EF 45%, non-compliant w / meds, CXR w/ mild congestive failure, Lasix 40mg IV-caution w/ renal failure, monitor I/O. Coreg, hold LUI in light of worsening renal function 4. Elevated Trop: Trop 0.07, no c/o chest pain, likely secondary to renal dysfunction, previous h/o same, check serial cardiac enzymes for trend. 5. HTN: Uncontrolled. Non-compliant w/ meds. BP 180-190's while in ER, s/p Labetalol. Start antihypertensives, monitor BP closely. 6. HIV: Chronic. Non-compliant w/ HAART, last CD4 305 in November, urged outpatient follow up for initiation of treatment. 7. DVT Prophylaxis: SCD/Teds 8. Social work for d/c planning as needed. 9. Case discussed w/ ER physician at length, labs/records/imaging reviewed by me. Barb Healy MD March 26, 2018 03:21
[2018-03-26] MEDS ORDERED: FUROSEMIDE 40 MG/4 ML VIAL IV PUSH SCH (09:00)
[2018-03-26] MEDS: CARVEDILOL 6.25 MG TAB PO SCH ×2 (10:21→22:11)
[2018-03-26] MEDS: ASPIRIN 81 MG CHEW TAB CHEW SCH (10:21)
[2018-03-26] MEDS: NIFEdipine 30 MG SUSTAINED RELEASE TAB PO SCH (10:21)
[2018-03-26] MEDS: DOCUSATE SODIUM 50 MG/SENNA 8.6 MG TAB PO SCH ×2 (10:22→22:12)
[2018-03-26] MEDS: guaiFENesin E.R. 600 MG TAB PO SCH ×2 (10:22→22:12)
[2018-03-26] MEDS: BUDESONIDE-FORMOTEROL 160/4.5 MCG INHALER INH SCH ×2 (10:22→21:00)
[2018-03-26] MEDS: HEPARIN SODIUM - SQ 10,000 UNITS/ML VIAL SQ SCH ×2 (10:24→22:11)
[2018-03-26] MEDS: SODIUM CHLORIDE 0.9% FLUSH 10 ML FLUSH IV FLUSH SCH ×2 (10:29→22:13)
[2018-03-26] MEDS ORDERED: POTASSIUM CHLORIDE 10 MEQ CONTROLLED RELEASE TAB PO ONE (14:45)
[2018-03-26] MEDS ORDERED: NIFEdipine 30 MG SUSTAINED RELEASE TAB PO ONE (15:00)
[2018-03-26] MEDS ORDERED: hydrALAZINE HCL 25 MG TAB PO ONE (15:00)
[2018-03-26] MEDS ORDERED: cloNIDine HCL 0.1 MG TAB PO PRN (15:00)
--- NOTE | 2018-03-26 15:14 | HHI.PR ---
Subjective Remarks Follow-up on patient with HIV, CHF exacerbation, pneumonia. Patient seen and examined. Patient is threatening to leave AMA because he has not received lunch as of yet. Discussed with patient importance of completing his treatment. He denies any complaints of fever or chills. He denies any chest pain or shortness of breath. Denies any nausea, vomiting or abdominal pain. He states the only reason he came into the hospital was for medication refills and we are making him stay. Informed patient that he is free to leave AGAINST MEDICAL ADVICE at any time he chooses. Patient tells me that he is going to be out of the hospital by 530 today. Objective Vitals Vital Signs Date Time Temp Pulse Resp B/P (MAP) Pulse Ox O2 Delivery O2 Flow Rate FiO2 03/26/18 13:30 97.8 67 17 150/100 (117) 99 03/26/18 13:30 67 18 99 Room Air 03/26/18 10:00 67 16 166/116 (133) 100 Room Air 03/26/18 06:09 64 16 152/98 (116) 98 Room Air 03/26/18 03:03 64 16 141/103 (116) 98 Room Air 03/26/18 00:53 68 16 163/101 (121) 97 Room Air 03/25/18 23:54 69 18 176/126 (143) 98 Room Air 03/25/18 22:43 79 16 189/128 (148) 98 Room Air 03/25/18 20:00 98.2 84 18 149/90 (109) 98 Result Diagram: 03/25/18205403/25/182054 Imaging Last Impressions Chest X-Ray 03/25/18 0000 Signed Impressions: CONCLUSION: Mild congestive heart failure. Focal consolidation right lung base could repres ent a superimposed pneumonia. Objective Remarks GENERAL: Middle-aged black male in no acute distress, sitting in his motorized wheelchair. Awake and alert. Appears comfortable. SKIN: Warm and dry. No obvious rash. HEENT: NC/AT, EOMI. PERRLA, EOMI. No scleral icterus or conjunctival pallor. No lid lag or facial droop. Airway patent. MMM. CARDIOVASCULAR: Regular rate and rhythm. No obvious murmurs to auscultation. No chest tenderness to palpation. RESPIRATORY: Nonlabored. No obvious rhonchi or wheezing. Clear to auscultation. Breath sounds equal bilaterally. GASTROINTESTINAL: Abdomen soft, non-tender, nondistended. BS normal. No guarding MUSCULOSKELETAL: Extremities without clubbing or cyanosis. 2+ BLE edema. No obvious deformities. NEUROLOGICAL: Awake, alert and oriented x4. Moving both upper and lower extremities spontaneously. No focal neurologic deficits. Normal speech. PSYCHIATRIC: Irritable. Threatening to leave AGAINST MEDICAL ADVICE. Cooperative with exam. Procedures None A/P Problem List: (1) PNA (pneumonia) ICD Code: J18.9 - Pneumonia, unspecified organism (2) CHF (congestive heart failure) ICD Code: I50.9 - Heart failure, unspecified (3) HTN (hypertension) ICD Code: I10 - Essential (primary) hypertension (4) Elevated troponin ICD Code: R74.8 - Abnormal levels of other serum enzymes (5) COPD (chronic obstructive pulmonary disease) ICD Code: J44.9 - Chronic obstructive pulmonary disease, unspecified (6) HIV (human immunodeficiency virus infection) ICD Code: B20 - Human immunodeficiency virus [HIV] disease Assessment and Plan 57-year-old male with past medical history of hypertension, COPD, CHF (Echo w/ EF 45%), HIV (CD4 305 on 11/02/2017), Non-Compliance and Schizophrenia who presented to ER with complaints of shortness of breath and elevated blood pressure after running out of his medications. Patient came into the ER for refills. States he recently completed a Z-Pedrito. Patient is unable to tell me any of the medications that he takes at home states he takes "about 5 of them" PNA, failed outpatient therapy in immunocompromised patient with HIV Chest x-ray showing right lower lobe infiltrate -Continue on IV Levaquin, renally dosed -scheduled Duonebs, Mucinex -IS/acapella -Supplemental oxygen as needed to maintain O2 saturations greater than 92% Acute on chronic systolic CHF Chest x-ray shows mild congestive failure Echo 10/29/17 w/ EF 45% Medication noncompliance -s/p diuresis with IV Lasix -caution with renal failure. Hold Lasix for now. Obtain BNP. Monitor electrolytes. -strict I&Os -Continue to monitor respiratory status -Continue on Coreg, LUI on hold in light of worsening renal function Elevated troponins, likely secondary to renal dysfunction Trop 0.07 Patient has no complaints of chest pain -Continue to monitor ELIJAH on CKD Creatinine 3.93 Cr 3.1 in January, previously Cr 2 in 2017 -Consult nephrology, appreciate assistance -Avoid nephrotoxic agents -Obtain UA, obtain urine sodium/creatinine -Monitor kidney function closely, repeat BMP in am Hypertension, uncontrolled secondary to medication noncompliance -Continue patient on Coreg 6.25mg BID -ACEI on hold secondary to kidney dysfunction -Nifedipine SR 30 mg daily -Start on hydralazine 25 mg 3 times daily -Clonidine as needed with parameters -Continue to monitor BP and adjust treatment accordingly Hypokalemia Potassium 3.4 -P.o. repletion ordered -Repeat CMP in a.m. Transaminitis Hep C nonreactive 02/16 -Avoid hepatotoxic agents -Trend LFTs COPD, not in acute exacerbation -Continue on Symbicort -monitor respiratory status HIV Patient is noncompliant with HAART medications Last CD4 305 in November -Patient counseled on initiation of treatment as outpatient following discharge DVT prophylaxis -SCD/KD au -Heparin Discharge Planning Not ready for discharge. Discharge pending clinical improvement and nephrology clearance. Liseth Ramos March 26, 2018 15:14
[2018-03-26 15:39] LABS: BILIRUBIN, URINE NEG (NEG); BLOOD, URINE NEG (NEG); GLUCOSE,URINE NEG (NEG); KETONE, URINE NEG (NEG); MUCUS URINE FEW /lpf (OCC); NITRITE,URINE NEG (NEG); PH, URINE 5.5 (5.0-8.5); URINE COLOR LIGHT-YELLOW (YELLW/STRAW); URINE LEUKOCYTE ESTERASE NEG (NEG)
[2018-03-26 15:44] LABS: CREATININE, RANDOM URINE 16.7 MG/DL
--- NOTE | 2018-03-26 16:45 | PD.CONS ---
HPI Service Nephrology Consult Requested By Dr. Weiner Reason for Consult Acute renal failure Primary Care Physician No Primary Care Physician History of Present Illness Patient is a 57-year-old -[place] male with history of HIV disease chronic kidney disease a creatinine around 2 who has increased shortness of breath and he ran out of his medication, noncompliant patient and came in with increasing shortness of breath, after he ran out of his medication. Patient has underlying psychiatric disorder schizophrenia as well, he is not very cooperative and telling me that he is going to leave 5 PM, he just came in to refill his prescription. I asked him about his kidney he states that he is aware of it and he was going to see a compensation intern as an outpatient. Review of Systems Respiratory: COMPLAINS OF: Shortness of breath Psychiatric: COMPLAINS OF: Anxiety, Mood changes, Agitation Past Family Social History Allergies: Coded Allergies: No Known Allergies (Verified Adverse Reaction, Unknown, 03/25/18) Past Medical History Chronic kidney disease Chronic kidney disease stage III HIV infection COPD Congestive heart failure with ejection fraction said to be 36% by nuclear study October 31, 2017. Hypertension. Noncompliance with medical care. Schizophrenia. Past Surgical History Left arm surgery Reported Medications Reported Meds & Active Scripts Active Ventolin Hfa 18 GM Inh (Albuterol Sulfate) 90 Mcg/Act Aer 2 Puff INH Q4H PRN Norvasc (Amlodipine Besylate) 10 Mg Tab 10 Mg PO DAILY Reported Aspirin Low Dose (Aspirin) 81 Mg Chew 81 Mg CHEW DAILY Active Ordered Medications Current Medications Medications (Trade) Dose Ordered Sig/Clif Route Start Time Stop Time Status Last Admin (NS Flush) 2 ml UNSCH PRN IV FLUSH 03/26/18 01:15 (NS Flush) 2 ml BID IV FLUSH 03/26/18 09:00 03/26/18 10:29 (Reglan Inj) 5 mg Q6H PRN IV PUSH 03/26/18 01:15 (Heparin Inj) 5,000 units Q12H SQ 03/26/18 09:00 03/26/18 10:24 (Tylenol) 650 mg Q6H PRN PO 03/26/18 01:15 ([place] 5-325 Mg) 1 tab Q4H PRN PO 03/26/18 01:15 (Morphine Inj) 2 mg Q3H PRN IV PUSH 03/26/18 01:15 (Mouna-Colace) 1 tab BID PO 03/26/18 09:00 03/26/18 10:22 (Milk Of Magnesia Liq) 30 ml Q12H PRN PO 03/26/18 01:15 (Senokot) 17.2 mg Q12H PRN PO 03/26/18 01:15 (Dulcolax Supp) 10 mg DAILY PRN RECTAL 03/26/18 01:15 (Lactulose Liq) 30 ml DAILY PRN PO 03/26/18 01:15 (Aspirin Chew) 81 mg DAILY CHEW 03/26/18 09:00 03/26/18 10:21 Levofloxacin/ Dextrose 150 ml @ 100 mls/hr Q48H IV 03/27/18 23:00 (Mucinex Er) 600 mg BID PO 03/26/18 09:00 03/26/18 10:22 (Symbicort 160-4.5 Mcg Inh) 2 puff Q12HR INH 03/26/18 09:00 03/26/18 10:22 (Lasix Inj) 40 mg BID@18 IV PUSH 03/26/18 09:00 Future Hold 03/26/18 10:25 (Coreg) 6.25 mg Q12HR PO 03/26/18 09:00 03/26/18 10:21 (Procardia Xl) 30 mg DAILY PO 03/26/18 09:00 03/26/18 10:21 (Catapres) 0.1 mg Q6H PRN PO 03/26/18 15:00 (Apresoline) 25 mg Q8HR PO 03/26/18 22:00 (Duoneb Neb) 1 ampule Q6HR WHILE AWAKE NEB NEB 03/26/18 20:00 Family History Noncontributory Social History He admits to smoking cigarettes on a daily,denies alcohol Physical Exam Vital Signs Vital Signs Date Time Temp Pulse Resp B/P (MAP) Pulse Ox O2 Delivery O2 Flow Rate FiO2 03/26/18 15:40 98.3 68 18 133/94 (107) 100 03/26/18 13:30 97.8 67 17 150/100 (117) 99 03/26/18 13:30 67 18 99 Room Air 03/26/18 10:00 67 16 166/116 (133) 100 Room Air 03/26/18 06:09 64 16 152/98 (116) 98 Room Air 03/26/18 03:03 64 16 141/103 (116) 98 Room Air 03/26/18 00:53 68 16 163/101 (121) 97 Room Air 03/25/18 23:54 69 18 176/126 (143) 98 Room Air 03/25/18 22:43 79 16 189/128 (148) 98 Room Air 03/25/18 20:00 98.2 84 18 149/90 (109) 98 Physical Exam GENERAL: Well-nourished, well-developed noncooperative patient. SKIN: Warm and dry. HEAD: Normocephalic. EYES: No scleral icterus. No injection or drainage. NECK: Supple, trachea midline. No JVD or lymphadenopathy. CARDIOVASCULAR: Regular rate and rhythm without murmurs, gallops, or rubs. RESPIRATORY: Breath sounds diminished at bases GASTROINTESTINAL: Abdomen soft, non-tender, nondistended. EXTREMITIES: No cyanosis, or edema. NEUROLOGICAL: Awake, alert, and oriented x 3. Non-focal. Laboratory Laboratory Tests Test 03/25/18 20:55 03/26/18 06:30 03/26/18 13:00 03/26/18 15:15 White Blood Count 10.9 Red Blood Count 4.19 Hemoglobin 12.2 Hematocrit 35.5 Mean Corpuscular Volume 84.7 Mean Corpuscular Hemoglobin 29.0 Mean Corpuscular Hemoglobin Concent 34.3 Red Cell Distribution Width 16.4 Platelet Count 214 Mean Platelet Volume 9.3 Neutrophils (%) (Auto) 74.0 Lymphocytes (%) (Auto) 13.0 Monocytes (%) (Auto) 12.7 Eosinophils (%) (Auto) 0.0 Basophils (%) (Auto) 0.3 Neutrophils # (Auto) 8.0 Lymphocytes # (Auto) 1.4 Monocytes # (Auto) 1.4 Eosinophils # (Auto) 0.0 Basophils # (Auto) 0.0 CBC Comment DIFF FINAL Differential Comment Blood Urea Nitrogen 58 Creatinine 3.93 Random Glucose 106 Total Protein 7.9 Albumin 2.9 Calcium Level 8.5 Alkaline Phosphatase 79 Aspartate Amino Transf (AST/SGOT) 89 Alanine Aminotransferase (ALT/SGPT) 164 Total Bilirubin 0.7 Sodium Level 139 Potassium Level 3.4 Chloride Level 104 Carbon Dioxide Level 22.2 Anion Gap 13 Estimat Glomerular Filtration Rate 19 Total Creatine Kinase 283 Creatine Kinase MB 3.0 Troponin I 0.07 0.08 0.06 Lipase 334 Magnesium Level 2.7 Urine Color LIGHT-YELLOW Urine Turbidity CLEAR Urine pH 5.5 Urine Specific [place] 1.005 Urine Protein TRACE Urine Glucose (UA) NEG Urine Ketones NEG Urine Occult Blood NEG Urine Nitrite NEG Urine Bilirubin NEG Urine Urobilinogen LESS THAN 2.0 Urine Leukocyte Esterase NEG Urine RBC LESS THAN 1 Urine WBC LESS THAN 1 Urine Mucus FEW Microscopic Urinalysis Comment CULT NOT INDICATED Urine Random Creatinine 16.7 Urine Random Sodium 82 Urine Opiates Screen NEG Urine Barbiturates Screen NEG Urine Amphetamines Screen NEG Urine Benzodiazepines Screen NEG Urine Cocaine Screen POS Urine Cannabinoids Screen NEG Result Diagram: 03/25/18205403/25/182054 Imaging Last Impressions Chest X-Ray 03/25/18 0000 Signed Impressions: CONCLUSION: Mild congestive heart failure. Focal consolidation right lung base could repres ent a superimposed pneumonia. 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 He is noncompliant I told him he needs to stay I will given albumin Follow renal function He is threatening to leave AGAINST MEDICAL ADVICE We will monitor the situation (2) HIV (human immunodeficiency virus infection) ICD Codes: B20 - Human immunodeficiency virus [HIV] disease Plan: Noncompliant (3) CHF (congestive heart failure) ICD Codes: I50.9 - Heart failure, unspecified Plan: Patient ran out of blood pressure pills and has hypertensive urgency (4) COPD (chronic obstructive pulmonary disease) ICD Codes: J44.9 - Chronic obstructive pulmonary disease, unspecified Plan: History of smoking (5) HTN (hypertension) ICD Codes: I10 - Essential (primary) hypertension Plan: Highest blood pressure 189/128 Christina Marquez MD March 26, 2018 16:45
[2018-03-26] MEDS: RESP: ALBUTEROL 2.5 MG/IPRATROPIUM 0.5 MG NEB (SCH) NEB (19:25)
[2018-03-26] MEDS: hydrALAZINE HCL 25 MG TAB PO SCH (22:11)
[2018-03-26] MEDS ORDERED: LEVOFLOXACIN 750 MG PREMIX INJ 150 ML IV SCH (23:00)
[2018-03-27 07:36] VITALS: BP 176/112; PULSE 75; RESP 20; TEMP 98.3; O2SAT 96
[2018-03-27 07:54] LABS: AUTOMATED NEUTROPHIL # 3.9 TH/MM3 (1.8-7.7); BASOPHIL % 0.8 % (0.0-2.0); EOSINOPHIL # 0.1 TH/MM3 (0-0.4); EOSINOPHIL % 1.4 % (0.0-4.0); HEMATOCRIT 32.2 % (39.0-51.0); LYMPH % 19.2 % (9.0-44.0); LYMPHOCYTE # 1.1 TH/MM3 (1.0-4.8); MEAN CELL VOLUME 85.2 FL (80.0-100.0); MEAN CORPUSCULAR HEMOGLOBIN 29.2 PG (27.0-34.0); MEAN CORPUSCULAR HGB CONC 34.3 % (32.0-36.0); MEAN PLATELET VOLUME 9.7 FL (7.0-11.0); MONO % 12.4 % (0.0-8.0); MONOCYTE # 0.7 TH/MM3 (0-0.9); NEUT % 66.2 % (16.0-70.0); PLATELET COUNT 197 TH/MM3 (150-450); RED BLOOD COUNT 3.78 MIL/MM3 (4.50-5.90); RED CELL DISTRIBUTION WIDTH 16.1 % (11.6-17.2); WHITE BLOOD COUNT 5.9 TH/MM3 (4.0-11.0)
[2018-03-27 08:20] LABS: ALBUMIN 2.4 GM/DL (3.4-5.0); AST (GOT) 53 U/L (15-37); BICARBONATE 26.3 MEQ/L (21.0-32.0); BLOOD UREA NITROGEN 51 MG/DL (7-18); CHLORIDE 103 MEQ/L (98-107); CREATININE 3.45 MG/DL (0.60-1.30); GLOMERULAR FILTRATION RATE 22 ML/MIN (>89); GLUCOSE,RANDOM 80 MG/DL (74-106); SODIUM (NA) 139 MEQ/L (136-145)
[2018-03-27 08:22] LABS: ALT (GPT) 123 U/L (12-78)
[2018-03-27 08:24] LABS: ALKALINE PHOSPHATASE 70 U/L (45-117); TOTAL BILIRUBIN ADULT 0.5 MG/DL (0.2-1.0); TOTAL PROTEIN 6.6 GM/DL (6.4-8.2)
[2018-03-27] MEDS: hydrALAZINE HCL 25 MG TAB PO SCH (08:48)
[2018-03-27] MEDS ORDERED: NIFEdipine 30 MG SUSTAINED RELEASE TAB PO SCH (09:00)
[2018-03-27] MEDS ORDERED: POTASSIUM CHLORIDE 10 MEQ CONTROLLED RELEASE TAB PO ONE (09:30)
[2018-03-27 10:00] VITALS: BP 166/107; PULSE 71; PULSE 72; RESP 18; O2SAT 96
[2018-03-27] MEDS ORDERED: INFLUENZA VIRUS VACCINE (QUADRIVALENT) 0.5 ML SYR IM ONE (10:00)
[2018-03-27] MEDS: NIFEdipine 30 MG SUSTAINED RELEASE TAB PO SCH (10:11)
[2018-03-27] MEDS: guaiFENesin E.R. 600 MG TAB PO SCH (10:12)
[2018-03-27] MEDS: CARVEDILOL 6.25 MG TAB PO SCH (10:12)
[2018-03-27] MEDS: ASPIRIN 81 MG CHEW TAB CHEW SCH (10:12)
[2018-03-27] MEDS: DOCUSATE SODIUM 50 MG/SENNA 8.6 MG TAB PO SCH (10:12)
[2018-03-27] MEDS: SODIUM CHLORIDE 0.9% FLUSH 10 ML FLUSH IV FLUSH SCH (10:13)
[2018-03-27] MEDS: HEPARIN SODIUM - SQ 10,000 UNITS/ML VIAL SQ SCH (10:13)
[2018-03-27] MEDS ORDERED: LEVOFLOXACIN 750 MG TAB PO SCH (10:15)
--- NOTE | 2018-03-27 10:21 | HHI.PR ---
Subjective Remarks Follow-up on patient with HIV, CHF exacerbation, pneumonia. Patient seen and examined. Patient denies any medical complaints this morning. He is demanding to be discharged today. He denies any fever, chills or night sweats. He denies any chest pain or shortness of breath. Denies any nausea, vomiting or abdominal pain. He has a myriad of complaints in regards to his lack of care - states the nurses have not been kind to him, he has not been fed, the nurse refused to let him call long distance, he wants to know why his cell phone will not work in his room. States his blood pressure is up because the nurses are making him so mad. Discussed with the patient finding of cocaine on the urine drug screen and warned against the use of cocaine in it combination with beta- david treatment. Patient is adamant he does not do drugs but states there was a friend who gave him a cigarette that "had something in it". He states he is going to call the instructor of education as soon as he is discharged and have this friend arrested. Objective Vitals Vital Signs Date Time Temp Pulse Resp B/P (MAP) Pulse Ox O2 Delivery O2 Flow Rate FiO2 03/27/18 07:36 98.3 75 20 176/112 (133) 96 03/26/18 21:14 97.9 80 18 129/93 (105) 99 03/26/18 15:40 98.3 68 18 133/94 (107) 100 03/26/18 13:30 97.8 67 17 150/100 (117) 99 03/26/18 13:30 67 18 99 Room Air 03/26/18 10:00 67 16 166/116 (133) 100 Room Air I/O 03/26/18 03/26/18 03/26/18 03/27/18 03/27/18 03/27/18 07:00 15:00 23:00 07:00 15:00 23:00 Output Total 900 ml Balance -900 ml Output Urine Total 900 ml Result Diagram: 03/27/18 0610 03/27/18 0610 Imaging Last Impressions Chest X-Ray 03/25/18 0000 Signed Impressions: CONCLUSION: Mild congestive heart failure. Focal consolidation right lung base could repres ent a superimposed pneumonia. Objective Remarks GENERAL: Well-developed well-nourished middle-aged black male in no acute distress. Awake and alert. Sitting up in bed. SKIN: Warm and dry. No obvious rash. HEENT: NC/AT, EOMI. PERRLA, EOMI. No scleral icterus or conjunctival pallor. No lid lag or facial droop. Airway patent. MMM. CARDIOVASCULAR: Regular rate and rhythm. No obvious murmurs to auscultation. No chest tenderness to palpation. RESPIRATORY: Nonlabored. No obvious rhonchi or wheezing. Clear to auscultation. Breath sounds equal bilaterally. GASTROINTESTINAL: Abdomen soft, non-tender, nondistended. BS normal. No guarding MUSCULOSKELETAL: Extremities without clubbing or cyanosis. No obvious deformities. Bilateral lower extremity edema is much improved and is not detectable today on exam. NEUROLOGICAL: Awake, alert and oriented x4. Moving both upper and lower extremities spontaneously. No focal neurologic deficits. Normal speech. PSYCHIATRIC: Patient remains irritable, upset with his perceived lack of care. Cooperative with exam. Procedures None A/P Problem List: (1) PNA (pneumonia) ICD Code: J18.9 - Pneumonia, unspecified organism (2) CHF (congestive heart failure) ICD Code: I50.9 - Heart failure, unspecified (3) HTN (hypertension) ICD Code: I10 - Essential (primary) hypertension (4) Elevated troponin ICD Code: R74.8 - Abnormal levels of other serum enzymes (5) COPD (chronic obstructive pulmonary disease) ICD Code: J44.9 - Chronic obstructive pulmonary disease, unspecified (6) HIV (human immunodeficiency virus infection) ICD Code: B20 - Human immunodeficiency virus [HIV] disease Assessment and Plan 57-year-old male with past medical history of hypertension, COPD, CHF (Echo w/ EF 45%), HIV (CD4 305 on 11/02/2017), Non-Compliance and Schizophrenia who presented to ER with complaints of shortness of breath and elevated blood pressure after running out of his medications. Patient came into the ER for refills. States he recently completed a Z-Pedrito. Patient is unable to tell me any of the medications that he takes at home states he takes "about 5 of them" PNA, failed outpatient therapy in immunocompromised patient with HIV Chest x-ray showing focal consolidation right lung base could represent a superimposed pneumonia. Patient does not appear septic. He does not have a white count. He is afebrile. -continue on Levaquin, change to po -scheduled Duonebs, Mucinex -IS/acapella -Supplemental oxygen as needed to maintain O2 saturations greater than 92% Acute on chronic systolic CHF Chest x-ray shows mild congestive failure BNP 927 Echo 10/29/17 w/ EF 45% Medication noncompliance -s/p diuresis with IV Lasix -caution with renal failure. Hold Lasix for now. Monitor electrolytes. -strict I&Os. 2gm Na restricted heart healthy diet. CHF teaching. -Continue to monitor respiratory status -Continue on Coreg, LUI on hold in light of worsening renal function Hypokalemia K 3.1 -po repletion ordered -repeat BMP to monitor trend Elevated troponins, likely secondary to renal dysfunction Trop 0.07, 0.08, 0.06 Patient has no complaints of chest pain -Continue to monitor ELIJAH on CKD Creatinine 3.93, improved to 3.45 Cr 3.1 in January, previously Cr 2 in 2016 -Nephrology following, appreciate assistance. Cleared for discharge from nephrology standpoint. Patient states he is in the process of scheduling an appt with a saw superintendent as an outpatient. -Avoid nephrotoxic agents -Monitor kidney function closely Hypertension, uncontrolled secondary to medication noncompliance Patient continued on Coreg 6.25 mg twice daily with addition of nifedipine SR 30 mg daily and hydralazine 25 mg 3 times daily BP still poorly controlled, 166/107 -Increase nifedipine SR to 60 mg daily -Continue on hydralazine 25 mg 3 times daily, may need to increase dose depending on blood pressure trend -ACEI on hold secondary to kidney dysfunction -Clonidine as needed with parameters -Continue to monitor BP and adjust treatment accordingly Transaminitis, suspect secondary to polysubstance abuse LFTs trending down Hep C nonreactive 02/16 -Avoid hepatotoxic agents COPD, not in acute exacerbation -Continue on Symbicort -monitor respiratory status HIV Patient is noncompliant with HAART medications Last CD4 305 in November -Patient counseled on initiation of treatment as outpatient following discharge Cocaine use UDS positive for cocaine Lengthy discussion with patient regarding dangers of combining beta-david therapy with cocaine use. Patient is adamant that he does not do drugs but states he did take a cigarette that "had something in it" from her friend recently. Patient has no complaints of chest pain. We will continue Coreg for now. Patient strongly advised to not use cocaine or any other illicit drug. Patient again reiterates that he does not use drugs. DVT prophylaxis -SCD/KD hose -Heparin 1400 Patients BP improved, now 153/97. Patient cleared for discharge from nephrology standpoint. Discharge patient to home Condition on discharge: Stable Low-salt heart healthy diet as tolerated Ad Whitney activity Rx written: Coreg 6.25 mg p.o. twice daily, nifedipine SR 60 mg daily, hydralazine 25 mg p.o. every 8 hours, Levaquin 750 mg every 48 hours, Ventolin inhaler, Symbicort inh, aspirin 81 mg, guaifenesin 600 mg twice daily Follow-up with primary care physician, lining finisher, infectious disease and saw superintendent Liseth Ramos March 27, 2018 10:21
[2018-03-27] MEDS ORDERED: NIFEdipine 30 MG SUSTAINED RELEASE TAB PO ONE (10:30)
[2018-03-27] MEDS ORDERED: PILL SPLITTER OTHER PRN (10:30)
[2018-03-27] MEDS: BUDESONIDE-FORMOTEROL 160/4.5 MCG INHALER INH SCH (10:54)
[2018-03-27] MEDS: RESP: ALBUTEROL 2.5 MG/IPRATROPIUM 0.5 MG NEB (SCH) NEB ×2 (10:55→15:17)
[2018-03-27 12:25] VITALS: BP 138/100; PULSE 75; RESP 20; TEMP 98; O2SAT 96
[2018-03-27] MEDS ORDERED: Budeson-Formot 160-4.5 Mcg Inh INH (13:55)
[2018-03-27] MEDS ORDERED: CARV6.25 PO (13:55)
[2018-03-27] MEDS ORDERED: guaiFENesin ER PO (13:55)
[2018-03-27] MEDS ORDERED: NIFE30TA8 PO (13:55)
[2018-03-27] MEDS ORDERED: ASPI81CH6 CHEW (13:55)
[2018-03-27] MEDS ORDERED: VENTAER INH (13:55)
[2018-03-27] MEDS ORDERED: HYDR-3800 PO (13:55)
[2018-03-27] MEDS ORDERED: LEVA750T9 PO (13:55)
[2018-03-27] MEDS ORDERED: hydrALAZINE HCL 50 MG TAB PO SCH ×2 (14:00)
[2018-03-27 14:25] VITALS: BP 153/97; PULSE 71; RESP 20; O2SAT 96
[2018-03-27] MEDS ORDERED: LEVOFLOXACIN 750 MG PREMIX INJ 150 ML IV SCH (23:00)
[2018-03-28] MEDS ORDERED: NIFEdipine 30 MG SUSTAINED RELEASE TAB PO SCH (09:00)
== END 2018-03-27 17:14 | disposition home or self-care (01) ==
LOC: NEPE 18:47 → NEDA 03-26 01:53 → NEDH 03-26 07:34 → NEPHCDU 03-26 13:38
PROVIDERS: ADMIT Internal Medicine; ATTEND Internal Medicine
DX: J18.9 Pneumonia, unspecified organism (principal); I50.23 Acute on chronic systolic (congestive) heart failure; N17.9 Acute kidney failure, unspecified; N18.3 Chronic kidney disease, stage 3 (moderate); I13.0 Hypertensive heart and chronic kidney disease with heart failure and stage 1 through stage 4 chronic kidney disease, or unspecified chronic kidney disease; J44.0 Chronic obstructive pulmonary disease with (acute) lower respiratory infection; I16.0 Hypertensive urgency; E87.6 Hypokalemia; F14.90 Cocaine use, unspecified, uncomplicated; Z91.14 Patient's other noncompliance with medication regimen; Z79.82 Long term (current) use of aspirin; Z99.3 Dependence on wheelchair; F41.9 Anxiety disorder, unspecified; F17.210 Nicotine dependence, cigarettes, uncomplicated; F20.9 Schizophrenia, unspecified; Z79.899 Other long term (current) drug therapy; B20 Human immunodeficiency virus [HIV] disease; Z91.19 Patient's noncompliance with other medical treatment and regimen; R74.8 Abnormal levels of other serum enzymes; R74.0 Nonspecific elevation of levels of transaminase and lactic acid dehydrogenase [LDH]
CPT/HCPCS: 71045; 80053; 80307; 81001; 82550; 82552; 82570; 83690; 83735; 83880; 84300; 84484; 85025; 94640; 94664; 94667; 96365; 96366; 96372; 96375; G0378; G8987-GP; G8988-GP; J1644; J1940; J1956

== ENCOUNTER 2018-05-25 07:47 | Inpatient (IN) ==
--- NOTE | 2018-05-25 08:07 | ED ---
HPI General Chief complaint: Shortness of Breath/Dyspnea Stated complaint: e Time Seen by Provider: 05/25/18 08:00 History of Present Illness HPI narrative: Patient presents to the emergency department complaining of shortness of breath since 230 this morning. Patient states that he thinks with 2 pillows and has dyspnea on exertion and at rest and cough. He does have a history of COPD hypertension and HIV. CD4 count was 305 in November. He does report compliance with his medications. EVAC patient was tachypneic upon their arrival breathing approximately 36 times a minute with room air sat of 90% which increased to 99 200% on nebulizer. Was given 1 DuoNeb by fire and rescue , one albuterol neb by EVAC, 125 mg IV Solu-Medrol and 4 mg of Zofran by EVAC. He also reports sternal and right-sided chest pain, stabbing in quality, started at 7:00 this morning, intermittent, approximately 20 minutes in duration , no alleviating or aggravating factors. Does report bilateral extremity edema and abdominal pain. Related Data Home Medications Medication Instructions Recorded Confirmed Unable to Obtain Home Meds 05/09/18 05/25/18 Allergies Allergy/AdvReac Type Severity Reaction Status Date / Time No Known Allergies Allergy Verified 05/09/18 18:10 Review of Systems ROS Unobtainable All other systems reviewed negative except as stated in HPI COUNTS INCLUDE 234 BEDS AT THE [facility] Medical History Medical History CHF (congestive heart failure) (Acute) COPD (chronic obstructive pulmonary disease) (Acute) HIV (human immunodeficiency virus infection) (Acute) Hypertension (Acute) Surgical History Surgical History H/O elbow surgery (Acute) Social History Social History Substance History: No History of Abuse Second Hand Smoke Exposure: Yes Smoking Status: Light tobacco smoker Tobacco Type: Cigarettes How Often Do You Have a Drink Containing Alcohol: Monthly or less Recent Travel in [facility] within the Last 8 Weeks: No Recent Out of Country Travel within the Last 8 Weeks: No Exam Narrative Exam Narrative: GENERAL: No acute distress. SKIN: Focused skin assessment warm/dry. HEAD: Atraumatic. Normocephalic. EYES: Pupils equal and round. No scleral icterus. No injection or drainage. ENT: No nasal bleeding or discharge. Mucous membranes pink and moist. NECK: Trachea midline. No JVD. CARDIOVASCULAR: Regular rate and rhythm. No murmur appreciated. RESPIRATORY: No accessory muscle use. Expiratory wheezing bilaterally. GASTROINTESTINAL: Abdomen soft, tender diffusely, distended. MUSCULOSKELETAL: No obvious deformities. No clubbing. No cyanosis. Pitting bilateral lower extremity edema. NEUROLOGICAL: Awake and alert. No obvious cranial nerve deficits. Motor grossly within normal limits. Normal speech. PSYCHIATRIC: Appropriate mood and affect; insight and judgment normal. Course Initial Documented Vital Signs Temperature 99 F 05/25/18 07:52 Pulse Rate 80 05/25/18 07:52 Respiratory Rate 20 05/25/18 07:52 Blood Pressure 219/149 H 05/25/18 07:52 Pulse Oximetry 96 05/25/18 07:52 Last Documented Vital Signs Temperature 99 F 05/25/18 07:52 Pulse Rate 75 05/25/18 09:36 Respiratory Rate 18 05/25/18 09:36 Blood Pressure 224/153 H 05/25/18 09:36 Pulse Oximetry 98 05/25/18 09:36 Critical Care Time Critical Care Time: Yes Total Critical Care Time: 35 Attestation: Aggregate critical care time was 35 minutes. Time to perform other separately billable procedures was not included in the critical care time. My time did not include minutes spent treating any other patients simultaneously or on activities that did not directly contribute to the patient's treatment. The services I provided to this patient were to treat and/or prevent clinically significant deterioration that could result in: , respiratory failure, sepsis, ACS I provided critical care services requiring my management, as noted below: Chart data review, documentation time, medication orders and management, vital sign assessments/reviewing monitor data, ordering and reviewing lab tests, ordering and interpreting/reviewing x-rays and diagnostic studies, care of the patient and discussion of the patient with the admitting physicians. Medical Decision Making MDM Narrative Medical decision making narrative: Patient presents to the emergency department with shortness of breath and hypertension and wheezing and chest pain. Patient placed on lunchroom monitor, continuous pulse ox and EKG, chest x-ray, CT abdomen pelvis without IV contrast, labs ordered. Additionally, patient given 1 sublingual nitroglycerin 0.4 mg and 40 mg IV Lasix and 1 DuoNeb. Decreased hemoglobin and hematocrit, which is at patient's baseline. 0840: Patient's BP is 207/144. He states that the nitroglycerin did help his chest pain and his breathing is improved. He still has expiratory wheezes diffusely and is requesting another breathing treatment. Another DuoNeb has been ordered, as well as another sublingual nitroglycerin. 0857: grocery clerk selling asked to consult cardiology and nephrology. Troponin, BUN, BNP , T bili, creatinine, AST, ALT increased. CXR: FINDINGS: The heart is enlarged. Bilateral pulmonary infiltrates are noted (right worse than left) consistent with asymmetric pulmonary edema versus pneumonia. Clinical correlation is recommended. Small right pleural effusion is noted.CONCLUSION: 1. Bilateral pulmonary infiltrates are noted (right worse than left) consistent with asymmetric pulmonary edema versus pneumonia. Clinical correlation is recommended.2. Cardiomegaly.3. Small right pleural effusion. Patient given 750mg po for possible PNA in light of his being immunocompromised. 0925: Dr Centeno at bedside, recommend either IV vastoec/labetalol, thinks chest pain is non cardaic as it's reproducible. Patient also has likely COPD exacerbation, so will give 1.25mg IV vasotec. Renal consulted, Dr. Hammer, who advised they will evaluate the patient. 0935: Renal at bedside, don't believe emergent dialysis needed. CT abd/pelvis: CONCLUSION:1. Moderate diverticulosis with no focal inflammatory change identified. The study was performed without oral or intravenous contrast and is diffuse anasarca limiting visualization.2. Small to moderate amount of ascitic fluid.3. New small bilateral pleural effusions.4. Cholelithiasis.5. Mild hazy opacities present in both lung bases which could indicate pulmonary edema.6. Moderate cardiomegaly. 1000: Patient has urinated approx 650cc. UA+ protein, small amount of blood. 1026: Admitted to Dr. Patel to step down. Written for catapress. Differential Diagnosis Differential Diagnosis: COPD exacerbation, CHF exacerbation, pneumonia, pulmonary edema, ACS, pleural effusion Lab Data Result diagrams: 05/25/18 08:10 05/25/18 08:10 Lab Results 05/25/18 05/25/18 05/25/18 Range/Units 08:10 08:10 08:10 WBC 8.8 (4.0-11.0) th/mm3 RBC 3.95 L (4.50-5.90) mil/mm3 Hgb 11.0 L (13.0-17.0) gm/dL Hct 34.2 L (39.0-51.0) % MCV 86.7 (80.0-100.0) fL MCH 27.8 (27.0-34.0) pg MCHC 32.1 (32.0-36.0) % RDW 19.0 H (11.6-17.2) % Plt Count 185 (150-450) th/mm3 MPV 9.2 (7.0-11.0) fL Neut % (Auto) 63.0 (16.0-70.0) % Lymph % (Auto) 23.9 (9.0-44.0) % [place] % (Auto) 11.3 H (0.0-8.0) % Eos % (Auto) 1.2 (0.0-4.0) % Baso % (Auto) 0.6 (0.0-2.0) % Neut # (Auto) 5.5 (1.8-7.7) th/mm3 Lymph # (Auto) 2.1 (1.0-4.8) th/mm3 [place] # (Auto) 1.0 H (0.0-0.9) th/mm3 Eos # (Auto) 0.1 (0.0-0.4) th/mm3 Baso # (Auto) 0.1 (0.0-0.2) th/mm3 WBC Differential . Differential Comment Auto diff final PT 14.7 H (9.8-11.6) sec INR 1.5 Ratio APTT 23.5 L (24.3-30.1) sec Sodium 142 (136-145) meq/L Potassium 3.5 (3.5-5.1) meq/L Chloride 107 (98-107) meq/L Carbon Dioxide 22.8 (21.0-32.0) meq/L Anion Gap 12 (5-15) meq/L BUN 53 H (7-18) mg/dL Creatinine 5.03 H (0.60-1.30) mg/dL Estimated GFR 15 L (>89) mL/min Random Glucose 97 (74-106) mg/dL Calcium 7.6 L (8.5-10.1) mg/dL Magnesium 2.4 (1.5-2.5) mg/dL Total Bilirubin 1.5 H (0.2-1.0) mg/dL AST 87 H (15-37) U/L ALT 280 H (12-78) U/L Alkaline Phosphatase 99 (45-117) U/L Total Creatine Kinase 239 (39-308) U/L CK-MB (CK-2) 2.3 (0.5-3.6) ng/mL Troponin I 0.13 H (0.02-0.05) ng/mL B-Natriuretic Peptide (0-100) pg/mL Total Protein 7.7 (6.4-8.2) g/dL Albumin 2.6 L (3.4-5.0) g/dL Urine Color (Yellw/Straw) Urine Clarity (Clear) Urine pH (5.0-8.5) Ur Specific [place] (1.002-1.035) Urine Protein (Neg-Trace) mg/dL Urine Glucose (UA) (Negative) mg/dL Urine Ketones (Negative) mg/dL Urine Occult Blood (Negative) Urine Nitrate (Negative) Urine Bilirubin (Negative) Urine Urobilinogen (Less than 2) mg/dL Ur Leukocyte Esterase (Negative) Urine RBC (0-3) /hpf Urine WBC (0-5) /hpf Urine Bacteria (None) /hpf Urine Mucus (Occasional) /lpf Micro UA Comment Urine Culture Comments 05/25/18 05/25/18 Range/Units 08:10 08:49 WBC (4.0-11.0) th/mm3 RBC (4.50-5.90) mil/mm3 Hgb (13.0-17.0) gm/dL Hct (39.0-51.0) % MCV (80.0-100.0) fL MCH (27.0-34.0) pg MCHC (32.0-36.0) % RDW (11.6-17.2) % Plt Count (150-450) th/mm3 MPV (7.0-11.0) fL Neut % (Auto) (16.0-70.0) % Lymph % (Auto) (9.0-44.0) % [place] % (Auto) (0.0-8.0) % Eos % (Auto) (0.0-4.0) % Baso % (Auto) (0.0-2.0) % Neut # (Auto) (1.8-7.7) th/mm3 Lymph # (Auto) (1.0-4.8) th/mm3 [place] # (Auto) (0.0-0.9) th/mm3 Eos # (Auto) (0.0-0.4) th/mm3 Baso # (Auto) (0.0-0.2) th/mm3 WBC Differential Differential Comment PT (9.8-11.6) sec INR Ratio APTT (24.3-30.1) sec Sodium (136-145) meq/L Potassium (3.5-5.1) meq/L Chloride (98-107) meq/L Carbon Dioxide (21.0-32.0) meq/L Anion Gap (5-15) meq/L BUN (7-18) mg/dL Creatinine (0.60-1.30) mg/dL Estimated GFR (>89) mL/min Random Glucose (74-106) mg/dL Calcium (8.5-10.1) mg/dL Magnesium (1.5-2.5) mg/dL Total Bilirubin (0.2-1.0) mg/dL AST (15-37) U/L ALT (12-78) U/L Alkaline Phosphatase (45-117) U/L Total Creatine Kinase (39-308) U/L CK-MB (CK-2) (0.5-3.6) ng/mL Troponin I (0.02-0.05) ng/mL B-Natriuretic Peptide Greater than 5000 H (0-100) pg/mL Total Protein (6.4-8.2) g/dL Albumin (3.4-5.0) g/dL Urine Color Yellow (Yellw/Straw) Urine Clarity Clear (Clear) Urine pH 6.0 (5.0-8.5) Ur Specific [place] 1.006 (1.002-1.035) Urine Protein 100 H (Neg-Trace) mg/dL Urine Glucose (UA) Negative (Negative) mg/dL Urine Ketones Negative (Negative) mg/dL Urine Occult Blood Small H (Negative) Urine Nitrate Negative (Negative) Urine Bilirubin Negative (Negative) Urine Urobilinogen 2.0 H (Less than 2) mg/dL Ur Leukocyte Esterase Negative (Negative) Urine RBC 1 (0-3) /hpf Urine WBC 3 (0-5) /hpf Urine Bacteria Rare H (None) /hpf Urine Mucus Few H (Occasional) /lpf Micro UA Comment Culture not ind Urine Culture Comments Culture not ind Imaging Data Radiologist's impression: Chest X-Ray 05/25/18 08:01 CONCLUSION: 1. Bilateral pulmonary infiltrates are noted (right worse than left) consistent with asymmetric pulmonary edema versus pneumonia. Clinical correlation is recommended. 2. Cardiomegaly. 3. Small right pleural effusion. Abdomen/Pelvis CT 05/25/18 08:07 CONCLUSION: 1. Moderate diverticulosis with no focal inflammatory change identified. The study was performed without oral or intravenous contrast and is diffuse anasarca limiting visualization. 2. Small to moderate amount of ascitic fluid. 3. New small bilateral pleural effusions. 4. Cholelithiasis. 5. Mild hazy opacities present in both lung bases which could indicate pulmonary edema. 6. Moderate cardiomegaly. ECG Data Attestation: I personally reviewed and interpreted this ECG as follows: (Sinus rhythm, rate 80, normal axis, QTC 463, T-wave inversion in leads III and V1, slight ST depression in lead II and aVF) Discharge Plan Discharge Disposition Patient Disposition: 30 Still Patient Discharge Condition Condition: Stable Discharge Details Diagnosis: Acute exacerbation of chronic obstructive airways disease, HIV (human immunodeficiency virus infection), Hypertension, Renal failure (ARF), acute on chronic, CHF (congestive heart failure), Chest pain Physicians Team ED Provider: Hollie Dunbar Primary Care Provider: Primary Care WalteriFlorecita Rxs /Orders / Referrals /Forms Prescriptions: No Action Unable to Obtain Home Meds RF: 0 Discharge Interventions Interventions: Vital Signs Last Done: 05/25/18 09:36 Status ED Status: With Doctor
[2018-05-25 08:28] LABS: Baso # (Auto) 0.1 th/mm3 (0.0-0.2); Baso % (Auto) 0.6 % (0.0-2.0); Eos # (Auto) 0.1 th/mm3 (0.0-0.4); Eos % (Auto) 1.2 % (0.0-4.0); Hematocrit 34.2 % (39.0-51.0); Lymph # (Auto) 2.1 th/mm3 (1.0-4.8); Lymph % (Auto) 23.9 % (9.0-44.0); Mean Corpuscular HGB Conc 32.1 % (32.0-36.0); Mean Corpuscular Hemoglobin 27.8 pg (27.0-34.0); Mean Corpuscular Volume 86.7 fL (80.0-100.0); Mean Platelet Volume 9.2 fL (7.0-11.0); Mono % (Auto) 11.3 % (0.0-8.0); Neut # (Auto) 5.5 th/mm3 (1.8-7.7); Platelet Count 185 th/mm3 (150-450); Red Blood Count 3.95 mil/mm3 (4.50-5.90); White Blood Count 8.8 th/mm3 (4.0-11.0)
[2018-05-25 08:31] LABS: Activated Partial Thrombo Time 23.5 sec (24.3-30.1); INR 1.5 Ratio; Prothrombin Time 14.7 sec (9.8-11.6)
[2018-05-25] MEDS ORDERED: Aspirin 325 MG Tablet PO ONE (08:34)
[2018-05-25 08:37] LABS: Alanine Aminotransferase 280 U/L (12-78); Albumin 2.6 g/dL (3.4-5.0); Anion Gap 12 meq/L (5-15); Aspartate Aminotransferase 87 U/L (15-37); Blood Urea Nitrogen 53 mg/dL (7-18); Calcium 7.6 mg/dL (8.5-10.1); Carbon Dioxide 22.8 meq/L (21.0-32.0); Chloride 107 meq/L (98-107); Glomerular Filtration Rate 15 mL/min (>89); Glucose,Random 97 mg/dL (74-106); Magnesium 2.4 mg/dL (1.5-2.5); Potassium 3.5 meq/L (3.5-5.1); Sodium 142 meq/L (136-145)
--- NOTE | 2018-05-25 08:37 | XR ---
EXAM DATE: 05/25/2018 8:18 AM EDT AGE/SEX: 57 years / Male INDICATIONS: Chest pain and shortness of breath. CLINICAL DATA: This is the patient's initial encounter. Patient reports that signs and symptoms have been present for 3 days and indicates a pain score of 7/10. MEDICAL/SURGICAL HISTORY: Hypertension. None. COMPARISON: [facility] – [place], [place], CHEST SINGLE AP, 03/25/2018. . FINDINGS: The heart is enlarged. Bilateral pulmonary infiltrates are noted (right worse than left) consistent w ith asymmetric pulmonary edema versus pneumonia. Clinical correlation is recommended. Small right ple ural effusion is noted. CONCLUSION: 1. Bilateral pulmonary infiltrates are noted (right worse than left) consistent with asymmetric pulm onary edema versus pneumonia. Clinical correlation is recommended. 2. Cardiomegaly. 3. Small right pleural effusion. Electronically signed by: Mikel Lee MD 05/25/2018 8:36 AM EDT
[2018-05-25 08:41] LABS: Alkaline Phosphatase 99 U/L (45-117); Creatine Kinase 239 U/L (39-308); Total Protein 7.7 g/dL (6.4-8.2); Troponin I 0.13 ng/mL (0.02-0.05)
[2018-05-25 08:53] LABS: Creatine Kinase MB 2.3 ng/mL (0.5-3.6)
[2018-05-25] MEDS ORDERED: levoFLOXacin 750 MG Tablet PO ONE (09:08)
[2018-05-25 09:10] LABS: Bacteria,Urine Rare /hpf; Bilirubin,Urine Negative (Negative); Clarity,Urine Clear (Clear); Color,Urine Yellow (Yellw/Straw); Glucose,Urine (UA) Negative (Negative); Leukocyte Esterase,Urine Negative (Negative); Mucus,Urine Few /lpf (Occasional); Nitrite,Urine Negative (Negative); Specific Gravity,Urine 1.006 (1.002-1.035)
[2018-05-25] MEDS ORDERED: Nitroglycerin Drip Premix 50 MG/250 ML BOTTLE IV.CONT PRN (09:19)
--- NOTE | 2018-05-25 09:20 | CT ---
EXAM DATE: 05/25/2018 9:11 AM EDT AGE/SEX: 57 years / Male INDICATIONS: Diffuse abdominal pain. CLINICAL DATA: This is the patient's initial encounter. Patient reports that signs and symptoms have been present for 1 day and indicates a pain score of 5/10. MEDICAL/SURGICAL HISTORY: Chronic obstructive pulmonary disease. HIV. Hypertension. None. RADIATION DOSE: 6.64 CTDI (mGy) COMPARISON: [facility] – [place], [place] ABDOMEN & PELVIS W/O CONTRAST, 10/03/2017. . TECHNIQUE: Multiple contiguous axial images were obtained through the abdomen. Images were obtained using multiple row detector helical technique. Using automated exposure control and adjustment of the mA and/or kV according to patient size, radiation dose was kept as low as reasonably achievable to o btain optimal diagnostic quality images. DICOM format image data is available electronically for rev iew and comparison. FINDINGS: Lower Lungs: There are new bilateral pleural effusions right greater than left. Moderate cardiomegaly is present. Mild hazy opacities present in both lung bases. Liver: The liver remains normal in size, shape and attenuation value with no focal lesions on this no ncontrast study. There is surrounding ascitic fluid. Multiple ill-defined high density gallstones are again noted. Spleen: Homogeneous density without enlargement. Pancreas: Unremarkable without mass or calcification. Kidneys: Normal in size and shape. No evidence of mass or hydronephrosis. Adrenal Glands: Unremarkable. Aorta: The aorta and proximal iliac vessels are grossly unremarkable without aneurysmal dilation. Bowel/Mesentery: No oral contrast was given limiting the sensitivity of examination. Scattered diver ticuli are present with no visualized focal inflammatory change. There is a small to moderate amount of ascitic fluid as well as diffuse anasarca throughout the mesenteric fat. The bowel loops are poorl y defined. There is no free air. The bowel gas pattern is nonobstructive.Ascitic fluid is noted in th e abdomen and pelvis and there is diffuse anasarca with increased water density throughout the subcut aneous and mesenteric fat. Abdominal Wall: Intact. Retroperitoneum: No evidence of adenopathy in the retrocrural, para-aortic, or deep pelvic regions. Bladder: Contours are smooth. Reproductive Organs: No abnormal masses or calcifications seen. Inguinal: The inguinal region is unremarkable without evidence of adenopathy. Bony Structures: Unremarkable. CONCLUSION: 1. Moderate diverticulosis with no focal inflammatory change identified. The study was performed wit hout oral or intravenous contrast and is diffuse anasarca limiting visualization. 2. Small to moderate amount of ascitic fluid. 3. New small bilateral pleural effusions. 4. Cholelithiasis. 5. Mild hazy opacities present in both lung bases which could indicate pulmonary edema. 6. Moderate cardiomegaly. Electronically signed by: Handy Hart MD 05/25/2018 9:18 AM EDT
[2018-05-25] MEDS ORDERED: Bisacodyl 10 MG Supp RECTAL PRN (11:39)
[2018-05-25] MEDS ORDERED: Acetaminophen 325 MG Tablet PO PRN (11:39)
--- NOTE | 2018-05-25 11:55 | P.HPIM ---
History of Present Illness Service: [facility] Primary Care Physician: No Primary Care Physician Chief Complaint: SHORTNESS OF BREATH AND DYSPNEA History of Present Illness: Patient is a 57-year-old -[place] gentleman who presented to the emergency department complaining of shortness of breath since 230 this morning. Patient states he been sleeping on 2 pillows and has had some dyspnea on exertion and at rest and with a cough. Does have a history of COPD hypertension HIV. Has questionable compliance since he is not on any HIV medications and did not know any of his medication. Per chart review his CD4 count was 305 in November. When he was brought in [facility] saw him he was tachypneic at 36 breath sounds a minute room air sats of only 90% increased to 99% on oxygen. And nebulizer. Was given IV Solu-Medrol and Zofran also had some right-sided chest pain atypical that started about 7:00 this morning lasted for about 20 minutes has had bilateral lower extremity edema and has had some Patient does not appear to be too compliant with his medication regimen. Found to be in renal failure. Has history of congestive heart failure, COPD, HIV positive, hypertension, poor compliance, tobacco abuse Inpatient Certification: I certify that the inpatient services were ordered in accordance with Medicare regulations governing the order. This includes certification that hospital inpatient services are reasonable and necessary and in the case of services not specified as inpatient-only under 42 CFR 419.22(n), that they are appropriately provided as inpatient services in accordance to with the 2-midnight benchmark under 43 CFR 412.3(e) Estimated Total Length of Stay (Days): 4 Plans for Post Hospital Care: Not yet determined Review of Systems All other systems reviewed negative except as stated in HPI Constitutional: Reports weight gain Eyes: Denies blind spots, Denies discharge, Denies pain Ears, Nose, Mouth, and Throat: Denies abnormal hearing, Denies dental pain, Denies lip swelling, Denies nasal discharge, Denies nose pain, Denies ringing in the ears, Denies throat swelling Cardiovascular: Reports chest pain, Reports shortness of breath with activity, Reports shortness of breath causing sudden awakening Respiratory: Reports shortness of breath, Reports shortness of breath with activity, Denies change in phlegm color, Denies excessive phlegm production Gastrointestinal: Reports abdominal pain, Denies bright, red blood in stools, Denies constant urge to pass stool, Denies constipation, Denies feeling full early, Denies pain with swallowing Musculoskeletal: Denies abnormal walking, Denies deformity, Denies loss of height, Denies radiating pain into limb Skin/Breast: Denies non-healing lesions, Denies skin ulcer, Denies yellowing of the skin Neurologic: Denies abnormal hearing, Denies abnormal walking, Denies dizziness, Denies localized weakness, Denies other visual disturbances, Denies seizure- like activity, Denies tingling/numbness/burning sensations Psychiatric: Denies lack of enjoyment, Denies seeing things others do not see, Denies tactile hallucinations, Denies thoughts of hurting/killing yourself Endocrine: Denies cold intolerance, Denies increased hunger, Denies rapid, pounding, or irregular heartbeat Hematologic/Lymphatic: Denies easy bleeding, Denies easy bruising, Denies enlarged lymph nodes Allergic/Immunologic: Denies GI upset with certain foods, Denies seasonal runny nose PMFSH - History History Provided By: Patient - Medical History Medical History: Medical History (Last Updated 05/25/18 @ 11:49 by Samm Patel DO) CHF (congestive heart failure) COPD (chronic obstructive pulmonary disease) Noncompliance Tobacco abuse HIV (human immunodeficiency virus infection) Hypertension - Surgical History Surgical History: Surgical History (Last Updated 05/25/18 @ 08:00 by Effie Santos RN) H/O elbow surgery - Tobacco History Second Hand Smoke Exposure: Yes Tobacco Use In Past 30 Days: Yes Smoking Status: Light tobacco smoker Tobacco Type: Cigarettes - Alcohol History How Often Do You Have a Drink Containing Alcohol: Monthly or less - Substance Use History Substance History: No History of Abuse - Travel History History of Recent Travel: No Recent Travel in the [facility] Within the Last 8 Weeks: No Recent Travel Out of the Country Within the Last 8 Weeks: No - Immunization History Tetanus Immunization: >5 Years Hx Influenza Vaccine This Season: No Medications and Allergies Active Medications: Active Medications Acetaminophen (Tylenol) 650 mg PO Q4H PRN PRN Reason: TEMPERATURE > 101 F Al Hydroxide/Mg Hydroxide (Milk Of Magnesia Liq) 30 ml PO Q12H PRN PRN Reason: Mild Constipation Albuterol (Duoneb Neb (Prn)) 1 ampul NEB Q4HR NEB PRN PRN Reason: SHORTNESS OF BREATH/WHEEZING Albuterol (Duoneb Neb (Clif)) 1 ampul NEB Q6HR NEB [facility] Aspirin (Ecotrin) 81 mg PO DAILY [facility] Bisacodyl (Dulcolax Supp) 10 mg RECTAL DAILY PRN PRN Reason: SEVERE CONSITIPATION Budesonide/Formoterol Fumarate (Symbicort 160/4.5 Mcg Inh) 2 puff INH Q12H [facility] Carvedilol (Coreg) 6.25 mg PO BID [facility] Clonidine HCl (Catapres) 0.1 mg PO Q6H PRN PRN Reason: HYPERTENSION Last Admin: 05/25/18 10:56 Dose: 0.1 mg Furosemide (Lasix Inj) 40 mg IV.PUSH BID@0900,1800 [facility] Guaifenesin (Mucinex Er) 600 mg PO BID [facility] Heparin Sodium (Porcine) (Heparin Inj) 5,000 units SQ Q12H [facility] Hydralazine HCl (Apresoline) 25 mg PO TID [facility] Levofloxacin/Dextrose (Levaquin 750 Mg Premix Inj) 150 mls @ 100 mls/hr IV.SIG Q24H [facility] Lactulose (Lactulose Liq) 30 ml PO DAILY PRN PRN Reason: SEVERE CONSITIPATION Methylprednisolone Sodium Succinate (Solumedrol Inj) 40 mg IV.PUSH Q12H [facility] Non-Formulary Medication (Nifedipine [Nifedipine]) 60 mg PO DAILY [facility] Ondansetron HCl (Zofran Inj) 4 mg IV.PUSH Q6H PRN PRN Reason: NAUSEA OR VOMITING Senna/Docusate Sodium (Mouna-Colace) 1 tab PO BID [facility] Sennosides (Senokot) 17.2 mg PO Q12H PRN PRN Reason: Moderate Constipation Sodium Chloride (Ns Flush) 2 ml IV.FLUSH BID [facility] Sodium Chloride (Ns Flush) 2 ml IV.FLUSH PRN PRN PRN Reason: FLUSH AFTER USING IV ACCESS Allergies Allergy/AdvReac Type Severity Reaction Status Date / Time No Known Allergies Allergy Verified 05/09/18 18:10 Home Medications Medication Instructions Recorded Confirmed Type albuterol sulfate [Ventolin HFA] 2 puff INHALATION Q4H PRN 05/25/18 05/25/18 History aspirin [Aspirin Low Dose] 81 mg PO DAILY 05/25/18 05/25/18 History budesonide-formoterol [Symbicort] 2 puff INHALATION Q12H 05/25/18 05/25/18 History carvedilol 6.25 mg PO BID 05/25/18 05/25/18 History cephalexin 500 mg PO BID 05/25/18 05/25/18 History hydralazine 25 mg PO TID 05/25/18 05/25/18 History levofloxacin 750 mg PO Q48H 05/25/18 05/25/18 History nifedipine 60 mg PO DAILY 05/25/18 05/25/18 History Exam Vital signs: Vital Signs 05/25/18 07:52 05/25/18 08:02 05/25/18 08:19 Temperature 99 F Pulse Rate 80 80 79 Respiratory Rate 20 20 20 Blood Pressure 219/149 H 225/154 H Pulse Oximetry 96 97 97 05/25/18 08:45 05/25/18 08:47 05/25/18 09:36 Temperature Pulse Rate 78 79 75 Respiratory Rate 20 20 18 Blood Pressure 213/145 H 224/153 H Pulse Oximetry 93 L 98 05/25/18 10:56 05/25/18 11:42 Temperature Pulse Rate 71 70 Respiratory Rate 18 16 Blood Pressure 207/133 H 194/129 H Pulse Oximetry 94 L 96 Intake & Output 05/24/18 05/25/18 05/25/18 18:59 06:59 18:59 Output Total 900 / 900 Balance -900 / -900 Weight 90.718 kg Output: Urine 900 / 900 Narrative: GENERAL: Awake alert and oriented talkative and cooperative appears to be in mild distress SKIN: Warm and dry. HEAD: Atraumatic. Normocephalic. EYES: Pupils equal and round. No scleral icterus. No injection or drainage. Extraocular muscles intact ENT: No nasal bleeding or discharge. Mucous membranes pink and moist. Tongue is midline NECK: Trachea midline. No JVD. Supple CARDIOVASCULAR: Regular rate and rhythm. S1-S2 no S3 or S4 RESPIRATORY: No accessory muscle use. Coarse breath sounds with some rhonchi's bilaterally. Breath sounds equal bilaterally. GASTROINTESTINAL: Abdomen soft, non-tender, nondistended. Hepatic and splenic margins not palpable. MUSCULOSKELETAL: Extremities without clubbing, cyanosis, +2-3 lower extremity edema no obvious deformities. NEUROLOGICAL: Awake and alert. No obvious cranial nerve deficits. Motor grossly within normal limits. Five out of 5 muscle strength in the arms and legs. Normal speech. PSYCHIATRIC: INAppropriate mood and affect; insight and judgment ABnormal. Results - Labs CBC & Chem 7: 05/25/18 08:10 05/25/18 08:10 Labs: Short CBC 05/25/18 Range/Units 08:10 WBC 8.8 (4.0-11.0) th/mm3 Hgb 11.0 L (13.0-17.0) gm/dL Hct 34.2 L (39.0-51.0) % Plt Count 185 (150-450) th/mm3 BMP 05/25/18 08:10 Sodium 142 Potassium 3.5 Chloride 107 Carbon Dioxide 22.8 BUN 53 H Creatinine 5.03 H Calcium 7.6 L Cardiac Enzymes 05/25/18 Range/Units 08:10 Total Creatine Kinase 239 (39-308) U/L CK-MB (CK-2) 2.3 (0.5-3.6) ng/mL Troponin I 0.13 H (0.02-0.05) ng/mL Liver Function 05/25/18 Range/Units 08:10 Total Bilirubin 1.5 H (0.2-1.0) mg/dL AST 87 H (15-37) U/L ALT 280 H (12-78) U/L Alkaline Phosphatase 99 (45-117) U/L Albumin 2.6 L (3.4-5.0) g/dL Urine 05/25/18 Range/Units 08:49 Urine Color Yellow (Yellw/Straw) Urine Clarity Clear (Clear) Urine pH 6.0 (5.0-8.5) Ur Specific [place] 1.006 (1.002-1.035) Urine Protein 100 H (Neg-Trace) mg/dL Urine Glucose (UA) Negative (Negative) mg/dL - Imaging Impressions Chest X-Ray 05/25/18 08:01 CONCLUSION: 1. Bilateral pulmonary infiltrates are noted (right worse than left) consistent with asymmetric pulmonary edema versus pneumonia. Clinical correlation is recommended. 2. Cardiomegaly. 3. Small right pleural effusion. Abdomen/Pelvis CT 05/25/18 08:07 CONCLUSION: 1. Moderate diverticulosis with no focal inflammatory change identified. The study was performed without oral or intravenous contrast and is diffuse anasarca limiting visualization. 2. Small to moderate amount of ascitic fluid. 3. New small bilateral pleural effusions. 4. Cholelithiasis. 5. Mild hazy opacities present in both lung bases which could indicate pulmonary edema. 6. Moderate cardiomegaly. Caprini VTE Risk Assessment Caprini VTE Risk Assessment: Moderate/High Risk (score >= 2) Caprini Risk Assessment Model: Point Value = 1 Point Value = 2 Point Value = 3 Point Value = 5 Age 41-60 Minor surgery BMI > 25 kg/m2 Swollen legs Varicose veins or History of unexplained or recurrent spontaneous Oral contraceptives or hormone replacement Sepsis (< 1 month) Serious lung disease, including pneumonia (< 1 month) Abnormal pulmonary function Acute myocardial infarction Congestive heart failure (< 1 month) History of inflammatory bowel disease Medical patient at bed rest Age 61-74 Arthroscopic surgery Major open surgery (> 45 min) Laparoscopic surgery (> 45 min) Malignancy Confined to bed (> 72 hours) Immobilizing plaster cast Central venous access Age >= 75 History of VTE Family history of VTE Factor V Leiden Prothrombin [id number] Lupus anticoagulant Anticardiolipin antibodies Elevated serum homocysteine Heparin-induced thrombocytopenia Other congenital or acquired thrombophilia Stroke (< 1 month) Elective arthroplasty Hip, pelvis, or leg fracture Acute spinal cord injury (< 1 month) Prophylaxis Regimen: Total Risk Factor Score Risk Level Prophylaxis Regimen 0-1 Low Early ambulation 2 Moderate Order ONE of the following: *Sequential Compression Device (SCD) *Heparin 5000 units SQ BID 3-4 Higher Order ONE of the following medications: *Heparin 5000 units SQ TID *Enoxaparin/Lovenox 40 mg SQ daily (WT < 150 kg, CrCl > 30 mL/min) *Enoxaparin/Lovenox 30 mg SQ daily (WT < 150 kg, CrCl > 10-29 mL/min) *Enoxaparin/Lovenox 30 mg SQ BID (WT < 150 kg, CrCl > 30 mL/min) AND/OR *Sequential Compression Device (SCD) 5 or more Highest Order ONE of the following medications: *Heparin 5000 units SQ TID (Preferred with Epidurals) *Enoxaparin/Lovenox 40 mg SQ daily (WT < 150 kg, CrCl > 30 mL/min) *Enoxaparin/Lovenox 30 mg SQ daily (WT < 150 kg, CrCl > 10-29 mL/min) *Enoxaparin/Lovenox 30 mg SQ BID (WT < 150 kg, CrCl > 30 mL/min) AND *Sequential Compression Device (SCD) Assessment and Plan - Plan CHF with fluid overload will aggressively diurese with Lasix 40 mg IV every 12 Consult nephrology due to the severe renal failure We will get an echocardiogram Possible pneumonia/COPD continue on Levaquin 750 mg IV daily-continue on Mucinex and duo nebs and incentive spirometry will add steroids Acute renal failure on chronic consult nephrology -diuresis and see if there is improvement A.m. labs Hypertension urgency due to noncompliance with medications will restart his home medications and Catapres available COPD/pneumonia continue on antibiotics and duo nebs and steroids and Mucinex and incentive spirometry History of HIV positive currently on no medications -Would not consider starting any medications due to his noncompliance and did not even know his medications GI prophylaxis continue with Pepcid DVT prophylaxis continue on heparin Code Status: Full code Discussed Condition With: RN and patient and emergency room physician Discharge Planning: Once improved breathing and has been diuresed Await renal and cardiac clearance
[2018-05-25] MEDS: hydrALAZINE 25 MG Tablet PO SCH ×3 (14:07→18:25)
[2018-05-25] MEDS: MethylPREDNISolone Sod Succinate Inj 40 MG/ML Vial IV.PUSH SCH (14:07)
[2018-05-25] MEDS: guaiFENesin 600 MG ER Tablet PO SCH ×2 (14:07→21:58)
[2018-05-25] MEDS: Carvedilol 6.25 MG Tablet PO SCH ×2 (14:07→21:58)
[2018-05-25] MEDS: Famotidine 20 MG Tablet PO SCH ×2 (14:07→21:58)
[2018-05-25] MEDS: Heparin - SQ 10,000 UNITS/ML Vial SQ SCH (14:08)
[2018-05-25 14:19] LABS: Troponin I 0.12 ng/mL (0.02-0.05)
[2018-05-25] MEDS: Budesonide-Formoterol 160/4.5 MCG 6 GM Inhaler INH SCH (15:15)
--- NOTE | 2018-05-25 15:42 | P.CONCA ---
<Judith Ku N - Last Filed: 05/25/18 14:41> History of Present Illness Service: Cardiology Consult date: 05/25/18 Requesting Physician: Samm Patel Reason for Consult: Chest pain, uncontrolled hypertension due to noncompliance Primary Care Provider: No Primary Care Physician Family Provider: No Primary Care Physician Chief Complaint: SHORTNESS OF BREATH AND DYSPNEA History of Present Illness: This is a 57-year-old -[place] gentleman who presented to the Emergency Department with shortness of breath since early this morning. He has been sleeping with 2 pillows to aid in his breathing and has dyspnea on exertion which has progressed to when he is at rest. He has atypical chest pain that he describes as sharp, which can be reproduced with palpation. History obtained from chart review and speaking with the patient. He has a history of Congestive Heart Failure (CHF), Chronic Obstructive Pulmonary Disease (COPD), Human Immunodeficiency Virus (HIV) and severe uncontrolled hypertension. After review of his lab work, it appears that he also has severe renal insufficiency. Review of Systems Cardiovascular: Reports chest pain, Reports shortness of breath with activity, Reports shortness of breath when lying down Respiratory: Reports shortness of breath, Reports shortness of breath with activity Comments: Sleeps with 2 pillows for support PMFSH - History History Provided By: Patient - Medical History Medical History: Medical History (Last Updated 05/25/18 @ 11:49 by Samm Patel DO) CHF (congestive heart failure) COPD (chronic obstructive pulmonary disease) Noncompliance Tobacco abuse HIV (human immunodeficiency virus infection) Hypertension - Surgical History Surgical History: Surgical History (Last Updated 05/25/18 @ 08:00 by Effie Santos RN) H/O elbow surgery - Tobacco History Second Hand Smoke Exposure: Yes Tobacco Use In Past 30 Days: Yes Smoking Status: Light tobacco smoker Tobacco Type: Cigarettes - Alcohol History How Often Do You Have a Drink Containing Alcohol: Monthly or less - Substance Use History Substance History: No History of Abuse - Travel History History of Recent Travel: No Recent Travel in the [place] Within the Last 8 Weeks: No Recent Travel Out of the Country Within the Last 8 Weeks: No - Immunization History Tetanus Immunization: >5 Years Hx Influenza Vaccine This Season: No Medications and Allergies Allergies Allergy/AdvReac Type Severity Reaction Status Date / Time No Known Allergies Allergy Verified 05/09/18 18:10 Home Medications Medication Instructions Recorded Confirmed Type albuterol sulfate [Ventolin HFA] 2 puff INHALATION Q4H PRN 05/25/18 05/25/18 History aspirin [Aspirin Low Dose] 81 mg PO DAILY 05/25/18 05/25/18 History budesonide-formoterol [Symbicort] 2 puff INHALATION Q12H 05/25/18 05/25/18 History carvedilol 6.25 mg PO BID 05/25/18 05/25/18 History cephalexin 500 mg PO BID 05/25/18 05/25/18 History hydralazine 25 mg PO TID 05/25/18 05/25/18 History levofloxacin 750 mg PO Q48H 05/25/18 05/25/18 History nifedipine 60 mg PO DAILY 05/25/18 05/25/18 History Active Medications: Active Medications Acetaminophen (Tylenol) 650 mg PO Q4H PRN PRN Reason: TEMPERATURE > 101 F Al Hydroxide/Mg Hydroxide (Milk Of [place] Liq) 30 ml PO Q12H PRN PRN Reason: Mild Constipation Albuterol (Duoneb Neb (Prn)) 1 ampul NEB Q4HR NEB PRN PRN Reason: SHORTNESS OF BREATH/WHEEZING Albuterol (Duoneb Neb (Clif)) 1 ampul NEB Q6HR NEB [facility] Aspirin (Ecotrin) 81 mg PO DAILY [facility] Last Admin: 05/25/18 14:08 Dose: Not Given Bisacodyl (Dulcolax Supp) 10 mg RECTAL DAILY PRN PRN Reason: SEVERE CONSITIPATION Budesonide/Formoterol Fumarate (Symbicort 160/4.5 Mcg Inh) 2 puff INH Q12H [facility] Carvedilol (Coreg) 6.25 mg PO BID [facility] Last Admin: 05/25/18 14:07 Dose: 6.25 mg Clonidine HCl (Catapres) 0.1 mg PO Q6H PRN PRN Reason: HYPERTENSION Last Admin: 05/25/18 10:56 Dose: 0.1 mg Famotidine (Pepcid) 10 mg PO BID [facility] Last Admin: 05/25/18 14:07 Dose: 10 mg Furosemide (Lasix Inj) 40 mg IV.PUSH BID@0900,1800 [facility] Guaifenesin (Mucinex Er) 600 mg PO BID [facility] Last Admin: 05/25/18 14:07 Dose: 600 mg Heparin Sodium (Porcine) (Heparin Inj) 5,000 units SQ Q12H [facility] Last Admin: 05/25/18 14:08 Dose: 5,000 units Hydralazine HCl (Apresoline) 25 mg PO TID [facility] Last Admin: 05/25/18 14:14 Dose: Not Given Levofloxacin/Dextrose (Levaquin 750 Mg Premix Inj) 150 mls @ 100 mls/hr IV.SIG Q24H [facility] Lactulose (Lactulose Liq) 30 ml PO DAILY PRN PRN Reason: SEVERE CONSITIPATION Methylprednisolone Sodium Succinate (Solumedrol Inj) 40 mg IV.PUSH Q12H [facility] Last Admin: 05/25/18 14:07 Dose: 40 mg Miscellaneous (Pill Splitter) 1 each OTHER UNSCH [facility] Nifedipine (Procardia Xl) 60 mg PO DAILY [facility] Ondansetron HCl (Zofran Odt) 4 mg PO Q6H PRN PRN Reason: NAUSEA OR VOMITING Senna/Docusate Sodium (Mouna-Colace) 1 tab PO BID [facility] Sennosides (Senokot) 17.2 mg PO Q12H PRN PRN Reason: Moderate Constipation Sodium Chloride (Ns Flush) 2 ml IV.FLUSH BID [facility] Sodium Chloride (Ns Flush) 2 ml IV.FLUSH PRN PRN PRN Reason: FLUSH AFTER USING IV ACCESS Exam Vital signs: Vital Signs 05/25/18 07:52 05/25/18 08:02 05/25/18 08:19 Temperature 99 F Pulse Rate 80 80 79 Respiratory Rate 20 20 20 Blood Pressure 219/149 H 225/154 H Pulse Oximetry 96 97 97 05/25/18 08:45 05/25/18 08:47 05/25/18 09:36 Temperature Pulse Rate 78 79 75 Respiratory Rate 20 20 18 Blood Pressure 213/145 H 224/153 H Pulse Oximetry 93 L 98 05/25/18 10:56 05/25/18 11:42 05/25/18 13:17 Temperature Pulse Rate 71 70 Respiratory Rate 18 16 Blood Pressure 207/133 H 194/129 H Pulse Oximetry 94 L 96 98 05/25/18 13:27 Temperature Pulse Rate 71 Respiratory Rate 18 Blood Pressure 184/119 H Pulse Oximetry 98 Intake & Output 05/24/18 05/25/1818 18:59 06:59 18:59 Output Total 900 / 900 Balance -900 / -900 Weight 90.718 kg Output: Urine 900 / 900 - Constitutional no acute distress - Routine HEENT Exam Head: Present: normocephalic Eye: Present: PERRL ENT: Present: mucous membranes moist - Routine Neck Exam Present: supple - Routine Chest/Breast/Axilla Exam Chest wall: Present: tenderness Comments: reproducible chest pain with palpation - Routine Respiratory Exam Present: decreased breath sounds, crackles, distant breath sounds - Routine Cardiovascular Exam Present: RRR, S1, S2. Absent: murmur, gallop, rubs - Routine Abdominal Exam Present: soft - Routine Extremities Exam Present: edema Comments: 1 edema bilaterally LE - Routine Neurological Exam Present: oriented X3 Results 05/25/18 08:10 05/25/18 08:10 Cardiac Enzymes 05/25/18 05/25/18 05/25/18 Range/Units 08:10 08:10 12:40 AST 87 H (15-37) U/L CK-MB (CK-2) 2.3 (0.5-3.6) ng/mL Troponin I 0.13 H 0.12 H (0.02-0.05) ng/mL B-Natriuretic Peptide Greater than 5000 H (0-100) pg/mL Coagulation 05/25/18 05/25/18 Range/Units 08:10 08:10 PT 14.7 H (9.8-11.6) sec APTT 23.5 L (24.3-30.1) sec B-Natriuretic Peptide Greater than 5000 H (0-100) pg/mL CBC 05/25/18 Range/Units 08:10 WBC 8.8 (4.0-11.0) th/mm3 RBC 3.95 L (4.50-5.90) mil/mm3 Hgb 11.0 L (13.0-17.0) gm/dL Hct 34.2 L (39.0-51.0) % Plt Count 185 (150-450) th/mm3 Neut # (Auto) 5.5 (1.8-7.7) th/mm3 Lymph # (Auto) 2.1 (1.0-4.8) th/mm3 Maury # (Auto) 1.0 H (0.0-0.9) th/mm3 Eos # (Auto) 0.1 (0.0-0.4) th/mm3 Baso # (Auto) 0.1 (0.0-0.2) th/mm3 Comprehensive Metabolic Panel 05/25/18 Range/Units 08:10 Sodium 142 (136-145) meq/L Potassium 3.5 (3.5-5.1) meq/L Chloride 107 (98-107) meq/L Carbon Dioxide 22.8 (21.0-32.0) meq/L BUN 53 H (7-18) mg/dL Creatinine 5.03 H (0.60-1.30) mg/dL Calcium 7.6 L (8.5-10.1) mg/dL AST 87 H (15-37) U/L ALT 280 H (12-78) U/L Alkaline Phosphatase 99 (45-117) U/L Total Protein 7.7 (6.4-8.2) g/dL Albumin 2.6 L (3.4-5.0) g/dL Intake and Output 05/24/18 05/25/18 05/25/18 22:59 06:59 14:59 Output Total 900 / 900 Balance -900 / -900 Output: Urine 900 / 900 Other: Weight 90.718 kg Patient Weight 05/26/18 06:59 Weight 90.718 kg EKG interpretations - EKG EKG results cardiology: sinus rhythm Assessment and Plan - Assessment (1) Acute exacerbation of chronic obstructive airways disease Code(s): J44.1 - Chronic obstructive pulmonary disease with (acute) exacerbation Status: Acute (2) Hypertension Code(s): I10 - Essential (primary) hypertension Status: Acute (3) Renal failure (ARF), acute on chronic Code(s): N17.9 - Acute kidney failure, unspecified; N18.9 - Chronic kidney disease, unspecified Status: Acute (4) CHF (congestive heart failure) Code(s): I50.9 - Heart failure, unspecified Status: Acute (5) Atypical chest pain Code(s): R07.89 - Other chest pain Status: Acute (6) HIV (human immunodeficiency virus infection) Code(s): B20 - Human immunodeficiency virus [HIV] disease Status: Acute - Plan Pt has severe renal insufficiency, nephrology has been consulted. Pt has atypical chest pain, will order an echo to determine LV function and r/o pericardial effusions. EKG shows no acute coronary syndrome. His elevated troponin is consistent with renal insufficiency. Serial cardiac enzymes and ECGs Q6 hours to r/o myocardial ischemia. Monitor cardiac telemetry. Pt started back on home blood pressure medications. Will monitor and adjust accordingly. Will follow patient during hospitalization. The patient was seen and evaluated by Dr. Centeno who participated in care, management and decision making. <Mira Centeno - Last Filed: 05/25/18 17:08> History of Present Illness Primary Care Provider: No Primary Care Physician Family Provider: No Primary Care Physician [facility] - Medical History Medical History: Medical History (Last Updated 05/25/18 @ 11:49 by Samm Patel DO) CHF (congestive heart failure) COPD (chronic obstructive pulmonary disease) Noncompliance Tobacco abuse HIV (human immunodeficiency virus infection) Hypertension - Surgical History Surgical History: Surgical History (Last Updated 05/25/18 @ 08:00 by Effie Santos RN) H/O elbow surgery Medications and Allergies Active Medications: Active Medications Acetaminophen (Tylenol) 650 mg PO Q4H PRN PRN Reason: TEMPERATURE > 101 F Al Hydroxide/Mg Hydroxide (Milk Of [place]) 30 ml PO Q12H PRN PRN Reason: Mild Constipation Albuterol (Duoneb Neb (Prn)) 1 ampul NEB Q4HR NEB PRN PRN Reason: SHORTNESS OF BREATH/WHEEZING Albuterol (Duoneb Neb (Clif)) 1 ampul NEB Q6HR NEB [facility] Last Admin: 05/25/18 15:59 Dose: 1 ampul Aspirin (Ecotrin) 81 mg PO DAILY [facility] Last Admin: 05/25/18 14:08 Dose: Not Given Bisacodyl (Dulcolax Supp) 10 mg RECTAL DAILY PRN PRN Reason: SEVERE CONSITIPATION Budesonide/Formoterol Fumarate (Symbicort 160/4.5 Mcg Inh) 2 puff INH Q12H [facility] Last Admin: 05/25/18 15:15 Dose: 2 puff Carvedilol (Coreg) 6.25 mg PO BID [facility] Last Admin: 05/25/18 14:07 Dose: 6.25 mg Clonidine HCl (Catapres) 0.1 mg PO Q6H PRN PRN Reason: HYPERTENSION Last Admin: 05/25/18 10:56 Dose: 0.1 mg Famotidine (Pepcid) 10 mg PO BID [facility] Last Admin: 05/25/18 14:07 Dose: 10 mg Furosemide (Lasix Inj) 40 mg IV.PUSH BID@0900,1800 [facility] Guaifenesin (Mucinex Er) 600 mg PO BID [facility] Last Admin: 05/25/18 14:07 Dose: 600 mg Heparin Sodium (Porcine) (Heparin Inj) 5,000 units SQ Q12H [facility] Last Admin: 05/25/18 14:08 Dose: 5,000 units Hydralazine HCl (Apresoline) 25 mg PO TID [facility] Last Admin: 05/25/18 14:14 Dose: Not Given Levofloxacin/Dextrose (Levaquin 750 Mg Premix Inj) 150 mls @ 100 mls/hr IV.SIG Q24H [facility] Lactulose (Lactulose Liq) 30 ml PO DAILY PRN PRN Reason: SEVERE CONSITIPATION Methylprednisolone Sodium Succinate (Solumedrol Inj) 40 mg IV.PUSH Q12H [facility] Last Admin: 05/25/18 14:07 Dose: 40 mg Miscellaneous (Pill Splitter) 1 each OTHER UNSCH [facility] Nifedipine (Procardia Xl) 60 mg PO DAILY [facility] Last Admin: 05/25/18 15:45 Dose: 60 mg Ondansetron HCl (Zofran Odt) 4 mg PO Q6H PRN PRN Reason: NAUSEA OR VOMITING Senna/Docusate Sodium (Mouna-Colace) 1 tab PO BID [facility] Sennosides (Senokot) 17.2 mg PO Q12H PRN PRN Reason: Moderate Constipation Sodium Chloride (Ns Flush) 2 ml IV.FLUSH BID [facility] Sodium Chloride (Ns Flush) 2 ml IV.FLUSH PRN PRN PRN Reason: FLUSH AFTER USING IV ACCESS Exam Vital signs: Vital Signs 05/25/18 07:52 05/25/18 08:02 05/25/18 08:19 Temperature 99 F Pulse Rate 80 80 79 Respiratory Rate 20 20 20 Blood Pressure 219/149 H 225/154 H Pulse Oximetry 96 97 97 05/25/18 08:45 05/25/18 08:47 05/25/18 09:36 Temperature Pulse Rate 78 79 75 Respiratory Rate 20 20 18 Blood Pressure 213/145 H 224/153 H Pulse Oximetry 93 L 98 05/25/18 10:56 05/25/18 11:42 05/25/18 13:17 Temperature Pulse Rate 71 70 Respiratory Rate 18 16 Blood Pressure 207/133 H 194/129 H Pulse Oximetry 94 L 96 98 05/25/18 13:27 05/25/18 15:00 05/25/18 16:00 Temperature Pulse Rate 71 65 65 Respiratory Rate 18 20 20 Blood Pressure 184/119 H 190/116 H Pulse Oximetry 98 93 L Intake & Output 05/24/18 05/25/18 05/25/18 18:59 06:59 18:59 Output Total 900 / 900 Balance -900 / -900 Weight 200 lb Output: Urine 900 / 900 Results 05/25/18 08:10 05/25/18 08:10 Cardiac Enzymes 05/25/18 05/25/18 05/25/18 Range/Units 08:10 08:10 12:40 AST 87 H (15-37) U/L CK-MB (CK-2) 2.3 (0.5-3.6) ng/mL Troponin I 0.13 H 0.12 H (0.02-0.05) ng/mL B-Natriuretic Peptide Greater than 5000 H (0-100) pg/mL Coagulation 05/25/18 05/25/18 Range/Units 08:10 08:10 PT 14.7 H (9.8-11.6) sec APTT 23.5 L (24.3-30.1) sec B-Natriuretic Peptide Greater than 5000 H (0-100) pg/mL CBC 05/25/18 Range/Units 08:10 WBC 8.8 (4.0-11.0) th/mm3 RBC 3.95 L (4.50-5.90) mil/mm3 Hgb 11.0 L (13.0-17.0) gm/dL Hct 34.2 L (39.0-51.0) % Plt Count 185 (150-450) th/mm3 Neut # (Auto) 5.5 (1.8-7.7) th/mm3 Lymph # (Auto) 2.1 (1.0-4.8) th/mm3 Maury # (Auto) 1.0 H (0.0-0.9) th/mm3 Eos # (Auto) 0.1 (0.0-0.4) th/mm3 Baso # (Auto) 0.1 (0.0-0.2) th/mm3 Comprehensive Metabolic Panel 05/25/18 Range/Units 08:10 Sodium 142 (136-145) meq/L Potassium 3.5 (3.5-5.1) meq/L Chloride 107 (98-107) meq/L Carbon Dioxide 22.8 (21.0-32.0) meq/L BUN 53 H (7-18) mg/dL Creatinine 5.03 H (0.60-1.30) mg/dL Calcium 7.6 L (8.5-10.1) mg/dL AST 87 H (15-37) U/L ALT 280 H (12-78) U/L Alkaline Phosphatase 99 (45-117) U/L Total Protein 7.7 (6.4-8.2) g/dL Albumin 2.6 L (3.4-5.0) g/dL Intake and Output 05/25/18 05/25/18 05/25/18 06:59 14:59 22:59 Output Total 900 / 900 Balance -900 / -900 Output: Urine 900 / 900 Other: Weight 200 lb Patient Weight 05/26/18 06:59 Weight 200 lb Assessment and Plan - Assessment (1) Acute exacerbation of chronic obstructive airways disease Code(s): J44.1 - Chronic obstructive pulmonary disease with (acute) exacerbation Status: Acute (2) Hypertension Code(s): I10 - Essential (primary) hypertension Status: Acute (3) Renal failure (ARF), acute on chronic Code(s): N17.9 - Acute kidney failure, unspecified; N18.9 - Chronic kidney disease, unspecified Status: Acute (4) CHF (congestive heart failure) Code(s): I50.9 - Heart failure, unspecified Status: Acute (5) Atypical chest pain Code(s): R07.89 - Other chest pain Status: Acute (6) HIV (human immunodeficiency virus infection) Code(s): B20 - Human immunodeficiency virus [HIV] disease Status: Acute - Attending Attestation Patient seen and examined. I reviewed and agree with the evaluation and plan as presented. CP very atypical. Mild troponin evaluation likely related to renal insufficiency. Continue monitoring. Will review echo. <Judith Ku - Last Filed: 05/25/18 14:41> (2) Hypertension Qualifiers: Hypertension type: unspecified Qualified Code(s): I10 - Essential (primary) hypertension (3) Renal failure (ARF), acute on chronic Qualifiers: Acute renal failure type: unspecified Chronic kidney disease stage: unspecified stage Qualified Code(s): N17.9 - Acute kidney failure, unspecified ; N18.9 - Chronic kidney disease, unspecified (4) CHF (congestive heart failure) Qualifiers: Heart failure type: other Qualified Code(s): I50.9 - Heart failure, unspecified <Mira Centeno - Last Filed: 05/25/18 17:08> (2) Hypertension Qualifiers: Hypertension type: unspecified Qualified Code(s): I10 - Essential (primary) hypertension (3) Renal failure (ARF), acute on chronic Qualifiers: Acute renal failure type: unspecified Chronic kidney disease stage: unspecified stage Qualified Code(s): N17.9 - Acute kidney failure, unspecified ; N18.9 - Chronic kidney disease, unspecified (4) CHF (congestive heart failure) Qualifiers: Heart failure type: other Qualified Code(s): I50.9 - Heart failure, unspecified
--- NOTE | 2018-05-25 16:26 | ECHRPT ---
Indication: HYPERTENSIVE HEART DISEASE CONCLUSIONS Normal left ventricular size. Wall thickness is normal. The left ventricular systolic function is grossly normal with an ejection fraction of 60%. The left atrial size is moderately dilated. The right atrial size is mildly dilated. Moderate mitral valve regurgitation. Mild thickening of the mitral valve leaflets. There is mild to moderate tricuspid valve regurgitation. The estimated pulmonary arterial pressure is 61 mmHg. There is estimated moderate pulmonary hypertension present (range 60-70 mmHg). Mild pulmonary valve regurgitation. A right sided pleural effusion is present. BP: / HR: Rhythm: Sinus MEASUREMENTS (Male / Female) Normal Values Technical Quality:Fair 2D ECHO LV Diastolic Diameter PLAX 5.3 cm 4.2 - 5.9 / 3.9 - 5.3 cm LV Systolic Diameter PLAX 3.3 cm IVS Diastolic Thickness 0.9 cm 0.6 - 1.0 / 0.6 - 0.9 cm LVPW Diastolic Thickness 1.0 cm 0.6 - 1.0 / 0.6 - 0.9 cm LV Relative Wall Thickness 0.4 RV Internal Dim ED PLAX 3.1 cm LVOT Diameter 2.0 cm Aortic Root Diameter 2.7 cm LA Systolic Diameter LX 5.4 cm 3.0 - 4.0 / 2.7 - 3.8 cm M-MODE AV Cusp Separation MM 1.9 cm DOPPLER AV Peak Velocity 119.0 cm/s AV Peak Gradient 5.7 mmHg AV Mean Gradient 3.0 mmHg AV Velocity Time Integral 17.4 cm LVOT Peak Velocity 84.2 cm/s LVOT Peak Gradient 2.8 mmHg LVOT Velocity Time Integral 15.2 cm AV Area Cont Eq vti 2.6 cm AV Area Cont Eq pk 2.1 cm Mitral E Point Velocity 108.0 cm/s Mitral A Point Velocity 47.4 cm/s Mitral E to A Ratio 2.3 LV E' Lateral Velocity 3.3 cm/s Mitral E to LV E' Lateral Ratio 32.6 LV E' Septal Velocity 3.9 cm/s Mitral E to LV E' Septal Ratio 27.7 TR Peak Velocity 357.0 cm/s TR Peak Gradient 51.0 mmHg Right Atrial Pressure 10.0 mmHg Pulmonary Artery Systolic Pressu 61.0 mmHg Right Ventricular Systolic Press 61.0 mmHg PV Peak Velocity 45.9 cm/s PV Peak Gradient 0.8 mmHg FINDINGS LEFT VENTRICLE Normal left ventricular size. Wall thickness is normal. The left ventricular systolic function is grossly normal with an ejection fraction of 60%. RIGHT VENTRICLE Normal right ventricular size and systolic function. LEFT ATRIUM The left atrial size is moderately dilated. RIGHT ATRIUM The right atrial size is mildly dilated. ATRIAL SEPTUM No atrial level shunt is demonstrated by color flow Doppler interrogation. AORTA The aortic root and proximal ascending aorta are not well visualized. MITRAL VALVE Moderate mitral valve regurgitation. Mild thickening of the mitral valve leaflets. AORTIC VALVE Trileaflet aortic valve. No aortic valve stenosis or regurgitation. TRICUSPID VALVE There is mild to moderate tricuspid valve regurgitation. The estimated pulmonary arterial pressure is 61 mmHg. There is estimated moderate pulmonary hypertension present (range 60-70 mmHg). PULMONARY VALVE Mild pulmonary valve regurgitation. VESSELS The inferior vena cava is normal in size. PERICARDIUM No pericardial effusion. A right sided pleural effusion is present. Mira Centeno MD, FACC (Electronically Signed) Final Date:25 May 2018 16:24
[2018-05-25 17:01] LABS: Hepatitis A IgM Antibody Nonreactive (Nonreactive); Hepatitits B Surface Antigen Nonreactive (Nonreactive)
[2018-05-25 18:05] LABS: Troponin I 0.1 ng/mL (0.02-0.05)
--- NOTE | 2018-05-25 18:31 | ECG ---
Date Performed: 05/25/2018 Time Performed: 07:57:35 PTAGE: 57 years EKG: Sinus rhythm POSSIBLE LEFT ATRIAL ENLARGEMENT NONSPECIFIC ST & T-WAVE ABNORMALITY PROLONGED QT INTERVAL ABNORMAL ECG PREVIOUS TRACING : 03/21/2018 10.41 Since the previous tracing, no significant change noted DOCTOR: Mira Centeno Interpretating Date/Time 05/25/2018 18:30:36
[2018-05-25] MEDS: Senna/Docusate Sodium 8.6/50 MG Tablet PO SCH (21:58)
[2018-05-25 22:58] LABS: Amphetamine Screen,Urine Neg (Neg); Barbiturate Screen,Urine Neg (Neg); Cannabinoid Screen,Urine Neg (Neg); Cocaine Screen,Urine Pos (Neg)
[2018-05-25 22:59] LABS: Opiate Screen,Urine Neg (Neg)
--- NOTE | 2018-05-25 23:08 | MB ---
cc: Lyric Laureano MD DATE: 05/25/2018 REASON FOR CONSULTATION: Chronic kidney disease with very high BUN and creatinine. HISTORY OF PRESENT ILLNESS: This is a 57-year-old male with a past medical history of hypertension, HIV disease, chronic obstructive pulmonary disease, chronic kidney disease, history of noncompliance with his treatment, came to the hospital with complaint of worsening shortness of breath. I was called to see the patient because of very high BUN and creatinine. The patient has known history of chronic kidney disease. 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 Now, he came with a creatinine of 5.0. The patient has gradual worsening of shortness of breath. There is no specific chest pain. When the patient came to the hospital, he was quite tachypneic, and his oxygen saturation was in 90s, and after the oxygen and nebulizer treatment, it increased to 99%. The patient was given Solu-Medrol. He did notice that his urine output has decreased slightly and also noticed that he has worsening swelling in the legs. The patient admits that he has not been taking his medications regularly, and his primary care physician is not seeing him regularly, possibly because of his noncompliance. PAST MEDICAL HISTORY: Hypertension, HIV disease, chronic obstructive pulmonary disease, congestive heart failure, chronic obstructive pulmonary disease, chronic kidney disease, advanced renal failure. PAST SURGICAL HISTORY: He has history of elbow surgery. REVIEW OF SYSTEMS: The patient has generalized weakness, feeling tired, has nausea. There is no vomiting. He has worsening shortness of breath, more on exertion. There is no chest pain. No palpitation. No abdominal pain. No history of diarrhea. No dysuria, hematuria, but did notice that he has decreased urine output. He has increased swelling of his legs. He denies taking any nonsteroidal anti-inflammatory drugs. SOCIAL HISTORY: The patient is single. He smoked about 1/2 pack per day. There is no history of heavy alcoholism. He denies any other drug abuse. FAMILY HISTORY: Noncontributory. ALLERGIES: HE HAS NO KNOWN DRUG ALLERGIES. MEDICATIONS: Currently, he is on following medications: 1. Tylenol as needed. 2. DuoNeb as needed. 3. Ecotrin 81 mg once a day. 4. Coreg 6.25 mg b.i.d. 5. Catapres 0.1 mg p.r.n. 6. Pepcid 10 mg b.i.d. 7. Furosemide 40 mg IV b.i.d. 8. Mucinex 600 mg b.i.d. 9. Heparin 5000 units subcutaneous every 12 hours. 10. Hydralazine 25 mg t.i.d. 11. Lactulose 30 mL p.r.n. 12. Solu-Medrol 40 mg IV every 12 hours. 13. Nifedipine 60 mg daily. 14. Zofran 4 mg as needed. 15. Mouna-Colace 1 tablet b.i.d. 16. Senokot 17.2 mg every 12 hours. PHYSICAL EXAMINATION: GENERAL: The patient is awake, alert. He is in mild respiratory distress, currently with nasal cannula. VITAL SIGNS: His last blood pressure is 190/116, temperature is 97.6, oxygen saturation on 2 L nasal cannula is 93%-98%. HEENT: Pupils are mid-constricted. Nonicteric sclerae. Conjunctivae pale. NECK: Supple. JVD is not elevated. LUNGS: The patient has bilateral decreased air entry with basal rales and scattered wheezing. HEART: S1, S2. Regular rhythm. ABDOMEN: Distended, soft, lax. There is no tenderness. EXTREMITIES: He has bilateral 2+ edema. LABORATORY DATA: WBC count is 8.8, hemoglobin 11.0, platelet count of 185, neutrophils 63%. INR is 1.5. Sodium 142, potassium 3.5, chloride 107, bicarbonate 22.8, BUN 53, creatinine 5.0. Estimated GFR is 15, calcium is 7.6, magnesium 2.4, total bilirubin is 1.5, AST is 87, ALT is 280. BNP is greater than 500. Troponin I is 0.13. Albumin is 2.6. Urinalysis showed protein of 100. Hepatitis serologies nonreactive. IMAGING STUDIES: The patient had a CT scan of the abdomen and pelvis done which showed moderate diverticulosis with no inflammatory changes, small to moderate amount of ascites, small bilateral pleural effusion, cholelithiasis, opacities at both lung bases, moderate cardiomegaly. The kidneys are reported as normal in size. No evidence of mass or hydronephrosis. Chest x-ray was done which shows a small right pleural effusion and cardiomegaly, bilateral pulmonary infiltrates. ASSESSMENT AND PLAN: 1. Chronic kidney disease with advanced renal failure. 2. Chronic obstructive pulmonary disease. 3. Congestive heart failure and fluid overload. 4. Human immunodeficiency virus disease. 5. Hypertension, not controlled. 6. Noncompliance. The patient has a history of noncompliance with his medications and his diet. He needs to have better control of his blood pressure. The patient has advanced renal disease, could be hypertensive renal disease or possibility of HIV-related nephropathy. He does not have too much proteinuria. At present, it is important to control his blood pressure, and I agree with continuing the diuretics. He is currently only on clonidine p.r.n., and hydralazine was started today and also getting the nifedipine. His GFR is borderline 15 at present. Some of the symptoms he has could be from uremia. If the kidney function gets worse or not improving, we will consider starting him on dialysis. This was discussed with the patient. Thank you for the consultation. I will follow the patient while he is in the hospital. MD QUEENIE Fairbanks/nasir/cammie , 05:04 PM , 05:16 PM
[2018-05-26] MEDS: Heparin - SQ 10,000 UNITS/ML Vial SQ SCH ×3 (01:32→21:39)
[2018-05-26] MEDS: MethylPREDNISolone Sod Succinate Inj 40 MG/ML Vial IV.PUSH SCH ×2 (01:34→14:12)
[2018-05-26] MEDS: Budesonide-Formoterol 160/4.5 MCG 6 GM Inhaler INH SCH ×2 (01:34→14:13)
[2018-05-26 04:52] LABS: Baso % (Auto) 0.2 % (0.0-2.0); Hematocrit 28.5 % (39.0-51.0); Hemoglobin 9.4 gm/dL (13.0-17.0); Lymph # (Auto) 0.7 th/mm3 (1.0-4.8); Lymph % (Auto) 10.5 % (9.0-44.0); Mean Corpuscular HGB Conc 33.1 % (32.0-36.0); Mean Corpuscular Hemoglobin 27.7 pg (27.0-34.0); Mean Corpuscular Volume 83.9 fL (80.0-100.0); Mean Platelet Volume 9.3 fL (7.0-11.0); Mono # (Auto) 0.4 th/mm3 (0.0-0.9); Mono % (Auto) 5.5 % (0.0-8.0); Neut # (Auto) 5.5 th/mm3 (1.8-7.7); Neut % (Auto) 83.8 % (16.0-70.0); Platelet Count 167 th/mm3 (150-450); Red Blood Count 3.39 mil/mm3 (4.50-5.90); Red Cell Distribution Width 18.5 % (11.6-17.2); White Blood Count 6.5 th/mm3 (4.0-11.0)
[2018-05-26 05:10] LABS: Albumin 2.2 g/dL (3.4-5.0); Anion Gap 11 meq/L (5-15); Aspartate Aminotransferase 57 U/L (15-37); Blood Urea Nitrogen 59 mg/dL (7-18); Calcium 7.6 mg/dL (8.5-10.1); Carbon Dioxide 27.5 meq/L (21.0-32.0); Chloride 101 meq/L (98-107); Glomerular Filtration Rate 15 mL/min (>89); Glucose,Random 155 mg/dL (74-106); Magnesium 2.3 mg/dL (1.5-2.5); Potassium 3.2 meq/L (3.5-5.1); Sodium 139 meq/L (136-145)
[2018-05-26 05:11] LABS: Alanine Aminotransferase 209 U/L (12-78); Cholesterol 125 mg/dL (120-200)
[2018-05-26 05:20] LABS: Alkaline Phosphatase 71 U/L (45-117); Chol/HDL Ratio 3.65 Ratio; Free T4 (Free Thyroxine) 1.05 ng/dL (0.76-1.46); HDL Cholesterol 34.2 mg/dL (40.0-60.0); LDL Cholesterol,Calculated 82 mg/dL (0-99); Phosphorus 3.5 mg/dL (2.5-4.9); Total Protein 6.7 g/dL (6.4-8.2); Triglycerides 46 mg/dL (42-150)
[2018-05-26] MEDS: guaiFENesin 600 MG ER Tablet PO SCH ×2 (09:24→21:37)
[2018-05-26] MEDS: Carvedilol 6.25 MG Tablet PO SCH ×2 (09:24→21:38)
[2018-05-26] MEDS: Senna/Docusate Sodium 8.6/50 MG Tablet PO SCH ×2 (09:25→21:38)
[2018-05-26] MEDS: hydrALAZINE 25 MG Tablet PO SCH ×3 (09:25→17:57)
[2018-05-26] MEDS: Famotidine 20 MG Tablet PO SCH ×2 (09:25→21:37)
--- NOTE | 2018-05-26 11:18 | P.PNCA ---
<Norma Kuah N - Last Filed: 05/26/18 11:06> Subjective Interval history: Pt denies palpitations, pressure, dizziness and SOB. Pt does c/o chest pain that increases when taking a deep breath. Physical Exam Vital signs: Vital Signs 05/25/18 11:42 05/25/18 13:17 05/25/18 13:27 Temperature Pulse Rate 70 71 Respiratory Rate 16 18 Blood Pressure 194/129 H 184/119 H Pulse Oximetry 96 98 98 05/25/18 15:00 05/25/18 16:00 05/25/18 17:27 Temperature Pulse Rate 65 65 68 Respiratory Rate 20 20 18 Blood Pressure 190/116 H 181/112 H Pulse Oximetry 93 L 98 05/25/18 18:30 05/25/18 21:46 05/25/18 22:00 Temperature 98.9 F 97.5 F L Pulse Rate 62 65 60 Respiratory Rate 20 16 20 Blood Pressure 179/116 H 173/97 H 118/82 Pulse Oximetry 95 91 L 05/25/18 23:00 05/26/18 00:00 05/26/18 01:00 Temperature 98.0 F Pulse Rate 62 62 62 Respiratory Rate 18 Blood Pressure 122/86 Pulse Oximetry 96 05/26/18 02:00 05/26/18 03:00 05/26/18 04:00 Temperature 98.1 F Pulse Rate 64 64 64 Respiratory Rate 18 Blood Pressure 131/93 H Pulse Oximetry 93 L 05/26/18 04:20 05/26/18 05:00 05/26/18 06:00 Temperature Pulse Rate 64 63 66 Respiratory Rate 20 Blood Pressure Pulse Oximetry Intake & Output 05/25/18 05/26/18 05/26/18 18:59 06:59 18:59 Intake Total 960 / 960 Output Total 900 / 900 725 / 725 Balance -900 / -900 235 / 235 Weight 90.718 kg 90.6 kg Intake: Oral 960 / 960 Output: Urine 900 / 900 725 / 725 - Constitutional no acute distress - Routine HEENT Exam Head: Present: normocephalic Eye: Present: PERRL ENT: Present: mucous membranes moist - Routine Neck Exam Present: supple - Routine Respiratory Exam Present: decreased breath sounds - Routine Cardiovascular Exam Present: S1, S2. Absent: murmur, gallop, rubs - Routine Abdominal Exam Present: soft - Routine Extremities Exam Present: full ROM, pulses intact, normal capillary refill. Absent: edema - Routine Neurological Exam Present: oriented X3 - Detailed Neurological Exam: Coma Scale Eye Opening: Spontaneous Verbal Response: Oriented Motor Response: Obey commands Harpreet Coma Scale Total: 15 - Routine Psychiatric Exam Present: normal affect Assessment and Plan - Assessment (1) Acute exacerbation of chronic obstructive airways disease Code(s): J44.1 - Chronic obstructive pulmonary disease with (acute) exacerbation Status: Acute (2) Hypertension Code(s): I10 - Essential (primary) hypertension Status: Acute (3) Renal failure (ARF), acute on chronic Code(s): N17.9 - Acute kidney failure, unspecified; N18.9 - Chronic kidney disease, unspecified Status: Acute (4) CHF (congestive heart failure) Code(s): I50.9 - Heart failure, unspecified Status: Acute (5) Atypical chest pain Code(s): R07.89 - Other chest pain Status: Acute (6) HIV (human immunodeficiency virus infection) Code(s): B20 - Human immunodeficiency virus [HIV] disease Status: Acute - Plan Pt has severe renal insufficiency, nephrology evaluation in progress. Pt has atypical chest pain that increases when taking a deep breath which is indicative of pleuritic pain. Monitor cardiac telemetry. Pt started back on home blood pressure medications. Echo shows, moderate mitral valve regurgitation , mild to moderate tricuspid valve regurgitation and moderate pulmonary hypertension. Continue with current cardiac treatment plan. Will follow patient during hospitalization. The patient was seen and evaluated by Dr. Centeno who participated in care, management and decision making. <Mira Centeno - Last Filed: 05/26/18 20:11> Physical Exam Vital signs: Vital Signs 05/25/18 21:46 05/25/18 22:00 05/25/18 23:00 Temperature 98.9 F 97.5 F L Pulse Rate 65 60 62 Respiratory Rate 16 20 Blood Pressure 173/97 H 118/82 Pulse Oximetry 91 L 05/26/18 00:00 05/26/18 01:00 05/26/18 02:00 Temperature 98.0 F Pulse Rate 62 62 64 Respiratory Rate 18 Blood Pressure 122/86 Pulse Oximetry 96 05/26/18 03:00 05/26/18 04:00 05/26/18 04:20 Temperature 98.1 F Pulse Rate 64 64 64 Respiratory Rate 18 20 Blood Pressure 131/93 H Pulse Oximetry 93 L 05/26/18 05:00 05/26/18 06:00 05/26/18 07:00 Temperature Pulse Rate 63 66 64 Respiratory Rate Blood Pressure Pulse Oximetry 96 05/26/18 08:00 05/26/18 09:00 05/26/18 10:00 Temperature 98.5 F Pulse Rate 67 66 64 Respiratory Rate 18 Blood Pressure 129/85 Pulse Oximetry 96 05/26/18 11:00 05/26/18 11:15 05/26/18 12:00 Temperature 98.2 F Pulse Rate 66 65 65 Respiratory Rate 16 20 Blood Pressure 131/92 H Pulse Oximetry 96 95 05/26/18 13:00 05/26/18 14:00 05/26/18 15:00 Temperature Pulse Rate 66 64 66 Respiratory Rate Blood Pressure Pulse Oximetry 05/26/18 15:24 05/26/18 15:25 05/26/18 15:35 Temperature 98.1 F Pulse Rate 65 65 Respiratory Rate 18 20 Blood Pressure 133/90 Pulse Oximetry 94 L 95 05/26/18 16:00 05/26/18 17:00 05/26/18 18:00 Temperature 98.1 F Pulse Rate 66 66 68 Respiratory Rate 20 Blood Pressure 133/90 Pulse Oximetry 95 Intake & Output 05/26/18 05/26/18 05/27/18 06:59 18:59 06:59 Intake Total 960 / 960 1050 / 1050 Output Total 725 / 725 1200 / 1200 Balance 235 / 235 -150 / -150 Weight 199 lb 11.821 oz Intake: IV 150 / 150 Levaquin 750 mg Premix Inj 150 150 / 150 ML @ 100 mls/hr IV.SIG Q24H [facility] Rx#:[id number] Oral 960 / 960 900 / 900 Output: Urine 725 / 725 1200 / 1200 Assessment and Plan - Assessment (1) Acute exacerbation of chronic obstructive airways disease Code(s): J44.1 - Chronic obstructive pulmonary disease with (acute) exacerbation Status: Acute (2) Hypertension Code(s): I10 - Essential (primary) hypertension Status: Acute (3) Renal failure (ARF), acute on chronic Code(s): N17.9 - Acute kidney failure, unspecified; N18.9 - Chronic kidney disease, unspecified Status: Acute (4) CHF (congestive heart failure) Code(s): I50.9 - Heart failure, unspecified Status: Acute (5) Atypical chest pain Code(s): R07.89 - Other chest pain Status: Acute (6) HIV (human immunodeficiency virus infection) Code(s): B20 - Human immunodeficiency virus [HIV] disease Status: Acute - Attending Attestation Patient seen and examined. I reviewed and agree with the evaluation and plan as presented. CP is atypical, likely of noncardiac origin. No new cardiac issues. <Judith Ku - Last Filed: 05/26/18 11:06> (2) Hypertension Qualifiers: Hypertension type: unspecified Qualified Code(s): I10 - Essential (primary) hypertension (3) Renal failure (ARF), acute on chronic Qualifiers: Acute renal failure type: unspecified Chronic kidney disease stage: unspecified stage Qualified Code(s): N17.9 - Acute kidney failure, unspecified ; N18.9 - Chronic kidney disease, unspecified (4) CHF (congestive heart failure) Qualifiers: Heart failure type: other Qualified Code(s): I50.9 - Heart failure, unspecified <Mira Centeno - Last Filed: 05/26/18 20:11> (2) Hypertension Qualifiers: Hypertension type: unspecified Qualified Code(s): I10 - Essential (primary) hypertension (3) Renal failure (ARF), acute on chronic Qualifiers: Acute renal failure type: unspecified Chronic kidney disease stage: unspecified stage Qualified Code(s): N17.9 - Acute kidney failure, unspecified ; N18.9 - Chronic kidney disease, unspecified (4) CHF (congestive heart failure) Qualifiers: Heart failure type: other Qualified Code(s): I50.9 - Heart failure, unspecified
--- NOTE | 2018-05-26 11:41 | P.PN ---
Subjective Interval history: Follow up Visit acute kidney injury on possibly chronic kidney disease, acute congestive heart failure, pneumonia, HIV. Patient seen and examined today. No oxygen use. States shortness of breath and dyspnea has improved since he came to the hospital. States that he continues to have episodes of gasping for air every morning, wakes him up at around 3 to 4:00 AM. Otherwise, denies fevers, chills, nausea, vomiting, diarrhea. Denies chest pain, palpitations, headaches , dizziness. Physical Exam Vital signs: Vital Signs 05/25/18 11:42 05/25/18 13:17 05/25/18 13:27 Temperature Pulse Rate 70 71 Respiratory Rate 16 18 Blood Pressure 194/129 H 184/119 H Pulse Oximetry 96 98 98 05/25/18 15:00 05/25/18 16:00 05/25/18 17:27 Temperature Pulse Rate 65 65 68 Respiratory Rate 20 20 18 Blood Pressure 190/116 H 181/112 H Pulse Oximetry 93 L 98 05/25/18 18:30 05/25/18 21:46 05/25/18 22:00 Temperature 98.9 F 97.5 F L Pulse Rate 62 65 60 Respiratory Rate 20 16 20 Blood Pressure 179/116 H 173/97 H 118/82 Pulse Oximetry 95 91 L 05/25/18 23:00 05/26/18 00:00 05/26/18 01:00 Temperature 98.0 F Pulse Rate 62 62 62 Respiratory Rate 18 Blood Pressure 122/86 Pulse Oximetry 96 05/26/18 02:00 05/26/18 03:00 05/26/18 04:00 Temperature 98.1 F Pulse Rate 64 64 64 Respiratory Rate 18 Blood Pressure 131/93 H Pulse Oximetry 93 L 05/26/18 04:20 05/26/18 05:00 05/26/18 06:00 Temperature Pulse Rate 64 63 66 Respiratory Rate 20 Blood Pressure Pulse Oximetry 05/26/18 07:00 05/26/18 08:00 Temperature 98.5 F Pulse Rate 64 67 Respiratory Rate 18 Blood Pressure 129/85 Pulse Oximetry 96 96 Intake & Output 05/25/18 05/26/18 05/26/18 18:59 06:59 18:59 Intake Total 960 / 960 Output Total 900 / 900 725 / 725 Balance -900 / -900 235 / 235 Weight 90.718 kg 90.6 kg Intake: Oral 960 / 960 Output: Urine 900 / 900 725 / 725 Narrative: GENERAL: This is a well-nourished, well-developed patient, in no apparent distress. SKIN: Warm and dry. HEENT: Normocephalic. Pupils equal round and reactive. Nose without bleeding. Airway patent. NECK: Trachea midline. CARDIOVASCULAR: Regular rate and rhythm without murmurs, gallops, or rubs. RESPIRATORY: Diminished bases. Minimal crackles right lower lobe. No wheezes, rales, or rhonchi. GASTROINTESTINAL: Abdomen soft, non-tender, nondistended. Bowel Sounds normoactive x4. MUSCULOSKELETAL: Extremities without clubbing, cyanosis. Bilateral lower extremity +1 edema. NEUROLOGICAL: Awake and alert. Oriented to time, place, person. No focal neuro deficit. Moves all extremities. Normal speech. Results - Labs CBC & Chem 7: 05/26/18 03:33 05/26/18 03:33 Laboratory Results - last 24 hr 05/25/18 05/25/18 05/25/18 08:49 12:40 12:40 WBC RBC Hgb Hct MCV MCH MCHC RDW Plt Count MPV Neut % (Auto) Lymph % (Auto) [place] % (Auto) Eos % (Auto) Baso % (Auto) Neut # (Auto) Lymph # (Auto) [place] # (Auto) Eos # (Auto) Baso # (Auto) WBC Differential Differential Comment Sodium Potassium Chloride Carbon Dioxide Anion Gap BUN Creatinine Estimated GFR Random Glucose Calcium Phosphorus Magnesium Total Bilirubin AST ALT Alkaline Phosphatase Total Creatine Kinase 199 Troponin I 0.12 H Total Protein Albumin Triglycerides Cholesterol LDL Cholesterol, Calc HDL Cholesterol Cholesterol/HDL Ratio TSH Free T4 Urine Opiates Screen Neg Ur Barbiturates Screen Neg Ur Amphetamines Screen Neg U Benzodiazepines Scrn Neg Urine Cocaine Screen Pos H U Cannabinoids Screen Neg Hepatitis A IgM Ab Nonreactive Hep Bs Antigen Nonreactive Hep B Core IgM Ab Nonreactive Hep C IgG Ab Nonreactive 05/25/18 05/26/18 05/26/18 17:32 03:33 03:33 WBC 6.5 RBC 3.39 L Hgb 9.4 L Hct 28.5 L MCV 83.9 MCH 27.7 MCHC 33.1 RDW 18.5 H Plt Count 167 MPV 9.3 Neut % (Auto) 83.8 H Lymph % (Auto) 10.5 [place] % (Auto) 5.5 Eos % (Auto) 0.0 Baso % (Auto) 0.2 Neut # (Auto) 5.5 Lymph # (Auto) 0.7 L [place] # (Auto) 0.4 Eos # (Auto) 0.0 Baso # (Auto) 0.0 WBC Differential . Differential Comment Auto diff final Sodium 139 Potassium 3.2 L Chloride 101 Carbon Dioxide 27.5 Anion Gap 11 BUN 59 H Creatinine 4.88 H Estimated GFR 15 L Random Glucose 155 H Calcium 7.6 L Phosphorus 3.5 Magnesium 2.3 Total Bilirubin 0.8 AST 57 H ALT 209 H Alkaline Phosphatase 71 Total Creatine Kinase 167 Troponin I 0.10 H Total Protein 6.7 D Albumin 2.2 L Triglycerides 46 Cholesterol 125 LDL Cholesterol, Calc 82 HDL Cholesterol 34.2 L Cholesterol/HDL Ratio 3.65 TSH 1.280 Free T4 1.05 Urine Opiates Screen Ur Barbiturates Screen Ur Amphetamines Screen U Benzodiazepines Scrn Urine Cocaine Screen U Cannabinoids Screen Hepatitis A IgM Ab Hep Bs Antigen Hep B Core IgM Ab Hep C IgG Ab Assessment and Plan - Assessment (1) Pneumonia Code(s): J18.9 - Pneumonia, unspecified organism Status: Acute (2) HIV (human immunodeficiency virus infection) Code(s): B20 - Human immunodeficiency virus [HIV] disease Status: Acute (3) Hypertension Code(s): I10 - Essential (primary) hypertension Status: Acute (4) Renal failure (ARF), acute on chronic Code(s): N17.9 - Acute kidney failure, unspecified; N18.9 - Chronic kidney disease, unspecified Status: Acute (5) CHF (congestive heart failure) Code(s): I50.9 - Heart failure, unspecified Status: Acute - Plan Patient is a 57-year-old -[place] gentleman who presented to the emergency department complaining of shortness of breath Acute congestive heart failure Atypical chest pain -BNP greater than 5000 -Chest x-ray showed 1. Bilateral pulmonary infiltrates are noted (right worse than left) consistent with asymmetric pulmonary edema versus pneumonia. Clinical correlation is recommended. 2. Cardiomegaly. 3. Small right pleural effusion. -IV Lasix BID -Monitor I's and O's. Daily weights. -Echocardiogram showed preserved EF 60%, pulmonary HTN. -Cardiology consulted, appreciate recommendations. Atypical chest pain possibly pleuritic. Community-acquired pneumonia COPD but exacerbation Tobacco abuse -Received IV Solu-Medrol, now on IV solumedrol 40mg Q12, taper to PO prednisone -IV antibiotics Levaquin -Mucinex, duo nebs. Start Symbicort -Monitor respiratory status. Incentive spirometry. -Supplemental oxygen as needed Acute kidney failure, possible chronic kidney disease secondary to hypertensive nephropathy -Avoid nephrotoxins -Noncompliant with diet and medications. -Nephrology consulted appreciate recommendation. Plan for possible dialysis if kidney functions get worse. HTN, uncontrolled -Patient noncompliant with medications and diet -Continue Coreg, hydralazine 3 times daily, nifedipine -Clonidine as needed. Adjust medications as needed. -Monitor BP trend HIV -Reports not on any medication -Will not start HIV meds. -Hepatitis panel negative DVT Prop Heparin Code Status: Full Code Discussed Condition With: Patient, nursing Discharge Planning: DC when clinically improved. (3) Hypertension Qualifiers: Hypertension type: unspecified Qualified Code(s): I10 - Essential (primary) hypertension (4) Renal failure (ARF), acute on chronic Qualifiers: Acute renal failure type: unspecified Chronic kidney disease stage: unspecified stage Qualified Code(s): N17.9 - Acute kidney failure, unspecified ; N18.9 - Chronic kidney disease, unspecified (5) CHF (congestive heart failure) Qualifiers: Heart failure type: other Qualified Code(s): I50.9 - Heart failure, unspecified
[2018-05-26 17:38] LABS: Hemoglobin A1c 5.2 % (4.3-6.0)
--- NOTE | 2018-05-26 18:36 | P.PNNP ---
Subjective Interval history: patient seen, alert, still has SOB, no nausea or vomiting. Physical Exam Vital signs: Vital Signs 05/25/18 21:46 05/25/18 22:00 05/25/18 23:00 Temperature 98.9 F 97.5 F L Pulse Rate 65 60 62 Respiratory Rate 16 20 Blood Pressure 173/97 H 118/82 Pulse Oximetry 91 L 05/26/18 00:00 05/26/18 01:00 05/26/18 02:00 Temperature 98.0 F Pulse Rate 62 62 64 Respiratory Rate 18 Blood Pressure 122/86 Pulse Oximetry 96 05/26/18 03:00 05/26/18 04:00 05/26/18 04:20 Temperature 98.1 F Pulse Rate 64 64 64 Respiratory Rate 18 20 Blood Pressure 131/93 H Pulse Oximetry 93 L 05/26/18 05:00 05/26/18 06:00 05/26/18 07:00 Temperature Pulse Rate 63 66 64 Respiratory Rate Blood Pressure Pulse Oximetry 96 05/26/18 08:00 05/26/18 09:00 05/26/18 10:00 Temperature 98.5 F Pulse Rate 67 66 64 Respiratory Rate 18 Blood Pressure 129/85 Pulse Oximetry 96 05/26/18 11:00 05/26/18 11:15 05/26/18 12:00 Temperature 98.2 F Pulse Rate 66 65 65 Respiratory Rate 16 20 Blood Pressure 131/92 H Pulse Oximetry 96 95 05/26/18 13:00 05/26/18 14:00 05/26/18 15:00 Temperature Pulse Rate 66 64 66 Respiratory Rate Blood Pressure Pulse Oximetry 05/26/18 15:24 05/26/18 15:25 05/26/18 15:35 Temperature 98.1 F Pulse Rate 65 65 Respiratory Rate 18 20 Blood Pressure 133/90 Pulse Oximetry 94 L 95 05/26/18 16:00 05/26/18 17:00 05/26/18 18:00 Temperature 98.1 F Pulse Rate 66 66 68 Respiratory Rate 20 Blood Pressure 133/90 Pulse Oximetry 95 Intake & Output 05/25/18 05/26/18 05/26/18 18:59 06:59 18:59 Intake Total 960 / 960 1050 / 1050 Output Total 900 / 900 725 / 725 1200 / 1200 Balance -900 / -900 235 / 235 -150 / -150 Weight 90.718 kg 90.6 kg Intake: IV 150 / 150 Levaquin 750 mg Premix Inj 150 150 / 150 ML @ 100 mls/hr IV.SIG Q24H [facility] Rx#:[id number] Oral 960 / 960 900 / 900 Output: Urine 900 / 900 725 / 725 1200 / 1200 Narrative: GENERAL: This is a well-nourished, well-developed patient, in no apparent distress. SKIN: Warm and dry. HEENT: Normocephalic. Pupils equal round and reactive. Nose without bleeding. Airway patent. NECK: Trachea midline. CARDIOVASCULAR: Regular rate and rhythm without murmurs, gallops, or rubs. RESPIRATORY: Diminished bases. Minimal crackles right lower lobe. No wheezes, rales, or rhonchi. GASTROINTESTINAL: Abdomen soft, non-tender, nondistended. Bowel Sounds normoactive x4. MUSCULOSKELETAL: Extremities without clubbing, cyanosis. Bilateral lower extremity moderate edema. NEUROLOGICAL: Awake and alert. Oriented to time, place, person. No focal neuro deficit. Moves all extremities. Normal speech. Assessment and Plan - Plan 1. Chronic kidney disease with advanced renal failure. 2. Chronic obstructive pulmonary disease. 3. Congestive heart failure and fluid overload. 4. Human immunodeficiency virus disease. 5. Hypertension, not controlled. 6. Noncompliance. Patient has advance stage 4 chronic kidney disease. Creatinine is stable, K is normal. Still has edema, increase Lasix to 80 mg BID. Follow the urine out put and BMP. No urgent need for Dialysis. Avoid Nephrotoxins.
[2018-05-27] MEDS: Budesonide-Formoterol 160/4.5 MCG 6 GM Inhaler INH SCH ×2 (00:59→17:40)
[2018-05-27] MEDS: MethylPREDNISolone Sod Succinate Inj 40 MG/ML Vial IV.PUSH SCH (01:00)
[2018-05-27 06:35] LABS: Baso % (Auto) 0.2 % (0.0-2.0); Hematocrit 29.6 % (39.0-51.0); Hemoglobin 9.7 gm/dL (13.0-17.0); Lymph # (Auto) 0.6 th/mm3 (1.0-4.8); Lymph % (Auto) 5.6 % (9.0-44.0); Mean Corpuscular HGB Conc 32.6 % (32.0-36.0); Mean Corpuscular Hemoglobin 27.6 pg (27.0-34.0); Mean Corpuscular Volume 84.7 fL (80.0-100.0); Mean Platelet Volume 9.2 fL (7.0-11.0); Mono # (Auto) 0.5 th/mm3 (0.0-0.9); Mono % (Auto) 4.6 % (0.0-8.0); Neut # (Auto) 9.2 th/mm3 (1.8-7.7); Neut % (Auto) 89.6 % (16.0-70.0); Platelet Count 190 th/mm3 (150-450); Red Cell Distribution Width 18.3 % (11.6-17.2); White Blood Count 10.2 th/mm3 (4.0-11.0)
[2018-05-27 06:53] LABS: Calcium 7.5 mg/dL (8.5-10.1); Carbon Dioxide 27.7 meq/L (21.0-32.0); Potassium 3.1 meq/L (3.5-5.1)
[2018-05-27] MEDS: Famotidine 20 MG Tablet PO SCH (08:25)
[2018-05-27] MEDS: hydrALAZINE 25 MG Tablet PO SCH (08:26)
[2018-05-27] MEDS: guaiFENesin 600 MG ER Tablet PO SCH (08:26)
[2018-05-27] MEDS: Senna/Docusate Sodium 8.6/50 MG Tablet PO SCH (08:26)
[2018-05-27] MEDS: Carvedilol 6.25 MG Tablet PO SCH (08:26)
[2018-05-27] MEDS: Heparin - SQ 10,000 UNITS/ML Vial SQ SCH ×2 (08:26→13:03)
--- NOTE | 2018-05-27 09:13 | P.PN ---
Subjective Interval history: Follow up Visit acute kidney injury on possibly chronic kidney disease, acute congestive heart failure, pneumonia, HIV. Patient seen and examined today. Reports shortness of breath has improved significantly. States he has not had any much activities in the hospital but he also is not walking at home. States he is able to stand up and transfer to his motorized wheelchair when he is at home because of difficulty of movement with his left hand. States he is really hungry. Reports he is ready to go home. Denies pain and discomfort. Denies SOB/ dyspnea. Denies chest pain, palpitations, headaches, dizziness. Denies fevers, chills, n/v/d. Denies hematuria, dysuria. Physical Exam Vital signs: Vital Signs 05/26/18 10:00 05/26/18 11:00 05/26/18 11:15 Temperature Pulse Rate 64 66 65 Respiratory Rate 16 Blood Pressure Pulse Oximetry 96 05/26/18 12:00 05/26/18 13:00 05/26/18 14:00 Temperature 98.2 F Pulse Rate 65 66 64 Respiratory Rate 20 Blood Pressure 131/92 H Pulse Oximetry 95 05/26/18 15:00 05/26/18 15:24 05/26/18 15:25 Temperature Pulse Rate 66 65 Respiratory Rate 18 Blood Pressure Pulse Oximetry 94 L 05/26/18 15:35 05/26/18 16:00 05/26/18 17:00 Temperature 98.1 F 98.1 F Pulse Rate 65 66 66 Respiratory Rate 20 20 Blood Pressure 133/90 133/90 Pulse Oximetry 95 95 05/26/18 18:00 05/26/18 20:00 05/26/18 21:00 Temperature 98.5 F Pulse Rate 68 71 70 Respiratory Rate 20 Blood Pressure 145/98 H Pulse Oximetry 95 05/26/18 21:15 05/26/18 22:00 05/26/18 23:00 Temperature Pulse Rate 70 72 72 Respiratory Rate 22 Blood Pressure Pulse Oximetry 05/27/18 00:00 05/27/18 01:00 05/27/18 02:00 Temperature 98.6 F Pulse Rate 72 70 72 Respiratory Rate 20 Blood Pressure 152/104 H Pulse Oximetry 92 L 05/27/18 03:00 05/27/18 04:00 05/27/18 05:00 Temperature 98.8 F Pulse Rate 72 73 70 Respiratory Rate 20 Blood Pressure 145/98 H Pulse Oximetry 95 05/27/18 06:00 05/27/18 08:00 Temperature 98.0 F Pulse Rate 70 67 Respiratory Rate 18 Blood Pressure 166/116 H Pulse Oximetry 95 Intake & Output 05/26/18 05/27/18 05/27/18 18:59 06:59 18:59 Intake Total 1050 / 1050 1080 / 1080 Output Total 1200 / 1200 1825 / 1825 Balance -150 / -150 -745 / -745 Intake: IV 150 / 150 Levaquin 750 mg Premix Inj 150 150 / 150 ML @ 100 mls/hr IV.SIG Q24H CHERYL Rx#:[id number] Oral 900 / 900 1080 / 1080 Output: Urine 1200 / 1200 1825 / 1825 Narrative: GENERAL: This is a well-nourished, well-developed patient, in no apparent distress. SKIN: Warm and dry. HEENT: Normocephalic. Pupils equal round and reactive. Nose without bleeding. Airway patent. NECK: Trachea midline. CARDIOVASCULAR: Regular rate and rhythm without murmurs, gallops, or rubs. RESPIRATORY: Diminished bases. Minimal crackles right lower lobe. No wheezes, rales, or rhonchi. GASTROINTESTINAL: Abdomen soft, non-tender, nondistended. Bowel Sounds normoactive x4. MUSCULOSKELETAL: Extremities without clubbing, cyanosis. Bilateral lower extremity +1 edema. NEUROLOGICAL: Awake and alert. Oriented to time, place, person. No focal neuro deficit. Moves all extremities. Normal speech. Results - Labs CBC & Chem 7: 05/27/18 05:09 05/27/18 05:09 Laboratory Results - last 24 hr 05/26/18 05/27/18 05/27/18 03:53 05:09 05:09 WBC 10.2 RBC 3.50 L Hgb 9.7 L Hct 29.6 L MCV 84.7 MCH 27.6 MCHC 32.6 RDW 18.3 H Plt Count 190 MPV 9.2 Neut % (Auto) 89.6 H Lymph % (Auto) 5.6 L [place] % (Auto) 4.6 Eos % (Auto) 0.0 Baso % (Auto) 0.2 Neut # (Auto) 9.2 H Lymph # (Auto) 0.6 L [place] # (Auto) 0.5 Eos # (Auto) 0.0 Baso # (Auto) 0.0 WBC Differential . Differential Comment Auto diff final Sodium 136 Potassium 3.1 L Chloride 98 Carbon Dioxide 27.7 Anion Gap 10 BUN 61 H Creatinine 4.92 H Estimated GFR 15 L Random Glucose 147 H Hemoglobin A1c 5.2 Calcium 7.5 L Assessment and Plan - Assessment (1) Pneumonia Code(s): J18.9 - Pneumonia, unspecified organism Status: Acute (2) HIV (human immunodeficiency virus infection) Code(s): B20 - Human immunodeficiency virus [HIV] disease Status: Acute (3) Hypertension Code(s): I10 - Essential (primary) hypertension Status: Acute (4) Renal failure (ARF), acute on chronic Code(s): N17.9 - Acute kidney failure, unspecified; N18.9 - Chronic kidney disease, unspecified Status: Acute (5) CHF (congestive heart failure) Code(s): I50.9 - Heart failure, unspecified Status: Acute - Plan Patient is a 57-year-old -[place] gentleman who presented to the emergency department complaining of shortness of breath Acute congestive heart failure Atypical chest pain -BNP greater than 5000 -Chest x-ray showed 1. Bilateral pulmonary infiltrates are noted (right worse than left) consistent with asymmetric pulmonary edema versus pneumonia. Clinical correlation is recommended. 2. Cardiomegaly. 3. Small right pleural effusion. -IV Lasix BID, increased 80mg -Monitor I's and O's. Daily weights. -Echocardiogram showed preserved EF 60%, pulmonary HTN. -Cardiology consulted, appreciate recommendations. Atypical chest pain possibly pleuritic. Acute kidney failure, possible chronic kidney disease ST IV secondary to hypertensive nephropathy -Avoid nephrotoxins -Noncompliant with diet and medications. -Nephrology consulted appreciate recommendation. No HD for now -Increased lasix IV, will await recommendation for home management Community-acquired pneumonia COPD but exacerbation Tobacco abuse -Received IV Solu-Medrol, now on IV solumedrol 40mg Q12, taper to PO prednisone, start tomorrow Prednisone 20mg BID x 5 days -IV antibiotics Levaquin q48 hrs, 2 more doses -Mucinex, duo nebs. Start Symbicort -Monitor respiratory status. Incentive spirometry. -Supplemental oxygen as needed HTN, uncontrolled -Patient noncompliant with medications and diet -Continue Coreg, Increased hydralazine 50mg 3 times daily, nifedipine -Clonidine as needed. Adjust medications as needed. -Monitor BP trend HIV -Reports not on any medication -Will not start HIV meds. He needs to follow up outpatient and be with HIV program. -Hepatitis panel negative DVT Prop Heparin Code Status: Full Code Discussed Condition With: Patient, nursing Discharge Planning: DC when clinically improved. (3) Hypertension Qualifiers: Hypertension type: unspecified Qualified Code(s): I10 - Essential (primary) hypertension (4) Renal failure (ARF), acute on chronic Qualifiers: Acute renal failure type: unspecified Chronic kidney disease stage: unspecified stage Qualified Code(s): N17.9 - Acute kidney failure, unspecified ; N18.9 - Chronic kidney disease, unspecified (5) CHF (congestive heart failure) Qualifiers: Heart failure type: other Qualified Code(s): I50.9 - Heart failure, unspecified
[2018-05-27] MEDS ORDERED: hydrALAZINE 50 MG Tablet PO SCH (09:18)
--- NOTE | 2018-05-27 10:16 | P.PNCA ---
<Judith Ku N - Last Filed: 05/27/18 10:06> Subjective Interval history: Pt denies any CP, pressure, palpitations or dizziness. Pt c/o mild SOB. Pt states that he is unable to bear weight on legs since October. Pt states he is feeling better but has some concerns about recent erectile disfunction. Physical Exam Vital signs: Vital Signs 05/26/18 11:00 05/26/18 11:15 05/26/18 12:00 Temperature 98.2 F Pulse Rate 66 65 65 Respiratory Rate 16 20 Blood Pressure 131/92 H Pulse Oximetry 96 95 05/26/18 13:00 05/26/18 14:00 05/26/18 15:00 Temperature Pulse Rate 66 64 66 Respiratory Rate Blood Pressure Pulse Oximetry 05/26/18 15:24 05/26/18 15:25 05/26/18 15:35 Temperature 98.1 F Pulse Rate 65 65 Respiratory Rate 18 20 Blood Pressure 133/90 Pulse Oximetry 94 L 95 05/26/18 16:00 05/26/18 17:00 05/26/18 18:00 Temperature 98.1 F Pulse Rate 66 66 68 Respiratory Rate 20 Blood Pressure 133/90 Pulse Oximetry 95 05/26/18 20:00 05/26/18 21:00 05/26/18 21:15 Temperature 98.5 F Pulse Rate 71 70 70 Respiratory Rate 20 22 Blood Pressure 145/98 H Pulse Oximetry 95 05/26/18 22:00 05/26/18 23:00 05/27/18 00:00 Temperature 98.6 F Pulse Rate 72 72 72 Respiratory Rate 20 Blood Pressure 152/104 H Pulse Oximetry 92 L 05/27/18 01:00 05/27/18 02:00 05/27/18 03:00 Temperature Pulse Rate 70 72 72 Respiratory Rate Blood Pressure Pulse Oximetry 05/27/18 04:00 05/27/18 05:00 05/27/18 06:00 Temperature 98.8 F Pulse Rate 73 70 70 Respiratory Rate 20 Blood Pressure 145/98 H Pulse Oximetry 95 05/27/18 08:00 Temperature 98.0 F Pulse Rate 67 Respiratory Rate 18 Blood Pressure 166/116 H Pulse Oximetry 95 Intake & Output 05/26/18 05/27/18 05/27/18 18:59 06:59 18:59 Intake Total 1050 / 1050 1080 / 1080 Output Total 1200 / 1200 1825 / 1825 Balance -150 / -150 -745 / -745 Intake: IV 150 / 150 Levaquin 750 mg Premix Inj 150 150 / 150 ML @ 100 mls/hr IV.SIG Q24H CHERYL Rx#:[id number] Oral 900 / 900 1080 / 1080 Output: Urine 1200 / 1200 1825 / 1825 - Constitutional no acute distress - Routine HEENT Exam Head: Present: normocephalic Eye: Present: EOMI ENT: Present: mucous membranes moist - Routine Respiratory Exam Present: CTA bilaterally - Routine Cardiovascular Exam Present: S1, S2. Absent: murmur, gallop, rubs - Routine Abdominal Exam Present: soft - Routine Extremities Exam Present: edema, full ROM, pulses intact, normal capillary refill Comments: trace edema LE - Routine Neurological Exam Present: oriented X3 - Detailed Neurological Exam: Coma Scale Eye Opening: Spontaneous Verbal Response: Oriented Motor Response: Obey commands Harpreet Coma Scale Total: 15 - Routine Psychiatric Exam Present: normal affect Assessment and Plan - Assessment (1) Acute exacerbation of chronic obstructive airways disease Code(s): J44.1 - Chronic obstructive pulmonary disease with (acute) exacerbation Status: Acute (2) Hypertension Code(s): I10 - Essential (primary) hypertension Status: Acute (3) Renal failure (ARF), acute on chronic Code(s): N17.9 - Acute kidney failure, unspecified; N18.9 - Chronic kidney disease, unspecified Status: Acute (4) CHF (congestive heart failure) Code(s): I50.9 - Heart failure, unspecified Status: Acute (5) Atypical chest pain Code(s): R07.89 - Other chest pain Status: Acute (6) HIV (human immunodeficiency virus infection) Code(s): B20 - Human immunodeficiency virus [HIV] disease Status: Acute - Plan Pt has severe renal insufficiency, nephrology evaluation in progress. Atypical chest pain is resolved. Monitor cardiac telemetry. Instructed patient that he needed to follow up with a print production coordinator concerning his erectile disfunction. Will follow patient during hospitalization. The patient was seen and evaluated by Dr. Centeno who participated in care, management and decision making. <Mira Centeno - Last Filed: 05/27/18 13:59> Physical Exam Vital signs: Vital Signs 05/26/18 14:00 05/26/18 15:00 05/26/18 15:24 Temperature Pulse Rate 64 66 Respiratory Rate Blood Pressure Pulse Oximetry 94 L 05/26/18 15:25 05/26/18 15:35 05/26/18 16:00 Temperature 98.1 F 98.1 F Pulse Rate 65 65 66 Respiratory Rate 18 20 20 Blood Pressure 133/90 133/90 Pulse Oximetry 95 95 05/26/18 17:00 05/26/18 18:00 05/26/18 20:00 Temperature 98.5 F Pulse Rate 66 68 71 Respiratory Rate 20 Blood Pressure 145/98 H Pulse Oximetry 95 05/26/18 21:00 05/26/18 21:15 05/26/18 22:00 Temperature Pulse Rate 70 70 72 Respiratory Rate 22 Blood Pressure Pulse Oximetry 05/26/18 23:00 05/27/18 00:00 05/27/18 01:00 Temperature 98.6 F Pulse Rate 72 72 70 Respiratory Rate 20 Blood Pressure 152/104 H Pulse Oximetry 92 L 05/27/18 02:00 05/27/18 03:00 05/27/18 04:00 Temperature 98.8 F Pulse Rate 72 72 73 Respiratory Rate 20 Blood Pressure 145/98 H Pulse Oximetry 95 05/27/18 05:00 05/27/18 06:00 05/27/18 07:00 Temperature Pulse Rate 70 70 69 Respiratory Rate Blood Pressure Pulse Oximetry 95 05/27/18 08:00 05/27/18 09:00 05/27/18 10:00 Temperature 98.0 F Pulse Rate 68 68 66 Respiratory Rate 18 Blood Pressure 166/116 H Pulse Oximetry 95 05/27/18 10:38 05/27/18 11:00 05/27/18 11:44 Temperature 97.7 F Pulse Rate 98 H 73 68 Respiratory Rate 20 18 Blood Pressure 171/115 H Pulse Oximetry 100 98 05/27/18 12:00 05/27/18 13:00 Temperature Pulse Rate 68 71 Respiratory Rate 20 Blood Pressure 155/103 H Pulse Oximetry 96 Intake & Output 05/26/18 05/27/18 05/27/18 18:59 06:59 18:59 Intake Total 1050 / 1050 1080 / 1080 Output Total 1200 / 1200 1825 / 1825 Balance -150 / -150 -745 / -745 Intake: IV 150 / 150 Levaquin 750 mg Premix Inj 150 150 / 150 ML @ 100 mls/hr IV.SIG Q24H [facility]ERYL Rx#:[id number] Oral 900 / 900 1080 / 1080 Output: Urine 1200 / 1200 1825 / 1825 Assessment and Plan - Assessment (1) Acute exacerbation of chronic obstructive airways disease Code(s): J44.1 - Chronic obstructive pulmonary disease with (acute) exacerbation Status: Acute (2) Hypertension Code(s): I10 - Essential (primary) hypertension Status: Acute (3) Renal failure (ARF), acute on chronic Code(s): N17.9 - Acute kidney failure, unspecified; N18.9 - Chronic kidney disease, unspecified Status: Acute (4) CHF (congestive heart failure) Code(s): I50.9 - Heart failure, unspecified Status: Acute (5) Atypical chest pain Code(s): R07.89 - Other chest pain Status: Acute (6) HIV (human immunodeficiency virus infection) Code(s): B20 - Human immunodeficiency virus [HIV] disease Status: Acute - Attending Attestation Patient seen and examined. I reviewed and agree with the evaluation and plan as presented. No recurrent CP. Remains stable from cardiac standpoint. <Judith Ku - Last Filed: 05/27/18 10:06> (2) Hypertension Qualifiers: Hypertension type: unspecified Qualified Code(s): I10 - Essential (primary) hypertension (3) Renal failure (ARF), acute on chronic Qualifiers: Acute renal failure type: unspecified Chronic kidney disease stage: unspecified stage Qualified Code(s): N17.9 - Acute kidney failure, unspecified ; N18.9 - Chronic kidney disease, unspecified (4) CHF (congestive heart failure) Qualifiers: Heart failure type: other Qualified Code(s): I50.9 - Heart failure, unspecified <Mira Centeno - Last Filed: 05/27/18 13:59> (2) Hypertension Qualifiers: Hypertension type: unspecified Qualified Code(s): I10 - Essential (primary) hypertension (3) Renal failure (ARF), acute on chronic Qualifiers: Acute renal failure type: unspecified Chronic kidney disease stage: unspecified stage Qualified Code(s): N17.9 - Acute kidney failure, unspecified ; N18.9 - Chronic kidney disease, unspecified (4) CHF (congestive heart failure) Qualifiers: Heart failure type: other Qualified Code(s): I50.9 - Heart failure, unspecified
--- NOTE | 2018-05-27 12:00 | P.PNNP ---
Subjective Interval history: Patient is alert, has mild SOB, feeling better, and started eating. Physical Exam Vital signs: Vital Signs 05/26/18 12:00 05/26/18 13:00 05/26/18 14:00 Temperature 98.2 F Pulse Rate 65 66 64 Respiratory Rate 20 Blood Pressure 131/92 H Pulse Oximetry 95 05/26/18 15:00 05/26/18 15:24 05/26/18 15:25 Temperature Pulse Rate 66 65 Respiratory Rate 18 Blood Pressure Pulse Oximetry 94 L 05/26/18 15:35 05/26/18 16:00 05/26/18 17:00 Temperature 98.1 F 98.1 F Pulse Rate 65 66 66 Respiratory Rate 20 20 Blood Pressure 133/90 133/90 Pulse Oximetry 95 95 05/26/18 18:00 05/26/18 20:00 05/26/18 21:00 Temperature 98.5 F Pulse Rate 68 71 70 Respiratory Rate 20 Blood Pressure 145/98 H Pulse Oximetry 95 05/26/18 21:15 05/26/18 22:00 05/26/18 23:00 Temperature Pulse Rate 70 72 72 Respiratory Rate 22 Blood Pressure Pulse Oximetry 05/27/18 00:00 05/27/18 01:00 05/27/18 02:00 Temperature 98.6 F Pulse Rate 72 70 72 Respiratory Rate 20 Blood Pressure 152/104 H Pulse Oximetry 92 L 05/27/18 03:00 05/27/18 04:00 05/27/18 05:00 Temperature 98.8 F Pulse Rate 72 73 70 Respiratory Rate 20 Blood Pressure 145/98 H Pulse Oximetry 95 05/27/18 06:00 05/27/18 07:00 05/27/18 08:00 Temperature 98.0 F Pulse Rate 70 69 68 Respiratory Rate 18 Blood Pressure 166/116 H Pulse Oximetry 95 95 05/27/18 09:00 05/27/18 10:00 05/27/18 10:38 Temperature Pulse Rate 68 66 98 H Respiratory Rate 20 Blood Pressure Pulse Oximetry 100 05/27/18 11:00 05/27/18 11:44 Temperature 97.7 F Pulse Rate 73 68 Respiratory Rate 18 Blood Pressure 171/115 H Pulse Oximetry 98 Intake & Output 05/26/18 05/27/18 05/27/18 18:59 06:59 18:59 Intake Total 1050 / 1050 1080 / 1080 Output Total 1200 / 1200 1825 / 1825 Balance -150 / -150 -745 / -745 Intake: IV 150 / 150 Levaquin 750 mg Premix Inj 150 150 / 150 ML @ 100 mls/hr IV.SIG Q24H CHERYL Rx#:[id number] Oral 900 / 900 1080 / 1080 Output: Urine 1200 / 1200 1825 / 1825 Narrative: GENERAL: This is a well-nourished, well-developed patient, in no apparent distress. SKIN: Warm and dry. HEENT: Normocephalic. Pupils equal round and reactive. Nose without bleeding. Airway patent. NECK: Trachea midline. CARDIOVASCULAR: Regular rate and rhythm without murmurs, gallops, or rubs. RESPIRATORY: Diminished bases. Minimal crackles right lower lobe. No wheezes, rales, or rhonchi. GASTROINTESTINAL: Abdomen soft, non-tender, nondistended. Bowel Sounds normoactive x4. MUSCULOSKELETAL: Extremities without clubbing, cyanosis. Bilateral lower extremity +1 edema. NEUROLOGICAL: Awake and alert. Oriented to time, place, person. No focal neuro deficit. Moves all extremities. Normal speech. Assessment and Plan - Plan 1. Chronic kidney disease with advanced renal failure. 2. Chronic obstructive pulmonary disease. 3. Congestive heart failure and fluid overload. 4. Human immunodeficiency virus disease. 5. Hypertension, not controlled. 6. Noncompliance. Patient has advance stage 4 chronic kidney disease. Creatinine is stable, the GFR is 15 ml/min. K is low and replaced. Still has edema, increase Lasix to 80 mg BID. Follow the urine out put and BMP. No urgent need for Dialysis. D/W the patient about possible HD in the future if get worse. Avoid Nephrotoxins.
--- NOTE | 2018-05-27 14:29 | P.DCO ---
- Physical Therapy Order: Evaluate and treat - Occupational Therapy Order: Evaluate and treat - Home Health Nursing Order: Medical education, Signs/symptoms of disease process, CHF education, Medication education-adverse effect, Nursing assessment with vital signs - Certification I have seen patient Mikel Cunningham on 05/27/18. My clinical findings support the need for the requested home health care services because: Limited mobility due to disease progression, Patient has SOB, Deconditioned with increased weakness, Medication compliance is questionable I certify that my clinical findings support that this patient is homebound because: Hx COPD - exertion dyspnea/weakness, Poor cardiac reserve
--- NOTE | 2018-05-27 14:40 | P.DS ---
Date of admission: 05/25/18 10:29 Primary care physician: No Primary Care Physician Attending physician on discharge: Nisha Caceres Anticipated date of discharge: 05/27/18 Brief History from admission: Patient is a 57-year-old -[place] gentleman who presented to the emergency department complaining of shortness of breath since 230 this morning. Patient states he been sleeping on 2 pillows and has had some dyspnea on exertion and at rest and with a cough. Does have a history of COPD hypertension HIV. Has questionable compliance since he is not on any HIV medications and did not know any of his medication. Per chart review his CD4 count was 305 in November. When he was brought in [facility] saw him he was tachypneic at 36 breath sounds a minute room air sats of only 90% increased to 99% on oxygen. And nebulizer. Was given IV Solu-Medrol and Zofran also had some right-sided chest pain atypical that started about 7:00 this morning lasted for about 20 minutes has had bilateral lower extremity edema and has had some Patient does not appear to be too compliant with his medication regimen. Found to be in renal failure. Has history of congestive heart failure, COPD, HIV positive, hypertension, poor compliance, tobacco abuse DS: Diagnosis - Discharge Diagnosis (1) Pneumonia Status: Acute (2) HIV (human immunodeficiency virus infection) Status: Acute (3) Hypertension Status: Acute (4) Renal failure (ARF), acute on chronic Status: Acute (5) CHF (congestive heart failure) Status: Acute DS: Medications - Discharge Medications Prescriptions: budesonide-formoterol [Symbicort] 2 puff INHALATION Q12H #1 inhaler carvedilol 6.25 mg PO BID #60 tab famotidine 10 mg PO BID #60 tab guaifenesin [Mucinex] 600 mg PO BID #14 tab hydralazine 75 mg PO BID #60 tab levofloxacin 750 mg PO Q48H #3 tab nifedipine 60 mg PO DAILY #30 tab prednisone 20 mg PO BID #10 tab DS: Summary Hospital Course: Patient is a 57-year-old -[place] gentleman who presented to the emergency department complaining of shortness of breath. Atypical chest pain. Chest x-ray showed 1. Bilateral pulmonary infiltrates are noted (right worse than left) consistent with asymmetric pulmonary edema versus pneumonia. Clinical correlation is recommended. 2. Cardiomegaly. 3. Small right pleural effusion. BNP > 5000. Troponin slight elevation noted. Treated with IV Lasix. Echocardiogram showed preserved EF 60%, pulmonary hypertension. Cardiology consulted, Atypical chest pain possibly pleuritic, elevated troponin possibly secondary to renal failure. Renal failure, acute on possibly stage 4 CKD. Patient has been noncompliant with diet and medications. Nephrology consulted sugar. Recommends no hemodialysis for now but possibly in the future if continues to decline. Patient was placed on IV Lasix and recommends to go on 80 mg of Lasix twice daily when he goes home, as per Dr. Laureano. He needs to follow-up with analytics developer. Patient is also found possibly having community- acquired pneumonia versus COPD exacerbation. IV antibiotics was started Levaquin every 48 hours needing 3 more doses. Patient was also started on Mucinex, duo nebs. He is also started on Symbicort. He will also have prednisone 20 mg twice daily 5 days when he goes home. Patient's blood pressure was uncontrolled as he has noncompliance with diet and medication. He will continue to be on Coreg, he will continue to be on hydralazine, nifedipine. Patient was diagnosed with HIV prior but has not been on any medication. He will need to follow-up in the outpatient program. We will not start HIV medications. His hepatitis panel was negative. Patient significantly improved. Reports shortness of breath has been better. Discussed extensively compliance with medications and treatment. Verbalized understanding. Patient has met maximal benefits of hospitalization. Clinically stable for discharge. - Time Spent with Patient Total time spent providing and/or coordinating discharge services: Greater than 30 minutes - Quality: VTE Deep Vein Thrombosis/Pulmonary Embolism Present on Admission: No Exam Vital signs: Vital Signs 05/26/18 15:00 05/26/18 15:24 05/26/18 15:25 Temperature Pulse Rate 66 65 Respiratory Rate 18 Blood Pressure Pulse Oximetry 94 L 05/26/18 15:35 05/26/18 16:00 05/26/18 17:00 Temperature 98.1 F 98.1 F Pulse Rate 65 66 66 Respiratory Rate 20 20 Blood Pressure 133/90 133/90 Pulse Oximetry 95 95 05/26/18 18:00 05/26/18 20:00 05/26/18 21:00 Temperature 98.5 F Pulse Rate 68 71 70 Respiratory Rate 20 Blood Pressure 145/98 H Pulse Oximetry 95 05/26/18 21:15 05/26/18 22:00 05/26/18 23:00 Temperature Pulse Rate 70 72 72 Respiratory Rate 22 Blood Pressure Pulse Oximetry 05/27/18 00:00 05/27/18 01:00 05/27/18 02:00 Temperature 98.6 F Pulse Rate 72 70 72 Respiratory Rate 20 Blood Pressure 152/104 H Pulse Oximetry 92 L 05/27/18 03:00 05/27/18 04:00 05/27/18 05:00 Temperature 98.8 F Pulse Rate 72 73 70 Respiratory Rate 20 Blood Pressure 145/98 H Pulse Oximetry 95 05/27/18 06:00 05/27/18 07:00 05/27/18 08:00 Temperature 98.0 F Pulse Rate 70 69 68 Respiratory Rate 18 Blood Pressure 166/116 H Pulse Oximetry 95 95 05/27/18 09:00 05/27/18 10:00 05/27/18 10:38 Temperature Pulse Rate 68 66 98 H Respiratory Rate 20 Blood Pressure Pulse Oximetry 100 05/27/18 11:00 05/27/18 11:44 05/27/18 12:00 Temperature 97.7 F Pulse Rate 73 68 68 Respiratory Rate 18 20 Blood Pressure 171/115 H 155/103 H Pulse Oximetry 98 96 05/27/18 13:00 Temperature Pulse Rate 71 Respiratory Rate Blood Pressure Pulse Oximetry Intake & Output 05/26/18 05/27/18 05/27/18 18:59 06:59 18:59 Intake Total 1050 / 1050 1080 / 1080 Output Total 1200 / 1200 1825 / 1825 Balance -150 / -150 -745 / -745 Intake: IV 150 / 150 Levaquin 750 mg Premix Inj 150 150 / 150 ML @ 100 mls/hr IV.SIG Q[facility]H [facility] Rx#:[id number] Oral 900 / 900 1080 / 1080 Output: Urine 1200 / 1200 1825 / 1825 Narrative: GENERAL: This is a well-nourished, well-developed patient, in no apparent distress. SKIN: Warm and dry. HEENT: Normocephalic. Pupils equal round and reactive. Nose without bleeding. Airway patent. NECK: Trachea midline. CARDIOVASCULAR: Regular rate and rhythm without murmurs, gallops, or rubs. RESPIRATORY: Diminished bases. Minimal crackles right lower lobe. No wheezes, rales, or rhonchi. GASTROINTESTINAL: Abdomen soft, non-tender, nondistended. Bowel Sounds normoactive x4. MUSCULOSKELETAL: Extremities without clubbing, cyanosis. Bilateral lower extremity +1 edema. NEUROLOGICAL: Awake and alert. Oriented to time, place, person. No focal neuro deficit. Moves all extremities. Normal speech. Results Procedures completed during hospitalization: None Labs on day of discharge: Labs from last 24 hours 05/27/18 05/27/18 05/26/18 05:09 05:09 03:53 WBC 10.2 RBC 3.50 L Hgb 9.7 L Hct 29.6 L MCV 84.7 MCH 27.6 MCHC 32.6 RDW 18.3 H Plt Count 190 MPV 9.2 Neut % (Auto) 89.6 H Lymph % (Auto) 5.6 L [place] % (Auto) 4.6 Eos % (Auto) 0.0 Baso % (Auto) 0.2 Neut # (Auto) 9.2 H Lymph # (Auto) 0.6 L [place] # (Auto) 0.5 Eos # (Auto) 0.0 Baso # (Auto) 0.0 WBC Differential . Differential Comment Auto diff final Sodium 136 Potassium 3.1 L Chloride 98 Carbon Dioxide 27.7 Anion Gap 10 BUN 61 H Creatinine 4.92 H Estimated GFR 15 L Random Glucose 147 H Hemoglobin A1c 5.2 Calcium 7.5 L - Impressions ITS Impressions Chest X-Ray 05/25/18 08:01 CONCLUSION: 1. Bilateral pulmonary infiltrates are noted (right worse than left) consistent with asymmetric pulmonary edema versus pneumonia. Clinical correlation is recommended. 2. Cardiomegaly. 3. Small right pleural effusion. Abdomen/Pelvis CT 05/25/18 08:07 CONCLUSION: 1. Moderate diverticulosis with no focal inflammatory change identified. The study was performed without oral or intravenous contrast and is diffuse anasarca limiting visualization. 2. Small to moderate amount of ascitic fluid. 3. New small bilateral pleural effusions. 4. Cholelithiasis. 5. Mild hazy opacities present in both lung bases which could indicate pulmonary edema. 6. Moderate cardiomegaly. Discharge Plan - Discharge Disposition Patient Disposition: W/Home Health Service - Discharge Condition Condition: Stable - Discharge Order Discharge Orders: Discharge Order (Routine); Ordered 05/27/18 Ordered By: Iszenn Briganti - Physicians Team Primary Care Provider: Primary Care Florecita Estrella Attending Provider: Nisha Caceres Other Providers: Mira Centeno MD ; Lyric Laureano MD ; [facility], Insurance
[2018-05-27] MEDS ORDERED: predniSONE 20 MG Tablet PO SCH (21:00)
[2018-05-28] MEDS ORDERED: levoFLOXacin 500 MG Tablet PO SCH (09:00)
[2018-05-28] MEDS ORDERED: MethylPREDNISolone Sod Succinate Inj 40 MG/ML Vial IV.PUSH SCH (09:00)
== END 2018-05-27 18:44 | disposition home health service (06) ==
LOC: NEPE 07:47 → NEDA 10:29 → NEDH 19:24 → HCIS 21:35
PROVIDERS: ADMIT Family Medicine; ATTEND Family Medicine